=== PATIENT | male | born 1965 | race Caucasian/White ===

== ENCOUNTER 2016-09-26 11:04 | Outpatient (CLI) | payer OTHER ==
[2016-09-26 12:39] LABS: HEMOGLOBIN A1C 0.8 g/dL
== END 2016-09-26 11:05 | disposition home or self-care (01) ==
LOC: LAB.R 11:04
PROVIDERS: ATTEND Internal Medicine
DX: E11.65 Type 2 diabetes mellitus with hyperglycemia (principal); Z79.899 Other long term (current) drug therapy
CPT/HCPCS: 83036

== ENCOUNTER 2016-11-13 15:46 | Outpatient (CLI) | payer OTHER | END 2016-11-13 15:47 | disposition home or self-care (01) | LOC: LAB 15:46 | PROVIDERS: ATTEND Internal Medicine | DX: R06.00 Dyspnea, unspecified (principal) | CPT/HCPCS: 85379 ==

== ENCOUNTER 2016-11-13 16:59 | Emergency (ER) | payer OTHER ==
[2016-11-13] MEDS ORDERED: HYDROcod/ACETAM 5/325 MG TABLET PO STA (17:55)
[2016-11-13] MEDS ORDERED: HYDROcod/ACETAM 5/325 MG TABLET ONE (18:01)
[2016-11-13] MEDS ORDERED: IOPAMIDOL-300 100 ML VIAL IVP ONE (19:50)
[2016-11-13] MEDS ORDERED: ENOXAPARIN 100 MG/ML SYRINGE SUBQ STA (21:10)
[2016-11-13] MEDS ORDERED: ENOXAPARIN 100 MG/ML SYRINGE SUBQ ONE (21:16)
[2016-11-13] MEDS ORDERED: ENOXAPARIN 30 MG/0.3 ML SYRINGE SUBQ ONE (21:16)
== END 2016-11-13 21:36 | disposition home or self-care (01) ==
DX: I82.412 Acute embolism and thrombosis of left femoral vein (principal); R07.89 Other chest pain; R06.02 Shortness of breath; I10 Essential (primary) hypertension; I25.10 Atherosclerotic heart disease of native coronary artery without angina pectoris; Z95.1 Presence of aortocoronary bypass graft; I25.2 Old myocardial infarction; J45.909 Unspecified asthma, uncomplicated; E11.9 Type 2 diabetes mellitus without complications; K21.9 Gastro-esophageal reflux disease without esophagitis; M19.90 Unspecified osteoarthritis, unspecified site; M10.9 Gout, unspecified; E78.00 Pure hypercholesterolemia, unspecified; Z86.73 Personal history of transient ischemic attack (TIA), and cerebral infarction without residual deficits; Z79.82 Long term (current) use of aspirin
CPT/HCPCS: 36415; 71275; 80053; 83690; 84484; 85025; 85379; 85610; 85730; 93005; 93970; 96372; 99284; A9270; J1650; Q9967

== ENCOUNTER 2016-11-15 16:08 | Outpatient (CLI) | payer OTHER | END 2016-11-15 16:09 | disposition home or self-care (01) | LOC: LAB.R 16:08 | PROVIDERS: ATTEND Internal Medicine | DX: M18.9 Osteoarthritis of first carpometacarpal joint, unspecified (principal) | CPT/HCPCS: 85651; 86140; 86200; 86430 ==

== ENCOUNTER 2016-12-05 19:48 | Outpatient (CLI) | payer OTHER | END 2016-12-05 19:49 | disposition home or self-care (01) | LOC: DI 19:48 | PROVIDERS: ATTEND Nurse Practitioner Primary Care | DX: Z53.9 Procedure and treatment not carried out, unspecified reason (principal) ==

== ENCOUNTER 2016-12-05 20:41 | Observation (INO) | payer OTHER ==
[2016-12-05 21:12] LABS: BASOPHILS # (AUTO) 0.1 10^3/uL (0.0-0.1); BASOPHILS % (AUTO) 0.8 %; EOSINOPHILS # (AUTO) 0.1 10^3/uL (0.0-0.7); EOSINOPHILS % (AUTO) 1.6 %; HCT - HEMATOCRIT 39.3 % (42.0-52.0); HGB - HEMOGLOBIN 13.5 g/dL (14.0-18.0); LYMPHOCYTES # (AUTO) 1.5 10^3/uL (1.5-3.5); LYMPHOCYTES % (AUTO) 18.3 %; MEAN CORPUSCULAR HEMOGLOBIN 31.2 pg (27.0-31.0); MEAN CORPUSCULAR HGB CONC 34.5 g/dL (32.0-36.0); MEAN CORPUSCULAR VOLUME 90.4 fL (80.0-94.0); MEAN PLATELET VOLUME 7.6 fL (7.4-11.4); MONOCYTES # (AUTO) 0.9 10^3/uL (0.0-1.0); MONOCYTES % (AUTO) 10.4 %; NEUTROPHILS # (AUTO) 5.8 10^3/uL (1.5-6.6); NEUTROPHILS % (AUTO) 68.9 %; RED BLOOD COUNT 4.35 10^6/uL (4.70-6.10); RED CELL DISTRIBUTION WIDTH 13.2 % (12.0-15.0); UNCORRECTED WHITE BLOOD COUNT 8.4 x10^3/uL; WHITE BLOOD COUNT 8.4 x10^3/uL (4.8-10.8)
[2016-12-05 21:19] LABS: INR 1.5 (0.8-1.2)
[2016-12-05 21:26] LABS: PARTIAL THROMBOPLASTIN TIME 31.8 secs (24.9-33.3)
[2016-12-05] MEDS ORDERED: NITROGLYCERIN SL 0.4 MG TABLET SL ONE (21:26)
[2016-12-05 21:28] LABS: ALBUMIN/GLOBULIN RATIO 1.5 (1.0-2.2); BILIRUBIN,TOTAL 0.6 mg/dL (0.2-1.0); CALCIUM 9.2 mg/dL (8.5-10.3); CREATININE 1.2 mg/dL (0.6-1.2); POTASSIUM 3.6 mmol/L (3.5-5.0)
[2016-12-05] MEDS ORDERED: IOPAMIDOL-300 100 ML VIAL IVP ONE (21:52)
--- NOTE | 2016-12-05 22:11 | XRAY Preliminary Report ---
Exam: XR Chest 2 View PA/LAT IMPRESSION: 1. Previous sternotomy. Sternal wires intact. No cardiac enlargement. 2. Lingular atelectasis or scarring. No acute pulmonary process. [facility] SITE ID: [id number]
--- NOTE | 2016-12-05 22:19 | CT Preliminary Report ---
Exam: CT Chest Angio (PE) IMPRESSION: 1. Normal pulmonary CT angiogram. No pulmonary emboli. 2. Right lower lobe calcified granuloma. No acute pulmonary process. 3. Cardiac enlargement without adenopathy. Diffuse coronary artery disease. Previous sternotomy. 4. Fatty liver. No liver mass. Right-sided hydronephrosis and dilated proximal right ureter. Obstruct ing ureteral stone not excluded. Correlate clinically. Patient may benefit from CT KUB. [facility] SITE ID: [id number]
--- NOTE | 2016-12-05 22:33 | XRAY Report ---
EXAM: CHEST RADIOGRAPHY EXAM DATE: 12/05/2016 09:56 PM. CLINICAL HISTORY: Chest pain. COMPARISON: 04/09/2016. TECHNIQUE: 2 views. FINDINGS: Lungs/Pleura: No focal opacities evident. No pleural effusion. No pneumothorax. Normal volumes. Lingu lar subsegmental atelectasis and scarring. Mediastinum: Previous sternotomy. No cardiac enlargement. Other: None. IMPRESSION: 1. Previous sternotomy. Sternal wires intact. No cardiac enlargement. 2. Lingular atelectasis or scarring. No acute pulmonary process. [facility] Referring Provider Line: [phone] SITE ID: [id number]
--- NOTE | 2016-12-05 22:34 | CT Report ---
EXAM: CT ANGIOGRAM CHEST EXAM DATE: 12/05/2016 09:55 PM. CLINICAL HISTORY: Chest pain, history of DVT. COMPARISON: 04/09/2016. TECHNIQUE: Routine helical imaging was performed through the chest in the pulmonary arterial phase. I V Contrast: 100 mL of Isovue-300. Reconstructions: Coronal 3-D MIP reconstructions.Sagittal and coron al. In accordance with CT protocol optimization, one or more of the following dose reduction techniques w ere utilized for this exam: automated exposure control, adjustment of mA and/or KV based on patient s ize, or use of iterative reconstructive technique. FINDINGS: Pulmonary Arteries: Diagnostic quality: Adequate through the segmental arteries. No evidence for acute or chronic pulmona ry emboli. RV/LV is within normal limits. There is no interventricular septal bowing. There is no reflux of cont rast material in the IVC. Lungs/Pleura: No consolidation, nodules, or edema. No effusions or pneumothorax. Lingular subsegmenta l atelectasis. Additional right middle lobe atelectasis present. Calcified right lower lobe granuloma . Mediastinum: Previous sternotomy. Mild cardiac enlargement. No pericardial effusion. Extensive ramos ry artery disease is present. No bulky mediastinal or hilar adenopathy. Thoracic Aorta: Unremarkable. Upper Abdomen: Delayed enhancement of the right kidney with mild to moderate right hydronephrosis and dilated proximal right ureter. Fatty liver. No liver mass. Small incidental hiatal hernia. Other: Homogeneous enhancement of the thyroid gland. No thyroid nodule or mass. No supraclavicular or axillary lymphadenopathy identified. IMPRESSION: 1. Normal pulmonary CT angiogram. No pulmonary emboli. 2. Right lower lobe calcified granuloma. No acute pulmonary process. 3. Cardiac enlargement without adenopathy. Diffuse coronary artery disease. Previous sternotomy. 4. Fatty liver. No liver mass. Right-sided hydronephrosis and dilated proximal right ureter. Obstruct ing ureteral stone not excluded. Correlate clinically. Patient may benefit from CT KUB. [facility] Referring Provider Line: [phone] SITE ID: [id number]
--- NOTE | 2016-12-05 23:52 | Ultrasound Preliminary Report ---
Exam: US Duplex Ext Veins Bilateral IMPRESSION: No evidence for deep venous thrombosis bilaterally. Previous left common femoral vein DVT has resolved. [facility] SITE ID: [id number]
--- NOTE | 2016-12-05 23:54 | Ultrasound Report ---
EXAM: BILATERAL LOWER EXTREMITY VENOUS ULTRASOUND EXAM DATE: 12/05/2016 11:43 PM. CLINICAL HISTORY: Worsening pain and swelling. History of DVT. COMPARISON: 11/13/2016. TECHNIQUE: Real-time sonographic vascular imaging was performed by the tubular stock glass bulb machine former through the lower extremities utilizing both color-flow and Doppler spectral analysis. Multiple patient registration representative static i mages were saved for review. FINDINGS: Right: Common Femoral Vein (CFV): Normal. CFV-GSV Junction: Normal. Profunda Femoral Vein (PFV): Normal. Femoral Vein (FV) Prox: Normal. Femoral Vein (FV) Mid: Normal. Femoral Vein (FV) Dist: Limited visualization. Popliteal Vein: Normal. Posterior Tibial Veins: Not well seen. Peroneal Veins: Not well seen. Left: Common Femoral Vein (CFV): Normal. CFV-GSV Junction: Normal. Profunda Femoral Vein (PFV): Normal. Femoral Vein (FV) Prox: Normal. Femoral Vein (FV) Mid: Limited visualization. Femoral Vein (FV) Dist: Limited visualization. Popliteal Vein: Normal. Posterior Tibial Veins: Not well seen. Peroneal Veins: Not well seen. Other: Bilateral subcutaneous edema in the lower legs. IMPRESSION: No evidence for deep venous thrombosis bilaterally. Previous left common femoral vein DVT has resolved. [facility] Referring Provider Line: [phone] SITE ID: [id number]
--- NOTE | 2016-12-05 23:59 | ED Physician Documentation ---
PD HPI CHEST PAIN - Stated complaint Stated Complaint: CHEST PAIN - Chief complaint Chief Complaint: Cardiac - History obtained from History obtained from: Patient - History of Present Illness Timing - onset: How many hours ago (1) Timing - onset during: Rest Timing - details: Gradual onset, Intermittant Quality: Pressure, Sharp Location: Substernal, Left chest Worsened by: Exertion Associated symptoms: Shortness of air. No: Diaphoresis, Nausea, Vomiting, Palpitations Similar symptoms before: Work up / diagnostics, Treatment, Follow up Recently seen: Clinic - Additional information Additional information: Patient is a 51 year old male with significant cardiac history including multiple MIs and stents who is presenting to the emergency department for chest pain. Patient had been diagnosed with a dvt on his left leg, he developed right leg swelling so was sent for an ultrasound study. While waiting for the ultrasound patient developed chest pain and shortness of breath. Review of Systems Constitutional: denies: Fever, Chills Eyes: denies: Decreased vision, Photophobia Ears: denies: Ear pain Nose: denies: Congestion Throat: denies: Dental pain / toothache, Sore throat Cardiac: reports: Chest pain / pressure, Pedal edema. denies: Palpitations Respiratory: reports: Dyspnea. denies: Cough, Hemoptysis, Wheezing GI: denies: Abdominal Pain, Nausea, Vomiting : denies: Dysuria, Frequency, Hesitancy Skin: denies: Rash, Lesions Musculoskeletal: reports: Extremity swelling. denies: Neck pain, Back pain, Extremity pain Neurologic: denies: Generalized weakness, Focal weakness, Numbness PD PAST MEDICAL HISTORY - Past Medical History Past Medical History: Yes Cardiovascular: Hypertension, High cholesterol, Coronary artery disease, [place] Respiratory: Asthma Neuro: CVA, TIA Endocrine/Autoimmune: Type 2 diabetes GI: GERD : None HEENT: Chronic vision loss, Chronic hearing loss Psych: Depression Musculoskeletal: Osteoarthritis, Gout Derm: None - Past Surgical History Past Surgical History: Yes Cardiovascular: CABG, Coronary stent - Present Medications Home Medications: Ambulatory Orders Medication Instructions Recorded Confirmed Allopurinol 300 mg PO DAILY 09/28/12 12/06/16 Atorvastatin Calcium [Lipitor] 80 mg PO QPM 09/28/12 12/06/16 Carvedilol [Coreg] 18 mg PO BID 09/28/12 12/06/16 Glipizide [Glipizide Xl] 5 mg PO DAILY 09/28/12 12/06/16 Metformin HCl [Fortamet] 1,000 mg PO BID 09/28/12 12/06/16 Sertraline [Zoloft] 50 mg PO DAILY 09/28/12 12/06/16 traMADol [Ultram] 50 mg PO BID 09/28/12 12/06/16 traZODone [Desyrel] 150 mg PO HS PRN 09/28/12 12/06/16 Clopidogrel [Plavix] 75 mg PO DAILY 04/08/16 12/06/16 DULoxetine [Cymbalta] 30 mg PO DAILY 04/08/16 12/06/16 Gabapentin 400 mg PO Q6HR 04/08/16 12/06/16 Nitroglycerin [Nitrostat] 0.4 mg SL Q5MIN PRN #30 tablet 04/09/16 12/06/16 B Complex with Vitamin C 1 each PO DAILY 12/06/16 12/06/16 [B-Complex Plus Vitamin C] Hydrocodone/Acetaminophen 1 each PO DAILY 12/06/16 12/06/16 [Hydrocodon-Acetaminoph 7.5-325] Lidocaine Patch 5% [Lidoderm Patch] 1 each TOP DAILY 12/06/16 12/06/16 Multivitamin [Multiple Vitamins] 1 each PO DAILY 12/06/16 12/06/16 Rivaroxaban [Xarelto] 15 mg PO BID 12/06/16 12/06/16 diphenhydrAMINE [Benadryl] 25 mg PO Q4-6H PRN 12/06/16 12/06/16 - Allergies Allergies/Adverse Reactions: Allergies Allergy/AdvReac Type Severity Reaction Status Date / Time cephalexin monohydrate * Allergy Unknown Nausea Verified 12/05/16 20:58 [From Keflex] - Social History Does the pt smoke?: No Smoking Status: Never smoker Does the pt drink ETOH?: Yes Does the pt have substance abuse?: No - Immunizations Immunizations are current?: Yes - POLST Patient has POLST: No PD ED PE NORMAL - Vitals Vital signs reviewed: Yes - General General: Alert and oriented X 3, No acute distress - HEENT HEENT: Atraumatic, PERRL - Neck Neck: Supple, no meningeal sign - Cardiac Cardiac: RRR - Respiratory Respiratory: Clear bilaterally - Abdomen Abdomen: Soft, Non tender, Non distended - Derm Derm: Normal color, Warm and dry, No rash - Neuro Neuro: Alert and oriented X 3, stripper preliminary 2-12 intact, No motor deficit, No sensory deficit, Normal speech - Psych Psych: Normal mood, Normal affect PD ED PE EXPANDED - Cardiac Cardiac: Murmur Present - Respiratory Respiratory: No: Distress, Wheezing, Rhonchi, Rales - Extremities Extremities: Pedal edema bilateral Results - Vitals Vitals: Vital Signs - 24 hr 12/05/16 12/05/16 12/05/16 20:50 21:28 22:20 Temperature 37.1 C Heart Rate 71 70 72 Respiratory 18 16 19 Rate Blood Pressure 181/105 H 157/79 H 133/69 H O2 Saturation 99 99 99 12/05/16 12/05/16 22:48 23:37 Temperature 35.8 C L Heart Rate 71 64 Respiratory 17 12 Rate Blood Pressure 132/67 H 140/84 H O2 Saturation 99 98 Oxygen O2 Source Room air - EKG (time done) 2057 Rate: Rate (enter#) (67) Rhythm: NSR [place]: Normal Intervals: Normal ME QRS: Normal Ischemia: Normal ST segments Compare to prior EKG: Unchanged from prior EKG - Labs Labs: Laboratory Tests 12/05/16 12/05/16 12/05/16 20:55 20:55 20:55 WBC 8.4 RBC 4.35 L Hgb 13.5 L Hct 39.3 L MCV 90.4 MCH 31.2 H MCHC 34.5 RDW 13.2 Plt Count 248 MPV 7.6 Neut # 5.8 Lymph # 1.5 [place] # 0.9 Eos # 0.1 Baso # 0.1 Absolute Nucleated RBC 0.00 Nucleated RBCs 0.0 PT 17.0 H INR 1.5 H APTT 31.8 Sodium 140 Potassium 3.6 Chloride 105 Carbon Dioxide 27 Anion Gap 8.0 BUN 11 Creatinine 1.2 Estimated GFR (MDRD) 64 L Glucose 188 H Calcium 9.2 Total Bilirubin 0.6 AST 21 ALT 22 Alkaline Phosphatase 82 Troponin I B-Natriuretic Peptide Total Protein 7.0 Albumin 4.2 Globulin 2.8 Albumin/Globulin Ratio 1.5 Lipase 32 12/05/16 12/05/16 20:55 20:55 WBC RBC Hgb Hct MCV MCH MCHC RDW Plt Count MPV Neut # Lymph # [place] # Eos # Baso # Absolute Nucleated RBC Nucleated RBCs PT INR APTT Sodium Potassium Chloride Carbon Dioxide Anion Gap BUN Creatinine Estimated GFR (MDRD) Glucose Calcium Total Bilirubin AST ALT Alkaline Phosphatase Troponin I < 0.04 B-Natriuretic Peptide 117 H Total Protein Albumin Globulin Albumin/Globulin Ratio Lipase - Rads (name of study) ct pe Radiology: Final report received (no pe appreciated) duplex bilateral Radiology: Final report received (no signs of dvt) PD MEDICAL DECISION MAKING - ED course Complexity details: reviewed old records, reviewed results, re-evaluated patient , considered differential, d/w patient ED course: Patient was seen and examined at bedside. Iv access was gained and labs were drawn ekg was performed and was within normal limits. PE study wsa performed and was negative. Patient's chest pain returned and was treated with nitro which improved his pain. Patient's dvt studies were negative. Patient had an elevated HEART and MARY ANNE score. Patinet was placed in observation for further evaluation and care. Departure - Departure Disposition: ED Place in Observation Clinical Impression: Chest pain Condition: Stable Discharge Date/Time: 12/06/16 00:58
[2016-12-06] MEDS ORDERED: SODIUM CHLORIDE FLUSH 0.9% 10 ML SYRINGE IVP PRN (00:06)
[2016-12-06] MEDS ORDERED: ONDANSETRON 4 MG/2 ML VIAL IVP PRN (00:06)
[2016-12-06] MEDS ORDERED: MORPHINE 2 MG/ML SYRINGE IVP PRN (00:06)
[2016-12-06] MEDS ORDERED: HYDROcod/ACETAM 5/325 MG TABLET PO PRN (00:06)
[2016-12-06] MEDS ORDERED: ACETAMINOPHEN 325 MG TABLET PO PRN (00:06)
[2016-12-06] MEDS ORDERED: PROCHLORPERAZINE 10 MG/2 ML VIAL IVP PRN (00:06)
[2016-12-06] MEDS ORDERED: ZOLPIDEM 5 MG TABLET PO PRN (00:06)
[2016-12-06] MEDS ORDERED: NITROGLYCERIN SL 0.4 MG TABLET SL PRN (00:06)
[2016-12-06] MEDS ORDERED: NITROGLYCERIN SL 0.4 MG TABLET SL STA (00:13)
[2016-12-06] MEDS ORDERED: ENOXAPARIN 120 MG/0.8 ML SYRINGE SUBQ SCH ×2 (01:00→02:00)
[2016-12-06] MEDS ORDERED: traZODone 50 MG TABLET PO SCH (01:00)
[2016-12-06] MEDS: RIVAROXABAN 15 MG TABLET PO SCH ×2 (02:53→09:25)
[2016-12-06 03:17] LABS: BASOPHILS # (AUTO) 0.1 10^3/uL (0.0-0.1); BASOPHILS % (AUTO) 1.4 %; EOSINOPHILS # (AUTO) 0.2 10^3/uL (0.0-0.7); EOSINOPHILS % (AUTO) 2.3 %; HCT - HEMATOCRIT 38.5 % (42.0-52.0); HGB - HEMOGLOBIN 13.3 g/dL (14.0-18.0); LYMPHOCYTES # (AUTO) 1.3 10^3/uL (1.5-3.5); LYMPHOCYTES % (AUTO) 18.9 %; MEAN CORPUSCULAR HEMOGLOBIN 31.3 pg (27.0-31.0); MEAN CORPUSCULAR HGB CONC 34.5 g/dL (32.0-36.0); MEAN CORPUSCULAR VOLUME 90.6 fL (80.0-94.0); MEAN PLATELET VOLUME 7.2 fL (7.4-11.4); MONOCYTES # (AUTO) 0.7 10^3/uL (0.0-1.0); MONOCYTES % (AUTO) 9.2 %; NEUTROPHILS # (AUTO) 4.8 10^3/uL (1.5-6.6); NEUTROPHILS % (AUTO) 68.2 %; RED BLOOD COUNT 4.25 10^6/uL (4.70-6.10); RED CELL DISTRIBUTION WIDTH 13.5 % (12.0-15.0); UNCORRECTED WHITE BLOOD COUNT 7.1 x10^3/uL; WHITE BLOOD COUNT 7.1 x10^3/uL (4.8-10.8)
[2016-12-06 03:39] LABS: ALBUMIN/GLOBULIN RATIO 1.8 (1.0-2.2); BILIRUBIN,TOTAL 0.8 mg/dL (0.2-1.0); BUN - BLOOD UREA NITROGEN 12 mg/dL (6-20); CALCIUM 8.8 mg/dL (8.5-10.3); CARBON DIOXIDE - CO2 25 mmol/L (21-32); CHLORIDE 109 mmol/L (101-111); CHOL/HDL RATIO 4.7 (<5.0); CHOLESTEROL 145 mg/dL; CREATININE 0.6 mg/dL (0.6-1.2); GFR - MDRD 142 (>89); GLUCOSE 135 mg/dL (70-100); HDL CHOLESTEROL 31 mg/dL; LDL/HDL RATIO 2.9 (<3.6); POTASSIUM 3.4 mmol/L (3.5-5.0); SODIUM 141 mmol/L (135-145); TOTAL PROTEIN 6.6 g/dL (6.7-8.2); TRIGLYCERIDES 117 mg/dL; VLDL CHOLESTEROL 23 mg/dL
[2016-12-06 05:26] LABS: HEMOGLOBIN A1C 0.59 g/dL
--- NOTE | 2016-12-06 06:18 | HISTORY & PHYSICAL EXAMINATION ---
Chief Complaint - Chief Complaint Chief Complaint: Chest Pain History of Present Illness - Admitted From Admitted From:: Emergency Department - History Obtained From Records Reviewed: Yes History obtained from: Patient Exam Limitations: None - History of Present Illness HPI Comment/Other: Patient is a 51 yo male with past medical history of coronary artery disease status post 5 stents and CABG 3 years ago, hypertension, hyperlipidemia, diabetes, 4 TIAs and a cerebral vascular accident who presented to the emergency department with a chief complaint of chest pain. The patients states he has been having chest pain off and on now for the past month which has been increasing in frequency and intensity. She states that it can occur at rest or with exertion. He also states that over the last month he has also noticed increasing shortness of breath at rest and with exertion. He also states that he noticed increasing swelling in his left leg about 2 months ago but waited till just 3 weeks ago to see his PCP regarding this and was found to have a DVT for which he is being treated with xarelto. He states that despite the treatment he has noticed that the swelling has worsened and now he has begun to develop swelling in his right leg as well over the last 3 days. He saw his PCP yesterday and was scheduled for a doppler of his right lower extremity today. He states while he was in the waiting room he began having chest pain. He states that pain was a 9/10 located on the left side of the chest just under his breast. He states it was localized and non radiating. He states it was a stabbing type pain. The pain lasted for about 35-40 seconds but it has continued off and on since then. He told the manufacturing engineering technologist about the pain and was sent to the ED. The patient states he received some nitroglycerin in the ED and with that his pain immediately resolved. He admits to associated shortness of breath but no nausea or diaphoresis. He denies any palpitations or focal neurological symptoms. On presentation to the ED the patient was afebrile and hypertensive. His initial troponin and EKG were negative. He under went and CTA of his lungs which did not show any evidence of a PE. Dopplers of his lower extremities showed a resolved DVT in the left common femoral vein and no DVT in the right leg. Patient was placed in obs for serial trops, tele monitoring and echo. Review of Systems - Constitutional Constitutional: denies: Fatigue, Fever, Chills, Malaise, Weakness, Poor appetite , Diaphoresis, Weight gain, Weight loss - Eyes Eyes: denies: Pain, Irritation, Amaurosis, Blurred vision, Spots in vision, Field loss, Vision loss, Dipolpia - Ears, Nose & Throat Ears, Nose & Throat: denies: Ear pain, Hearing loss, Hearing aids, Tinnitus, Vertigo, Nasal pain, Nasal discharge, Nosebleeds, Nasal obstruction, Nasal congestion, Sore throat, Hoarseness - Cardiovascular Cariovascular: reports: Chest pain, Edema, Exertional dyspnea, Decr. exercise tolerance. denies: Palpitations, Lightheadedness, Syncope, Orthopnea - Respiratory Respiratory: reports: SOB at rest, SOB with exertion. denies: Cough, Sputum production, Wheezing, Snoring, Hemoptysis, Orthopnea, Apnea, Stridor, Pleuritic pain - Gastrointestinal Gastrointestinal: denies: Abdominal pain, Abdominal distention, Constipation, Diarrhea, Rectal bleeding, Black stools, Bloody stools, Nausea, Vomiting, Hugh blood emesis, Coffee grounds emesis - Genitourinary Genitourinary: denies: Dysuria, Frequency, Urgency, Hematuria - Musculoskeletal Musculoskeletal: denies: Muscle pain, Back pain, Muscle aches, Stiffness, Limited range of motion, Muscle weakness, Joint pain, Joint swelling - Integumentary Integumentary: denies: Rash, Lesions, Dryness - Neurological Neurological: denies: General weakness, Focal weakness, Headache, Dizziness, Numbness, Abnormal gait, Seizures, Slurred speech - Psychiatric Psychiatric: denies: Depression, Anxiety - Endocrine Endocrine: denies: Polyuria, Polydypsia, Polyphagia, Intolerance to cold, Intolerance to heat - Hematologic/Lymphatic Hematologic/Lymphatic: denies: Anemia, Bruising, Petechiae, Lymphadenopathy History - Past Medical History Cardiovascular: reports: Hypertension, High cholesterol, Coronary artery disease , [place] Respiratory: reports: Asthma Neuro: reports: CVA, TIA Endocrine/Autoimmune: reports: Type 2 diabetes GI: reports: GERD : reports: None HEENT: reports: Chronic vision loss, Chronic hearing loss Psych: reports: Depression Musculoskeletal: reports: Osteoarthritis, Gout Derm: reports: None MRSA Hx?: No - Past Surgical History General: reports: Other Cardiovascular: reports: CABG, Coronary stent - Family & Social History Family History: Father: Diabetes, Type 2, DC (Dad DC at 62, PGF DC, Paternal Uncle DC, Great PGF DC) Living arrangement: At home Living Situation: With spouse/s.o. Social History Notes: Lives in [place] with his , no kids. Originally from [place]. Works at [employer]. Dnies any drug use. Smoked 1/2 PPD from his teens till 10 years ago when he had his first DC. Drinks a 6 pack of beer in a week. - Substance History Use: Uses substance without health or social issues: NONE Abuse: Recurrent use of substance despite neg consequences: NONE Dependence: Experiences withdrawal or developed tolerances: NONE - POLST Patient has POLST: No POLST Status: Full Code Meds/Allgy - Home Medications Home Medications: Ambulatory Orders Medication Instructions Recorded Confirmed Allopurinol 300 mg PO DAILY 09/28/12 12/06/16 Atorvastatin Calcium [Lipitor] 80 mg PO QPM 09/28/12 12/06/16 Carvedilol [Coreg] 18 mg PO BID 09/28/12 12/06/16 Glipizide [Glipizide Xl] 5 mg PO DAILY 09/28/12 12/06/16 Metformin HCl [Fortamet] 1,000 mg PO BID 09/28/12 12/06/16 Sertraline [Zoloft] 50 mg PO DAILY 09/28/12 12/06/16 traMADol [Ultram] 50 mg PO BID 09/28/12 12/06/16 traZODone [Desyrel] 150 mg PO HS PRN 09/28/12 12/06/16 Clopidogrel [Plavix] 75 mg PO DAILY 04/08/16 12/06/16 DULoxetine [Cymbalta] 30 mg PO DAILY 04/08/16 12/06/16 Gabapentin 400 mg PO Q6HR 04/08/16 12/06/16 Nitroglycerin [Nitrostat] 0.4 mg SL Q5MIN PRN #30 tablet 04/09/16 12/06/16 B Complex with Vitamin C 1 each PO DAILY 12/06/16 12/06/16 [B-Complex Plus Vitamin C] Hydrocodone/Acetaminophen 1 each PO DAILY 12/06/16 12/06/16 [Hydrocodon-Acetaminoph 7.5-325] Lidocaine Patch 5% [Lidoderm Patch] 1 each TOP DAILY 12/06/16 12/06/16 Multivitamin [Multiple Vitamins] 1 each PO DAILY 12/06/16 12/06/16 Rivaroxaban [Xarelto] 15 mg PO BID 12/06/16 12/06/16 diphenhydrAMINE [Benadryl] 25 mg PO Q4-6H PRN 12/06/16 12/06/16 - Allergies Allergies/Adverse Reactions: Allergies Allergy/AdvReac Type Severity Reaction Status Date / Time cephalexin monohydrate * Allergy Unknown Nausea Verified 12/05/16 20:58 [From Keflex] Exam - Vital Signs Reviewed Vital Signs: Yes Vital Signs: Vital Signs x48h Pulse Resp BP Pulse Ox 12/06/16 00:56 63 15 138/72 H 97 12/06/16 00:09 66 17 135/77 H 99 - Physical Exam General Appearance: positive: No acute distress, Alert Eyes Bilateral: positive: Normal inspection, PERRL, EOMI, No lid inflammation, Conjunctivae nml, No scleral icterus ENT: positive: ENT inspection nml, Pharynx nml, No signs of dehydration. negative: Purulent nasal drainage, Pharyngeal erythema, Oral lesions Neck: positive: Nml inspection, Thyroid nml, No JVD, Trachea midline. negative : Thyromegaly, Lymphadenopathy (R), Lymphadenopathy (L) Respiratory: positive: Chest non-tender, No respiratory distress, Breath sounds nml. negative: Wheezes, Rales, Rhonchi Cardiovascular: positive: Regular rate & rhythm, No murmur, No gallop Peripheral Pulses: positive: 2+ Abdomen: positive: Non-tender, No organomegaly, Nml bowel sounds, No distention. negative: Guarding, Rebound, Hepatomegaly Back: positive: Nml inspection. negative: CVA tenderness (R), CVA tenderness (L ) Skin: positive: Color nml, No rash, Warm. negative: Cyanosis, Pallor Extremities: positive: Non-tender, Full ROM, Nml appearance, Pedal edema ( Bilateral L>R) Neurologic/Psychiatric: positive: Oriented x3, CN's nml (2-12), Motor nml, Sensation nml, Mood/affect nml Conclusion/Plan - Problem List (1) Chest pain Conclusion/Plan: Patient with multiple risk factor for cardiac chest pain including previous CAD , DM, HTN, strong family history and HPL Patient presented with atypical symptoms but improved with nitorglycerin Initial EKG and troponin were negative Plan: Serial trops Tele Echo Continue ASA, Plavix, Lipitor, CoReg Will need urgent stress set up as outpatient with PCP or with dairy department manager (2) DVT (deep venous thrombosis) Conclusion/Plan: Patient had left lower extremity DVT which has now resolved on repeat doppler Patient continues to have swelling of left and right LE Continue xarelto Qualifiers: DVT location: lower extremity Affected thrombotic vein of extremity: femoral Laterality: left Chronicity: acute Qualified Code(s): I82.412 - Acute embolism and thrombosis of left femoral vein (3) Diabetes Conclusion/Plan: On metformin and glipizide at home Check HbA1C Place on SS insulin and DM diet while hospitalized Monitor Blood glucose closely Qualifiers: Diabetes mellitus type: type 2 (4) Hypertension Conclusion/Plan: BP elevated on presentation but now better controlled Continue home BP meds Monitor BP Qualifiers: Hypertension type: essential hypertension Qualified Code(s): I10 - Essential (primary) hypertension (5) Hyperlipidemia Conclusion/Plan: Stable Continue lipitor Lipid profile - Lab Results Lab results reviewed: Yes Francesco Bones: 12/06/16 03:05 12/06/16 03:05 - Diagnostic Imaging Results Diagnostic Imaging Results: positive: Final report reviewed - EKG Results EKG Interpreted Independently: Yes Issues/Core Measures - Anticipated LOS Anticipated Stay Length: 2 or more midnights - DVT/VTE - Prophylaxis VTE/DVT Prophylaxis med ordered at admit?: Yes
[2016-12-06] MEDS: SODIUM CHLORIDE FLUSH 0.9% 10 ML SYRINGE IVP SCH ×2 (06:36→14:06)
[2016-12-06] MEDS: GABAPENTIN 400 MG CAPSULE PO SCH ×2 (06:46→14:06)
[2016-12-06] MEDS ORDERED: PANTOPRAZOLE 40 MG TABLET PO SCH (07:00)
[2016-12-06] MEDS ORDERED: traMADol 50 MG TABLET PO SCH (09:00)
[2016-12-06] MEDS ORDERED: DULoxetine 30 MG CAPSULE PO SCH (09:00)
[2016-12-06] MEDS ORDERED: SERTRALINE 50 MG TABLET PO SCH (09:00)
[2016-12-06] MEDS ORDERED: CLOPIDOGREL 75 MG TABLET PO SCH (09:00)
[2016-12-06] MEDS ORDERED: ALLOPURINOL 100 MG TABLET PO SCH (09:00)
[2016-12-06] MEDS ORDERED: CARVEDILOL 12.5 MG TABLET PO SCH ×2 (09:00)
[2016-12-06] MEDS ORDERED: ASPIRIN 325 MG TABLET PO SCH (09:00)
[2016-12-06] MEDS ORDERED: POLYETHYLENE GLYCOL 3350 17 GM PACKET PO SCH (09:00)
[2016-12-06] MEDS: HYDROcod/ACETAM 10 MG/325 MG TABLET PO PRN ×2 (09:24→14:09)
[2016-12-06] MEDS: INSULIN ASPART 300 UNIT/3 ML PEN SUBQ SCH ×2 (09:25→12:10)
--- NOTE | 2016-12-06 11:13 | Ultrasound Report ---
RENAL ULTRASOUND: 12/06/2016 CLINICAL INDICATION: Hydronephrosis seen on CT. TECHNIQUE: Real-time sonographic vascular imaging was performed by the occupational physician through the kidney s utilizing both color-flow and Doppler spectral analysis. Multiple new accounts representative static images wer e saved for review. FINDINGS: The right kidney measures 13.8 x 6.5 x 6.3 cm. There is moderate right hydronephrosis and hydroureter. No definite shadowing calculus or perinephric collection is seen. The left kidney measur es 14.1 x 5.9 x 5.8 cm. An 1.0 cm cyst is noted. No left hydronephrosis or hydroureter is present. Neither ureteral jet was visualized. The bladder volume was 321 mL. There is marked enlargement and h eterogeneity of the prostate, which appears to measure 22 x 19 x 15 cm. The spleen is enlarged, measu ring 18.6 cm. No free fluid is seen. IMPRESSION: 1. MODERATE RIGHT HYDRONEPHROSIS AND HYDROURETER, LIKELY RELATED TO THE ENLARGED PROSTATE. 2. MARKED PROSTATE ENLARGEMENT, MEASURING 22 CM. 3. SPLENOMEGALY. JOB #: [id number] EXT JOB #:[id number]
--- NOTE | 2016-12-06 15:07 | Discharge Plan ---
Discharge Plan Disposition: Home, Self Care Prescriptions: Carvedilol [Coreg] 25 mg PO BID #60 tablet Spironolactone 25 mg PO DAILY #30 tablet Diet: Low Sodium Activity Restrictions: No work til seen by Crdio Shower Restrictions: No Driving Restrictions: No Weight Bearing: Full Weight Additional Instructions or Follow Up instructions: No work til seen by Modern Greek Studies Professor Elevate legs when seated Note increase in Coreg dose and in new water pill Rx No Smoking: If you smoke, Please STOP! Call for help. Follow-up with: Lucius Garcia MD [Primary Care Provider] -
[2016-12-06 16:07] VITALS: BP 138/72
[2016-12-06] MEDS ORDERED: ATORVASTATIN 40 MG TABLET PO SCH (21:00)
== END 2016-12-06 15:55 | disposition home or self-care (01) ==
LOC: ED 20:41 → OBS 12-06 00:07
PROVIDERS: ADMIT Internal Medicine; ATTEND Internal Medicine
DX: R07.9 Chest pain, unspecified (principal); I25.10 Atherosclerotic heart disease of native coronary artery without angina pectoris; I10 Essential (primary) hypertension; E78.5 Hyperlipidemia, unspecified; Z95.1 Presence of aortocoronary bypass graft; Z95.5 Presence of coronary angioplasty implant and graft; E11.9 Type 2 diabetes mellitus without complications; Z86.73 Personal history of transient ischemic attack (TIA), and cerebral infarction without residual deficits; K21.9 Gastro-esophageal reflux disease without esophagitis; H54.7 Unspecified visual loss; H91.90 Unspecified hearing loss, unspecified ear; F32.9 Major depressive disorder, single episode, unspecified; M10.9 Gout, unspecified; M19.90 Unspecified osteoarthritis, unspecified site; I25.2 Old myocardial infarction; Z79.02 Long term (current) use of antithrombotics/antiplatelets; Z79.84 Long term (current) use of oral hypoglycemic drugs; Z79.899 Other long term (current) drug therapy; Z79.891 Long term (current) use of opiate analgesic; Z82.49 Family history of ischemic heart disease and other diseases of the circulatory system
CPT/HCPCS: 36415; 71020; 71275; 76775; 80053; 80061; 83036; 83690; 83880; 84484; 85025; 85610; 85730; 93005; 93306; 93970; 99234; 99284; 99285; A9270; J1650; Q9967

== ENCOUNTER 2017-01-17 09:36 | Emergency (ER) | payer OTHER ==
--- NOTE | 2017-01-17 09:55 | ED Physician Documentation ---
PD HPI DYSPNEA - Stated complaint Stated Complaint: SOA/CHEST PX - Chief complaint Chief Complaint: Resp - History obtained from History obtained from: Patient - History of Present Illness Timing - onset: Today, Last night Timing - onset during: Sleep, Rest Timing - duration: Hours (awoke with feeling of dyspnea this morning, without chest pain per se, but did have some tightness.) Timing - details: Abrupt onset, Waxing and waning Inciting event(s): Exercise (he thinks it might be from the msoke ambiently in the air, with history of some asthma, but does not usually use inhaler.). No: URI Improved by: Rest Worsened by: Exertion. No: Laying flat Associated symptoms: Wheezing, Chest pain / discomfort. No: Fever, Cough, Palpitations, Diaphoresis, Bilateral edema Similar symptoms before: Diagnosis (has had symptoms with both asthma and also has had 5 heart attacks in the past, with stents. Concerned about chest tightness.) Recently seen: Not recently seen Review of Systems Constitutional: denies: Fever, Chills Nose: denies: Rhinorrhea / runny nose, Congestion Throat: denies: Sore throat Cardiac: reports: Chest pain / pressure. denies: Palpitations, Pedal edema, Calf pain Respiratory: reports: Dyspnea, Wheezing. denies: Cough GI: denies: Abdominal Pain, Nausea, Vomiting, Diarrhea Skin: denies: Rash, Lesions Musculoskeletal: denies: Extremity swelling Neurologic: reports: Generalized weakness. denies: Focal weakness, Numbness, Altered mental status PD PAST MEDICAL HISTORY - Past Medical History Past Medical History: Yes Cardiovascular: Hypertension, High cholesterol, Coronary artery disease, [place] Respiratory: Asthma Neuro: CVA, TIA Endocrine/Autoimmune: Type 2 diabetes GI: GERD : None HEENT: Chronic vision loss, Chronic hearing loss Psych: Depression Musculoskeletal: Osteoarthritis, Gout Derm: None - Past Surgical History Past Surgical History: Yes General: Other Cardiovascular: CABG, Coronary stent - Present Medications Home Medications: Ambulatory Orders Medication Instructions Recorded Confirmed Allopurinol 300 mg PO DAILY 09/28/12 01/17/17 Atorvastatin Calcium [Lipitor] 80 mg PO QPM 09/28/12 01/17/17 Glipizide [Glipizide Xl] 5 mg PO DAILY 09/28/12 01/17/17 Metformin HCl [Fortamet] 1,000 mg PO BID 09/28/12 01/17/17 traMADol [Ultram] 50 mg PO BID 09/28/12 01/17/17 traZODone [Desyrel] 150 mg PO HS PRN 09/28/12 01/17/17 Clopidogrel [Plavix] 75 mg PO DAILY 04/08/16 01/17/17 DULoxetine [Cymbalta] 30 mg PO DAILY 04/08/16 01/17/17 Gabapentin 400 mg PO Q6HR 04/08/16 01/17/17 Nitroglycerin [Nitrostat] 0.4 mg SL Q5MIN PRN #30 tablet 04/09/16 01/17/17 B Complex with Vitamin C 1 each PO DAILY 12/06/16 01/17/17 [B-Complex Plus Vitamin C] Carvedilol [Coreg] 25 mg PO BID #60 tablet 12/06/16 01/17/17 Hydrocodone/Acetaminophen 1 each PO DAILY 12/06/16 01/17/17 [Hydrocodon-Acetaminoph 7.5-325] Lidocaine Patch 5% [Lidoderm Patch] 1 each TOP DAILY 12/06/16 01/17/17 Multivitamin [Multiple Vitamins] 1 each PO DAILY 12/06/16 01/17/17 Spironolactone 25 mg PO DAILY #30 tablet 12/06/16 01/17/17 Zolpidem [Ambien] 10 mg PO DAILY PM PRN 12/06/16 01/17/17 diphenhydrAMINE [Benadryl] 25 mg PO Q4-6H PRN 12/06/16 01/17/17 Albuterol Sulfate [Proair Hfa 2 puffs IH QID #1 hfa.aer.ad 01/17/17 Inhaler] Rivaroxaban [Xarelto] 20 mg PO DAILY 01/17/17 01/17/17 - Allergies Allergies/Adverse Reactions: Allergies Allergy/AdvReac Type Severity Reaction Status Date / Time cephalexin monohydrate * Allergy Unknown Nausea Verified 12/05/16 20:58 [From Keflex] - Social History Does the pt smoke?: No Smoking Status: Never smoker Does the pt drink ETOH?: Yes Does the pt have substance abuse?: No - Family History Family history: reports: Non contributory - Immunizations Immunizations are current?: Yes - POLST Patient has POLST: No POLST Status: Full Code PD ED PE NORMAL - Vitals Vital signs reviewed: Yes - General General: Alert and oriented X 3, No acute distress, Well developed/nourished - HEENT HEENT: Pharynx benign - Neck Neck: Supple, no meningeal sign, No adenopathy - Cardiac Cardiac: RRR, No murmur - Respiratory Respiratory: No: Clear bilaterally (some tightness with breathing, but no overt wheezing. ) - Abdomen Abdomen: Soft, Non tender - Back Back: No CVA TTP - Derm Derm: Normal color, Warm and dry, No rash - Extremities Extremities: No deformity, No tenderness to palpate, Normal ROM s pain, No calf tenderness / cord, Other (mild 1+ edema in ankles and lower legs; not tender. ) - Neuro Neuro: Alert and oriented X 3, No motor deficit, Normal speech Results - Vitals Vitals: Oxygen O2 Source Room air - EKG (time done) 09:51 Rate: Rate (enter#) (67) Rhythm: NSR [place]: Normal Intervals: Normal [place] QRS: Normal Ischemia: Normal ST segments. No: ST elevation c/w ischemia, ST depression - Labs Labs: Laboratory Tests 01/17/17 01/17/17 01/17/17 09:50 09:50 09:50 WBC 9.9 RBC 4.82 Hgb 14.8 Hct 42.9 MCV 89.0 MCH 30.6 MCHC 34.4 RDW 13.7 Plt Count 217 MPV 8.2 Neut # 8.3 H Lymph # 1.0 L [place] # 0.5 Eos # 0.1 Baso # 0.0 Absolute Nucleated RBC 0.00 Nucleated RBCs 0.0 Sodium 139 Potassium 3.8 Chloride 105 Carbon Dioxide 22 Anion Gap 12.0 BUN 12 Creatinine 0.8 Estimated GFR (MDRD) 102 Glucose 172 H Calcium 9.5 Magnesium 1.8 Total Bilirubin 0.5 AST 30 ALT 33 Alkaline Phosphatase 90 Troponin I < 0.04 B-Natriuretic Peptide Total Protein 7.4 Albumin 4.6 Globulin 2.8 Albumin/Globulin Ratio 1.6 Lipase 35 01/17/17 09:50 WBC RBC Hgb Hct MCV MCH MCHC RDW Plt Count MPV Neut # Lymph # [place] # Eos # Baso # Absolute Nucleated RBC Nucleated RBCs Sodium Potassium Chloride Carbon Dioxide Anion Gap BUN Creatinine Estimated GFR (MDRD) Glucose Calcium Magnesium Total Bilirubin AST ALT Alkaline Phosphatase Troponin I B-Natriuretic Peptide 16 Total Protein Albumin Globulin Albumin/Globulin Ratio Lipase PD MEDICAL DECISION MAKING - ED course Complexity details: reviewed results (no signs of cardiac cause.), re-evaluated patient (he feels better with neb treatment. ), considered differential, d/w patient Departure - Departure Disposition: Home, Self Care Clinical Impression: Dyspnea Qualifiers: Dyspnea type: shortness of breath Qualified Code(s): R06.02 - Shortness of breath Condition: Stable Record reviewed to determine appropriate education?: Yes Instructions: ED Dyspnea Shortness of Breath Follow-Up: Lucius Garcia MD [Primary Care Provider] - Prescriptions: Albuterol Sulfate [Proair Hfa Inhaler] 2 puffs IH QID #1 hfa.aer.ad Comments: Continue usual medications. Use albuterol inhaler 2 puffs 4 times a day with spacer for the next 7-8 days. Recheck if not improved over the next several days or if other symptoms develop. At this point no signs of congestive failure , heart attack or heart cause of the trouble breathing. Discharge Date/Time: 01/17/17 12:10
[2017-01-17] MEDS ORDERED: ALBUTEROL NEB 2.5 MG/3 ML INH STA (10:07)
[2017-01-17] MEDS ORDERED: NITROGLYCERIN SL 0.4 MG TABLET SL STA (10:08)
[2017-01-17 10:19] LABS: BASOPHILS % (AUTO) 0.3 %; EOSINOPHILS # (AUTO) 0.1 10^3/uL (0.0-0.7); EOSINOPHILS % (AUTO) 0.9 %; HCT - HEMATOCRIT 42.9 % (42.0-52.0); HGB - HEMOGLOBIN 14.8 g/dL (14.0-18.0); MEAN CORPUSCULAR HEMOGLOBIN 30.6 pg (27.0-31.0); MEAN CORPUSCULAR HGB CONC 34.4 g/dL (32.0-36.0); MEAN PLATELET VOLUME 8.2 fL (7.4-11.4); MONOCYTES # (AUTO) 0.5 10^3/uL (0.0-1.0); MONOCYTES % (AUTO) 4.7 %; NEUTROPHILS # (AUTO) 8.3 10^3/uL (1.5-6.6); NEUTROPHILS % (AUTO) 84.1 %; RED BLOOD COUNT 4.82 10^6/uL (4.70-6.10); RED CELL DISTRIBUTION WIDTH 13.7 % (12.0-15.0); UNCORRECTED WHITE BLOOD COUNT 9.9 x10^3/uL; WHITE BLOOD COUNT 9.9 x10^3/uL (4.8-10.8)
[2017-01-17] MEDS ORDERED: ALBUTEROL NEB 2.5 MG/3 ML INH ONE (10:23)
[2017-01-17 10:28] LABS: ALBUMIN/GLOBULIN RATIO 1.6 (1.0-2.2); BILIRUBIN,TOTAL 0.5 mg/dL (0.2-1.0); CALCIUM 9.5 mg/dL (8.5-10.3); CREATININE 0.8 mg/dL (0.6-1.2); MAGNESIUM 1.8 mg/dL (1.7-2.8); POTASSIUM 3.8 mmol/L (3.5-5.0); TOTAL PROTEIN 7.4 g/dL (6.7-8.2)
--- NOTE | 2017-01-17 10:59 | XRAY Report ---
EXAM: CHEST RADIOGRAPHY EXAM DATE: 01/17/2017 10:19 AM. CLINICAL HISTORY: Dyspnea this morning. COMPARISON: Chest x-ray 12/05/2016. TECHNIQUE: 2 views. FINDINGS: Lungs/Pleura: No focal opacities evident. No pleural effusion. No pneumothorax. Mildly diminished rosi g volumes compatible with poor inspiration. Mediastinum: Prior CABG. Other: Prior sternotomy. IMPRESSION: No consolidation evident. ROBE Referring Provider Line: [phone] SITE ID: [id number]
[2017-01-17] MEDS ORDERED: ONDANSETRON ODT 4 MG TABLET TL STA (11:37)
[2017-01-17] MEDS ORDERED: ONDANSETRON ODT 4 MG TABLET ONE (11:51)
[2017-01-17 11:53] VITALS: BP 140/83
== END 2017-01-17 12:10 | disposition home or self-care (01) ==
LOC: ED 09:36
DX: R06.02 Shortness of breath (principal); R07.9 Chest pain, unspecified; I10 Essential (primary) hypertension; I25.10 Atherosclerotic heart disease of native coronary artery without angina pectoris; Z95.1 Presence of aortocoronary bypass graft; Z79.01 Long term (current) use of anticoagulants; E78.00 Pure hypercholesterolemia, unspecified; I25.2 Old myocardial infarction; J45.909 Unspecified asthma, uncomplicated; E11.9 Type 2 diabetes mellitus without complications; Z79.84 Long term (current) use of oral hypoglycemic drugs; Z86.73 Personal history of transient ischemic attack (TIA), and cerebral infarction without residual deficits; M10.9 Gout, unspecified; K21.9 Gastro-esophageal reflux disease without esophagitis
CPT/HCPCS: 36415; 71020; 80053; 83690; 83735; 83880; 84484; 85025; 93005; 94664; 99283; J7613; Q0162

== ENCOUNTER 2017-04-11 13:03 | Outpatient (CLI) | payer OTHER ==
[2017-04-11 15:00] LABS: ALBUMIN/GLOBULIN RATIO 1.6 (1.0-2.2); BUN - BLOOD UREA NITROGEN 14 mg/dL (6-20); CALCIUM 9.4 mg/dL (8.5-10.3); CARBON DIOXIDE - CO2 25 mmol/L (21-32); CHLORIDE 101 mmol/L (101-111); CHOL/HDL RATIO 4.8 (<5.0); CHOLESTEROL 135 mg/dL; CREATININE 0.9 mg/dL (0.6-1.2); GFR - MDRD 89 (>89); GLUCOSE 150 mg/dL (70-100); HDL CHOLESTEROL 28 mg/dL; LDL/HDL RATIO 2.5 (<3.6); SODIUM 135 mmol/L (135-145); TOTAL PROTEIN 7.4 g/dL (6.7-8.2); TRIGLYCERIDES 185 mg/dL; VLDL CHOLESTEROL 37 mg/dL
[2017-04-11 15:30] LABS: HEMOGLOBIN A1C 0.69 g/dL
== END 2017-04-11 13:04 ==
LOC: LAB.R 13:03
PROVIDERS: ATTEND Internal Medicine
DX: E11.9 Type 2 diabetes mellitus without complications (principal); Z79.899 Other long term (current) drug therapy; E78.5 Hyperlipidemia, unspecified
CPT/HCPCS: 80053; 80061; 83036

== ENCOUNTER 2017-08-15 12:36 | Emergency (ER) | payer OTHER ==
--- NOTE | 2017-08-15 13:11 | ED Physician Documentation ---
PD HPI CHEST PAIN - Stated complaint Stated Complaint: CHEST PAIN/SOA - Chief complaint Chief Complaint: Cardiac - History obtained from History obtained from: Patient - History of Present Illness Timing - onset: How many weeks ago (few) Timing - duration: Days (more frequent lately), Weeks Timing - details: Intermittant Quality: Other (palpitations with feeling of pop or surge in chest briefly and intermittent. No chest pain, lightheaded, dyspnea. Mainly feels uncomfortable when happends often.) Location: Substernal Improved by: No: Rest Associated symptoms: Palpitations. No: Shortness of air, Diaphoresis, Nausea, Feeling faint / dizzy, General Weakness Similar symptoms before: No diagnosis (has been to PMD with Holter but did not capture any of the feeling duriing that duration.) Recently seen: Not recently seen Review of Systems Constitutional: denies: Fever, Chills Nose: denies: Rhinorrhea / runny nose, Congestion Throat: denies: Sore throat Cardiac: reports: Palpitations. denies: Chest pain / pressure, Pedal edema, Calf pain Respiratory: denies: Dyspnea, Cough, Wheezing GI: denies: Nausea, Vomiting, Diarrhea Skin: denies: Lesions Neurologic: denies: Generalized weakness, Focal weakness, Numbness, Near syncope PD PAST MEDICAL HISTORY - Past Medical History Past Medical History: Yes Cardiovascular: Hypertension, High cholesterol, Coronary artery disease, [place] Respiratory: Asthma Neuro: CVA, TIA Endocrine/Autoimmune: Type 2 diabetes GI: GERD : None HEENT: Chronic vision loss, Chronic hearing loss Psych: Depression Musculoskeletal: Osteoarthritis, Gout Derm: None - Past Surgical History Past Surgical History: Yes General: Other Cardiovascular: CABG, Coronary stent - Present Medications Home Medications: Ambulatory Orders Medication Instructions Recorded Confirmed Allopurinol 300 mg PO DAILY 09/28/12 01/17/17 Atorvastatin Calcium [Lipitor] 80 mg PO QPM 09/28/12 01/17/17 Glipizide [Glipizide Xl] 5 mg PO DAILY 09/28/12 01/17/17 Metformin HCl [Fortamet] 1,000 mg PO BID 09/28/12 01/17/17 traMADol [Ultram] 50 mg PO BID 09/28/12 01/17/17 traZODone [Desyrel] 150 mg PO HS PRN 09/28/12 01/17/17 Clopidogrel [Plavix] 75 mg PO DAILY 04/08/16 01/17/17 DULoxetine [Cymbalta] 30 mg PO DAILY 04/08/16 01/17/17 Gabapentin 400 mg PO Q6HR 04/08/16 01/17/17 Nitroglycerin [Nitrostat] 0.4 mg SL Q5MIN PRN #30 tablet 04/09/16 01/17/17 B Complex with Vitamin C 1 each PO DAILY 12/06/16 01/17/17 [B-Complex Plus Vitamin C] Carvedilol [Coreg] 25 mg PO BID #60 tablet 12/06/16 01/17/17 Hydrocodone/Acetaminophen 1 each PO DAILY 12/06/16 01/17/17 [Hydrocodone-Acetamin 7.5-325] Lidocaine Patch 5% [Lidoderm Patch] 1 each TOP DAILY 12/06/16 01/17/17 Multivitamin [Multiple Vitamins] 1 each PO DAILY 12/06/16 01/17/17 Spironolactone 25 mg PO DAILY #30 tablet 12/06/16 01/17/17 Zolpidem [Ambien] 10 mg PO DAILY PM PRN 12/06/16 01/17/17 diphenhydrAMINE [Benadryl] 25 mg PO Q4-6H PRN 12/06/16 01/17/17 Albuterol Sulfate [Proair Hfa 2 puffs IH QID #1 hfa.aer.ad 01/17/17 Inhaler] Rivaroxaban [Xarelto] 20 mg PO DAILY 01/17/17 01/17/17 Magnesium Oxide [Mag Ox] 400 mg PO DAILY #15 tablet 08/15/17 Potassium Chloride 10 meq PO DAILY #14 tablet.er 08/15/17 - Allergies Allergies/Adverse Reactions: Allergies Allergy/AdvReac Type Severity Reaction Status Date / Time cephalexin monohydrate * Allergy Unknown Nausea Verified 12/05/16 20:58 [From Keflex] - Social History Does the pt smoke?: No Smoking Status: Never smoker Does the pt drink ETOH?: Yes Does the pt have substance abuse?: No - Immunizations Immunizations are current?: Yes - POLST Patient has POLST: No POLST Status: Full Code PD ED PE NORMAL - Vitals Vital signs reviewed: Yes - General General: Alert and oriented X 3, No acute distress, Well developed/nourished - HEENT HEENT: PERRL, Pharynx benign - Neck Neck: Supple, no meningeal sign, No adenopathy, Thyroid normal - Cardiac Cardiac: RRR, No murmur - Respiratory Respiratory: Clear bilaterally - Back Back: No CVA TTP - Derm Derm: Normal color, Warm and dry - Extremities Extremities: No tenderness to palpate, Normal ROM s pain, No edema, No calf tenderness / cord - Neuro Neuro: Alert and oriented X 3, No motor deficit, Normal speech Results - Vitals Vitals: Oxygen O2 Source Room air - EKG (time done) 12:42 Rate: Rate (enter#) (63) Rhythm: NSR [place]: Normal Intervals: Normal [place] QRS: Normal Ischemia: Normal ST segments. No: ST elevation c/w ischemia, ST depression - Labs Labs: Laboratory Tests 08/15/17 08/15/17 08/15/17 13:00 13:00 13:00 WBC 9.4 RBC 4.61 L Hgb 13.8 L Hct 40.6 L MCV 88.1 MCH 30.0 MCHC 34.0 RDW 13.9 Plt Count 233 MPV 7.1 L Neut # 7.9 H Lymph # 0.9 L [place] # 0.5 Eos # 0.1 Baso # 0.1 Absolute Nucleated RBC 0.00 Nucleated RBC % 0.0 Sodium 138 Potassium 3.7 Chloride 104 Carbon Dioxide 25 Anion Gap 9.0 BUN 11 Creatinine 0.8 Estimated GFR (MDRD) 102 Glucose 159 H Calcium 8.9 Magnesium Total Bilirubin 0.9 AST 21 ALT 20 Alkaline Phosphatase 79 Troponin I < 0.04 B-Natriuretic Peptide Total Protein 6.8 Albumin 4.2 Globulin 2.6 Albumin/Globulin Ratio 1.6 Lipase 24 08/15/17 08/15/17 13:00 13:00 WBC RBC Hgb Hct MCV MCH MCHC RDW Plt Count MPV Neut # Lymph # [place] # Eos # Baso # Absolute Nucleated RBC Nucleated RBC % Sodium Potassium Chloride Carbon Dioxide Anion Gap BUN Creatinine Estimated GFR (MDRD) Glucose Calcium Magnesium 1.6 L Total Bilirubin AST ALT Alkaline Phosphatase Troponin I B-Natriuretic Peptide 171 H Total Protein Albumin Globulin Albumin/Globulin Ratio Lipase - Rads (name of study) chest xray Radiology: Prelim report reviewed (normal) PD MEDICAL DECISION MAKING - ED course Complexity details: considered differential (he is describing palpitations though could be short spurts afib or such. K and Mag are somwhat low, will suplement them. Monitor here without any ectopy and he has not felt any while here. ), d/w patient Departure - Departure Disposition: 01 Home, Self Care Clinical Impression: Heart palpitations, Hypomagnesemia, Hypokalemia Condition: Stable Record reviewed to determine appropriate education?: Yes Instructions: ED Palpitations Follow-Up: Lucius Garcia MD [Primary Care Provider] - Prescriptions: Magnesium Oxide [Mag Ox] 400 mg PO DAILY #15 tablet Potassium Chloride 10 meq PO DAILY #14 tablet.er Comments: Continue current medications. Most commonly the palpitations that you describe are benign but annoying. He can follow-up with your primary care regarding another possible cardiac/vascular sonographer over a few days to see if they can capture some of the episodes to verify. Your magnesium level is slightly low and your potassium level is on the low end of normal. Supplementing both of these to mid normal range can often help with the palpitations. I wrote for supplements for both of these for 2 weeks. Discharge Date/Time: 08/15/17 14:35
[2017-08-15 13:12] LABS: BASOPHILS # (AUTO) 0.1 10^3/uL (0.0-0.1); BASOPHILS % (AUTO) 0.6 %; EOSINOPHILS # (AUTO) 0.1 10^3/uL (0.0-0.7); EOSINOPHILS % (AUTO) 0.9 %; HGB - HEMOGLOBIN 13.8 g/dL (14.0-18.0); LYMPHOCYTES # (AUTO) 0.9 10^3/uL (1.5-3.5); LYMPHOCYTES % (AUTO) 9.5 %; MEAN CORPUSCULAR VOLUME 88.1 fL (80.0-94.0); MEAN PLATELET VOLUME 7.1 fL (7.4-11.4); MONOCYTES # (AUTO) 0.5 10^3/uL (0.0-1.0); MONOCYTES % (AUTO) 5.3 %; NEUTROPHILS # (AUTO) 7.9 10^3/uL (1.5-6.6); NEUTROPHILS % (AUTO) 83.7 %; PLT - PLATELET COUNT 233 10^3/uL (130-450); RED BLOOD COUNT 4.61 10^6/uL (4.70-6.10); RED CELL DISTRIBUTION WIDTH 13.9 % (12.0-15.0); WHITE BLOOD COUNT 9.4 x10^3/uL (4.8-10.8)
[2017-08-15 13:27] LABS: ALBUMIN 4.2 g/dL (3.2-5.5); ALBUMIN/GLOBULIN RATIO 1.6 (1.0-2.2); BILIRUBIN,TOTAL 0.9 mg/dL (0.2-1.0); CALCIUM 8.9 mg/dL (8.5-10.3); CREATININE 0.8 mg/dL (0.6-1.2); TOTAL PROTEIN 6.8 g/dL (6.7-8.2)
[2017-08-15] MEDS ORDERED: HYDROcod/ACETAM 7.5 MG/325 MG TABLET PO STA (13:28)
[2017-08-15] MEDS ORDERED: GABAPENTIN 100 MG CAPSULE PO STA (13:28)
[2017-08-15] MEDS ORDERED: GABAPENTIN 400 MG CAPSULE PO STA (13:41)
--- NOTE | 2017-08-15 13:42 | XRAY Preliminary Report ---
Exam: XR CHEST 2 VIEW X-RAY IMPRESSION: Postsurgical. No acute disease. [facility] SITE ID: [id number]
--- NOTE | 2017-08-15 13:42 | XRAY Report ---
EXAM: CHEST RADIOGRAPHY EXAM DATE: 08/15/2017 01:22 PM. CLINICAL HISTORY: Palpitations, dyspnea, fatigue COMPARISON: 01/17/2017. TECHNIQUE: 2 views. FINDINGS: Lungs/Pleura: Minimal postsurgical scarring on the left. No focal consolidation to suggest pneumonia. No edema or p leural effusion. Mediastinum: Postsurgical. Normal heart size accounting for technique. Other: None. IMPRESSION: Postsurgical. No acute disease. [facility] Referring Provider Line: [phone] SITE ID: [id number]
[2017-08-15] MEDS ORDERED: POTASSIUM BICARB 25 MEQ TABLET PO STA (14:08)
[2017-08-15] MEDS ORDERED: MAGNESIUM OXIDE 400 MG TABLET PO STA (14:08)
[2017-08-15 14:57] VITALS: BP 136/85
== END 2017-08-15 14:35 | disposition home or self-care (01) ==
LOC: ED 12:36
DX: R00.2 Palpitations (principal); E83.42 Hypomagnesemia; E87.6 Hypokalemia; I25.10 Atherosclerotic heart disease of native coronary artery without angina pectoris; I25.2 Old myocardial infarction; I10 Essential (primary) hypertension; E11.9 Type 2 diabetes mellitus without complications; Z79.84 Long term (current) use of oral hypoglycemic drugs; Z95.1 Presence of aortocoronary bypass graft; Z95.5 Presence of coronary angioplasty implant and graft
CPT/HCPCS: 36415; 71046; 80053; 83690; 83735; 83880; 84484; 85025; 93005; 99283; 99284; A9270

== ENCOUNTER 2018-01-05 10:37 | Outpatient (CLI) | payer MEDICAID | END 2018-01-05 10:38 | disposition critical access hospital (66) | LOC: EMS 10:37 | PROVIDERS: ATTEND Surgery | DX: R06.02 Shortness of breath (principal); R68.83 Chills (without fever); R11.2 Nausea with vomiting, unspecified | CPT/HCPCS: A0425; A0427; A0999 ==

== ENCOUNTER 2018-01-05 10:48 | Emergency (ER) | payer MEDICAID, OTHER ==
[2018-01-05] MEDS ORDERED: IOPAMIDOL-300 100 ML VIAL IVP ONE ×2 (10:49→12:11)
--- NOTE | 2018-01-05 11:07 | ED Physician Documentation ---
PD HPI DYSPNEA - Stated complaint Stated Complaint: SOA - Chief complaint Chief Complaint: Resp - History obtained from History obtained from: Patient, EMS - History of Present Illness Timing - onset: How many hours ago (4), Today Timing - onset during: Rest Timing - duration: Hours (4) Timing - details: Gradual onset, Still present Inciting event(s): URI, Exposure (ie smoke) Improved by: Inhaler/neb, Rest Worsened by: Exertion, Coughing Associated symptoms: Cough, Unilateral edema, Other (chills) Similar symptoms before: Diagnosis (RAD URI) Recently seen: Not recently seen - Additional information Additional information: 52-year-old male with a history of hypertension coronary disease asthma CVA TIA diabetes and a prior DVT has developed increasing difficulty breathing and this morning he felt that he was forgetting to breathe. He became concerned. He has been having sweats the past several days and he has had a bit more swelling in his left ankle than usual and a bit of redness associated with this. Review of Systems Constitutional: reports: Chills, Fatigue, Sweats. denies: Fever Eyes: denies: Decreased vision Ears: denies: Ear pain Nose: reports: Congestion. denies: Rhinorrhea / runny nose Throat: denies: Sore throat Cardiac: reports: Pedal edema, Calf pain. denies: Chest pain / pressure, Palpitations Respiratory: reports: Dyspnea, Cough GI: denies: Nausea, Vomiting : denies: Dysuria Skin: denies: Rash Musculoskeletal: reports: Extremity pain. denies: Neck pain, Back pain Neurologic: denies: Generalized weakness, Focal weakness, Numbness PD PAST MEDICAL HISTORY - Past Medical History Cardiovascular: Hypertension, High cholesterol, Coronary artery disease, [place] Respiratory: Asthma Endocrine/Autoimmune: Type 2 diabetes GI: GERD : None HEENT: Chronic vision loss, Chronic hearing loss Psych: Depression Musculoskeletal: Osteoarthritis, Gout Derm: None - Past Surgical History Past Surgical History: Yes General: Other Cardiovascular: CABG, Coronary stent - Present Medications Home Medications: Ambulatory Orders Medication Instructions Recorded Confirmed Allopurinol 300 mg PO DAILY 09/28/12 01/17/17 Atorvastatin Calcium [Lipitor] 80 mg PO QPM 09/28/12 01/17/17 Glipizide [Glipizide Xl] 5 mg PO DAILY 09/28/12 01/17/17 Metformin HCl [Fortamet] 1,000 mg PO BID 09/28/12 01/17/17 traZODone [Desyrel] 150 mg PO HS PRN 09/28/12 01/17/17 Clopidogrel [Plavix] 75 mg PO DAILY 04/08/16 01/17/17 DULoxetine [Cymbalta] 30 mg PO DAILY 04/08/16 01/17/17 Gabapentin 400 mg PO Q6HR 04/08/16 01/17/17 Nitroglycerin [Nitrostat] 0.4 mg SL Q5MIN PRN #30 tablet 04/09/16 01/17/17 B Complex with Vitamin C 1 each PO DAILY 12/06/16 01/17/17 [B-Complex Plus Vitamin C] Carvedilol [Coreg] 25 mg PO BID #60 tablet 12/06/16 01/17/17 Hydrocodone/Acetaminophen 1 each PO DAILY 12/06/16 01/17/17 [Hydrocodone-Acetamin 7.5-325] Lidocaine Patch 5% [Lidoderm Patch] 1 each TOP DAILY 12/06/16 01/17/17 Multivitamin [Multiple Vitamins] 1 each PO DAILY 12/06/16 01/17/17 Spironolactone 25 mg PO DAILY #30 tablet 12/06/16 01/17/17 Zolpidem [Ambien] 10 mg PO DAILY PM PRN 12/06/16 01/17/17 diphenhydrAMINE [Benadryl] 25 mg PO Q4-6H PRN 12/06/16 01/17/17 Albuterol Sulfate [Proair Hfa 2 puffs IH QID #1 hfa.aer.ad 01/17/17 Inhaler] Magnesium Oxide [Mag Ox] 400 mg PO DAILY #15 tablet 08/15/17 Amox/Clav 875/125 [Augmentin] 1 each PO Q12H #14 tablet 01/05/18 Finasteride 5 mg PO DAILY 01/05/18 01/05/18 Tamsulosin HCl [Flomax] 1 cap PO DAILY 01/05/18 01/05/18 - Allergies Allergies/Adverse Reactions: Allergies Allergy/AdvReac Type Severity Reaction Status Date / Time cephalexin monohydrate * Allergy Unknown Nausea Verified 01/05/18 11:01 [From [employer]] - Social History Does the pt smoke?: No Smoking Status: Never smoker Does the pt drink ETOH?: Yes Does the pt have substance abuse?: No - Immunizations Immunizations are current?: Yes - POLST Patient has POLST: No POLST Status: Full Code PD ED PE NORMAL - Vitals Vital signs reviewed: Yes (hypertensive and tachypneic) - General General: Alert and oriented X 3, Well developed/nourished, Other (appears diaphoretic and mildly tachypneic at rest) - HEENT HEENT: Atraumatic, PERRL, EOMI - Neck Neck: Supple, no meningeal sign, No bony TTP - Cardiac Cardiac: RRR, No murmur - Respiratory Respiratory: Other (tachypneic at rest ) - Abdomen Abdomen: Soft, Non tender - Back Back: No CVA TTP, No spinal TTP - Derm Derm: Normal color, Warm and dry, No rash - Extremities Extremities: Other (There is deformity and swelling to the left calf, previously existing, secondary to fracture 4 years ago. There is mild overyling erythema to the anterior portion. There is a superficial ulcer to the plantar surface of the left foot laterally and this is not draining. ) - Neuro Neuro: Alert and oriented X 3, wood club neck whipper 2-12 intact, No motor deficit, No sensory deficit, Normal speech Eye Opening: Spontaneous Motor: Obeys Commands Verbal: Oriented GCS Score: 15 - Psych Psych: Normal mood, Normal affect Results - Vitals Vitals: Vital Signs - 24 hr 01/05/18 01/05/18 10:51 13:37 Temperature 35 C L 36.7 C Heart Rate 60 69 Respiratory 22 20 Rate Blood Pressure 149/103 H 136/80 H O2 Saturation 100 100 Oxygen O2 Source Room air - Labs Labs: Laboratory Tests 01/05/18 01/05/18 01/05/18 11:15 11:15 11:15 WBC 6.2 RBC 4.46 L Hgb 13.3 L Hct 38.9 L MCV 87.2 MCH 29.9 MCHC 34.3 RDW 14.7 Plt Count 225 MPV 7.4 Neut # (Auto) 4.6 Lymph # (Auto) 0.8 L [place] # (Auto) 0.7 Eos # (Auto) 0.1 Baso # (Auto) 0.0 Absolute Nucleated RBC 0.00 Nucleated RBC % 0.0 Sodium 136 Potassium 4.1 Chloride 100 L Carbon Dioxide 27 Anion Gap 9.0 BUN 16 Creatinine 0.8 Estimated GFR (MDRD) 102 Glucose 172 H Calcium 10.0 Total Bilirubin 0.7 AST 18 ALT 15 Alkaline Phosphatase 120 Troponin I < 0.04 Total Protein 7.5 Albumin 4.4 Globulin 3.1 Albumin/Globulin Ratio 1.4 Lipase 28 PD MEDICAL DECISION MAKING - ED course Complexity details: reviewed old records, reviewed results, re-evaluated patient , considered differential, d/w patient ED course: for 52-year-old male who came to the emergency department because of some shortness of breath today and a sensation that he was not remembering to breathe. When he combined this with the fact that he was feeling chills he became concerned and called the ambulance. He arrives to the emergency department without respiratory distress and on examination he has clear lungs. He has swelling to the left lower extremity and there is some extra redness to that area that is not normally there. Because of his prior DVT CT angios of the chest was done and this is without evidence of pathology in the lungs with the exception of pre-existing masses. I suspect his chills are a result of cellulitis that has developed on the left lower extremity and he also has a diabetic ulcer which is superficial on the sole of the foot on the left side and this does not appear acutely infected. Will place him on some antibiotic for cellulits. - Sepsis Event Vital Signs: Vital Signs - 24 hr 01/05/18 01/05/18 10:51 13:37 Temperature 35 C L 36.7 C Heart Rate 60 69 Respiratory 22 20 Rate Blood Pressure 149/103 H 136/80 H O2 Saturation 100 100 Oxygen O2 Source Room air Departure - Departure Disposition: 01 Home, Self Care Clinical Impression: Cellulitis Qualifiers: Site of cellulitis: extremity Site of cellulitis of extremity: lower extremity Laterality: left Qualified Code(s): L03.116 - Cellulitis of left lower limb Condition: Stable Instructions: ED Infec Skin Cellulitis Follow-Up: Lucius Garcia MD [Primary Care Provider] - Prescriptions: Amox/Clav 875/125 [Augmentin] 1 each PO Q12H #14 tablet Discharge Date/Time: 01/05/18 13:38
[2018-01-05] MEDS ORDERED: IOPAMIDOL-300 100 ML VIAL ONE (11:15)
[2018-01-05 11:23] LABS: BASOPHILS % (AUTO) 0.6 %; EOSINOPHILS # (AUTO) 0.1 10^3/uL (0.0-0.7); HGB - HEMOGLOBIN 13.3 g/dL (14.0-18.0); LYMPHOCYTES # (AUTO) 0.8 10^3/uL (1.5-3.5); LYMPHOCYTES % (AUTO) 12.6 %; MEAN CORPUSCULAR HEMOGLOBIN 29.9 pg (27.0-31.0); MEAN CORPUSCULAR HGB CONC 34.3 g/dL (32.0-36.0); MEAN CORPUSCULAR VOLUME 87.2 fL (80.0-94.0); MEAN PLATELET VOLUME 7.4 fL (7.4-11.4); MONOCYTES # (AUTO) 0.7 10^3/uL (0.0-1.0); MONOCYTES % (AUTO) 10.7 %; NEUTROPHILS # (AUTO) 4.6 10^3/uL (1.5-6.6); NEUTROPHILS % (AUTO) 74.1 %; PLT - PLATELET COUNT 225 10^3/uL (130-450); RED BLOOD COUNT 4.46 10^6/uL (4.70-6.10); RED CELL DISTRIBUTION WIDTH 14.7 % (12.0-15.0); WHITE BLOOD COUNT 6.2 x10^3/uL (4.8-10.8)
[2018-01-05 11:34] LABS: ALBUMIN 4.4 g/dL (3.2-5.5); ALBUMIN/GLOBULIN RATIO 1.4 (1.0-2.2); BILIRUBIN,TOTAL 0.7 mg/dL (0.2-1.0); CREATININE 0.8 mg/dL (0.6-1.2); TOTAL PROTEIN 7.5 g/dL (6.7-8.2)
--- NOTE | 2018-01-05 12:53 | CT Report ---
Reason: soa, leg swelling prior DVT Procedure Date: 01/05/2018 Accession Number: [id number] / [id number] Procedure: CT - Chest Angio (PE) CPT Code: FULL RESULT: EXAM: CT ANGIOGRAM CHEST EXAM DATE: 01/05/2018 12:09 PM. CLINICAL HISTORY: Chest pain, shortness of breath, history of DVT. COMPARISON: 12/05/2016. TECHNIQUE: Routine helical imaging was performed through the chest in the pulmonary arterial phase. IV Contrast: 80 cc Isovue-300. Reconstructions: Coronal 3-D MIP reconstructions.Sagittal and coronal. In accordance with CT protocol optimization, one or more of the following dose reduction techniques were utilized for this exam: automated exposure control, adjustment of mA and/or KV based on patient size, or use of iterative reconstructive technique. FINDINGS: Pulmonary Arteries: Diagnostic quality: Motion artifact in the lower lung field, greatest in the region of the lingular segment left upper lobe, decreases sensitivity for detecting small and peripheral emboli in the region. Otherwise, adequate through the segmental arteries. No evidence for acute or chronic pulmonary emboli. RV/LV is within normal limits. There is no interventricular septal bowing. There is no reflux of contrast material in the IVC. Lungs/Pleura: Right lower lobe calcified nodule/granuloma is again demonstrated. Lingular segment atelectasis or scarring is redemonstrated. Decreased right middle lobe atelectasis. New area mild right lower lobe atelectasis. No definite acute infiltrate. No pleural effusion. No pneumothorax. 3 x 5 mm noncalcified left lower lobe peripheral pulmonary nodule (5/88) and 2 smaller peripheral left lower lobe nodules (5/99, 100) are without significant change. Mediastinum: Borderline correct enlargement. No pericardial effusion. Substantial coronary artery calcifications redemonstrated. Status post median sternotomy. Through adjacent soft tissue nodule/masses are demonstrated within the superior mediastinum centered to left midline, anterior to the arch vessels and below the left thyroid. The largest measures 2.1 x 2.8 cm and contains an internal calcification. This is without change from 12/05/2016, favoring a benign etiology. However, it has increased compared with 04/23/2007 when the dominant nodule measured 1.4 x 1.6 cm. Thoracic Aorta: Unremarkable. Upper Abdomen: Unremarkable. Other: None. IMPRESSION: 1. Normal pulmonary CT angiogram. No pulmonary emboli. 2. No definite acute abnormality or other substantial change. 11/15/2016. 3. Soft tissue nodule/masses within the superior mediastinum below the left thyroid lobe are without change compared to 12/05/2016, but progressed compared with 04/23/2007. RADIA
[2018-01-05 13:37] VITALS: BP 136/80
== END 2018-01-05 13:38 | disposition home or self-care (01) ==
LOC: EDUNIT# → ED 10:48
DX: L03.116 Cellulitis of left lower limb (principal); E11.621 Type 2 diabetes mellitus with foot ulcer; L97.529 Non-pressure chronic ulcer of other part of left foot with unspecified severity; Z79.84 Long term (current) use of oral hypoglycemic drugs; J45.909 Unspecified asthma, uncomplicated; R91.8 Other nonspecific abnormal finding of lung field; Z86.718 Personal history of other venous thrombosis and embolism; I10 Essential (primary) hypertension; I25.10 Atherosclerotic heart disease of native coronary artery without angina pectoris; Z95.1 Presence of aortocoronary bypass graft; Z95.5 Presence of coronary angioplasty implant and graft; I25.2 Old myocardial infarction; Z86.73 Personal history of transient ischemic attack (TIA), and cerebral infarction without residual deficits; Z79.02 Long term (current) use of antithrombotics/antiplatelets
CPT/HCPCS: 36415; 71275; 80053; 83690; 84484; 85025; 99283; Q9967

== ENCOUNTER 2018-02-13 15:14 | Emergency (ER) | payer MEDICAID ==
[2018-02-13] MEDS ORDERED: ASPIRIN CHEW 81 MG TABLET PO STA (15:22)
--- NOTE | 2018-02-13 15:31 | ED Physician Documentation ---
PD HPI CHEST PAIN - Stated complaint Stated Complaint: CP - Chief complaint Chief Complaint: Cardiac - History obtained from History obtained from: Patient - History of Present Illness Timing - onset: Last night Timing - duration: Seconds Timing - details: Abrupt onset, Intermittant Quality: Sharp. No: Like prior ACS Location: Left chest Radiation: Neck, Back Improved by: No: Rest Worsened by: No: Exertion, Inspiration, Movement, Palpation Associated symptoms: No: Shortness of air, Nausea, Feeling faint / dizzy, Palpitations, Cough Similar symptoms before: Has not had sx before (he says it does not feel like his VT pain he has had in the past.) Review of Systems Constitutional: denies: Fever, Chills, Myalgias Nose: denies: Rhinorrhea / runny nose, Congestion Throat: denies: Sore throat Cardiac: reports: Chest pain / pressure. denies: Palpitations, Pedal edema, Calf pain Respiratory: denies: Dyspnea, Cough GI: denies: Abdominal Pain (but does have feeling of increased gassiness the past week.), Nausea, Vomiting, Diarrhea Skin: denies: Rash, Lesions Neurologic: denies: Generalized weakness, Focal weakness, Numbness, Near syncope PD PAST MEDICAL HISTORY - Past Medical History Cardiovascular: Hypertension, High cholesterol, Coronary artery disease, [place] Respiratory: Asthma Endocrine/Autoimmune: Type 2 diabetes GI: GERD : None HEENT: Chronic vision loss, Chronic hearing loss Psych: Depression Musculoskeletal: Osteoarthritis, Gout Derm: None - Past Surgical History Past Surgical History: Yes General: Other Cardiovascular: CABG, Coronary stent - Present Medications Home Medications: Ambulatory Orders Medication Instructions Recorded Confirmed Allopurinol 300 mg PO DAILY 09/28/12 01/17/17 Atorvastatin Calcium [Lipitor] 80 mg PO QPM 09/28/12 01/17/17 Glipizide [Glipizide Xl] 5 mg PO DAILY 09/28/12 01/17/17 Metformin HCl [Fortamet] 1,000 mg PO BID 09/28/12 01/17/17 traZODone [Desyrel] 150 mg PO HS PRN 09/28/12 01/17/17 Clopidogrel [Plavix] 75 mg PO DAILY 04/08/16 01/17/17 DULoxetine [Cymbalta] 30 mg PO DAILY 04/08/16 01/17/17 Gabapentin 400 mg PO Q6HR 04/08/16 01/17/17 Nitroglycerin [Nitrostat] 0.4 mg SL Q5MIN PRN #30 tablet 04/09/16 01/17/17 B Complex with Vitamin C 1 each PO DAILY 12/06/16 01/17/17 [B-Complex Plus Vitamin C] Carvedilol [Coreg] 25 mg PO BID #60 tablet 12/06/16 01/17/17 Hydrocodone/Acetaminophen 1 each PO DAILY 12/06/16 01/17/17 [Hydrocodone-Acetamin 7.5-325] Lidocaine Patch 5% [Lidoderm Patch] 1 each TOP DAILY 12/06/16 01/17/17 Multivitamin [Multiple Vitamins] 1 each PO DAILY 12/06/16 01/17/17 Spironolactone 25 mg PO DAILY #30 tablet 12/06/16 01/17/17 Zolpidem [Ambien] 10 mg PO DAILY PM PRN 12/06/16 01/17/17 diphenhydrAMINE [Benadryl] 25 mg PO Q4-6H PRN 12/06/16 01/17/17 Albuterol Sulfate [Proair Hfa 2 puffs IH QID #1 hfa.aer.ad 01/17/17 Inhaler] Magnesium Oxide [Mag Ox] 400 mg PO DAILY #15 tablet 08/15/17 Amox/Clav 875/125 [Augmentin] 1 each PO Q12H #14 tablet 01/05/18 Finasteride 5 mg PO DAILY 01/05/18 01/05/18 Tamsulosin HCl [Flomax] 1 cap PO DAILY 01/05/18 01/05/18 Dexamethasone [Decadron] 4 mg PO DAILY #5 tablet 02/13/18 Famotidine [Pepcid] 20 mg PO ONCE #30 tablet 02/13/18 - Allergies Allergies/Adverse Reactions: Allergies Allergy/AdvReac Type Severity Reaction Status Date / Time cephalexin monohydrate * Allergy Unknown Nausea Verified 02/13/18 15:20 [From Keflex] - Social History Does the pt smoke?: No Smoking Status: Never smoker Does the pt drink ETOH?: Yes Does the pt have substance abuse?: No - Immunizations Immunizations are current?: Yes - POLST Patient has POLST: No POLST Status: Full Code PD ED PE NORMAL - Vitals Vital signs reviewed: Yes - General General: Alert and oriented X 3, No acute distress, Well developed/nourished - HEENT HEENT: Pharynx benign - Neck Neck: Supple, no meningeal sign, No adenopathy - Cardiac Cardiac: RRR, No murmur - Respiratory Respiratory: Clear bilaterally, Other (no chestwall tenderness nor rash. ) - Abdomen Abdomen: Soft, Non tender - Back Back: No CVA TTP - Derm Derm: Normal color, Warm and dry, No rash - Extremities Extremities: No deformity, No tenderness to palpate, Normal ROM s pain, No edema, No calf tenderness / cord - Neuro Neuro: Alert and oriented X 3, No motor deficit, Normal speech Results - Vitals Vitals: Vital Signs - 24 hr 02/13/18 15:14 Temperature 36.5 C Heart Rate 70 Respiratory 14 Rate Blood Pressure 160/104 H O2 Saturation 97 Oxygen O2 Source Room air - EKG (time done) 15:24 Rate: Rate (enter#) (63) Rhythm: NSR [place]: Normal Intervals: Normal [place] QRS: Normal Ischemia: Normal ST segments. No: ST elevation c/w ischemia, ST depression Compare to prior EKG: Unchanged from prior EKG - Rads (name of study) chest xray Radiology: Prelim report reviewed, EMP read contemporaneously (no acute process) PD MEDICAL DECISION MAKING - ED course Complexity details: reviewed results, considered differential (his brief sharp pains intermittently left chest is atypical of ACS. Other labs are okay. CXR is good. ), d/w patient - Sepsis Event Vital Signs: Vital Signs - 24 hr 02/13/18 15:14 Temperature 36.5 C Heart Rate 70 Respiratory 14 Rate Blood Pressure 160/104 H O2 Saturation 97 Oxygen O2 Source Room air Departure - Departure Disposition: 01 Home, Self Care Clinical Impression: Atypical chest pain Condition: Stable Record reviewed to determine appropriate education?: Yes Instructions: ED Chest Pain Atypical Unkn Cause Follow-Up: Lucius Garcia MD [Primary Care Provider] - Prescriptions: Dexamethasone [Decadron] 4 mg PO DAILY #5 tablet Famotidine [Pepcid] 20 mg PO ONCE #30 tablet Comments: It is unclear the cause of your sharp quick chest pains. There is no signs of serious causes such as heart attack, blood clots, collapsed lung, congestive failure. I would suggest some anti-inflammatory daily for the next several days. You can also use some famotidine daily for the gassiness you have been having in the stomach. I think that is unrelated to the current symptoms. Follow-up with your primary care in the next few days. Forms: Activity restrictions Discharge Date/Time: 02/13/18 18:40
[2018-02-13 15:32] LABS: BASOPHILS % (AUTO) 0.4 %; EOSINOPHILS # (AUTO) 0.2 10^3/uL (0.0-0.7); HGB - HEMOGLOBIN 13.3 g/dL (14.0-18.0); LYMPHOCYTES # (AUTO) 1.1 10^3/uL (1.5-3.5); LYMPHOCYTES % (AUTO) 13.2 %; MEAN CORPUSCULAR HEMOGLOBIN 29.6 pg (27.0-31.0); MEAN PLATELET VOLUME 7.1 fL (7.4-11.4); MONOCYTES # (AUTO) 0.8 10^3/uL (0.0-1.0); MONOCYTES % (AUTO) 9.2 %; NEUTROPHILS # (AUTO) 6.2 10^3/uL (1.5-6.6); NEUTROPHILS % (AUTO) 75.2 %; PLT - PLATELET COUNT 259 10^3/uL (130-450); RED CELL DISTRIBUTION WIDTH 14.9 % (12.0-15.0); WHITE BLOOD COUNT 8.3 x10^3/uL (4.8-10.8)
[2018-02-13 15:50] LABS: ALBUMIN 4.3 g/dL (3.2-5.5); ALBUMIN/GLOBULIN RATIO 1.5 (1.0-2.2); BILIRUBIN,TOTAL 0.7 mg/dL (0.2-1.0); CALCIUM 9.4 mg/dL (8.5-10.3); CREATININE 0.8 mg/dL (0.6-1.2); TOTAL PROTEIN 7.1 g/dL (6.7-8.2)
--- NOTE | 2018-02-13 15:54 | XRAY Report ---
Reason: chest pain Procedure Date: 02/13/2018 Accession Number: [id number] / [id number] Procedure: XR - Chest 1 View X-Ray CPT Code: 02700 FULL RESULT: EXAM: CHEST RADIOGRAPHY EXAM DATE: 02/13/2018 03:29 PM. CLINICAL HISTORY: Chest pain. COMPARISON: 08/15/2017. TECHNIQUE: 1 view. FINDINGS: Lungs/Pleura: Mild diffuse hazy prominence of lung markings. No consolidation, effusion, or pneumothorax. Mediastinum: Borderline cardiomegaly, probably unchanged. Mild diffuse vascular fullness. Other: Status post median sternotomy. IMPRESSION: Cardiovascular fullness with prominent lung markings, suspicious for congestive failure. RADIA
[2018-02-13] MEDS ORDERED: MORPHINE 10 MG/ML VIAL IVP STA ×2 (16:12→17:23)
[2018-02-13] MEDS ORDERED: ONDANSETRON 4 MG/2 ML VIAL IVP STA (16:12)
[2018-02-13] MEDS ORDERED: KETOROLAC 15 MG/ML VIAL IVP STA (16:12)
[2018-02-13] MEDS ORDERED: IOPAMIDOL-300 100 ML VIAL ONE (16:17)
--- NOTE | 2018-02-13 17:13 | CT Report ---
Reason: sharp chest pain Procedure Date: 02/13/2018 Accession Number: [id number] / [id number] Procedure: CT - Chest Angio (PE) CPT Code: FULL RESULT: EXAM: CT ANGIOGRAM CHEST EXAM DATE: 02/13/2018 04:42 PM. CLINICAL HISTORY: Sharp chest pain. COMPARISON: 01/05/2018. TECHNIQUE: Routine helical imaging was performed through the chest in the pulmonary arterial phase. IV Contrast: 80 cc Isovue-300. Reconstructions: Sagittal, coronal, and 3D MIP. In accordance with CT protocol optimization, one or more of the following dose reduction techniques were utilized for this exam: automated exposure control, adjustment of mA and/or KV based on patient size, or use of iterative reconstructive technique. FINDINGS: Pulmonary Arteries: Diagnostic quality: Adequate through the segmental arteries. No evidence for acute or chronic pulmonary emboli. RV/LV is less than 1. There is no interventricular septal bowing. There is no reflux of contrast material in the IVC. Lungs/Pleura: Scarring in right middle lobe and lingula. Calcified granuloma in right lower lobe. Pleural-based right lower lobe nodular density with associated groundglass measuring as much as 18 mm on series 5 image 65. Otherwise clear. No effusion or pneumothorax. Mediastinum: Normal heart size. No pericardial effusion. At least 3 vessel coronary artery calcification. No lymphadenopathy. Thoracic Aorta: Unremarkable. Upper Abdomen: Possible right hydronephrosis, incompletely seen. Other: Mild gynecomastia. IMPRESSION: 1. Negative for pulmonary embolism at this time. Unremarkable aorta. 2. Small pleural-based nodular density on the right, probably rounded atelectasis, not present previously, versus inflammatory disease. 3. Possible right hydronephrosis, incompletely seen. RADIA
[2018-02-13] MEDS ORDERED: IOPAMIDOL-300 100 ML VIAL IVP ONE (17:14)
[2018-02-13 18:41] VITALS: BP 164/97
== END 2018-02-13 18:40 | disposition home or self-care (01) ==
LOC: ED 15:14
DX: R07.89 Other chest pain (principal); I10 Essential (primary) hypertension; E78.00 Pure hypercholesterolemia, unspecified; I25.10 Atherosclerotic heart disease of native coronary artery without angina pectoris; I25.2 Old myocardial infarction; E11.9 Type 2 diabetes mellitus without complications; Z95.1 Presence of aortocoronary bypass graft; Z95.5 Presence of coronary angioplasty implant and graft
CPT/HCPCS: 36415; 71045; 71275; 80053; 83690; 84484; 85025; 93005; 96374; 96376; 99283; 99284; A9270; Q9967

== ENCOUNTER 2018-08-12 16:25 | Outpatient (CLI) | payer MEDICAID | END 2018-08-12 16:26 | disposition critical access hospital (66) | LOC: EMS 16:25 | PROVIDERS: ATTEND Surgery | DX: R53.83 Other fatigue (principal); R53.81 Other malaise; R61 Generalized hyperhidrosis | CPT/HCPCS: A0425; A0427; A0999 ==

== ENCOUNTER 2018-08-12 16:36 | Emergency (ER) | payer MEDICAID ==
--- NOTE | 2018-08-12 17:12 | ED Physician Documentation ---
History of Present Illness - Stated complaint Stated Complaint: FATIGUED - Chief complaint Chief Complaint: General - History obtained from History obtained from: Patient - Additonal information Additional information: Patient is a 53-year-old male with history of [place], bypass and coronary stents, DM, HTN, HLD, asthma, anxiety presenting with sensation of impending doom and anxiety, particularly that he does not want to fall asleep as he is afraid he will stop breathing. Patient denies history of sleep apnea or use of CPAP or oxygen at home. Patient reports a similar episode of this kind of anxiety before without known cause. Patient saw his primary care physician last week with a relatively unremarkable workup except for discussion of his known bladder enlargement and prostate issues, which primary care physician is addressing.Patient states that he has been taking all medications compliantly, although he did not take his medications earlier today. Patient denies headache, chest pain, abdominal pain, but admits to nausea without vomiting. Patient reports no new urine changes or stool changes. Patient also denies fever or productive cough. Patient denies any particular improving or worsening factors to his symptoms. Patient specifically states "am I going to be okay doc ?". Review of Systems Constitutional: denies: Fever Respiratory: reports: Dyspnea GI: denies: Abdominal Pain PD PAST MEDICAL HISTORY - Past Medical History Cardiovascular: Hypertension, High cholesterol, Coronary artery disease, [place] Respiratory: Asthma Endocrine/Autoimmune: Type 2 diabetes GI: GERD : None HEENT: Chronic vision loss, Chronic hearing loss Psych: Depression Musculoskeletal: Osteoarthritis, Gout Derm: None - Past Surgical History Past Surgical History: Yes General: Other Cardiovascular: CABG, Coronary stent - Present Medications Home Medications: Ambulatory Orders Medication Instructions Recorded Confirmed Allopurinol 300 mg PO DAILY 09/28/12 01/17/17 Atorvastatin Calcium [Lipitor] 80 mg PO QPM 09/28/12 01/17/17 Glipizide [Glipizide Xl] 5 mg PO DAILY 09/28/12 01/17/17 Metformin HCl [Fortamet] 1,000 mg PO BID 09/28/12 01/17/17 traZODone [Desyrel] 150 mg PO HS PRN 09/28/12 01/17/17 Clopidogrel [Plavix] 75 mg PO DAILY 04/08/16 01/17/17 DULoxetine [Cymbalta] 30 mg PO DAILY 04/08/16 01/17/17 Gabapentin 400 mg PO Q6HR 04/08/16 01/17/17 Nitroglycerin [Nitrostat] 0.4 mg SL Q5MIN PRN #30 tablet 04/09/16 01/17/17 B Complex with Vitamin C 1 each PO DAILY 12/06/16 01/17/17 [B-Complex Plus Vitamin C] Carvedilol [Coreg] 25 mg PO BID #60 tablet 12/06/16 01/17/17 Hydrocodone/Acetaminophen 1 each PO DAILY 12/06/16 01/17/17 [Hydrocodone-Acetamin 7.5-325] Lidocaine Patch 5% [Lidoderm Patch] 1 each TOP DAILY 12/06/16 01/17/17 Multivitamin [Multiple Vitamins] 1 each PO DAILY 12/06/16 01/17/17 Spironolactone 25 mg PO DAILY #30 tablet 12/06/16 01/17/17 Zolpidem [Ambien] 10 mg PO DAILY PM PRN 12/06/16 01/17/17 diphenhydrAMINE [Benadryl] 25 mg PO Q4-6H PRN 12/06/16 01/17/17 Albuterol Sulfate [Proair Hfa 2 puffs IH QID #1 hfa.aer.ad 01/17/17 Inhaler] Magnesium Oxide [Mag Ox] 400 mg PO DAILY #15 tablet 08/15/17 Amox/Clav 875/125 [Augmentin] 1 each PO Q12H #14 tablet 01/05/18 Finasteride 5 mg PO DAILY 01/05/18 01/05/18 Tamsulosin HCl [Flomax] 1 cap PO DAILY 01/05/18 01/05/18 Dexamethasone [Decadron] 4 mg PO DAILY #5 tablet 02/13/18 Famotidine [Pepcid] 20 mg PO ONCE #30 tablet 02/13/18 - Allergies Allergies/Adverse Reactions: Allergies Allergy/AdvReac Type Severity Reaction Status Date / Time cephalexin monohydrate * Allergy Unknown Nausea Verified 08/12/18 16:46 [From Keflex] codeine Allergy Unknown Verified 08/12/18 16:46 - Social History Does the pt smoke?: No Smoking Status: Never smoker Does the pt drink ETOH?: Yes Does the pt have substance abuse?: No - Immunizations Immunizations are current?: Yes - POLST Patient has POLST: No POLST Status: Full Code PD ED PE NORMAL - General General: Alert and oriented X 3, No acute distress, Well developed/nourished, Other (Anxious, sitting comfortably in bed otherwise. Speaking in full sentences.) - HEENT HEENT: Atraumatic, Moist mucous membranes, Pharynx benign - Cardiac Cardiac: RRR, No murmur - Respiratory Respiratory: No respiratory distress, Clear bilaterally - Abdomen Abdomen: Normal bowel sounds, Soft, Non tender. No: Non distended (Slightly distended, patient reports as baseline given his bladder issues.) - Derm Derm: Normal color, Warm and dry, No rash - Extremities Extremities: No deformity, No tenderness to palpate - Neuro Neuro: Alert and oriented X 3, No motor deficit, No sensory deficit (No gross motor or sensory deficits noted.) - Psych Psych: Other (Anxious) Results - Vitals Vitals: Vital Signs - 24 hr 08/12/18 08/12/18 16:48 19:50 Temperature 37.0 C 36.9 C Heart Rate 72 77 Respiratory 20 16 Rate Blood Pressure 170/102 H 158/86 H O2 Saturation 97 99 Oxygen O2 Source Room air - EKG (time done) 1650 Rate: Rate (enter#) (67) Intervals: RBBB - Labs Labs: Laboratory Tests 08/12/18 08/12/18 08/12/18 17:35 17:35 17:35 WBC 8.1 RBC 4.88 Hgb 14.9 Hct 43.2 MCV 88.6 MCH 30.5 MCHC 34.5 RDW 13.7 Plt Count 226 MPV 7.2 L Neut # (Auto) 6.7 H Lymph # (Auto) 0.8 L [place] # (Auto) 0.5 Eos # (Auto) 0.1 Baso # (Auto) 0.1 Absolute Nucleated RBC 0.00 Nucleated RBC % 0.0 Sodium 139 Potassium 3.6 Chloride 104 Carbon Dioxide 22 Anion Gap 13.0 BUN 13 Creatinine 0.8 Estimated GFR (MDRD) 101 Glucose 134 H Calcium 9.5 Total Bilirubin 1.3 H AST 25 ALT 22 Alkaline Phosphatase 100 Troponin I < 0.04 Total Protein 7.6 Albumin 4.9 Globulin 2.7 Albumin/Globulin Ratio 1.8 Lipase 34 Urine Color Urine Clarity Urine pH Ur Specific [place] Urine Protein Urine Glucose (UA) Urine Ketones Urine Occult Blood Urine Nitrite Urine Bilirubin Urine Urobilinogen Ur Leukocyte Esterase Ur Microscopic Review Urine Culture Comments 08/12/18 17:59 WBC RBC Hgb Hct MCV MCH MCHC RDW Plt Count MPV Neut # (Auto) Lymph # (Auto) [place] # (Auto) Eos # (Auto) Baso # (Auto) Absolute Nucleated RBC Nucleated RBC % Sodium Potassium Chloride Carbon Dioxide Anion Gap BUN Creatinine Estimated GFR (MDRD) Glucose Calcium Total Bilirubin AST ALT Alkaline Phosphatase Troponin I Total Protein Albumin Globulin Albumin/Globulin Ratio Lipase Urine Color YELLOW Urine Clarity CLEAR Urine pH 6.0 Ur Specific [place] 1.020 Urine Protein NEGATIVE Urine Glucose (UA) NEGATIVE Urine Ketones 40 H Urine Occult Blood NEGATIVE Urine Nitrite NEGATIVE Urine Bilirubin NEGATIVE Urine Urobilinogen 0.2 (NORMAL) Ur Leukocyte Esterase NEGATIVE Ur Microscopic Review NOT INDICATED Urine Culture Comments NOT INDICATED PD MEDICAL DECISION MAKING - ED course Complexity details: reviewed old records, reviewed results, re-evaluated patient, considered differential, d/w patient, d/w family ED course: Patient is experiencing anxiety more than anything, particularly given his description of an impending sense of doom and asking if he is going to be okay. Patient has been recently evaluated by his primary care physician and his chronic comorbidities are being followed appropriately. Not find evidence of new trauma, new neurological deficit, or systemic illness on exam. Did feel that patient was appropriate to receive an anxiolytic and following this medication, patient was much more comfortable and drastically less anxious. Workup returned relatively unremarkable. Chest x-ray did not evidence of acute pneumonia or other pathology. EKG and troponin also unremarkable and again have low suspicion for cardiac disease such as ACS, myocardial infarction, unstable angina as the cause of today's symptoms. Screening lab work and urinalysis also did not find evidence of infection or other pathology. Patient requesting discharge and feel that this is appropriate. Discussed return precautions, follow-up, and other supportive cares. Patient voiced understanding and is comfortable with discharge plan.Of note, on multiple re-evaluations, patient resting and sleeping comfortably without issue. Departure - Departure Disposition: 01 Home, Self Care Clinical Impression: Anxiety Condition: Good Instructions: ED Panic Attack Follow-Up: Samuel Bryant MD [Primary Care Provider] - Within 3 Days Comments: Please continue home medications as previously instructed. Recommend follow-up with your primary care physician next 2-3 days and to consider possible sleep study if you experience snoring or difficulty breathing at night. Return to ED sooner if expands worsening symptoms or other concerns.
[2018-08-12] MEDS ORDERED: SODIUM CHLORIDE 0.9% 1,000 ML IV ONE (17:21)
[2018-08-12] MEDS ORDERED: ONDANSETRON 4 MG/2 ML VIAL IVP STA (17:21)
[2018-08-12] MEDS ORDERED: LORazepam 2 MG/ML VIAL IVP STA (17:22)
[2018-08-12 17:52] LABS: BASOPHILS # (AUTO) 0.1 10^3/uL (0.0-0.1); BASOPHILS % (AUTO) 1.5 %; EOSINOPHILS # (AUTO) 0.1 10^3/uL (0.0-0.7); EOSINOPHILS % (AUTO) 1.1 %; HGB - HEMOGLOBIN 14.9 g/dL (14.0-18.0); LYMPHOCYTES # (AUTO) 0.8 10^3/uL (1.5-3.5); LYMPHOCYTES % (AUTO) 9.4 %; MEAN CORPUSCULAR HEMOGLOBIN 30.5 pg (27.0-31.0); MEAN CORPUSCULAR HGB CONC 34.5 g/dL (32.0-36.0); MEAN CORPUSCULAR VOLUME 88.6 fL (80.0-94.0); MEAN PLATELET VOLUME 7.2 fL (7.4-11.4); MONOCYTES # (AUTO) 0.5 10^3/uL (0.0-1.0); MONOCYTES % (AUTO) 5.9 %; NEUTROPHILS # (AUTO) 6.7 10^3/uL (1.5-6.6); NEUTROPHILS % (AUTO) 82.1 %; PLT - PLATELET COUNT 226 10^3/uL (130-450); RED BLOOD COUNT 4.88 10^6/uL (4.70-6.10); RED CELL DISTRIBUTION WIDTH 13.7 % (12.0-15.0); WHITE BLOOD COUNT 8.1 x10^3/uL (4.8-10.8)
[2018-08-12 18:07] LABS: ALBUMIN 4.9 g/dL (3.2-5.5); ALBUMIN/GLOBULIN RATIO 1.8 (1.0-2.2); BILIRUBIN,TOTAL 1.3 mg/dL (0.2-1.0); CALCIUM 9.5 mg/dL (8.5-10.3); CREATININE 0.8 mg/dL (0.6-1.2); TOTAL PROTEIN 7.6 g/dL (6.7-8.2)
--- NOTE | 2018-08-12 18:49 | XRAY Report ---
Reason: shortness of breath, no cough Procedure Date: 08/12/2018 Accession Number: [id number] / [id number] Procedure: XR - Chest 2 View X-Ray CPT Code: 41281 FULL RESULT: EXAM: CHEST RADIOGRAPHY EXAM DATE: 08/12/2018 06:03 PM. CLINICAL HISTORY: Shortness of breath COMPARISON: 02/13/2018 radiograph, CT 02/13/2018. TECHNIQUE: 2 views. FINDINGS: Lungs/Pleura: A pulmonary nodule in the right lower lung measuring 1 cm is shown to be a granuloma on the prior CT. No pneumothorax or pleural effusions. Mediastinum: Heart and mediastinal contours are unremarkable. Other: The patient has had a sternotomy. IMPRESSION: No acute findings. RADIA
[2018-08-12 19:09] LABS: BILIRUBIN,URINE NEGATIVE (NEGATIVE); GLUCOSE, URINE (UA) NEGATIVE (NEGATIVE); KETONES,URINE (UA) 40 mg/dL (NEGATIVE); LEUKOCYTE ESTERASE, URINE NEGATIVE (NEGATIVE); NITRITE,URINE NEGATIVE (NEGATIVE); OCCULT BLOOD,URINE NEGATIVE (NEGATIVE); PROTEIN,URINE NEGATIVE (NEGATIVE); UROBILINOGEN,URINE 0.2 (NORMAL) E.U./dL (NORMAL)
[2018-08-12 19:12] LABS: CLARITY,URINE CLEAR (CLEAR)
[2018-08-12 20:20] VITALS: BP 154/96
== END 2018-08-12 20:25 | disposition home or self-care (01) ==
LOC: EDUNIT# → ED 16:36
DX: F41.9 Anxiety disorder, unspecified (principal); I45.10 Unspecified right bundle-branch block; I25.10 Atherosclerotic heart disease of native coronary artery without angina pectoris; I10 Essential (primary) hypertension; E11.9 Type 2 diabetes mellitus without complications; E78.5 Hyperlipidemia, unspecified; I25.2 Old myocardial infarction; Z95.1 Presence of aortocoronary bypass graft; Z95.5 Presence of coronary angioplasty implant and graft
CPT/HCPCS: 36415; 71046; 80053; 81003; 83690; 84484; 85025; 93005; 96361; 96374; 99283; J2060; 81001; 87086

== ENCOUNTER 2018-09-05 08:18 | Outpatient (CLI) | payer MEDICAID ==
--- NOTE | 2018-09-05 12:10 | Ultrasound Report ---
Reason: NEUROGENIC BLADDER Procedure Date: 09/05/2018 Accession Number: [id number] / [id number] Procedure: US - Retroperitoneal CPT Code: FULL RESULT: EXAM: RENAL ULTRASOUND EXAM DATE: 09/05/2018 08:47 AM. CLINICAL HISTORY: Neurogenic bladder. COMPARISON: RETROPERITONEAL LIMITED 12/06/2016 9:40 AM. TECHNIQUE: Real-time scanning was performed with static images obtained. FINDINGS: Right Kidney: 12.2 cm. Severe hydroureteronephrosis. Cortical parenchyma appears predominantly preserved. Left Kidney: 12.6 cm. Mild hydronephrosis. Bladder: No ureteral jets are identified. The prevoid bladder volume was 65 cc. The postvoid bladder volume was 49 cc. Other: There is a pelvic mass which measures 23.6 x 16.3 x 23.5 cm which appears heterogeneous, contains blood flow and is possibly in contiguity with the prostate. IMPRESSION: Large pelvic mass and severe right hydronephrosis. Recommendation: Imaging appearance is most suggestive of bladder outlet obstruction rather than neurogenic etiology given small volume of the bladder and large adjacent mass. Additionally, unless a definite benign etiology has been established, the mass is suspicious for malignancy. Given the reasonable amount of remaining right renal cortical parenchyma, treatment for urinary obstruction should also be considered. [facility]
== END 2018-09-05 08:19 | disposition home or self-care (01) ==
LOC: DI 08:18
PROVIDERS: ATTEND Internal Medicine
DX: N31.9 Neuromuscular dysfunction of bladder, unspecified (principal); N13.30 Unspecified hydronephrosis; R19.09 Other intra-abdominal and pelvic swelling, mass and lump
CPT/HCPCS: 76770

== ENCOUNTER 2018-09-18 12:28 | Outpatient (CLI) | payer MEDICAID ==
[2018-09-18 13:03] LABS: BASOPHILS % (AUTO) 0.5 %; EOSINOPHILS # (AUTO) 0.2 10^3/uL (0.0-0.7); EOSINOPHILS % (AUTO) 2.5 %; HGB - HEMOGLOBIN 14.6 g/dL (14.0-18.0); LYMPHOCYTES # (AUTO) 0.9 10^3/uL (1.5-3.5); LYMPHOCYTES % (AUTO) 12.9 %; MEAN CORPUSCULAR HGB CONC 33.6 g/dL (32.0-36.0); MEAN CORPUSCULAR VOLUME 89.1 fL (80.0-94.0); MEAN PLATELET VOLUME 7.3 fL (7.4-11.4); MONOCYTES # (AUTO) 0.6 10^3/uL (0.0-1.0); MONOCYTES % (AUTO) 8.8 %; NEUTROPHILS # (AUTO) 5.4 10^3/uL (1.5-6.6); NEUTROPHILS % (AUTO) 75.3 %; PLT - PLATELET COUNT 213 10^3/uL (130-450); RED BLOOD COUNT 4.88 10^6/uL (4.70-6.10); RED CELL DISTRIBUTION WIDTH 14.3 % (12.0-15.0); WHITE BLOOD COUNT 7.2 x10^3/uL (4.8-10.8)
[2018-09-18 13:26] LABS: THYROID STIMULATING HORMONE 0.78 uIU/mL (0.34-5.60)
[2018-09-18 13:27] LABS: CALCIUM 9.4 mg/dL (8.5-10.3); FREE T4 (FREE THYROXINE) 0.79 ng/dL (0.58-1.64)
[2018-09-18 13:58] LABS: HB2 TOTAL 16.6 g/dL; HEMOGLOBIN A1C 0.65 g/dL; HEMOGLOBIN A1C % 5.7 % (4.6-6.2)
== END 2018-09-18 12:29 | disposition home or self-care (01) ==
LOC: LAB 12:28
PROVIDERS: ATTEND Family Medicine
DX: N13.9 Obstructive and reflux uropathy, unspecified (principal); G60.9 Hereditary and idiopathic neuropathy, unspecified; E11.9 Type 2 diabetes mellitus without complications; E78.5 Hyperlipidemia, unspecified
CPT/HCPCS: 36415; 80048; 83036; 84439; 84443; 84481; 85025

== ENCOUNTER 2018-09-26 11:27 | Emergency (ER) | payer MEDICAID ==
[2018-09-26 12:08] LABS: BASOPHILS % (AUTO) 0.4 %; EOSINOPHILS # (AUTO) 0.2 10^3/uL (0.0-0.7); EOSINOPHILS % (AUTO) 3.3 %; LYMPHOCYTES % (AUTO) 15.4 %; MEAN CORPUSCULAR HEMOGLOBIN 30.2 pg (27.0-31.0); MEAN CORPUSCULAR HGB CONC 33.8 g/dL (32.0-36.0); MEAN CORPUSCULAR VOLUME 89.3 fL (80.0-94.0); MEAN PLATELET VOLUME 7.5 fL (7.4-11.4); MONOCYTES # (AUTO) 0.8 10^3/uL (0.0-1.0); MONOCYTES % (AUTO) 11.5 %; NEUTROPHILS # (AUTO) 4.7 10^3/uL (1.5-6.6); NEUTROPHILS % (AUTO) 69.4 %; PLT - PLATELET COUNT 200 10^3/uL (130-450); RED BLOOD COUNT 4.32 10^6/uL (4.70-6.10); RED CELL DISTRIBUTION WIDTH 14.3 % (12.0-15.0); WHITE BLOOD COUNT 6.8 x10^3/uL (4.8-10.8)
[2018-09-26 12:17] LABS: ALBUMIN 4.1 g/dL (3.2-5.5); ALBUMIN/GLOBULIN RATIO 1.6 (1.0-2.2); BILIRUBIN,TOTAL 0.5 mg/dL (0.2-1.0); CALCIUM 9.3 mg/dL (8.5-10.3); CREATININE 1.3 mg/dL (0.6-1.2); TOTAL PROTEIN 6.7 g/dL (6.7-8.2)
[2018-09-26] MEDS ORDERED: ONDANSETRON 4 MG/2 ML VIAL IVP STA (12:30)
[2018-09-26 13:49] VITALS: BP 144/83
--- NOTE | 2018-09-26 13:55 | ED Physician Documentation ---
History of Present Illness - Stated complaint Stated Complaint: DIZZY/WEAK - Chief complaint Chief Complaint: Neuro - History obtained from History obtained from: Patient - History of Present Illness Timing: How many minutes ago (about 45.) - Additonal information Additional information: The patient is a 53-year-old male with a history of chronic pain due to pe ripheral neuropathy, who presents with extreme fatigue that started less than one hour prior to arrival. He was in the radiology waiting room awaiting outpatient CT scan when he felt overwhelmingly sleepy. He also reports dry mouth and slight nausea. The CT scan was ordered for workup of an abdominal mass. He has a history of chronic pain syndrome for which he was started on methadone one week ago. He also reports that this morning he took 2 tramadol at 4 AM and 2 more at 8 AM. He then drove himself to the hospital on his motorcycle to undergo the CT scan. Review of Systems Constitutional: reports: Fatigue. denies: Fever Eyes: denies: Decreased vision Ears: denies: Tinnitus/ringing Nose: denies: Congestion Throat: denies: Sore throat Cardiac: denies: Chest pain / pressure Respiratory: denies: Dyspnea, Cough GI: reports: Nausea. denies: Abdominal Pain, Vomiting : denies: Dysuria Skin: denies: Rash Musculoskeletal: reports: Back pain (chronically). denies: Extremity swelling Neurologic: reports: Generalized weakness. denies: Focal weakness, Headache PD PAST MEDICAL HISTORY - Past Medical History Past Medical History: Yes Cardiovascular: Hypertension, High cholesterol, Coronary artery disease, [place] Respiratory: Asthma Endocrine/Autoimmune: Type 2 diabetes GI: GERD : None HEENT: Chronic vision loss, Chronic hearing loss Psych: Depression Musculoskeletal: Osteoarthritis, Gout Derm: None - Past Surgical History Past Surgical History: Yes General: Other Cardiovascular: CABG, Coronary stent - Present Medications Home Medications: Ambulatory Orders Medication Instructions Recorded Confirmed Allopurinol 300 mg PO DAILY 09/28/12 01/17/17 Atorvastatin Calcium [Lipitor] 80 mg PO QPM 09/28/12 01/17/17 Glipizide [Glipizide Xl] 5 mg PO DAILY 09/28/12 01/17/17 Metformin HCl [Fortamet] 1,000 mg PO BID 09/28/12 01/17/17 traZODone [Desyrel] 150 mg PO HS PRN 09/28/12 01/17/17 Clopidogrel [Plavix] 75 mg PO DAILY 04/08/16 01/17/17 DULoxetine [Cymbalta] 30 mg PO DAILY 04/08/16 01/17/17 Gabapentin 400 mg PO Q6HR 04/08/16 01/17/17 Nitroglycerin [Nitrostat] 0.4 mg SL Q5MIN PRN #30 tablet 04/09/16 01/17/17 B Complex with Vitamin C 1 each PO DAILY 12/06/16 01/17/17 [B-Complex Plus Vitamin C] Carvedilol [Coreg] 25 mg PO BID #60 tablet 12/06/16 01/17/17 Hydrocodone/Acetaminophen 1 each PO DAILY 12/06/16 01/17/17 [Hydrocodone-Acetamin 7.5-325] Lidocaine Patch 5% [Lidoderm Patch] 1 each TOP DAILY 12/06/16 01/17/17 Multivitamin [Multiple Vitamins] 1 each PO DAILY 12/06/16 01/17/17 Spironolactone 25 mg PO DAILY #30 tablet 12/06/16 01/17/17 Zolpidem [Ambien] 10 mg PO DAILY PM PRN 12/06/16 01/17/17 diphenhydrAMINE [Benadryl] 25 mg PO Q4-6H PRN 12/06/16 01/17/17 Albuterol Sulfate [Proair Hfa 2 puffs IH QID #1 hfa.aer.ad 01/17/17 Inhaler] Magnesium Oxide [Mag Ox] 400 mg PO DAILY #15 tablet 08/15/17 Amox/Clav 875/125 [Augmentin] 1 each PO Q12H #14 tablet 01/05/18 Finasteride 5 mg PO DAILY 01/05/18 01/05/18 Tamsulosin HCl [Flomax] 1 cap PO DAILY 01/05/18 01/05/18 Dexamethasone [Decadron] 4 mg PO DAILY #5 tablet 02/13/18 Famotidine [Pepcid] 20 mg PO ONCE #30 tablet 02/13/18 - Allergies Allergies/Adverse Reactions: Allergies Allergy/AdvReac Type Severity Reaction Status Date / Time cephalexin monohydrate * Allergy Unknown Nausea Verified 09/26/18 11:39 [From Keflex] codeine Allergy Unknown Verified 09/26/18 11:39 - Social History Does the pt smoke?: No Smoking Status: Never smoker Does the pt drink ETOH?: Yes Does the pt have substance abuse?: No - Immunizations Immunizations are current?: Yes - POLST Patient has POLST: No POLST Status: Full Code PD ED PE NORMAL - Vitals Vital signs reviewed: Yes (Borderline hypertension.) - General General: Alert and oriented X 3, No acute distress, Well developed/nourished - HEENT HEENT: Atraumatic, PERRL, EOMI, Moist mucous membranes, Pharynx benign - Neck Neck: Supple, no meningeal sign, No adenopathy, No JVD - Cardiac Cardiac: RRR - Respiratory Respiratory: No respiratory distress, Clear bilaterally - Abdomen Abdomen: Soft, Non tender - Back Back: No CVA TTP - Derm Derm: No rash - Extremities Extremities: No edema, No calf tenderness / cord - Neuro Neuro: Alert and oriented X 3, patent searcher 2-12 intact, No motor deficit, No sensory deficit, Normal speech Eye Opening: Spontaneous Motor: Obeys Commands Verbal: Oriented GCS Score: 15 Results - Vitals Vitals: Oxygen O2 Source Room air - Labs Labs: Laboratory Tests 09/26/18 09/26/18 09/26/18 11:34 11:39 11:39 WBC 6.8 RBC 4.32 L Hgb 13.0 L Hct 38.6 L MCV 89.3 MCH 30.2 MCHC 33.8 RDW 14.3 Plt Count 200 MPV 7.5 Neut # (Auto) 4.7 Lymph # (Auto) 1.0 L [place] # (Auto) 0.8 Eos # (Auto) 0.2 Baso # (Auto) 0.0 Absolute Nucleated RBC 0.00 Nucleated RBC % 0.0 Sodium 139 Potassium 4.0 Chloride 104 Carbon Dioxide 25 Anion Gap 10.0 BUN 12 Creatinine 1.3 H Estimated GFR (MDRD) 58 L Glucose 119 H POC Whole Bld Glucose 114 H Calcium 9.3 Total Bilirubin 0.5 AST 28 ALT 24 Alkaline Phosphatase 106 Total Protein 6.7 Albumin 4.1 Globulin 2.6 Albumin/Globulin Ratio 1.6 Lipase 30 Urine Color Urine Clarity Urine pH Ur Specific [place] Urine Protein Urine Glucose (UA) Urine Ketones Urine Occult Blood Urine Nitrite Urine Bilirubin Urine Urobilinogen Ur Leukocyte Esterase Ur Microscopic Review Urine Culture Comments 09/26/18 13:55 WBC RBC Hgb Hct MCV MCH MCHC RDW Plt Count MPV Neut # (Auto) Lymph # (Auto) [place] # (Auto) Eos # (Auto) Baso # (Auto) Absolute Nucleated RBC Nucleated RBC % Sodium Potassium Chloride Carbon Dioxide Anion Gap BUN Creatinine Estimated GFR (MDRD) Glucose POC Whole Bld Glucose Calcium Total Bilirubin AST ALT Alkaline Phosphatase Total Protein Albumin Globulin Albumin/Globulin Ratio Lipase Urine Color YELLOW Urine Clarity CLEAR Urine pH 6.0 Ur Specific [place] 1.015 Urine Protein NEGATIVE Urine Glucose (UA) NEGATIVE Urine Ketones NEGATIVE Urine Occult Blood NEGATIVE Urine Nitrite NEGATIVE Urine Bilirubin NEGATIVE Urine Urobilinogen 0.2 (NORMAL) Ur Leukocyte Esterase NEGATIVE Ur Microscopic Review NOT INDICATED Urine Culture Comments NOT INDICATED PD MEDICAL DECISION MAKING - ED course Complexity details: reviewed results, re-evaluated patient, considered differential, d/w patient ED course: The patient's presentation is most consistent with drowsiness due to narcotic pain medication. There is no clinical evidence to suggest an acute neurologic event, cardiac event, or infectious etiology. He does not have hypoglycemia, with a fingerstick blood sugar of 116. CBC, chemistry panel, and urinalysis are unremarkable. Treatment in the emergency department included administration of Zofran 4 mg IV. His nausea resolved. He was observed in the emergency department for several hours, and underwent his previously scheduled outpatient CT scan. This was not done as an emergent study, so I do not have the radiologist's reading. By the time of discharge the patient was back to his baseline level of alertness, with complete resolution of his symptoms. I discussed with him the underlying cause for his fatigue, advised him to avoid operating machinery in the future after taking narcotic medication, as well as discussed potentially worrisome signs or symptoms that should prompt reevaluation in the emergency department. Departure - Departure Disposition: 01 Home, Self Care Clinical Impression: Drowsiness, Narcotic drug use Condition: Stable Instructions: Tramadol tablets Follow-Up: Samuel Bryant MD [Primary Care Provider] - Comments: Avoid driving after taking narcotic medication. Follow-up with your primary physician within 1 to 2 weeks for results of the CT scan. Return to the emergency department if you develop progressively worsening symptoms. Discharge Date/Time: 09/26/18 14:06
[2018-09-26 14:17] LABS: BILIRUBIN,URINE NEGATIVE (NEGATIVE); GLUCOSE, URINE (UA) NEGATIVE (NEGATIVE); KETONES,URINE (UA) NEGATIVE (NEGATIVE); LEUKOCYTE ESTERASE, URINE NEGATIVE (NEGATIVE); NITRITE,URINE NEGATIVE (NEGATIVE); OCCULT BLOOD,URINE NEGATIVE (NEGATIVE); PROTEIN,URINE NEGATIVE (NEGATIVE); UROBILINOGEN,URINE 0.2 (NORMAL) E.U./dL (NORMAL)
[2018-09-26 14:19] LABS: CLARITY,URINE CLEAR (CLEAR)
== END 2018-09-26 14:06 | disposition home or self-care (01) ==
LOC: ED 11:27
DX: T40.4X1A Poisoning by other synthetic narcotics, accidental (unintentional), initial encounter (principal); R40.0 Somnolence; R11.0 Nausea; G89.4 Chronic pain syndrome; R19.09 Other intra-abdominal and pelvic swelling, mass and lump; E11.42 Type 2 diabetes mellitus with diabetic polyneuropathy; Z79.84 Long term (current) use of oral hypoglycemic drugs; I10 Essential (primary) hypertension; I25.10 Atherosclerotic heart disease of native coronary artery without angina pectoris; Z95.5 Presence of coronary angioplasty implant and graft; Z95.1 Presence of aortocoronary bypass graft; Z79.02 Long term (current) use of antithrombotics/antiplatelets; N13.30 Unspecified hydronephrosis; R91.8 Other nonspecific abnormal finding of lung field
CPT/HCPCS: 36415; 71260; 74177; 80053; 81003; 83690; 85025; 93005; 96374; 99283; 99284; Q9967; 81001; 87086

== ENCOUNTER 2018-09-26 12:15 | Outpatient (CLI) | payer MEDICAID ==
[~2018-09-26 12:15] MED LIST: IOVERSOL 320 100 ML VIAL IVP ONE; IOVERSOL 320 50 ML VIAL ONE
[2018-09-26] MEDS ORDERED: IOVERSOL 320 50 ML VIAL PO ONE (18:05)
[2018-09-26] MEDS ORDERED: IOVERSOL 320 100 ML VIAL IVP ONE (18:05)
--- NOTE | 2018-09-27 09:17 | CT Report ---
Reason: NEOPLASM OF UNSPECIFIED BEHAVIOR OF OTHER SPECIFIE Procedure Date: 09/26/2018 Accession Number: [id number] / [id number] Procedure: CT - Abdomen/Pelvis W CPT Code: FULL RESULT: EXAM: CT ABDOMEN AND PELVIS WITH IV CONTRAST EXAM DATE: 09/26/2018 01:14 PM. CLINICAL HISTORY: Neoplasm of unspecified behavior of other specified. COMPARISONS: RETROPERITONEAL 09/05/2018 8:47 AM CHEST W/ 09/26/2018 1:14 PM CHEST ANGIO 02/13/2018 4:34 PM CHEST ANGIO 01/05/2018 12:02 PM CHEST 04/23/2007 8:35 PM TECHNIQUE: Routine helical CT imaging was performed through the abdomen and pelvis. IV contrast: 100 cc Optiray 320 contrast. Enteric contrast: None. Reconstructions: Coronal and sagittal. In accordance with CT protocol optimization, one or more of the following dose reduction techniques were utilized for this exam: automated exposure control, adjustment of mA and/or KV based on patient size, or use of iterative reconstructive technique. FINDINGS: Lung Bases: Please see separate dictation. Stable calcific density nodule right lung base. Long-term stable sub-5 mm pulmonary nodules in the left lower lung, 3 in number. Liver: Normal. No masses. Gallbladder/Bile Ducts: Unremarkable. Spleen: Upper normal in size. Pancreas: Normal. Adrenal Glands: Normal. Kidneys: Severe right-sided hydronephrosis with an element of cortical thinning/volume loss suggesting a long-standing finding. Left kidney within normal limits. Peritoneal Cavity/Bowel: There is a 23 x 24 x 18 mm heterogeneous density mass of the pelvis and low anterior abdomen, possibly in contiguity with, or arising from, the prostate gland. The urinary bladder is compressed along the anterior-inferior aspect of the mass, and relationship of the mass with the superior urinary bladder wall is difficult to assess. Mass is heterogeneous with central low density and peripheral soft tissue density and faint enhancement. Mildly prominent draining veins are evident adjacent to the mass. No appreciable adenopathy. No free air or free fluid. Visualized bowel is within expected limits. The appendix is well visualized and normal. Pelvic Organs: As above. Vasculature: No aneurysms or other significant abnormality. Bones: No significant abnormality. Other: None. IMPRESSION: 1. 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 Appropriate action is recommended. 2. Severe right-sided hydronephrosis, possibly long-standing as a consequence of this mass. 3. Long-term stable sub-5 mm pulmonary nodules left lung base likely incidental. RADIA
--- NOTE | 2018-09-27 10:08 | CT Report ---
Reason: NEOPLASM OF UNSPECIFIED BEHAVIOR OF OTHER SPECIFIE Procedure Date: 09/26/2018 Accession Number: [id number] / [id number] Procedure: CT - CHEST W CPT Code: FULL RESULT: EXAM: CT CHEST EXAM DATE: 09/26/2018 01:14 PM. CLINICAL HISTORY: Unspecified neoplasm/mass of the pelvis with right-sided hydronephrosis. Evaluate for metastatic disease. COMPARISONS: CHEST ANGIO 02/13/2018 4:34 PM, CHEST 04/23/2007 8:35 PM, CHEST ANGIO 01/05/2018 12:02 PM. TECHNIQUE: Routine helical CT imaging was performed through the chest. IV contrast: 100 cc of Optiray 320 contrast. Reconstructions: Coronal and sagittal. In accordance with CT protocol optimization, one or more of the following dose reduction techniques were utilized for this exam: automated exposure control, adjustment of mA and/or KV based on patient size, or use of iterative reconstructive technique. FINDINGS: Lungs/Pleura: There is a stable 9 mm calcific density nodule in the right lower lobe consistent with granuloma. There are 3 long-term stable sub-5 mm pulmonary nodules in the left lung base, evidenced as far back as 2006, consistent with nonaggressive entities. No additional pulmonary masses or nodules. Small amounts of linear banding scar and/or atelectasis are noted. No bronchial thickening, consolidation, or edema. Pulmonary vasculature is normal. No pericardial or pleural effusion. No pneumothorax. Mediastinum: Compared to 01/05/2018, there are 3 stable oval masses of the left anterior superior mediastinum most likely lymph nodes ranging in size from 1.5 to 3 cm in size. Largest contains a central circumscribed calcification; given stability and central calcification this may represent sequela of a prior granulomatous infection. The remaining mediastinum is free of adenopathy and/or masses. There is calcification of the [place] coronary arteries and sequela of prior median sternotomy for CABG. The heart and great vessels are normal. Bones: Unremarkable. Visualized Abdomen: Dictated separately. Please see abdominal pelvic CT dictation. Other: None. IMPRESSION: 1. Unchanged appearance of 3 enlarged left anterior superior mediastinal lymph nodes as described, with largest containing a central circumscribed calcification. Stable long-term calcified right lower pulmonary nodule. Constellation of these findings suggests sequela of prior granulomatous infection. 2. Stable sub-5 mm pulmonary nodules left lower lobe consistent with a nonaggressive process. 3. No evidence of metastatic disease within the chest. RADIA
== END 2018-09-26 12:16 ==
LOC: DI 12:15
PROVIDERS: ATTEND Urology
DX: R91.8 Other nonspecific abnormal finding of lung field (principal); R19.09 Other intra-abdominal and pelvic swelling, mass and lump; N13.30 Unspecified hydronephrosis
CPT/HCPCS: 71260; 74177; Q9967

== ENCOUNTER 2018-12-21 10:28 | Outpatient (CLI) | payer MEDICAID | END 2018-12-21 10:29 | disposition EMS.NT | LOC: EMS 10:28 | PROVIDERS: ATTEND Surgery | DX: Z03.89 Encounter for observation for other suspected diseases and conditions ruled out (principal) ==

== ENCOUNTER 2018-12-29 20:20 | Emergency (ER) | payer MEDICAID ==
[2018-12-29 20:31] VITALS: BP 148/77
--- NOTE | 2018-12-29 20:56 | ED Physician Documentation ---
PD HPI ABD PAIN - Stated complaint Stated Complaint: WOUND CARE/ABD PX - Chief complaint Chief Complaint: Wound - History obtained from History obtained from: Patient - History of Present Illness Timing - onset: Today Timing - duration: Hours (He has had prior abdominal surgery and his wound has been healing well. He had noticed a little bit of faint clear discharge from the lower aspect of it yesterday and today part of it dehisced open. No purulence per se.) Timing - details: Abrupt onset Quality: No: Cramping, Aching Location: Suprapubic (lower surgical wound on abd.) Radiation: No: Chest, Lower back Associated symptoms: No: Fever, Nausea, Vomiting Review of Systems Constitutional: denies: Fever, Chills, Myalgias GI: denies: Nausea, Vomiting Musculoskeletal: denies: Back pain PD PAST MEDICAL HISTORY - Past Medical History Past Medical History: No Cardiovascular: Hypertension, High cholesterol, Coronary artery disease, [place] Respiratory: Asthma Neuro: None Endocrine/Autoimmune: Type 2 diabetes GI: GERD : None HEENT: Chronic vision loss, Chronic hearing loss Psych: Depression Musculoskeletal: Osteoarthritis, Gout Derm: None - Past Surgical History Past Surgical History: Yes General: Other Cardiovascular: CABG, Coronary stent - Present Medications Home Medications: Ambulatory Orders Medication Instructions Recorded Confirmed RX: Allopurinol 300 mg PO DAILY 09/28/12 01/17/17 RX: Atorvastatin Calcium [Lipitor] 80 mg PO QPM 09/28/12 01/17/17 RX: Glipizide [Glipizide Xl] 5 mg PO DAILY 09/28/12 01/17/17 RX: Metformin HCl [Fortamet] 1,000 mg PO BID 09/28/12 01/17/17 RX: traZODone [Desyrel] 150 mg PO HS PRN 09/28/12 01/17/17 RX: Clopidogrel [Plavix] 75 mg PO DAILY 04/08/16 01/17/17 RX: DULoxetine [Cymbalta] 30 mg PO DAILY 04/08/16 01/17/17 RX: Gabapentin 400 mg PO Q6HR 04/08/16 01/17/17 RX: Nitroglycerin [Nitrostat] 0.4 mg SL Q5MIN PRN #30 tablet 04/09/16 01/17/17 RX: B Complex with Vitamin C 1 each PO DAILY 12/06/16 01/17/17 [B-Complex Plus Vitamin C] RX: Carvedilol [Coreg] 25 mg PO BID #60 tablet 12/06/16 01/17/17 RX: Hydrocodone/Acetaminophen 1 each PO DAILY 12/06/16 01/17/17 [Hydrocodone-Acetamin 7.5-325] RX: Lidocaine Patch 5% [Lidoderm 1 each TOP DAILY 12/06/16 01/17/17 Patch] RX: Multivitamin [Multiple 1 each PO DAILY 12/06/16 01/17/17 Vitamins] RX: Spironolactone 25 mg PO DAILY #30 tablet 12/06/16 01/17/17 RX: Zolpidem [Ambien] 10 mg PO DAILY PM PRN 12/06/16 01/17/17 RX: diphenhydrAMINE [Benadryl] 25 mg PO Q4-6H PRN 12/06/16 01/17/17 RX: Albuterol Sulfate [Proair Hfa 2 puffs IH QID #1 hfa.aer.ad 01/17/17 Inhaler] Magnesium Oxide [Mag Ox] 400 mg PO DAILY #15 tablet 08/15/17 Amox/Clav 875/125 [Augmentin] 1 each PO Q12H #14 tablet 01/05/18 RX: Finasteride 5 mg PO DAILY 01/05/18 01/05/18 RX: Tamsulosin HCl [Flomax] 1 cap PO DAILY 01/05/18 01/05/18 RX: Famotidine [Pepcid] 20 mg PO ONCE #30 tablet 02/13/18 dexAMETHasone [Decadron] 4 mg PO DAILY #5 tablet 02/13/18 RX: Doxycycline Hyclate 100 mg PO BID #20 capsule 12/29/18 RX: Mupirocin 1 applic TP TID #15 g 12/29/18 - Allergies Allergies/Adverse Reactions: Allergies Allergy/AdvReac Type Severity Reaction Status Date / Time cephalexin monohydrate * Allergy Unknown Nausea Verified 12/29/18 20:31 [From Keflex] codeine Allergy Unknown Verified 12/29/18 20:31 - Social History Does the pt smoke?: No Smoking Status: Never smoker Does the pt drink ETOH?: Yes Does the pt have substance abuse?: No - Immunizations Immunizations are current?: Yes - POLST Patient has POLST: No POLST Status: Full Code PD ED PE NORMAL - Vitals Vital signs reviewed: Yes - General General: Alert and oriented X 3, No acute distress, Well developed/nourished - Cardiac Cardiac: RRR, No murmur - Respiratory Respiratory: Clear bilaterally - Abdomen Abdomen: Normal bowel sounds, Soft, Non distended, No organomegaly, Other (The abdomen has a midline scar from upper abdomen to suprapubic area. Most of it is closed and well-healing. The lowest aspect has a 2 cm area of skin dehiscence but does not go deeper than that. There is slight serous fluid in the area but no purulence per se. I do not see any fistulous tracts. There is no skin redness. Culture obtained.) Results - Vitals Vitals: Oxygen O2 Source Room air - Labs Labs: Microbiology 12/29/18 21:17 Wound Culture - Preliminary Abdomen Staphylococcus Aureus PD MEDICAL DECISION MAKING - ED course Complexity details: considered differential (Concern for early or mild wound infection given the dehiscence. We will can treat with topical and oral antibiotics in case. Culture obtained and pending.), d/w patient Departure - Departure Disposition: 01 Home, Self Care Clinical Impression: Abdominal wound dehiscence Qualifiers: Encounter type: initial encounter Qualified Code(s): T81.30XA - Disruption of wound, unspecified, initial encounter Condition: Stable Record reviewed to determine appropriate education?: Yes Instructions: ED Wound Infec After Surgery Follow-Up: Samuel Bryant MD [Primary Care Provider] - Padmini Meek MD [Physician No Access] - Prescriptions: RX: Doxycycline Hyclate 100 mg PO BID #20 capsule RX: Mupirocin 1 applic TP TID #15 g Comments: Cleanse the open part of the wound to 3 times daily with soap and water or dilute peroxide and water. Apply mupirocin and topical antibiotic to the area lightly. Cover it with a gauze. Take doxycycline oral antibiotic as well for concern for wound infection. The culture result will be available in a couple of days. Follow-up with your primary care and call your surgeon over the next few days for reevaluation and to follow-up on the culture results. Discharge Date/Time: 12/29/18 21:55
[2018-12-29] MEDS ORDERED: DOXYCYCLINE 100 MG TABLET PO STA (21:28)
[2018-12-29] MEDS ORDERED: MUPIROCIN 2% OINT 1 GM TOP STA (21:28)
== END 2018-12-29 21:55 | disposition home or self-care (01) ==
LOC: ED 20:20
DX: T81.31XA Disruption of external operation (surgical) wound, not elsewhere classified, initial encounter (principal); I10 Essential (primary) hypertension; E11.9 Type 2 diabetes mellitus without complications; Z79.84 Long term (current) use of oral hypoglycemic drugs
CPT/HCPCS: 87070; 87181; 87205; 99283; A9270

== ENCOUNTER 2019-01-09 12:43 | Outpatient (CLI) | payer MEDICAID ==
[2019-01-09] MEDS ORDERED: IOTHALAMATE MEGLUMINE 250 ML VIAL UR ONE (14:57)
--- NOTE | 2019-01-10 16:35 | XRAY Report ---
Reason: ABDOMINAL MASS, UNSPECIFIED ABDOMINAL LOCATION Procedure Date: 01/09/2019 Accession Number: [id number] / [id number] Procedure: FL - Cystography CPT Code: FULL RESULT: COMPARISON: EXAM: Cystography DATE: 01/09/2019 1:35 AM CLINICAL HISTORY: ABDOMINAL MASS, UNSPECIFIED ABDOMINAL LOCATION COMPARISON: None. TECHNIQUE: Routine cystogram technique with catheter instillation of 500 mL of Conray contrast into the bladder using gravity pressure under fluoroscopic observation. Multiple fluoroscopic spot films obtained in different projections. Fluoroscopic Exposure Time: 170 seconds. Number of Fluoroscopic Images: 24. FINDINGS: Bladder: The bladder normally fills with contrast to an appropriate volume. Mildly distorted morphology consistent with surgical history. Following the maximal distention contrast extravasation is seen, small quantity anterior left, likely within space of Retzius. Post-drainage imaging demonstrates persistence of the extravasated contrast confirming the finding. Other: None. IMPRESSION: Small amount of contrast extravasation along the anterior inferior portion. RADIA
== END 2019-01-09 12:44 | disposition home or self-care (01) ==
LOC: DI 12:43
PROVIDERS: ATTEND Physician Assistant
DX: R19.00 Intra-abdominal and pelvic swelling, mass and lump, unspecified site (principal); R31.0 Gross hematuria
CPT/HCPCS: 36415; 74430; 82565

== ENCOUNTER 2019-01-14 12:38 | Outpatient (CLI) | payer MEDICAID ==
[2019-01-14 12:54] LABS: BASOPHILS % (AUTO) 0.2 %; EOSINOPHILS # (AUTO) 0.3 10^3/uL (0.0-0.7); EOSINOPHILS % (AUTO) 3.1 %; HGB - HEMOGLOBIN 9.7 g/dL (14.0-18.0); LYMPHOCYTES # (AUTO) 1.2 10^3/uL (1.5-3.5); LYMPHOCYTES % (AUTO) 14.3 %; MEAN CORPUSCULAR HEMOGLOBIN 25.9 pg (27.0-31.0); MEAN CORPUSCULAR VOLUME 83.7 fL (80.0-94.0); MEAN PLATELET VOLUME 8.7 fL (7.4-11.4); MONOCYTES # (AUTO) 0.6 10^3/uL (0.0-1.0); MONOCYTES % (AUTO) 7.6 %; NEUTROPHILS # (AUTO) 6.2 10^3/uL (1.5-6.6); NEUTROPHILS % (AUTO) 74.4 %; PLT - PLATELET COUNT 289 10^3/uL (130-450); RED BLOOD COUNT 3.74 10^6/uL (4.70-6.10); RED CELL DISTRIBUTION WIDTH 13.9 % (12.0-15.0); WHITE BLOOD COUNT 8.4 x10^3/uL (4.8-10.8)
[2019-01-14 13:09] LABS: CALCIUM 9.2 mg/dL (8.5-10.3); CREATININE 1.2 mg/dL (0.6-1.2)
[2019-01-14 14:50] LABS: HB2 TOTAL 9.5 g/dL; HEMOGLOBIN A1C 0.4 g/dL
== END 2019-01-14 12:39 | disposition home or self-care (01) ==
LOC: LAB 12:38
PROVIDERS: ATTEND Family Medicine
DX: E11.9 Type 2 diabetes mellitus without complications (principal); R25.1 Tremor, unspecified
CPT/HCPCS: 36415; 80048; 83036; 85025

== ENCOUNTER 2019-01-26 13:39 | Outpatient (CLI) | payer MEDICAID ==
[2019-01-26] MEDS ORDERED: IOVERSOL 320 100 ML VIAL IVP ONE (14:24)
--- NOTE | 2019-01-27 05:30 | CT Report ---
Reason: ABDOMINAL MASS, UNSPECIFIED ABDOMINAL LOCATION Procedure Date: 01/26/2019 Accession Number: [id number] / [id number] Procedure: CT - IVP CPT Code: FULL RESULT: EXAM: CT ABDOMEN AND PELVIS WITHOUT AND WITH CONTRAST (CT IVP) EXAM DATE: 01/26/2019 02:41 PM. CLINICAL HISTORY: ABDOMINAL MASS, UNSPECIFIED ABDOMINAL LOCATION. COMPARISONS: ABDOMEN/PELVIS W/ 09/26/2018 1:14 PM. TECHNIQUE: Routine helical imaging was performed through the kidneys, ureters and bladder in the precontrast, postcontrast and delayed phase. IV Contrast: OPTI 320 100ML. Reconstructions: Coronal and sagittal. In accordance with CT protocol optimization, one or more of the following dose reduction techniques were utilized for this exam: automated exposure control, adjustment of mA and/or KV based on patient size, or use of iterative reconstructive technique. FINDINGS: Lung Bases: Unremarkable. Liver: Normal. No masses. Gallbladder/Bile Ducts: Unremarkable. Spleen: Normal. Pancreas: Normal. Adrenal Glands: Normal. Kidneys/Bladder: Right Kidney/Ureter: Craig to the prior study the right kidney is atrophic. There is still function of the right kidney with a nephrogram in early pyelogram. Left Kidney/Ureter: There are some hypertrophic changes of the left kidney. A left ureter stent has been placed. The left nephrogram is normal, however, there is now a mass within the parenchyma on the lateral aspect of the left kidney. This is a diameter measuring 26 mm and a moderate rim of enhancement. No masses. Bladder: The urinary bladder is decompressed with an indwelling Lama catheter. Patient is status post resection of the large prostate mass. Surgical clips are seen against the pelvic sidewalls. Peritoneal Cavity/Bowel: Normal. No free fluid, free air or adenopathy. No masses or acute inflammatory process. Vasculature: Atherosclerotic vascular changes. Bones: No significant abnormality. Other: None. IMPRESSION: 1. Status post resection of the large prostate mass. No pelvic nor abdominal lymphadenopathy. 2. Left ureter stent in place. 3. New "mass" in the left kidney with circumferential enhancement the findings are compatible with a developing left renal abscess. Metastasis is not excluded yet much less likely. RADIA
== END 2019-01-26 13:40 | disposition home or self-care (01) ==
LOC: DI 13:39
PROVIDERS: ATTEND Physician Assistant
DX: N28.89 Other specified disorders of kidney and ureter (principal)
CPT/HCPCS: 74178; Q9967

== ENCOUNTER 2019-01-28 09:00 | Outpatient (CLI) | payer MEDICAID | END 2019-01-28 23:59 | disposition home or self-care (01) | LOC: LAB.R 09:00 | PROVIDERS: ATTEND Family Medicine | DX: N15.1 Renal and perinephric abscess (principal) | CPT/HCPCS: 87086 ==

== ENCOUNTER 2019-01-28 11:35 | Outpatient (CLI) | payer MEDICAID ==
[2019-01-28 12:15] LABS: BASOPHILS % (AUTO) 0.2 %; CALCIUM 9.4 mg/dL (8.5-10.3); EOSINOPHILS # (AUTO) 0.5 10^3/uL (0.0-0.7); EOSINOPHILS % (AUTO) 4.5 %; HGB - HEMOGLOBIN 10.1 g/dL (14.0-18.0); LYMPHOCYTES # (AUTO) 1.7 10^3/uL (1.5-3.5); LYMPHOCYTES % (AUTO) 16.4 %; MEAN CORPUSCULAR HEMOGLOBIN 23.8 pg (27.0-31.0); MEAN CORPUSCULAR HGB CONC 29.5 g/dL (32.0-36.0); MEAN CORPUSCULAR VOLUME 80.5 fL (80.0-94.0); MEAN PLATELET VOLUME 9.2 fL (7.4-11.4); MONOCYTES # (AUTO) 0.9 10^3/uL (0.0-1.0); MONOCYTES % (AUTO) 8.3 %; NEUTROPHILS # (AUTO) 7.1 10^3/uL (1.5-6.6); NEUTROPHILS % (AUTO) 69.8 %; PLT - PLATELET COUNT 389 10^3/uL (130-450); RED BLOOD COUNT 4.25 10^6/uL (4.70-6.10); RED CELL DISTRIBUTION WIDTH 14.7 % (12.0-15.0); WHITE BLOOD COUNT 10.2 x10^3/uL (4.8-10.8)
== END 2019-01-28 11:36 | disposition home or self-care (01) ==
LOC: LAB 11:35
PROVIDERS: ATTEND Family Medicine
DX: N15.1 Renal and perinephric abscess (principal)
CPT/HCPCS: 36415; 80048; 85025; 87086

== ENCOUNTER 2019-02-16 14:21 | Outpatient (CLI) | payer MEDICAID ==
--- NOTE | 2019-02-17 09:05 | Ultrasound Report ---
Reason: RENAL ABSCESS Procedure Date: 02/16/2019 Accession Number: [id number] / [id number] Procedure: US - Retroperitoneal CPT Code: FULL RESULT: EXAM: RENAL ULTRASOUND EXAM DATE: 02/16/2019 03:36 PM. CLINICAL HISTORY: Renal abscess. COMPARISON: IVP 01/26/2019 2:16 PM. ABDOMEN/PELVIS W/ 09/26/2018 1:14 PM. RETROPERITONEAL 09/05/2018 8:47 AM. TECHNIQUE: Real-time scanning was performed with static images obtained. FINDINGS: Right Kidney: 10.7 x 3.8 x 4.4. cm. Mild increase in cortical echotexture. Lobulated contour with areas of cortical thinning suggesting areas of atrophy and/or scar. Mild pelvic caliectasis at 1.1 cm. Left Kidney: 14.7 x 6.9 x 6.8. cm. Mild hydronephrosis. Portions of what appear to be internal ureteral stent noted in the renal pelvis. No focal cortical findings to indicate renal abscess noted on CT of 01/26/2019. Bladder: Not visualized. The urinary bladder is decompressed with a Lama catheter. Other: None. IMPRESSION: 1. Mild right renal atrophy and/or scarring. Mild right-sided pelvic caliectasis. 2. Mild left-sided hydronephrosis. No cortical findings by sonography to indicate persistent renal abscess suspected on prior CT. RADIA
== END 2019-02-16 14:22 | disposition home or self-care (01) ==
LOC: DI 14:21
PROVIDERS: ATTEND Urology
DX: N15.1 Renal and perinephric abscess (principal); N28.89 Other specified disorders of kidney and ureter; N13.30 Unspecified hydronephrosis
CPT/HCPCS: 76770

== ENCOUNTER 2019-02-22 15:44 | Outpatient (CLI) | payer MEDICAID | END 2019-02-22 15:45 | disposition critical access hospital (66) | LOC: EMS 15:44 | PROVIDERS: ATTEND Surgery | DX: R10.32 Left lower quadrant pain (principal); R11.2 Nausea with vomiting, unspecified; K94.03 Colostomy malfunction; T83.021A Displacement of indwelling urethral catheter, initial encounter | CPT/HCPCS: A0425; A0429; A0999 ==

== ENCOUNTER 2019-02-22 15:55 | Emergency (ER) | payer MEDICAID ==
[2019-02-22 16:06] VITALS: BP 112/94
[2019-02-22] MEDS ORDERED: SODIUM CHLORIDE 0.9% 1,000 ML IV ONE ×2 (16:10)
[2019-02-22] MEDS ORDERED: HYDROmorphone 1 MG/ML CARPUJECT IVP STA (16:10)
[2019-02-22] MEDS ORDERED: ONDANSETRON 4 MG/2 ML VIAL IVP STA (16:10)
--- NOTE | 2019-02-22 16:13 | ED Physician Documentation ---
PD HPI ABD PAIN - Stated complaint Stated Complaint: LLQ ABD PAIN - Chief complaint Chief Complaint: UTI - History obtained from History obtained from: Patient, Family, EMS - History of Present Illness Associated symptoms: Nausea, Vomiting, Diarrhea. No: Fever, Melena, Hematochezia, Dysuria, Near syncope / syncope Recently seen: Not recently seen - Additional information Additional information: 53-year-old male with a history of colon cancer and colostomy. States that he had a colostomy placed in November or December of this last year. He is unclear which one. He states that he has been having increased output from the colostomy. States increasing abdominal pain and vomiting over the past 3 days. Unable to keep his pain medication down. He states he had a Lama catheter in place as well but that it became dislodged. EMS states that it was broken in 3 pieces on the floor of his home. He denies any fevers. No headaches. Worse with palpation and movement. Nothing makes it better. is sick with similar symptoms of nausea, vomiting and diarrhea Review of Systems Ten Systems: 10 systems reviewed and negative Constitutional: denies: Fever, Chills Respiratory: denies: Cough GI: reports: Nausea, Vomiting, Diarrhea Skin: denies: Rash Musculoskeletal: denies: Neck pain, Back pain PD PAST MEDICAL HISTORY - Past Medical History Cardiovascular: Hypertension, High cholesterol, Coronary artery disease, [place] Respiratory: Asthma Neuro: None Endocrine/Autoimmune: Type 2 diabetes GI: GERD : None HEENT: Chronic vision loss, Chronic hearing loss Psych: Depression Musculoskeletal: Osteoarthritis, Gout Derm: None - Past Surgical History Past Surgical History: Yes General: Other Cardiovascular: CABG, Coronary stent - Present Medications Home Medications: Ambulatory Orders Medication Instructions Recorded Confirmed Atorvastatin Calcium [Lipitor] 80 mg PO QPM 09/28/12 02/22/19 Glipizide [Glipizide Xl] 5 mg PO DAILY 09/28/12 02/22/19 Metformin HCl [Fortamet] 1,000 mg PO BID 09/28/12 02/22/19 traZODone [Desyrel] 150 mg PO HS PRN 09/28/12 02/22/19 Clopidogrel [Plavix] 75 mg PO DAILY 04/08/16 02/22/19 DULoxetine [Cymbalta] 30 mg PO DAILY 04/08/16 02/22/19 Gabapentin 400 mg PO Q6HR 04/08/16 02/22/19 Nitroglycerin [Nitrostat] 0.4 mg SL Q5MIN PRN #30 tablet 04/09/16 02/22/19 B Complex with Vitamin C 1 each PO DAILY 12/06/16 02/22/19 [B-Complex Plus Vitamin C] Carvedilol [Coreg] 25 mg PO BID #60 tablet 12/06/16 02/22/19 Hydrocodone/Acetaminophen 1 each PO DAILY 12/06/16 02/22/19 [Hydrocodone-Acetamin 7.5-325] Lidocaine Patch 5% [Lidoderm Patch] 1 each TOP DAILY 12/06/16 02/22/19 Multivitamin [Multiple Vitamins] 1 each PO DAILY 12/06/16 02/22/19 Spironolactone 25 mg PO DAILY #30 tablet 12/06/16 02/22/19 Zolpidem [Ambien] 10 mg PO DAILY PM PRN 12/06/16 02/22/19 diphenhydrAMINE [Benadryl] 25 mg PO Q4-6H PRN 12/06/16 02/22/19 Albuterol Sulfate [Proair Hfa 2 puffs IH QID #1 hfa.aer.ad 01/17/17 02/22/19 Inhaler] Magnesium Oxide [Mag Ox] 400 mg PO DAILY #15 tablet 08/15/17 02/22/19 Finasteride 5 mg PO DAILY 01/05/18 02/22/19 Tamsulosin HCl [Flomax] 1 cap PO DAILY 01/05/18 02/22/19 Famotidine [Pepcid] 20 mg PO ONCE #30 tablet 02/13/18 02/22/19 Mupirocin 1 applic TP TID #15 g 12/29/18 02/22/19 Nitrofurantoin Monohyd/M-Cryst 100 mg PO BID #10 capsule 02/22/19 [Macrobid 100 mg Capsule] - Allergies Allergies/Adverse Reactions: Allergies Allergy/AdvReac Type Severity Reaction Status Date / Time cephalexin monohydrate * Allergy Unknown Nausea Verified 02/22/19 16:04 [From Keflex] codeine Allergy Unknown Verified 02/22/19 16:04 - Social History Does the pt smoke?: No Smoking Status: Never smoker Does the pt drink ETOH?: Yes Does the pt have substance abuse?: No - Immunizations Immunizations are current?: Yes - POLST Patient has POLST: No POLST Status: Full Code PD ED PE NORMAL - Vitals Vital signs reviewed: Yes - General General: Alert and oriented X 3, No acute distress, Well developed/nourished - HEENT HEENT: PERRL, Moist mucous membranes - Neck Neck: Supple, no meningeal sign - Cardiac Cardiac: RRR, Strong equal pulses - Respiratory Respiratory: No respiratory distress, Clear bilaterally - Abdomen Abdomen: Normal bowel sounds, Soft, Non distended, Other (Mild diffuse tenderness to palpation. No peritoneal signs.) - Derm Derm: Warm and dry - Extremities Extremities: No edema - Neuro Neuro: Alert and oriented X 3 - Psych Psych: Normal mood, Normal affect Results - Vitals Vitals: Oxygen O2 Source Room air - Labs Labs: Microbiology 02/22/19 18:07 Urine Culture - Preliminary Urine,Catheterized Pseudomonas Aeruginosa Laboratory Tests 02/22/19 02/22/19 02/22/19 16:26 16:26 18:07 WBC 8.5 RBC 4.24 L Hgb 9.9 L Hct 33.3 L MCV 78.5 L MCH 23.3 L MCHC 29.7 L RDW 16.6 H Plt Count 326 MPV 9.2 Neut # (Auto) 6.8 H Lymph # (Auto) 0.7 L [place] # (Auto) 0.9 Eos # (Auto) 0.1 Baso # (Auto) 0.0 Absolute Nucleated RBC 0.00 Nucleated RBC % 0.0 Sodium 136 Potassium 3.8 Chloride 99 L Carbon Dioxide 20 L Anion Gap 17.0 H BUN 27 H Creatinine 1.5 H Estimated GFR (MDRD) 49 L Glucose 194 H Calcium 9.1 Total Bilirubin 1.0 AST 129 H ALT 128 H Alkaline Phosphatase 258 H Total Protein 8.0 Albumin 3.7 Globulin 4.3 H Albumin/Globulin Ratio 0.9 L Lipase 39 Urine Color YELLOW Urine Clarity HAZY Urine pH 6.0 Ur Specific [place] 1.015 Urine Protein 100 H Urine Glucose (UA) NEGATIVE Urine Ketones NEGATIVE Urine Occult Blood MODERATE H Urine Nitrite NEGATIVE Urine Bilirubin NEGATIVE Urine Urobilinogen 0.2 (NORMAL) Ur Leukocyte Esterase LARGE H Urine RBC TNTC H Urine WBC 11-25 H Ur Squamous Epith Cells FEW Squamous Urine Bacteria Many H Ur Microscopic Review INDICATED Urine Culture Comments INDICATED - Rads (name of study) CT abdomen and pelvis Radiology: Prelim report reviewed, EMP read contemporaneously, See rad report (Since dislodgment of Lama catheter, new mild left hydronephrosis and increased perivesical stranding. Findings suggestive of obstruction which may be superimposed by infection.) PD MEDICAL DECISION MAKING - ED course Complexity details: reviewed results, re-evaluated patient, considered differential, d/w patient ED course: 53-year-old male presents to the emergency department with abdominal pain, likely narcotic withdrawal component as he has not taken narcotics for 3 days, and a dislodgment of his Lama catheter. Any Lama catheter was placed. We will place him on antibiotics. We will have him follow-up with his doctor for further care. No fevers. No leukocytosis. No evidence of sepsis. No CVA tenderness to suggest pyelonephritis clinically. Patient counseled regarding signs and symptoms for which I believe and urgent re-evaluation would be necessary. Patient with good understanding of and agreement to plan and is comfortable going home at this time This document was made in part using voice recognition software. While efforts are made to proofread this document, sound alike and grammatical errors may occur. Departure - Departure Disposition: 01 Home, Self Care Clinical Impression: Dehydration Dislodged Lama catheter Qualifiers: Encounter type: initial encounter Qualified Code(s): T83.021A - Displacement of indwelling urethral catheter, initial encounter Condition: Good Instructions: ED Dehydration, ED UTI Cystitis Male Follow-Up: Samuel Bryant MD [Primary Care Provider] - Padmini Meek MD [Physician No Access] - Within 3 Days Prescriptions: Nitrofurantoin Monohyd/M-Cryst [Macrobid 100 mg Capsule] 100 mg PO BID #10 capsule Comments: Return if you worsen, especially for fevers or vomiting. Contact Dr. Meek on Sunday for further care. Discharge Date/Time: 02/22/19 20:00
[2019-02-22] MEDS ORDERED: IOVERSOL 320 100 ML VIAL IVP ONE ×2 (16:28→17:43)
[2019-02-22 16:31] LABS: BASOPHILS % (AUTO) 0.1 %; EOSINOPHILS # (AUTO) 0.1 10^3/uL (0.0-0.7); EOSINOPHILS % (AUTO) 0.9 %; HGB - HEMOGLOBIN 9.9 g/dL (14.0-18.0); LYMPHOCYTES # (AUTO) 0.7 10^3/uL (1.5-3.5); LYMPHOCYTES % (AUTO) 7.6 %; MEAN CORPUSCULAR HEMOGLOBIN 23.3 pg (27.0-31.0); MEAN CORPUSCULAR HGB CONC 29.7 g/dL (32.0-36.0); MEAN CORPUSCULAR VOLUME 78.5 fL (80.0-94.0); MEAN PLATELET VOLUME 9.2 fL (7.4-11.4); MONOCYTES # (AUTO) 0.9 10^3/uL (0.0-1.0); MONOCYTES % (AUTO) 10.5 %; NEUTROPHILS # (AUTO) 6.8 10^3/uL (1.5-6.6); NEUTROPHILS % (AUTO) 80.4 %; PLT - PLATELET COUNT 326 10^3/uL (130-450); RED BLOOD COUNT 4.24 10^6/uL (4.70-6.10); RED CELL DISTRIBUTION WIDTH 16.6 % (12.0-15.0); WHITE BLOOD COUNT 8.5 x10^3/uL (4.8-10.8)
[2019-02-22 16:51] LABS: ALBUMIN 3.7 g/dL (3.2-5.5); ALBUMIN/GLOBULIN RATIO 0.9 (1.0-2.2); CALCIUM 9.1 mg/dL (8.5-10.3); CREATININE 1.5 mg/dL (0.6-1.2)
[2019-02-22 18:15] LABS: BILIRUBIN,URINE NEGATIVE (NEGATIVE); GLUCOSE, URINE (UA) NEGATIVE (NEGATIVE); KETONES,URINE (UA) NEGATIVE (NEGATIVE); LEUKOCYTE ESTERASE, URINE LARGE (NEGATIVE); NITRITE,URINE NEGATIVE (NEGATIVE); OCCULT BLOOD,URINE MODERATE (NEGATIVE); PROTEIN,URINE 100 mg/dL (NEGATIVE); UROBILINOGEN,URINE 0.2 (NORMAL) E.U./dL (NORMAL)
[2019-02-22 18:17] LABS: CLARITY,URINE HAZY (CLEAR)
--- NOTE | 2019-02-22 18:18 | CT Report ---
Reason: diffuse abd pain, vomiting, broken madrid Procedure Date: 02/22/2019 Accession Number: [id number] / [id number] Procedure: CT - Abdomen/Pelvis W CPT Code: FULL RESULT: EXAM: CT ABDOMEN AND PELVIS EXAM DATE: 02/22/2019 05:31 PM. CLINICAL HISTORY: Diffuse abd pain, vomiting, broken madrid. COMPARISONS: IVP 01/26/2019 2:16 PM CHEST W/ 09/26/2018 1:14 PM. TECHNIQUE: Routine helical CT imaging was performed through the abdomen and pelvis. IV contrast: Optiray 320, 90 mL. Enteric contrast: No. Reconstructions: Coronal and sagittal. In accordance with CT protocol optimization, one or more of the following dose reduction techniques were utilized for this exam: automated exposure control, adjustment of mA and/or KV based on patient size, or use of iterative reconstructive technique. FINDINGS: Lung Bases: Stable calcified granuloma right lower lobe and sub-5 mm pulmonary nodules left lung base. Liver: No masses. Gallbladder/Bile Ducts: Unremarkable. Spleen: Normal. Pancreas: Normal. Adrenal Glands: Normal. Kidneys: Atrophic right kidney, which still demonstrates a nephrogram. New mild left hydronephrosis when compared to 01/26/19 CT. Interval resolution of left renal hypodense lesion, suggestive of resolved abscess. Left ureteral stent in stable position. Peritoneal Cavity/Bowel: No bowel obstruction. The appendix is well visualized and normal.Left lower quadrant colostomy. Pelvic Organs: Bladder demonstrates circumferential wall thickening and increased perivesical stranding. Air within the bladder lumen. No residual Madrid catheter fragments within the bladder. Vasculature: No aneurysms or other significant abnormality. Bones: No suspicious osseous lesions. Other: None. IMPRESSION: Since dislodgement of Madrid catheter, new mild left hydronephrosis and increased perivesical stranding. Findings suggestive of obstruction which may be superimposed by infection. ROBE The call report notification system was initiated by Dr. Opal Kan at 06:09 PM on 02/22/2019. The above call report findings were discussed with Mario Romano by Dr. Opal Kan at 06:17 PM on 02/22/2019.
[2019-02-22 18:38] LABS: BACTERIA,URINE Many /HPF (None Seen); RBC,URINE TNTC /HPF (0-5); SQUAMOUS EPITHELIAL CELL,UR FEW Squamous (<= Few)
[2019-02-22] MEDS ORDERED: NITROFURANTOIN MACRO 100 MG CAPSULE PO STA ×2 (19:52→19:53)
== END 2019-02-22 20:00 | disposition home or self-care (01) ==
LOC: EDUNIT# → ED 15:55
DX: E86.0 Dehydration (principal); T83.021A Displacement of indwelling urethral catheter, initial encounter; Y84.6 Urinary catheterization as the cause of abnormal reaction of the patient, or of later complication, without mention of misadventure at the time of the procedure; R10.32 Left lower quadrant pain; R11.0 Nausea; R19.7 Diarrhea, unspecified; N13.30 Unspecified hydronephrosis; Z93.3 Colostomy status; Z85.038 Personal history of other malignant neoplasm of large intestine; I10 Essential (primary) hypertension; E11.9 Type 2 diabetes mellitus without complications; Z79.84 Long term (current) use of oral hypoglycemic drugs; Z79.02 Long term (current) use of antithrombotics/antiplatelets
CPT/HCPCS: 36415; 51702; 74177; 80053; 81001; 83690; 85025; 87086; 87181; 96361; 96374; 99284; A9270; J1170; Q9967; 81003

== ENCOUNTER 2019-02-28 13:16 | Outpatient (CLI) | payer MEDICAID ==
[2019-02-28] MEDS ORDERED: IOTHALAMATE MEGLUMINE 250 ML VIAL UR ONE (14:48)
--- NOTE | 2019-02-28 15:00 | XRAY Report ---
Reason: INJURY OF URETHRA Procedure Date: 02/28/2019 Accession Number: [id number] / [id number] Procedure: FL - Cystography CPT Code: FULL RESULT: EXAM: CYSTOGRAM EXAM DATE: 02/28/2019 02:39 PM CLINICAL HISTORY: INJURY OF URETHRA. COMPARISON: HYSTEROSALPINGOGRAM 01/09/2019 1:26 PM. TECHNIQUE: Routine cystogram technique with catheter instillation of approximately 500 mL of Cysto-Conray contrast into the bladder using gravity pressure under fluoroscopic observation. Multiple fluoroscopic spot films obtained in different projections. Fluoroscopic exposure time: 39 seconds. Number of fluoroscopic images: 13. FINDINGS: Bladder: At the beginning of the examination hyperdense material is seen in the distal bowel. Postsurgical changes are seen as well as a left ureteral stent. The bladder normally fills with contrast to an appropriate volume. Apparent contrast extravasation at the base of the bladder is noted followed by further contrast opacification of the distal rectosigmoid colon. Postdrainage imaging is remarkable for retained contrast in large bowel. Other: None. IMPRESSION: Colovesical fistula. RADIA
== END 2019-02-28 13:17 | disposition home or self-care (01) ==
LOC: DI 13:16
PROVIDERS: ATTEND Urology
DX: N32.1 Vesicointestinal fistula (principal)
CPT/HCPCS: 74430

== ENCOUNTER 2019-05-21 15:40 | Outpatient (CLI) | payer MEDICAID ==
[2019-05-21 16:47] LABS: BILIRUBIN,URINE NEGATIVE (NEGATIVE); GLUCOSE, URINE (UA) NEGATIVE (NEGATIVE); KETONES,URINE (UA) TRACE mg/dL (NEGATIVE); LEUKOCYTE ESTERASE, URINE LARGE (NEGATIVE); NITRITE,URINE POSITIVE (NEGATIVE); OCCULT BLOOD,URINE LARGE (NEGATIVE); PROTEIN,URINE 100 mg/dL (NEGATIVE); UROBILINOGEN,URINE 0.2 (NORMAL) E.U./dL (NORMAL)
[2019-05-21 16:49] LABS: CLARITY,URINE CLOUDY (CLEAR)
[2019-05-21 17:02] LABS: AMORPHOUS SEDIMENT,UR Few /LPF; BACTERIA,URINE Many /HPF (None Seen); RBC,URINE TNTC /HPF (0-5); SQUAMOUS EPITHELIAL CELL,UR NONE SEEN (<= Few); WBC CLUMPS,URINE PRESENT
== END 2019-05-21 15:41 | disposition home or self-care (01) ==
LOC: LAB 15:40
PROVIDERS: ATTEND Urology
DX: Z96.0 Presence of urogenital implants (principal)
CPT/HCPCS: 81001; 81003; 87077; 87086; 87181

== ENCOUNTER 2019-07-30 16:33 | Outpatient (CLI) | payer MEDICAID | END 2019-07-30 23:59 | disposition home or self-care (01) | LOC: LAB.R 16:33 | PROVIDERS: ATTEND Family Medicine | DX: N39.0 Urinary tract infection, site not specified (principal) | CPT/HCPCS: 87077; 87086; 87181 ==

== ENCOUNTER 2019-10-22 12:54 | Outpatient (CLI) | payer MEDICAID | END 2019-10-22 12:55 | disposition critical access hospital (66) | LOC: EMS 12:54 | PROVIDERS: ATTEND Surgery | DX: R50.9 Fever, unspecified (principal); R51 Headache; R10.2 Pelvic and perineal pain | CPT/HCPCS: A0425; A0429; A0999 ==

== ENCOUNTER 2019-10-22 13:05 | Emergency (ER) | payer MEDICAID ==
[2019-10-22 13:54] LABS: BASOPHILS % (AUTO) 0.2 %; EOSINOPHILS # (AUTO) 0.1 10^3/uL (0.0-0.7); EOSINOPHILS % (AUTO) 1.9 %; HGB - HEMOGLOBIN 12.6 g/dL (14.0-18.0); LYMPHOCYTES # (AUTO) 0.7 10^3/uL (1.5-3.5); LYMPHOCYTES % (AUTO) 11.6 %; MEAN CORPUSCULAR HEMOGLOBIN 26.4 pg (27.0-31.0); MEAN CORPUSCULAR HGB CONC 32.2 g/dL (32.0-36.0); MEAN PLATELET VOLUME 10.1 fL (7.4-11.4); MONOCYTES # (AUTO) 0.8 10^3/uL (0.0-1.0); MONOCYTES % (AUTO) 13.3 %; NEUTROPHILS # (AUTO) 4.3 10^3/uL (1.5-6.6); NEUTROPHILS % (AUTO) 72.5 %; PLT - PLATELET COUNT 235 10^3/uL (130-450); RED BLOOD COUNT 4.77 10^6/uL (4.70-6.10); RED CELL DISTRIBUTION WIDTH 15.8 % (12.0-15.0); WHITE BLOOD COUNT 5.9 x10^3/uL (4.8-10.8)
--- NOTE | 2019-10-22 13:57 | ED Physician Documentation ---
History of Present Illness - Stated complaint Stated Complaint: FEVER/CHILLS - Chief complaint Chief Complaint: General - History obtained from History obtained from: Patient - History of Present Illness Timing: Prior to arrival, How many days ago (7) - Additonal information Additional information: 54-year-old gentleman who has a surgically complex abdomen presents to the emergency department with chief complaint of fevers and chills. 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 Over the course of time he has sustained a left-sided colostomy as well as a right-sided suprapubic catheter and a Madrid catheter. Patient states that he has 2 sources of urinary drainage as his bladder has continued to "leak" Patient reports that about 7 days ago he began having a sensation that he may have a urinary tract infection. He drank a lot of cranberry juice. He is unsure if the symptoms got better but over the course of the week he developed low-grade fevers T-max of 100.4.Patient reports that 4 days ago he noted that the Madrid catheter exiting from his penis stopped with any urinary output. However his suprapubic catheter has continued to provide adequate urinary output though he does report that for about a day there was a significant amount of hematuria which cleared on its own. OVer the course of the last week he has not sough medical care and he has not been started on any antibiotics. Patient also reports that he was constipated from his colostomy for about 3 to 4 days but over the course of the last 24 hours his colostomy has begun putting out formed brown stool.His urologist and surgeon is Dr. Meek and through [facility] and his primary care physician is Dr. Bryant. Review of Systems Constitutional: reports: Fever, Fatigue, Sweats Eyes: reports: Reviewed and negative Nose: reports: Reviewed and negative Cardiac: denies: Chest pain / pressure, Palpitations, Pedal edema Respiratory: denies: Dyspnea, Cough GI: reports: Abdominal Pain, Constipation. denies: Nausea, Vomiting : reports: Unable to Void, Hematuria Skin: denies: Rash, Lesions Musculoskeletal: reports: Back pain. 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; madrid catheter) Cardiovascular: CABG, Coronary stent - Present Medications Home Medications: Ambulatory Orders Medication Instructions Recorded Confirmed Atorvastatin Calcium [Lipitor] 80 mg PO QPM 09/28/12 02/22/19 Glipizide [Glipizide Xl] 5 mg PO DAILY 09/28/12 02/22/19 Metformin HCl [Fortamet] 1,000 mg PO BID 09/28/12 02/22/19 traZODone [Desyrel] 150 mg PO HS PRN 09/28/12 02/22/19 Clopidogrel [Plavix] 75 mg PO DAILY 04/08/16 02/22/19 DULoxetine [Cymbalta] 30 mg PO DAILY 04/08/16 02/22/19 Gabapentin 400 mg PO Q6HR 04/08/16 02/22/19 Nitroglycerin [Nitrostat] 0.4 mg SL Q5MIN PRN #30 tablet 04/09/16 02/22/19 B-Complex with Vitamin C 1 each PO DAILY 12/06/16 02/22/19 [B-Complex Plus Vitamin C] Hydrocodone/Acetaminophen 1 each PO DAILY 12/06/16 02/22/19 [Hydrocodone-Acetamin 7.5-325] Lidocaine Patch 5% [Lidoderm Patch] 1 each TOP DAILY 12/06/16 02/22/19 Multivitamin [Multiple Vitamins] 1 each PO DAILY 12/06/16 02/22/19 Spironolactone 25 mg PO DAILY #30 tablet 12/06/16 02/22/19 Zolpidem [Ambien] 10 mg PO DAILY PM PRN 12/06/16 02/22/19 carvediloL [Coreg] 25 mg PO BID #60 tablet 12/06/16 02/22/19 diphenhydrAMINE [Benadryl] 25 mg PO Q4-6H PRN 12/06/16 02/22/19 Albuterol Sulfate [Proair Hfa 2 puffs IH QID #1 hfa.aer.ad 01/17/17 02/22/19 Inhaler] Magnesium Oxide [Mag Ox] 400 mg PO DAILY #15 tablet 08/15/17 02/22/19 Finasteride 5 mg PO DAILY 01/05/18 02/22/19 Tamsulosin HCl [Flomax] 1 cap PO DAILY 01/05/18 02/22/19 Famotidine [Pepcid] 20 mg PO ONCE #30 tablet 02/13/18 02/22/19 Mupirocin 1 applic TP TID #15 g 12/29/18 02/22/19 Nitrofurantoin Monohyd/M-Cryst 100 mg PO BID #10 capsule 02/22/19 [Macrobid 100 mg Capsule] Levofloxacin [Levaquin] 750 mg PO QDBREAKFAST 7 Days #7 10/22/19 tablet - Allergies Allergies/Adverse Reactions: Allergies Allergy/AdvReac Type Severity Reaction Status Date / Time cephalexin monohydrate * Allergy Unknown Nausea Verified 10/22/19 13:15 [From Keflex] codeine Allergy Unknown Verified 10/22/19 13:15 methadone Allergy Unknown Verified 10/22/19 13:16 - Social History Does the pt smoke?: No Smoking Status: Never smoker Does the pt drink ETOH?: Yes Does the pt have substance abuse?: No - Immunizations Immunizations are current?: Yes - POLST Patient has POLST: No POLST Status: Full Code PD ED PE NORMAL - General General: Alert and oriented X 3, No acute distress, Well developed/nourished - HEENT HEENT: PERRL - Neck Neck: No adenopathy - Cardiac Cardiac: RRR, No murmur - Respiratory Respiratory: No respiratory distress, Clear bilaterally - Male Male : Other (right sided suprapubic catheter exiting form lower abdomen; clear yellow urine draining; madrid catheter exiting the penis withotu urinary output) - Rectal Rectal: Other (left sided colostomy with brown formed stool) - Derm Derm: Normal color, Warm and dry, No rash - Extremities Extremities: No tenderness to palpate - Neuro Neuro: Alert and oriented X 3, 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, No motor deficit, No sensory deficit Eye Opening: Spontaneous Motor: Obeys Commands Verbal: Oriented GCS Score: 15 Results - Vitals Vitals: Vital Signs - 24 hr 0610/22/19 10/22/19 13:18 14:05 14:49 Temperature 37.0 C 37.1 C Heart Rate 68 71 70 Respiratory 16 14 15 Rate Blood Pressure 142/96 H 125/96 H 116/80 O2 Saturation 100 98 99 Oxygen O2 Source Room air - Labs Labs: Laboratory Tests 10/22/19 10/22/19 10/22/19 13:35 13:35 13:35 WBC 5.9 RBC 4.77 Hgb 12.6 L Hct 39.1 L MCV 82.0 MCH 26.4 L MCHC 32.2 RDW 15.8 H Plt Count 235 MPV 10.1 Neut # (Auto) 4.3 Lymph # (Auto) 0.7 L [place] # (Auto) 0.8 Eos # (Auto) 0.1 Baso # (Auto) 0.0 Absolute Nucleated RBC 0.00 Nucleated RBC % 0.0 Sodium 136 Potassium 3.9 Chloride 99 L Carbon Dioxide 25 Anion Gap 12.0 BUN 24 H Creatinine 1.1 Estimated GFR (MDRD) 70 L Glucose 185 H Lactic Acid 0.9 Calcium 9.6 Total Bilirubin 0.5 AST 48 H ALT 52 Alkaline Phosphatase 106 Total Protein 7.8 Albumin 4.1 Globulin 3.7 Albumin/Globulin Ratio 1.1 Lipase 34 Urine Color Urine Clarity Urine pH Ur Specific [place] Urine Protein Urine Glucose (UA) Urine Ketones Urine Occult Blood Urine Nitrite Urine Bilirubin Urine Urobilinogen Ur Leukocyte Esterase Urine RBC Urine WBC Ur Squamous Epith Cells Urine Crystals Urine Bacteria Ur Microscopic Review Urine Culture Comments 10/22/19 14:24 WBC RBC Hgb Hct MCV MCH MCHC RDW Plt Count MPV Neut # (Auto) Lymph # (Auto) [place] # (Auto) Eos # (Auto) Baso # (Auto) Absolute Nucleated RBC Nucleated RBC % Sodium Potassium Chloride Carbon Dioxide Anion Gap BUN Creatinine Estimated GFR (MDRD) Glucose Lactic Acid Calcium Total Bilirubin AST ALT Alkaline Phosphatase Total Protein Albumin Globulin Albumin/Globulin Ratio Lipase Urine Color YELLOW Urine Clarity CLOUDY Urine pH 8.5 H Ur Specific [place] 1.015 Urine Protein 30 H Urine Glucose (UA) NEGATIVE Urine Ketones NEGATIVE Urine Occult Blood TRACE-INTA Urine Nitrite POSITIVE H Urine Bilirubin NEGATIVE Urine Urobilinogen 0.2 (NORMAL) Ur Leukocyte Esterase LARGE H Urine RBC 0-5 Urine WBC 11-25 H Ur Squamous Epith Cells NONE SEEN Urine Crystals 11-25 Triple Phos Urine Bacteria Few Ur Microscopic Review INDICATED Urine Culture Comments INDICATED PD MEDICAL DECISION MAKING - ED course Complexity details: reviewed results, re-evaluated patient, considered differential, d/w patient ED course: 54-year-old gentleman presented to the emergency department with chief complaint of fever for the last 4 days as well as concerns of urinary tract infection. Reports that the [place] catheter exiting from his penis has had no output in the last 4 days but his suprapubic catheter at one point had hematuria. He has a very surgically complex abdomen with a history of spindle cell carcinoma status post resection in November 2018. - Patient's labs were reviewed. He has no leukocytosis and a normal lactic acid he has no tachycardia or hypotension. His urine is very suggestive of infection though given the presence of an indwelling [place] catheter it likely always looks infected. - I discussed this case with patient's surgeon Dr. Marie at [facility] we discussed his labs and the urinalysis recommendation is for treatment of a suspected urinary tract infection. Patient has very close follow-up scheduled with his surgeon on Sunday of next week. We will start Levaquin in the meantime culture is pending. - Dr. Marie was very clear that we were not to try and exchange the Madrid catheter in order to see if it would drain. This will be addressed at the follow-up appointment on Sunday.However if his suprapubic catheter should stop producing urine then patient is to return immediately to the emergency department. - Consults Consults: Discussed case with (Dr. Marie. Surgeon/urology [facility]) Departure - Departure Disposition: 01 Home, Self Care Clinical Impression: Urinary tract infection associated with catheterization of urinary tract Qualifiers: Indwelling urinary catheter type: indwelling urethral catheter Encounter type: initial encounter Qualified Code(s): T83.511A - Infection and inflammatory reaction due to indwelling urethral catheter, initial encounter; N39.0 - Urinary tract infection, site not specified Condition: Stable Record reviewed to determine appropriate education?: Yes Instructions: ED Bladder Infec Cystitis Vs Pyelo Ch, ED Infec Bladder Cystitis Male Ch Prescriptions: Levofloxacin [Levaquin] 750 mg PO QDBREAKFAST 7 Days #7 tablet Comments: Jose De Jesus it looks like you have an infection in the urine. Please fill the prescription for the Levaquin and begin taking this evening. I have written you for a 7-day course of antibiotic. I have discussed your case with Dr. Marie the surgeon at [facility]. He does not want the Madrid catheter exchanged at this time. You have follow-up with him on Sunday. Please do not miss that follow- up if you begin to have worsening fevers chills myalgias or feel that the symptoms are not getting better despite the antibiotics please return immediately to the emergency department.
[2019-10-22 14:07] LABS: ALBUMIN 4.1 g/dL (3.2-5.5); ALBUMIN/GLOBULIN RATIO 1.1 (1.0-2.2); BILIRUBIN,TOTAL 0.5 mg/dL (0.2-1.0); CALCIUM 9.6 mg/dL (8.5-10.3); CREATININE 1.1 mg/dL (0.6-1.2); TOTAL PROTEIN 7.8 g/dL (6.7-8.2)
[2019-10-22 14:30] LABS: BILIRUBIN,URINE NEGATIVE (NEGATIVE); CLARITY,URINE CLOUDY (CLEAR); GLUCOSE, URINE (UA) NEGATIVE (NEGATIVE); KETONES,URINE (UA) NEGATIVE (NEGATIVE); LEUKOCYTE ESTERASE, URINE LARGE (NEGATIVE); NITRITE,URINE POSITIVE (NEGATIVE); OCCULT BLOOD,URINE TRACE-INTA (NEGATIVE); PH,URINE 8.5 PH (5.0-7.5); PROTEIN,URINE 30 mg/dL (NEGATIVE); UROBILINOGEN,URINE 0.2 (NORMAL) E.U./dL (NORMAL)
[2019-10-22 14:47] LABS: RBC,URINE 0-5 /HPF (0-5); SQUAMOUS EPITHELIAL CELL,UR NONE SEEN (<= Few)
[2019-10-22 14:48] LABS: BACTERIA,URINE Few /HPF (None Seen); CRYSTALS,URINE 11-25 Triple Phos /LPF
[2019-10-22 15:43] VITALS: BP 122/79
== END 2019-10-22 15:43 | disposition home or self-care (01) ==
LOC: EDUNIT# → ED 13:05
DX: T83.511A Infection and inflammatory reaction due to indwelling urethral catheter, initial encounter (principal); N39.0 Urinary tract infection, site not specified; Y84.6 Urinary catheterization as the cause of abnormal reaction of the patient, or of later complication, without mention of misadventure at the time of the procedure; I10 Essential (primary) hypertension; E11.9 Type 2 diabetes mellitus without complications; Z79.84 Long term (current) use of oral hypoglycemic drugs; Z85.89 Personal history of malignant neoplasm of other organs and systems; Z93.3 Colostomy status; Z93.50 Unspecified cystostomy status
CPT/HCPCS: 36415; 80053; 81001; 81003; 81599; 83605; 83690; 85025; 87040; 87077; 87086; 87181; 87186; 99283; 99284

== ENCOUNTER 2019-11-20 01:21 | Outpatient (CLI) | payer MEDICAID | END 2019-11-20 01:22 | disposition EMS.NT | LOC: EMS 01:21 | PROVIDERS: ATTEND Surgery | DX: S01.112A Laceration without foreign body of left eyelid and periocular area, initial encounter (principal); V49.9XXA Car occupant (driver) (passenger) injured in unspecified traffic accident, initial encounter ==

== ENCOUNTER 2019-12-05 16:56 | Outpatient (CLI) | payer MEDICAID | END 2019-12-05 16:57 | disposition critical access hospital (66) | LOC: EMS 16:56 | PROVIDERS: ATTEND Surgery | DX: T83.021A Displacement of indwelling urethral catheter, initial encounter (principal) | CPT/HCPCS: A0425; A0429; A0999 ==

== ENCOUNTER 2019-12-05 17:07 | Emergency (ER) | payer MEDICAID ==
[2019-12-05 17:24] VITALS: BP 153/75
--- NOTE | 2019-12-05 17:32 | ED Physician Documentation ---
History of Present Illness - Stated complaint Stated Complaint: CATHETER DISLODGED - Chief complaint Chief Complaint: General - History obtained from History obtained from: Patient - Additonal information Additional information: 54-year-old gentleman with chronic indwelling Madrid. Previously had a suprapubic catheter as well but his urologist recently discontinued that. His Madrid came out this afternoon and he is here requesting a replacement. No fevers or atypical back pain. Review of Systems Constitutional: reports: Reviewed and negative Cardiac: reports: Reviewed and negative Respiratory: reports: Reviewed and negative PD PAST MEDICAL HISTORY - Past Medical History Cardiovascular: Hypertension, High cholesterol, Coronary artery disease, [place] Respiratory: Asthma Neuro: None Endocrine/Autoimmune: Type 2 diabetes GI: GERD : None, Indwelling catheter HEENT: Chronic vision loss, Chronic hearing loss Psych: Depression Musculoskeletal: Osteoarthritis, Gout Derm: None - Past Surgical History Past Surgical History: Yes General: Other (Spincel cell cancer abdomen) /RHIT: Other (suprapubic catheter; [place]rid catheter) Cardiovascular: CABG, Coronary stent - Present Medications Home Medications: Ambulatory Orders Medication Instructions Recorded Confirmed Atorvastatin Calcium [Lipitor] 80 mg PO QPM 09/28/12 02/22/19 Glipizide [Glipizide Xl] 5 mg PO DAILY 09/28/12 02/22/19 Metformin HCl [Fortamet] 1,000 mg PO BID 09/28/12 02/22/19 traZODone [Desyrel] 150 mg PO HS PRN 09/28/12 02/22/19 Clopidogrel [Plavix] 75 mg PO DAILY 04/08/16 02/22/19 DULoxetine [Cymbalta] 30 mg PO DAILY 04/08/16 02/22/19 Gabapentin 400 mg PO Q6HR 04/08/16 02/22/19 Nitroglycerin [Nitrostat] 0.4 mg SL Q5MIN PRN #30 tablet 04/09/16 02/22/19 B-Complex with Vitamin C 1 each PO DAILY 12/06/16 02/22/19 [B-Complex Plus Vitamin C] Hydrocodone/Acetaminophen 1 each PO DAILY 12/06/16 02/22/19 [Hydrocodone-Acetamin 7.5-325] Lidocaine Patch 5% [Lidoderm Patch] 1 each TOP DAILY 12/06/16 02/22/19 Multivitamin [Multiple Vitamins] 1 each PO DAILY 12/06/16 02/22/19 Spironolactone 25 mg PO DAILY #30 tablet 12/06/16 02/22/19 Zolpidem [Ambien] 10 mg PO DAILY PM PRN 12/06/16 02/22/19 carvediloL [Coreg] 25 mg PO BID #60 tablet 12/06/16 02/22/19 diphenhydrAMINE [Benadryl] 25 mg PO Q4-6H PRN 12/06/16 02/22/19 Albuterol Sulfate [Proair Hfa 2 puffs IH QID #1 hfa.aer.ad 01/17/17 02/22/19 Inhaler] Magnesium Oxide [Mag Ox] 400 mg PO DAILY #15 tablet 08/15/17 02/22/19 Finasteride 5 mg PO DAILY 01/05/18 02/22/19 Tamsulosin HCl [Flomax] 1 cap PO DAILY 01/05/18 02/22/19 Famotidine [Pepcid] 20 mg PO ONCE #30 tablet 02/13/18 02/22/19 Mupirocin 1 applic TP TID #15 g 12/29/18 02/22/19 Nitrofurantoin Monohyd/M-Cryst 100 mg PO BID #10 capsule 02/22/19 [Macrobid 100 mg Capsule] Levofloxacin [Levaquin] 750 mg PO QDBREAKFAST 7 Days #7 10/22/19 tablet - Allergies Allergies/Adverse Reactions: Allergies Allergy/AdvReac Type Severity Reaction Status Date / Time cephalexin monohydrate * Allergy Unknown Nausea Verified 12/05/19 17:21 [From Keflex] codeine Allergy Unknown Verified 12/05/19 17:21 methadone Allergy Unknown Verified 12/05/19 17:21 - Social History Does the pt smoke?: No Smoking Status: Never smoker Does the pt drink ETOH?: Yes Does the pt have substance abuse?: No - Immunizations Immunizations are current?: Yes - POLST Patient has POLST: No POLST Status: Full Code PD ED PE NORMAL - Vitals Vital signs reviewed: Yes - General General: Alert and oriented X 3, No acute distress - Abdomen Abdomen: Other (Multiple surgical scars, and ostomy on the left, nontender) - Neuro Neuro: Alert and oriented X 3, Normal speech Results - Vitals Vitals: Vital Signs - 24 hr 12/05/19 17:15 Temperature 37.1 C Heart Rate 73 Respiratory 20 Rate Blood Pressure 153/75 H O2 Saturation 95 Oxygen O2 Source Room air PD MEDICAL DECISION MAKING - ED course ED course: Madrid was replaced by the RN. No symptoms to suggest UTI, as such no lab testing was done. Departure - Departure Disposition: 01 Home, Self Care Clinical Impression: Dislodged Madrid catheter Qualifiers: Encounter type: initial encounter Qualified Code(s): T83.021A - Displacement of indwelling urethral catheter, initial encounter Condition: Good Record reviewed to determine appropriate education?: Yes Instructions: ED Catheter Care [place] Comments: Follow-up with your urologist as scheduled, return for new or worsening symptoms. Discharge Date/Time: 12/05/19 18:00
== END 2019-12-05 18:00 | disposition home or self-care (01) ==
LOC: EDUNIT# → ED 17:07
DX: T83.021A Displacement of indwelling urethral catheter, initial encounter (principal); E11.9 Type 2 diabetes mellitus without complications; Z79.84 Long term (current) use of oral hypoglycemic drugs
CPT/HCPCS: 51702; 99281; 99283

== ENCOUNTER 2020-05-05 12:00 | Outpatient (CLI) | payer MEDICAID ==
[2020-05-05 17:58] LABS: BILIRUBIN,URINE NEGATIVE (NEGATIVE); GLUCOSE, URINE (UA) >=1000 mg/dL (NEGATIVE); KETONES,URINE (UA) NEGATIVE (NEGATIVE); LEUKOCYTE ESTERASE, URINE NEGATIVE (NEGATIVE); NITRITE,URINE NEGATIVE (NEGATIVE); OCCULT BLOOD,URINE NEGATIVE (NEGATIVE); PH,URINE 6.5 PH (5.0-7.5); PROTEIN,URINE NEGATIVE (NEGATIVE); UROBILINOGEN,URINE 0.2 (NORMAL) E.U./dL (NORMAL)
[2020-05-05 18:02] LABS: CLARITY,URINE CLEAR (CLEAR)
== END 2020-05-05 23:59 | disposition home or self-care (01) ==
LOC: LAB.R 12:00
PROVIDERS: ATTEND Family Medicine
DX: R30.0 Dysuria (principal)
CPT/HCPCS: 81001; 81003; 87086

== ENCOUNTER 2020-06-30 07:00 | Outpatient (CLI) | payer MEDICAID ==
[2020-06-30 13:21] LABS: BASOPHILS # (AUTO) 0.1 10^3/uL (0.0-0.1); BASOPHILS % (AUTO) 0.5 %; EOSINOPHILS # (AUTO) 0.3 10^3/uL (0.0-0.7); EOSINOPHILS % (AUTO) 2.4 %; HGB - HEMOGLOBIN 13.3 g/dL (14.0-18.0); LYMPHOCYTES % (AUTO) 9.1 %; MEAN CORPUSCULAR HEMOGLOBIN 29.6 pg (27.0-31.0); MEAN CORPUSCULAR HGB CONC 33.2 g/dL (32.0-36.0); MEAN CORPUSCULAR VOLUME 89.1 fL (80.0-94.0); MEAN PLATELET VOLUME 9.3 fL (7.4-11.4); MONOCYTES # (AUTO) 0.8 10^3/uL (0.0-1.0); MONOCYTES % (AUTO) 7.6 %; NEUTROPHILS # (AUTO) 8.5 10^3/uL (1.5-6.6); NEUTROPHILS % (AUTO) 78.5 %; PLT - PLATELET COUNT 433 10^3/uL (130-450); RED CELL DISTRIBUTION WIDTH 14.2 % (12.0-15.0); WHITE BLOOD COUNT 10.8 x10^3/uL (4.8-10.8)
[2020-06-30 13:30] LABS: ALBUMIN 3.9 g/dL (3.2-5.5); BILIRUBIN,TOTAL 0.6 mg/dL (0.2-1.0); CALCIUM 9.7 mg/dL (8.5-10.3); CREATININE 0.9 mg/dL (0.6-1.2); TOTAL PROTEIN 7.9 g/dL (6.7-8.2)
== END 2020-06-30 23:59 | disposition home or self-care (01) ==
LOC: LAB.R 07:00
PROVIDERS: ATTEND Family Medicine
DX: E11.9 Type 2 diabetes mellitus without complications (principal); Z48.815 Encounter for surgical aftercare following surgery on the digestive system; N39.0 Urinary tract infection, site not specified
CPT/HCPCS: 80053; 85025

== ENCOUNTER 2021-02-07 07:00 | Outpatient (CLI) | payer MEDICAID ==
[2021-02-07 13:12] LABS: BASOPHILS % (AUTO) 0.4 %; EOSINOPHILS # (AUTO) 0.2 10^3/uL (0.0-0.7); EOSINOPHILS % (AUTO) 1.9 %; HCT - HEMATOCRIT 45.3 % (42.0-52.0); HGB - HEMOGLOBIN 15.4 g/dL (14.0-18.0); LYMPHOCYTES # (AUTO) 1.5 10^3/uL (1.5-3.5); LYMPHOCYTES % (AUTO) 14.4 %; MEAN CORPUSCULAR HEMOGLOBIN 31.4 pg (27.0-31.0); MEAN CORPUSCULAR VOLUME 92.4 fL (80.0-94.0); MEAN PLATELET VOLUME 9.7 fL (7.4-11.4); MONOCYTES # (AUTO) 0.7 10^3/uL (0.0-1.0); MONOCYTES % (AUTO) 6.5 %; NEUTROPHILS # (AUTO) 7.8 10^3/uL (1.5-6.6); NEUTROPHILS % (AUTO) 76.1 %; PLT - PLATELET COUNT 187 10^3/uL (130-450); WHITE BLOOD COUNT 10.3 x10^3/uL (4.8-10.8)
[2021-02-07 13:29] LABS: CREATINE KINASE MB 1.2 ng/mL (0.6-6.3)
[2021-02-07 13:32] LABS: TROPONIN I HIGH SENSITIVITY 6.2 ng/L (2.3-19.7)
[2021-02-07 13:38] LABS: ALBUMIN 4.2 g/dL (3.2-5.5); ALBUMIN/GLOBULIN RATIO 1.4 (1.0-2.2); ALKALINE PHOSPHATASE 89 IU/L (42-121); ALT ALANINE AMINOTRANSFERASE 20 IU/L (10-60); AST ASPARTATE AMINOTRANSFERASE 16 IU/L (10-42); BILIRUBIN,TOTAL 0.7 mg/dL (0.2-1.0); BUN - BLOOD UREA NITROGEN 21 mg/dL (6-20); CALCIUM 9.5 mg/dL (8.5-10.3); CARBON DIOXIDE - CO2 23 mmol/L (21-32); CHLORIDE 103 mmol/L (101-111); CHOL/HDL RATIO 5.6 (<5.0); CHOLESTEROL 234 mg/dL; CREATININE 1.1 mg/dL (0.6-1.2); GFR - MDRD 69 (>89); GLUCOSE 181 mg/dL (70-100); HDL CHOLESTEROL 42 mg/dL; SODIUM 139 mmol/L (135-145); TOTAL PROTEIN 7.1 g/dL (6.7-8.2); TRIGLYCERIDES 408 mg/dL
[2021-02-07 13:44] LABS: THYROID STIMULATING HORMONE 0.76 uIU/mL (0.34-5.60)
[2021-02-07 14:00] LABS: LDL CHOLESTEROL,DIRECT 126 mg/dL
== END 2021-02-07 23:59 | disposition home or self-care (01) ==
LOC: LAB 07:00
PROVIDERS: ATTEND Family Medicine
DX: I10 Essential (primary) hypertension (principal); I25.10 Atherosclerotic heart disease of native coronary artery without angina pectoris
CPT/HCPCS: 36415; 80053; 80061; 82040; 82247; 82374; 82553; 82947; 83721; 84075; 84132; 84155; 84295; 84443; 84450; 84460; 84484; 85025

== ENCOUNTER 2021-02-07 12:22 | Outpatient (CLI) | payer MEDICAID ==
[2021-02-07] MEDS ORDERED: IOVERSOL 320 100 ML VIAL IVP ONE ×2 (12:53→15:11)
[2021-02-07] MEDS ORDERED: IOVERSOL 320 50 ML VIAL ONE (12:53)
[2021-02-07] MEDS ORDERED: IOVERSOL 320 50 ML VIAL PO ONE (15:11)
--- NOTE | 2021-02-07 15:33 | CT Report ---
PROCEDURE: Abdomen/Pelvis W INDICATIONS: TUMOR OF PELVIS CONTRAST: IV CONTRAST: Optiray 320 ml: 100 PO CONTRAST: Optiray 320 ml50 TECHNIQUE: After the administration of contrast, 5 mm thick sections acquired from the diaphragms to the symphy sis. 5 mm thick coronal and sagittal reformats were acquired. For radiation dose reduction, the fol lowing was used: automated exposure control, adjustment of mA and/or kV according to patient size. COMPARISON: None. FINDINGS: Image quality: Excellent. ABDOMEN: Lung bases: Lung bases are clear. Heart size is normal. Solid organs: Liver and spleen are normal in size and enhancement. Gallbladder unremarkable. Bilia ry system is non dilated. Pancreas enhances normally. No adrenal nodules. Kidneys demonstrate norm al size and enhancement, without hydronephrosis. Peritoneum and bowel: Bowel loops demonstrate normal wall thickness and caliber. No free fluid or a ir. Nodes and vessels: Node threshold and lower retroperitoneal, intra-abdominal, pelvic, or inguinal lym ph nodes. Aorta and inferior vena cava are normal in size. Genitourinary: Bladder wall thickness is normal. Bones: No suspicious bony lesions. No vertebral body compression fractures. Miscellaneous: Multiple surgical clips in the abdomen and pelvis again noted. IMPRESSION: No evidence of disease recurrence in the abdomen or pelvis. Reviewed by: Germán Yeboah MD on 02/07/2021 3:32 PM PDT Approved by: Germán Yeboah MD on 02/07/2021 3:32 PM PDT Station ID: [id number]
== END 2021-02-07 12:23 | disposition home or self-care (01) ==
LOC: DI 12:22
PROVIDERS: ATTEND Urology
DX: N28.9 Disorder of kidney and ureter, unspecified (principal); C80.1 Malignant (primary) neoplasm, unspecified
CPT/HCPCS: 36415; 74177; Q9967; 82565; 84520

== ENCOUNTER 2021-04-19 08:00 | Outpatient (CLI) | payer MEDICAID ==
[2021-04-19 21:31] LABS: BASOPHILS % (AUTO) 0.5 %; EOSINOPHILS # (AUTO) 0.2 10^3/uL (0.0-0.7); HCT - HEMATOCRIT 43.3 % (42.0-52.0); HGB - HEMOGLOBIN 14.6 g/dL (14.0-18.0); LYMPHOCYTES # (AUTO) 1.3 10^3/uL (1.5-3.5); LYMPHOCYTES % (AUTO) 17.4 %; MEAN CORPUSCULAR HEMOGLOBIN 30.9 pg (27.0-31.0); MEAN CORPUSCULAR HGB CONC 33.7 g/dL (32.0-36.0); MEAN CORPUSCULAR VOLUME 91.7 fL (80.0-94.0); MEAN PLATELET VOLUME 9.9 fL (7.4-11.4); MONOCYTES # (AUTO) 0.6 10^3/uL (0.0-1.0); MONOCYTES % (AUTO) 8.2 %; NEUTROPHILS # (AUTO) 5.2 10^3/uL (1.5-6.6); PLT - PLATELET COUNT 237 10^3/uL (130-450); RED BLOOD COUNT 4.72 10^6/uL (4.70-6.10); WHITE BLOOD COUNT 7.4 x10^3/uL (4.8-10.8)
[2021-04-19 22:22] LABS: ALBUMIN 4.2 g/dL (3.2-5.5); ALBUMIN/GLOBULIN RATIO 1.4 (1.0-2.2); BILIRUBIN,TOTAL 0.4 mg/dL (0.2-1.0); CALCIUM 9.9 mg/dL (8.5-10.3); CREATININE 1.2 mg/dL (0.6-1.2); POTASSIUM 4.3 mmol/L (3.5-5.0); TOTAL PROTEIN 7.1 g/dL (6.7-8.2)
[2021-04-19 22:25] LABS: ESTIMATED AVERAGE GLUCOSE 183 mg/dL (70-100)
== END 2021-04-19 23:59 | disposition home or self-care (01) ==
LOC: LAB.WCP 08:00
PROVIDERS: ATTEND Family Medicine
DX: F90.0 Attention-deficit hyperactivity disorder, predominantly inattentive type (principal); E11.9 Type 2 diabetes mellitus without complications; I10 Essential (primary) hypertension; I25.10 Atherosclerotic heart disease of native coronary artery without angina pectoris
CPT/HCPCS: 36415; 80053; 83036; 85025

== ENCOUNTER 2021-08-22 20:29 | Outpatient (CLI) | payer MEDICAID | END 2021-08-22 23:59 | disposition critical access hospital (66) | LOC: EMS 20:29 | DX: L98.9 Disorder of the skin and subcutaneous tissue, unspecified (principal); R51.9 Headache, unspecified; R50.9 Fever, unspecified; M79.605 Pain in left leg | CPT/HCPCS: A0425; A0429; A0999 ==

== ENCOUNTER 2021-08-22 20:41 | Inpatient (IN) | payer MEDICAID ==
[2021-08-22 22:46] LABS: BASOPHILS % (AUTO) 0.2 %; EOSINOPHILS # (AUTO) 0.1 10^3/uL (0.0-0.7); EOSINOPHILS % (AUTO) 1.4 %; HCT - HEMATOCRIT 37.9 % (42.0-52.0); HGB - HEMOGLOBIN 12.6 g/dL (14.0-18.0); LYMPHOCYTES % (AUTO) 10.1 %; MEAN CORPUSCULAR HEMOGLOBIN 28.5 pg (27.0-31.0); MEAN CORPUSCULAR HGB CONC 33.2 g/dL (32.0-36.0); MEAN CORPUSCULAR VOLUME 85.7 fL (80.0-94.0); MEAN PLATELET VOLUME 9.5 fL (7.4-11.4); MONOCYTES # (AUTO) 0.7 10^3/uL (0.0-1.0); MONOCYTES % (AUTO) 7.3 %; NEUTROPHILS # (AUTO) 8.2 10^3/uL (1.5-6.6); NEUTROPHILS % (AUTO) 80.6 %; PLT - PLATELET COUNT 245 10^3/uL (130-450); RED BLOOD COUNT 4.42 10^6/uL (4.70-6.10); RED CELL DISTRIBUTION WIDTH 13.9 % (12.0-15.0); WHITE BLOOD COUNT 10.2 x10^3/uL (4.8-10.8)
[2021-08-22 23:07] LABS: ALBUMIN 3.1 g/dL (3.2-5.5); ALBUMIN/GLOBULIN RATIO 0.9 (1.0-2.2); BILIRUBIN,TOTAL 0.4 mg/dL (0.2-1.0); CALCIUM 8.7 mg/dL (8.5-10.3); CREATININE 0.9 mg/dL (0.6-1.2); CRP - C-REACTIVE PROTEIN 14.7 mg/dL (0-1.0); POTASSIUM 3.7 mmol/L (3.5-5.0); TOTAL PROTEIN 6.5 g/dL (6.7-8.2)
[2021-08-22 23:11] LABS: BILIRUBIN,URINE NEGATIVE (NEGATIVE); CLARITY,URINE CLEAR (CLEAR); GLUCOSE, URINE (UA) 500 mg/dL (NEGATIVE); KETONES,URINE (UA) NEGATIVE (NEGATIVE); LEUKOCYTE ESTERASE, URINE NEGATIVE (NEGATIVE); NITRITE,URINE NEGATIVE (NEGATIVE); OCCULT BLOOD,URINE NEGATIVE (NEGATIVE); PH,URINE 5.5 PH (5.0-7.5); PROTEIN,URINE TRACE mg/dL (NEGATIVE); UROBILINOGEN,URINE 0.2 (NORMAL) E.U./dL (NORMAL)
[2021-08-22] MEDS ORDERED: SODIUM CHLORIDE 0.9% 1,000 ML IV STA (23:25)
--- NOTE | 2021-08-22 23:26 | ED Physician Documentation ---
History of Present Illness - Stated complaint Stated Complaint: FOOT INFECTION - Chief complaint Chief Complaint: Wound - History obtained from History obtained from: Patient - History of Present Illness Timing: How many days ago (6) - Additonal information Additional information: 56-year-old male with type 2 diabetes who has had Charcot Perla foot has peripheral neuropathy and he had his right foot operated on in March and has been using his left foot for ambulation. He has developed an ulceration to the lateral aspect of the foot about 5 or 6 days ago and now he has redness that extends all over the top of the foot and the the anterior portion of the calf with a pain to the medial aspect of the left thigh as well. He has had fever the last 2 days. He has had nausea and vomiting. He has not had this happen to him previously. Review of Systems Constitutional: reports: Fever, Chills, Myalgias Eyes: denies: Decreased vision Ears: denies: Ear pain Nose: denies: Congestion Throat: denies: Sore throat Cardiac: denies: Chest pain / pressure, Palpitations Respiratory: reports: Cough (similar to always). denies: Dyspnea GI: reports: Nausea, Vomiting. denies: Abdominal Pain, Constipation, Diarrhea : denies: Dysuria, Frequency Skin: reports: Bite / sting (to lateral aspect of foot). denies: Rash Musculoskeletal: reports: Extremity pain, Extremity swelling. denies: Neck pain, Back pain Neurologic: reports: Numbness. denies: Generalized weakness, Focal weakness, Difficulty speaking PD PAST MEDICAL HISTORY - Past Medical History Past Medical History: Yes Cardiovascular: Hypertension, High cholesterol, Coronary artery disease, Deep vein thrombosis, [place] Respiratory: Asthma Neuro: CVA, TIA Endocrine/Autoimmune: Type 2 diabetes GI: GERD : None, Indwelling catheter HEENT: Chronic vision loss, Chronic hearing loss Psych: Depression Musculoskeletal: Osteoarthritis, Gout Derm: None - Past Surgical History Past Surgical History: Yes General: Other /PATIENT CARE REPRESENTATIVE: Other (suprapubic catheter; [place] catheter) Cardiovascular: CABG, Coronary stent - Present Medications Home Medications: Ambulatory Orders Medication Instructions Recorded Confirmed Atorvastatin Calcium [Lipitor] 80 mg PO QPM 09/28/12 12/14/19 Glipizide [Glipizide Xl] 5 mg PO DAILY 09/28/12 12/14/19 traZODone [Desyrel] 150 mg PO HS PRN 09/28/12 12/14/19 Clopidogrel [Plavix] 75 mg PO DAILY 04/08/16 12/14/19 DULoxetine [Cymbalta] 30 mg PO DAILY 04/08/16 12/14/19 Gabapentin 400 mg PO Q6HR 04/08/16 12/14/19 Nitroglycerin [Nitrostat] 0.4 mg SL Q5MIN PRN #30 tablet 04/09/16 12/14/19 Folic Acid/Vit B Complex and C 1 each PO DAILY 12/06/16 12/14/19 [B-Complex Plus Vitamin C Cplt] Hydrocodone/Acetaminophen 1 each PO DAILY 12/06/16 12/14/19 [Hydrocodone-Acetamin 7.5-325] Lidocaine Patch 5% [Lidoderm Patch] 1 each TOP DAILY 12/06/16 12/14/19 Multivitamin [Multiple Vitamins] 1 each PO DAILY 12/06/16 12/14/19 Spironolactone 25 mg PO DAILY #30 tablet 12/06/16 12/14/19 Zolpidem [Ambien] 10 mg PO DAILY PM PRN 12/06/16 12/14/19 carvediloL [Coreg] 25 mg PO BID #60 tablet 12/06/16 12/14/19 diphenhydrAMINE [Benadryl] 25 mg PO Q4-6H PRN 12/06/16 12/14/19 Albuterol Sulfate [Proair Hfa 2 puffs IH QID #1 hfa.aer.ad 01/17/17 12/14/19 Inhaler] Magnesium Oxide [Mag Ox] 400 mg PO DAILY #15 tablet 08/15/17 12/14/19 Finasteride 5 mg PO DAILY 01/05/18 12/14/19 Tamsulosin HCl [Flomax] 1 cap PO DAILY 01/05/18 12/14/19 Famotidine [Pepcid] 20 mg PO ONCE #30 tablet 02/13/18 12/14/19 Mupirocin 1 applic TP TID #15 g 12/29/18 12/14/19 Nitrofurantoin Monohyd/M-Cryst 100 mg PO BID #10 capsule 02/22/19 12/14/19 [Macrobid 100 mg Capsule] levoFLOXacin [Levaquin] 750 mg PO QDBREAKFAST 7 Days #7 10/22/19 12/14/19 tablet Metformin HCl [Glucophage] 800 mg PO BID 12/14/19 12/14/19 - Allergies Allergies/Adverse Reactions: Allergies Allergy/AdvReac Type Severity Reaction Status Date / Time cephalexin monohydrate * Allergy Unknown Nausea Verified 08/22/21 20:54 [From Keflex] codeine Allergy Unknown Verified 08/22/21 20:54 methadone Allergy Unknown Verified 08/22/21 20:54 - Social History Does the pt smoke?: No Smoking Status: Never smoker Does the pt drink ETOH?: Yes Does the pt have substance abuse?: No - Immunizations Immunizations are current?: Yes - POLST Patient has POLST: No POLST Status: Full Code PD ED PE NORMAL - Vitals Vital signs reviewed: Yes (hypertensive ) - General General: Alert and oriented X 3, No acute distress, Well developed/nourished - HEENT HEENT: Atraumatic, PERRL, EOMI - Neck Neck: Supple, no meningeal sign, No bony TTP - Cardiac Cardiac: RRR, No murmur - Respiratory Respiratory: No respiratory distress, Clear bilaterally - Abdomen Abdomen: Normal bowel sounds, Soft, Non tender, Non distended, No organomegaly - Back Back: No CVA TTP, No spinal TTP - Derm Derm: Warm and dry, Other (redness to the foot, calf and medial thigh) - Extremities Extremities: Other (There is Charcot Perla deformity bilaterally both feet of been operated on previously. The left foot is swollen, erythematous. 5 cm ulceration over the proximal fifth on the left foot. The surface of this is eschared. There is erythema to the foot, calf and medial thigh. ) - Neuro Neuro: Alert and oriented X 3, edm operator 2-12 intact, No motor deficit, Normal speech Eye Opening: Spontaneous Motor: Obeys Commands Verbal: Oriented GCS Score: 15 - Psych Psych: Normal mood, Normal affect Results - Vitals Vitals: Vital Signs - 24 hr 08/22/21 08/22/21 08/22/21 20:48 20:54 23:06 Temperature 37 C Heart Rate 72 73 84 Respiratory 16 16 18 Rate Blood Pressure 137/88 H 137/88 H 119/78 O2 Saturation 97 98 99 08/23/21 00:33 Temperature Heart Rate Respiratory 16 Rate Blood Pressure O2 Saturation Oxygen O2 Source Room air - Labs Labs: Laboratory Tests 08/22/21 08/22/21 08/22/21 22:39 22:39 22:39 WBC 10.2 RBC 4.42 L Hgb 12.6 L Hct 37.9 L MCV 85.7 MCH 28.5 MCHC 33.2 RDW 13.9 Plt Count 245 MPV 9.5 Neut # (Auto) 8.2 H Lymph # (Auto) 1.0 L [place] # (Auto) 0.7 Eos # (Auto) 0.1 Baso # (Auto) 0.0 Absolute Nucleated RBC 0.00 Nucleated RBC % 0.0 ESR 25 H Sodium 133 L Potassium 3.7 Chloride 97 L Carbon Dioxide 23 Anion Gap 13.0 BUN 8 Creatinine 0.9 Estimated GFR (MDRD) 87 L Glucose 276 H Lactic Acid Calcium 8.7 Total Bilirubin 0.4 AST 21 ALT 22 Alkaline Phosphatase 116 C-Reactive Protein 14.7 H Total Protein 6.5 L Albumin 3.1 L Globulin 3.4 Albumin/Globulin Ratio 0.9 L Lipase 26 Urine Color Urine Clarity Urine pH Ur Specific [place] Urine Protein Urine Glucose (UA) Urine Ketones Urine Occult Blood Urine Nitrite Urine Bilirubin Urine Urobilinogen Ur Leukocyte Esterase Ur Microscopic Review Urine Culture Comments 08/22/21 08/22/21 22:39 22:59 WBC RBC Hgb Hct MCV MCH MCHC RDW Plt Count MPV Neut # (Auto) Lymph # (Auto) [place] # (Auto) Eos # (Auto) Baso # (Auto) Absolute Nucleated RBC Nucleated RBC % ESR Sodium Potassium Chloride Carbon Dioxide Anion Gap BUN Creatinine Estimated GFR (MDRD) Glucose Lactic Acid 2.4 H Calcium Total Bilirubin AST ALT Alkaline Phosphatase C-Reactive Protein Total Protein Albumin Globulin Albumin/Globulin Ratio Lipase Urine Color YELLOW Urine Clarity CLEAR Urine pH 5.5 Ur Specific [place] 1.025 Urine Protein TRACE Urine Glucose (UA) 500 H Urine Ketones NEGATIVE Urine Occult Blood NEGATIVE Urine Nitrite NEGATIVE Urine Bilirubin NEGATIVE Urine Urobilinogen 0.2 (NORMAL) Ur Leukocyte Esterase NEGATIVE Ur Microscopic Review NOT INDICATED Urine Culture Comments NOT INDICATED - Rads (name of study) foot Radiology: Prelim report reviewed (Impression: There is soft tissue defect/ulcer at the lateral aspect of the left foot at the level of fifth metatarsal base. No underlying osseous abnormalities. No osseous erosions or periosteal reaction.), EMP read indepedently, See rad report Procedures - IVC sono (time) 2220 Bedside IVC sono: IVC measures (cm) (0.9), Dehydration (est 1-2 liter deficit) PD MEDICAL DECISION MAKING - ED course ED course: 56-year-old male with Charcot Perla foot and type 2 diabetes has a new diabetic foot ulcer and cellulitis. He has elevated inflammatory markers, he has had fever and vomiting. His wounds look like they have not been attended to. He has dog hair embedded in the side. Despite a normal WBC and no fever here he reports fever and vomiting, has elevated lactate and does not appear to be able to care for his wounds appropriately. He forgot to take his medications today. Hospitalization is indicated. S/p arthrodesis of the calcaneus and cuboid. No evidence of hardware complication. S/p arthrodesis of the first metatarsal, medial cuneiform, and talus with lucency surrounding the proximal margin of the surgical hardware. Findings may represent hardware loosening within the talus. Recommend clinical correlation. Further evaluation and nuclear medicine bone scan can be considered. If there is persistent clinical concern for osteomyelitis, further evaluation with MRI or nuclear medicine bone scan can be considered. Departure - Departure Disposition: [facility] DC/Xfer Clinical Impression: Diabetic foot ulcer Qualifiers: Diabetic foot ulcer location: midfoot Diabetes mellitus type: type 2 Laterality: left Non-pressure ulcer stage: with fat layer exposed Qualified Code(s): E11.621 - Type 2 diabetes mellitus with foot ulcer Cellulitis Qualifiers: Site of cellulitis: extremity Site of cellulitis of extremity: lower extremity Laterality: left Qualified Code(s): L03.116 - Cellulitis of left lower limb
--- NOTE | 2021-08-22 23:36 | XRAY Report ---
PROCEDURE: Foot 3 View LT INDICATIONS: lateral deep ulceration/diabetic TECHNIQUE: 3 views of the foot were acquired. COMPARISON: MRI of the ankle dated 01/19/2014 FINDINGS: Bones: Postsurgical changes of arthrodesis across the left first metatarsal, medial cuneiform and the talus. There is also arthrodesis across the calcaneus and cuboid. No hardware fracture. There is roberta ency surrounding the proximal margins of the arthrodesis screw transfixing the first metatarsal and t alus. No acute fractures seen. No osseous erosions identified in the region of skin defect at the lat eral aspect of the left foot near the base of the fifth metatarsal. No suspicious soft tissue gas. No suspicious bony lesions. Soft tissues: No tibiotalar joint effusion. Achilles tendon appears normal. Soft tissue defect/ulc er at the lateral aspect of the left foot near the base of the fifth metatarsal. IMPRESSION: There is soft tissue defect/ulcer at the lateral aspect of the left foot at the level of the fifth me tatarsal base. No underlying osseous abnormalities. No osseous erosions or periosteal reaction. Status post arthrodesis of the calcaneus and cuboid. No evidence for hardware complication. Status post arthrodesis of the first metatarsal, medial cuneiform, and talus with lucency surrounding the proximal margin of surgical hardware. Findings may represent hardware loosening within the talus . Recommend clinical correlation. Further evaluation with nuclear medicine bone scan can be considere d. If there is persistent clinical concern for osteomyelitis, further evaluation with MRI or nuclear med icine bone scan can be considered. Reviewed by: Walker Chamberlain MD on 08/22/2021 11:34 PM PDT Approved by: Walker Chamberlain MD on 08/22/2021 11:34 PM PDT Station ID: [id number]
[2021-08-23] MEDS ORDERED: PIPERACILLIN/TAZOBACTAM 3.375 GM in SODIUM CHLORIDE 0.9% MINIBAG 100 ML IV STA (00:47)
[2021-08-23] MEDS ORDERED: ACETAMINOPHEN 325 MG TABLET PO PRN (01:15)
[2021-08-23] MEDS ORDERED: ONDANSETRON 4 MG/2 ML VIAL IVP PRN (01:15)
[2021-08-23] MEDS ORDERED: SODIUM CHLORIDE FLUSH 0.9% 10 ML SYRINGE IVP PRN (01:15)
[2021-08-23] MEDS ORDERED: NITROGLYCERIN SL 0.4 MG TABLET SL PRN (01:28)
[2021-08-23 01:32] LABS: B. PARAPERTUSSIS- RESP PCR PAN NOT DETECTED; B. PERTUSSIS- RESP PCR PANEL NOT DETECTED; C. PNEUMONIAE- RESP PCR PANEL NOT DETECTED; CORONAVIRUS 229E-RESP PCR NOT DETECTED; CORONAVIRUS HKU1-RESP PCR NOT DETECTED; CORONAVIRUS NL63-RESP PCR NOT DETECTED; CORONAVIRUS OC43-RESP PCR NOT DETECTED; HUMAN METAPNEUMOVIRUS NOT DETECTED; INFLUENZA A- RESP PCR PANEL NOT DETECTED; INFLUENZA B - RESP PCR PANEL NOT DETECTED; M. PNEUMONIAE- RESP PCR PANEL NOT DETECTED; PARAINFLUENZA VIRUS 1 NOT DETECTED; PARAINFLUENZA VIRUS 2 NOT DETECTED; PARAINFLUENZA VIRUS 3 NOT DETECTED; PARAINFLUENZA VIRUS 4 NOT DETECTED; RHINOVIRUS/ENTEROVIRUS NOT DETECTED; RSV- RESP PCR PANEL NOT DETECTED; SARS-CoV-2 -RESP PCR PANEL NOT DETECTED
--- NOTE | 2021-08-23 01:33 | HISTORY & PHYSICAL EXAMINATION ---
Chief Complaint - Chief Complaint Chief Complaint: Foot pain, Foot infection spreading, N/V History of Present Illness - Admitted From Admitted From:: ED - History Obtained From History obtained from: ED provider and the patient - History of Present Illness HPI Comment/Other: This is a 56-year-old male with a history of MO in 2013, Hx of 5 stents placed and had CABG, history of diabetes mellitus not on Insulin, peripheral neuropathy, TIAs and a CVA on Plavix. 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 Also has Hx of DVT, HTN and Ltiymkr-Fxszz-Cqank disease. He has had bilateral foot surgeries, most recent was Right foot surgery in Mar 2021 and he has been relying more on his Left foot. He developed an open wound of the lateral Left foot and reports fever for the past 5 days, and 5 days of N/V. Besides vomiting, today he also forgot to take all his meds. He has sought no medical attention for the wound. He presented to the ER today because redness was spreading up his leg. Work-up showed a WBC of 10.1, but elevated Lactic Acid of 2.4, CRP of 14.7 and ESR of 25. He had no fever ion the ED. The exam was remarkable for a large, dry wound of the lateral Left foot, redness and swelling of the dorsum of left foot with redness spreading up to the left medial calf and medial thigh. The wound has an black, dry eschar and there is dried debris, like dog hair, associated with the wound. Imaging showed that he has hardware in the left foot. There is lucency surrounding the proximal margins of the arthrodesis screw transfixing the first metatarsal and the talus. There are no fractures, erosions or periosteal reaction. There is a skin defect/soft tissue ulceration seen at the lateral aspect of the left foot near the base of the fifth metatarsal. There is no gas or bony lesions. These findings suggested possible hardware loosening within the talus and further imaging was advised by Radiology, with either nuclear medicine bone scan or an MRI. Patient had blood cultures drawn and then received iv Pip- Tazo in the ED. The ED provider reached out to the Hospitalist team for admission for treating his cellulitis, possible loose foot hardware, and a diabetic foot ulcer, and there is a concern for sepsis. The patient's CODE STATUS is Full Code. History - Past Medical History Cardiovascular: reports: Hypertension, High cholesterol, Coronary artery dise ase, Deep vein thrombosis, MO Respiratory: reports: Asthma Neuro: reports: CVA, TIA Endocrine/Autoimmune: reports: Type 2 diabetes GI: reports: GERD : reports: None, Indwelling catheter (reversed and removed) HEENT: reports: Chronic vision loss, Chronic hearing loss Psych: reports: Depression Musculoskeletal: reports: Osteoarthritis, Gout Derm: reports: None MRSA Hx?: No - Past Surgical History Ortho: reports: Other (Bilateral foot surgeries) /[employer]: reports: Other (suprapubic catheter; now reversed and removed) Cardiovascular: reports: CABG, Coronary stent - Family & Social History Living arrangement: At home Social History Notes: Lives in [place] with his , no kids. Originally from [place]. Worked at [employer]. Denies any drug use. Smoked 1/2 PPD from his teens until he had his first MO, now restarted 1 month ago. Drinks a 6 pack of beer per week. - Substance History Use: Uses substance without health or social issues: Tobacco, Alcohol - POLST Patient has POLST: No POLST Status: Full Code Meds/Allgy - Home Medications Home Medications: Ambulatory Orders Medication Instructions Recorded Confirmed Atorvastatin Calcium [Lipitor] 80 mg PO QPM 09/28/12 12/14/19 Glipizide [Glipizide Xl] 5 mg PO DAILY 09/28/12 12/14/19 traZODone [Desyrel] 150 mg PO HS PRN 09/28/12 12/14/19 Clopidogrel [Plavix] 75 mg PO DAILY 04/08/16 12/14/19 DULoxetine [Cymbalta] 30 mg PO DAILY 04/08/16 12/14/19 Gabapentin 400 mg PO Q6HR 04/08/16 12/14/19 Nitroglycerin [Nitrostat] 0.4 mg SL Q5MIN PRN #30 tablet 04/09/16 12/14/19 Folic Acid/Vit B Complex and C 1 each PO DAILY 12/06/16 12/14/19 [B-Complex Plus Vitamin C Cplt] Hydrocodone/Acetaminophen 1 each PO DAILY 12/06/16 12/14/19 [Hydrocodone-Acetamin 7.5-325] Lidocaine Patch 5% [Lidoderm Patch] 1 each TOP DAILY 12/06/16 12/14/19 Multivitamin [Multiple Vitamins] 1 each PO DAILY 12/06/16 12/14/19 Spironolactone 25 mg PO DAILY #30 tablet 12/06/16 12/14/19 Zolpidem [Ambien] 10 mg PO DAILY PM PRN 12/06/16 12/14/19 carvediloL [Coreg] 25 mg PO BID #60 tablet 12/06/16 12/14/19 diphenhydrAMINE [Benadryl] 25 mg PO Q4-6H PRN 12/06/16 12/14/19 Albuterol Sulfate [Proair Hfa 2 puffs IH QID #1 hfa.aer.ad 01/17/17 12/14/19 Inhaler] Magnesium Oxide [Mag Ox] 400 mg PO DAILY #15 tablet 08/15/17 12/14/19 Finasteride 5 mg PO DAILY 01/05/18 12/14/19 Tamsulosin HCl [Flomax] 1 cap PO DAILY 01/05/18 12/14/19 Famotidine [Pepcid] 20 mg PO ONCE #30 tablet 02/13/18 12/14/19 Mupirocin 1 applic TP TID #15 g 12/29/18 12/14/19 Nitrofurantoin Monohyd/M-Cryst 100 mg PO BID #10 capsule 02/22/19 12/14/19 [Macrobid 100 mg Capsule] levoFLOXacin [Levaquin] 750 mg PO QDBREAKFAST 7 Days #7 10/22/19 12/14/19 tablet Metformin HCl [Glucophage] 800 mg PO BID 12/14/19 12/14/19 - Allergies Allergies/Adverse Reactions: Allergies Allergy/AdvReac Type Severity Reaction Status Date / Time cephalexin monohydrate * Allergy Unknown Nausea Verified 08/22/21 20:54 [From Keflex] codeine Allergy Unknown Verified 08/22/21 20:54 methadone Allergy Unknown Verified 08/22/21 20:54 Review of Systems - Constitutional Constitutional: reports: Fever - Gastrointestinal Gastrointestinal: reports: Nausea, Vomiting - Genitourinary Genitourinary: reports: Incontinence (He refuses iv fluids at night, due to incontinence and neuropathy) - Musculoskeletal Musculoskeletal: reports: Other (painful peripheral neuropathy of the lower legs and feet) - Neurological Neurological: reports: Other (restless legs) - Psychiatric Psychiatric: reports: Depression - Endocrine Endocrine: reports: Other (He refuses to get Insulin fo his DM while hospitalized, wants his Metformin. Fingerstick checks run 103-130, he states.) - All Other Systems All Other Systems: reports: Reviewed and negative Exam - Vital Signs Reviewed Vital Signs: Yes Vital Signs: Vital Signs x48h Temp Pulse Resp BP Pulse Ox 08/23/21 01:23 36.1 C L 08/23/21 00:33 16 08/22/21 23:06 84 18 119/78 99 08/22/21 20:54 73 16 137/88 H 98 08/22/21 20:48 37 C 72 16 137/88 H 97 - Physical Exam General Appearance: positive: No acute distress, Alert Eyes Bilateral: positive: Normal inspection, EOMI ENT: positive: ENT inspection nml, No signs of dehydration Neck: positive: Nml inspection, Thyroid nml, No JVD Respiratory: positive: No respiratory distress, Breath sounds nml Cardiovascular: positive: Regular rate & rhythm, No murmur Abdomen: positive: Non-tender, Nml bowel sounds, No distention, Other (Obese) Skin: positive: Warm, Dry Extremities: positive: Other (Slnroip-Ivpza-Ixyzb deformities of both forfeet. Black eschar lateral L foot. Redness and swelling dorsum L foot. Redness of L calf and lower medial thigh.) Neurologic/Psychiatric: positive: Oriented x3, Motor nml, Sensory loss Sepsis Event Note (H) - Evaluation Current Stage of Sepsis: Sepsis Possible source of Sepsis: positive: Skin/soft tissue, Wound - Sepsis Criteria Sepsis Criteria: Metabolic: lactate > 2 mmol/L Conclusion/Plan - Problem List (1) Cellulitis Conclusion/Plan: Will await blood culture results, that were taken in the ED, to tailor antibiotics. Begin empiric IV antibiotics using iv Pip-Tazo and will also order iv Vanco, in case he has MRSA. Follow WBC daily and CRP or ESR daily. Qualifiers: Site of cellulitis: extremity Site of cellulitis of extremity: lower extremity Laterality: left Qualified Code(s): L03.116 - Cellulitis of left lower limb (2) Diabetic foot ulcer Conclusion/Plan: There is concern that he is unable to care for this wound himself, being partially blind, given that dog hair was found in the wound's dried eschar and that he sought no medical attention with such a large wound. Give iv antibx as described above. Will also plan further imaging, as was advised by Radiology. Will order general surgery consult for possible debridement and for a tissue sample for culture Order pain meds as needed Qualifiers: Diabetic foot ulcer location: midfoot Diabetes mellitus type: type 2 Laterality: left Non-pressure ulcer stage: with fat layer exposed Qualified Code(s): E11.621 - Type 2 diabetes mellitus with foot ulcer; L97.422 - Non- pressure chronic ulcer of left heel and midfoot with fat layer exposed (3) N&V (nausea and vomiting) Conclusion/Plan: Likely related to his fever and spreading infection. Will order IV antiemetics prn and per his request, will start IV fluids in daytime, per huis request, not through the night. Will begin the patient on a clear liquid diet then advance as tolerated. (4) Tzgzgwy-Wawqn-Fbifl disease Conclusion/Plan: There is concern that hardware in the left foot has dislodged or loosened. We will plan imaging as recommended by Radiology. We will continue with pain meds as needed. (5) Type 2 diabetes mellitus Conclusion/Plan: We will start a diabetic diet, hypoglycemia protocol, obtain fingerstick checks and order sliding scale insulin coverage, which he states his will refuse (Insulin injections). Since he has a normal creatinine and no imaging with contrast dye is forseen, as per his request, we will start his Metformin 1000 mg bid, with tomorrow's dinner, since he will get only clear liquids for the next upcoming breakfast meal. Checkck A1c with morning labs. (6) Hyponatremia Conclusion/Plan: This could be hypovolemic hyponatremia given his dehydration from vomiting or could be pseudohyponatremia from an elevated glucose. We will place the patient on IV saline. Follow BMP daily (7) Hx of coronary artery disease Conclusion/Plan: We will continue the patient on his beta-corina, prn sublingual nitro, statin and Plavix. - Lab Results Fish Bones: 08/22/21 22:39 08/22/21 22:39 - Diagnostic Imaging Results Diagnostic Imaging Results: positive: Final report reviewed - Other Other Results/Comments: Attestation: The patient is expected to be discharged or transferred to another facility within 96 hours: Yes.
[2021-08-23] MEDS ORDERED: VANCOMYCIN INJ 1.5 GM in SODIUM CHLORIDE 0.9% 500 ML IV SCH (02:00)
[2021-08-23] MEDS ORDERED: SODIUM CHLORIDE 0.9% 1,000 ML IV SCH (02:00)
[2021-08-23 02:03] LABS: INR 1.3 (0.8-1.2)
[2021-08-23] MEDS: ZOLPIDEM 5 MG TABLET PO PRN ×2 (02:53→21:43)
[2021-08-23] MEDS ORDERED: PIPERACILLIN/TAZOBACTAM 3.375 GM in SODIUM CHLORIDE 0.9% MINIBAG 100 ML IV SCH ×2 (04:00→13:00)
[2021-08-23 05:17] LABS: BASOPHILS % (AUTO) 0.2 %; EOSINOPHILS # (AUTO) 0.2 10^3/uL (0.0-0.7); EOSINOPHILS % (AUTO) 2.5 %; HCT - HEMATOCRIT 38.1 % (42.0-52.0); HGB - HEMOGLOBIN 12.6 g/dL (14.0-18.0); LYMPHOCYTES % (AUTO) 14.7 %; MEAN CORPUSCULAR HEMOGLOBIN 28.6 pg (27.0-31.0); MEAN CORPUSCULAR HGB CONC 33.1 g/dL (32.0-36.0); MEAN CORPUSCULAR VOLUME 86.4 fL (80.0-94.0); MEAN PLATELET VOLUME 9.4 fL (7.4-11.4); MONOCYTES # (AUTO) 0.4 10^3/uL (0.0-1.0); MONOCYTES % (AUTO) 6.7 %; NEUTROPHILS # (AUTO) 4.9 10^3/uL (1.5-6.6); NEUTROPHILS % (AUTO) 75.3 %; PLT - PLATELET COUNT 230 10^3/uL (130-450); RED BLOOD COUNT 4.41 10^6/uL (4.70-6.10); WHITE BLOOD COUNT 6.5 x10^3/uL (4.8-10.8)
[2021-08-23 05:35] LABS: CALCIUM 8.4 mg/dL (8.5-10.3); CREATININE 0.8 mg/dL (0.6-1.2); MAGNESIUM 1.8 mg/dL (1.7-2.8); PHOSPHORUS 2.6 mg/dL (2.5-4.6); POTASSIUM 3.4 mmol/L (3.5-5.0)
[2021-08-23] MEDS: INSULIN ASPART 300 UNIT/3 ML PEN SUBQ SCH ×4 (07:34→21:30)
[2021-08-23] MEDS ORDERED: POTASSIUM CHLORIDE 20 MEQ/15 ML UDC PO ONE (08:00)
[2021-08-23] MEDS ORDERED: ALBUTEROL NEB 2.5 MG/3 ML INH PRN (08:46)
[2021-08-23] MEDS ORDERED: LIDOCAINE PATCH 5% TOP SCH (09:00)
[2021-08-23] MEDS ORDERED: DULoxetine 30 MG CAPSULE PO SCH (09:00)
[2021-08-23] MEDS ORDERED: MULTIVITAMIN PO SCH (09:00)
[2021-08-23] MEDS: HYDROcod/ACETAM 10 MG/325 MG TABLET PO PRN ×2 (09:07→16:01)
[2021-08-23] MEDS: carvediloL 12.5 MG TABLET PO SCH ×2 (09:09→21:42)
[2021-08-23] MEDS: CLOPIDOGREL 75 MG TABLET PO SCH (09:09)
[2021-08-23] MEDS: MULTIVITAMIN W/MINERALS TABLET PO SCH (09:10)
[2021-08-23] MEDS: SODIUM CHLORIDE 0.9% 1,000 ML IV SCH ×2 (09:11→18:13)
[2021-08-23] MEDS: ENOXAPARIN 40 MG/0.4 ML SYRINGE SUBQ SCH (09:12)
[2021-08-23] MEDS: SODIUM CHLORIDE FLUSH 0.9% 10 ML SYRINGE IVP SCH ×2 (09:20→18:12)
[2021-08-23] MEDS: TAMSULOSIN 0.4 MG CAPSULE PO SCH (09:23)
[2021-08-23] MEDS: FINASTERIDE 5 MG TABLET PO SCH (09:23)
--- NOTE | 2021-08-23 11:13 | PHARMACY PROGRESS NOTE ---
- Best Possible Medication History Admit Date and Time: 08/23/21 0115 Processed by: Pharmacy Medication History completed: Yes Patient Interview: Completed Secondary Source(s): Pharmacy records, Insurance records As the person ultimately responsible for medication therapy, providers are able to order a medication from an existing home medication list in [facility] via the "Reconcile Routine" prior to Confirmation of that medication by technical sales support specialist. Such practice is discouraged except when the physician, in their clinical judgment, deems that a medical need exists for a medication without regard to previous use.
[2021-08-23 13:05] LABS: ESTIMATED AVERAGE GLUCOSE 180 mg/dL (70-100); HEMOGLOBIN A1c% 7.9 % (4.27-6.07)
[2021-08-23] MEDS: ALBUTEROL NEB 2.5 MG/3 ML INH SCH ×2 (13:19→13:20)
[2021-08-23] MEDS: GABAPENTIN 400 MG CAPSULE PO SCH ×2 (13:26→21:40)
[2021-08-23] MEDS: oxyCODONE 5 MG TABLET PO PRN ×2 (13:27→18:16)
[2021-08-23] MEDS: VANCOMYCIN INJ 2 GM in SODIUM CHLORIDE 0.9% 500 ML IV SCH (14:42)
[2021-08-23] MEDS ORDERED: LIDOCAINE PATCH 5% TOP PRN (17:11)
[2021-08-23] MEDS: metFORMIN 500 MG TABLET PO SCH (17:16)
[2021-08-23] MEDS: FORMOTEROL FUMARATE NEB 20 MCG/2 ML INH SCH (19:16)
[2021-08-23] MEDS: BUDESONIDE 0.5 MG/2 ML NEB INH SCH (19:16)
[2021-08-23] MEDS: PIPERACILLIN/TAZOBACTAM 3.375 GM in SODIUM CHLORIDE 0.9% MINIBAG 100 ML IV SCH (20:15)
[2021-08-23] MEDS ORDERED: NON FORMULARY MED (Atorvastatin Calcium [Lipitor] 80 MG Tablet) PO SCH (21:00)
[2021-08-23] MEDS ORDERED: FLUTICASONE INH SCH (21:00)
[2021-08-23] MEDS ORDERED: [UNRECOGNIZED DRUG - OTHER] INH SCH (21:00)
[2021-08-23] MEDS ORDERED: SALMETEROL INH SCH (21:00)
[2021-08-23] MEDS: allopurinoL 100 MG TABLET PO SCH (21:41)
[2021-08-23] MEDS: ATORVASTATIN 40 MG TABLET PO SCH (21:41)
[2021-08-23] MEDS: traZODone 50 MG TABLET PO PRN (21:43)
[2021-08-23] MEDS: traMADol 50 MG TABLET PO PRN (21:44)
[2021-08-23] MEDS ORDERED: ZOLPIDEM 5 MG TABLET PO ONE (22:42)
[2021-08-23] MEDS ORDERED: SIMETHICONE CHEW 80 MG TABLET PO PRN (22:43)
[2021-08-24] MEDS: PIPERACILLIN/TAZOBACTAM 3.375 GM in SODIUM CHLORIDE 0.9% MINIBAG 100 ML IV SCH (01:55)
[2021-08-24] MEDS: SODIUM CHLORIDE FLUSH 0.9% 10 ML SYRINGE IVP SCH ×3 (02:24→16:48)
[2021-08-24] MEDS: VANCOMYCIN INJ 2 GM in SODIUM CHLORIDE 0.9% 500 ML IV SCH ×2 (02:26→14:57)
[2021-08-24 05:26] LABS: BASOPHILS % (AUTO) 0.3 %; EOSINOPHILS # (AUTO) 0.2 10^3/uL (0.0-0.7); EOSINOPHILS % (AUTO) 2.2 %; HCT - HEMATOCRIT 34.1 % (42.0-52.0); HGB - HEMOGLOBIN 11.3 g/dL (14.0-18.0); LYMPHOCYTES # (AUTO) 1.1 10^3/uL (1.5-3.5); LYMPHOCYTES % (AUTO) 16.3 %; MEAN CORPUSCULAR HEMOGLOBIN 28.3 pg (27.0-31.0); MEAN CORPUSCULAR HGB CONC 33.1 g/dL (32.0-36.0); MEAN CORPUSCULAR VOLUME 85.3 fL (80.0-94.0); MEAN PLATELET VOLUME 9.4 fL (7.4-11.4); MONOCYTES # (AUTO) 0.5 10^3/uL (0.0-1.0); MONOCYTES % (AUTO) 7.4 %; NEUTROPHILS % (AUTO) 73.1 %; PLT - PLATELET COUNT 285 10^3/uL (130-450); WHITE BLOOD COUNT 6.9 x10^3/uL (4.8-10.8)
[2021-08-24 05:42] LABS: CALCIUM 8.2 mg/dL (8.5-10.3); CREATININE 0.9 mg/dL (0.6-1.2); CRP - C-REACTIVE PROTEIN 6.9 mg/dL (0-1.0); POTASSIUM 3.6 mmol/L (3.5-5.0)
[2021-08-24] MEDS: GABAPENTIN 400 MG CAPSULE PO SCH ×3 (06:16→22:35)
--- NOTE | 2021-08-24 07:30 | PROVIDER PROGRESS NOTE ---
Subjective - Prog Note Date Prog Note Date: 08/24/21 - Subjective Subjective: He feels better overall. No more nausea or vomiting his appetite is improved. Still has some left foot pain but this is improved. Current Medications - Current Medications Current Medications: Active Medications Acetaminophen (Acetaminophen 325 Mg Tablet) 650 mg PO Q4HR PRN PRN Reason: Pain 1 to 4, or Fever Hydrocodone Bitart/Acetaminophen (Hydrocod/Acetam 10 Mg/325 Mg Tablet) 1 tab PO Q6HR PRN PRN Reason: PAIN Last Admin: 08/23/21 16:01 Dose: 1 tab Albuterol (Albuterol Neb 2.5 Mg/3 Ml) 2.5 mg INH RTQ4H PRN PRN Reason: Wheezing Allopurinol (Allopurinol 100 Mg Tablet) 300 mg PO QPM [facility] Last Admin: 08/23/21 21:41 Dose: 300 mg Atorvastatin Calcium (Atorvastatin 40 Mg Tablet) 80 mg PO QPM [facility] Last Admin: 08/23/21 21:41 Dose: 80 mg Budesonide (Budesonide 0.5 Mg/2 Ml Neb) 0.5 mg INH RTBID [facility] Last Admin: 08/23/21 19:16 Dose: 0.5 mg Carvedilol (Carvedilol 12.5 Mg Tablet) 25 mg PO BID [facility] Last Admin: 08/23/21 21:42 Dose: 25 mg Clopidogrel Bisulfate (Clopidogrel 75 Mg Tablet) 75 mg PO DAILY [facility] Last Admin: 08/23/21 09:09 Dose: 75 mg Duloxetine HCl (Duloxetine 30 Mg Capsule) 60 mg PO DAILY [facility] Enoxaparin Sodium (Enoxaparin 40 Mg/0.4 Ml Syringe) 40 mg SUBQ DAILY [facility] Last Admin: 08/23/21 09:12 Dose: 40 mg Finasteride (Finasteride 5 Mg Tablet) 5 mg PO DAILY [facility] Last Admin: 08/23/21 09:23 Dose: Not Given Formoterol Fumarate (Formoterol Fumarate Neb 20 Mcg/2 Ml) 20 mcg INH RTBID [facility] Last Admin: 08/23/21 19:16 Dose: 20 mcg Gabapentin (Gabapentin 400 Mg Capsule) 800 mg PO TID [facility] Last Admin: 08/24/21 06:16 Dose: 800 mg Sodium Chloride (Normal Saline 0.9%) 1,000 mls @ 100 mls/hr IV .Q10H [facility] Last Infusion: 08/23/21 21:38 Dose: 0 mls/hr Vancomycin HCl 2 gm/ Sodium (Chloride) 500 mls @ 250 mls/hr IV Q12H [facility] Last Infusion: 08/24/21 04:50 Dose: Infused Insulin Aspart (Insulin Aspart 300 Unit/3 Ml Pen) 1 - 5 unit SUBQ 0800,1200,17 00,2100 [facility]; Protocol Last Admin: 08/23/21 21:30 Dose: Not Given Lidocaine (Lidocaine Patch 5%) 1 patch TOP HS PRN PRN Reason: PAIN Metformin HCl (Metformin 500 Mg Tablet) 1,000 mg PO BIDWM [facility] Last Admin: 08/23/21 17:16 Dose: 1,000 mg Multivitamins/Minerals (Multivitamin W/Minerals Tablet) 1 tab PO DAILYWM [facility] Last Admin: 08/23/21 09:10 Dose: 1 tab Nitroglycerin (Nitroglycerin Sl 0.4 Mg Tablet) 0.4 mg SL Q5MIN PRN PRN Reason: Chest Pain Ondansetron HCl (Ondansetron 4 Mg/2 Ml Vial) 4 mg IVP Q6HR PRN PRN Reason: Nausea / Vomiting Last Admin: 08/23/21 12:16 Dose: 4 mg Oxycodone HCl (Oxycodone 5 Mg Tablet) 5 mg PO BID PRN PRN Reason: PAIN Last Admin: 08/23/21 18:16 Dose: 5 mg Simethicone (Simethicone Chew 80 Mg Tablet) 80 mg PO 0900,1300,1800,2100 PRN PRN Reason: Gas Last Admin: 08/23/21 22:59 Dose: 80 mg Sodium Chloride (Sodium Chloride Flush 0.9% 10 Ml Syringe) 10 ml IVP PRN PRN PRN Reason: NEEDED PER PROVIDER ORDERS Last Admin: 08/23/21 12:16 Dose: 10 ml Sodium Chloride (Sodium Chloride Flush 0.9% 10 Ml Syringe) 10 ml IVP 0100,0900,1700 [facility] Last Admin: 08/24/21 02:24 Dose: 10 ml Tamsulosin HCl (Tamsulosin 0.4 Mg Capsule) 0.4 mg PO DAILY [facility] Last Admin: 08/23/21 09:23 Dose: Not Given Tramadol HCl (Tramadol 50 Mg Tablet) 50 mg PO QPM PRN PRN Reason: PAIN Last Admin: 08/23/21 21:44 Dose: 50 mg Trazodone HCl (Trazodone 50 Mg Tablet) 150 mg PO HS PRN PRN Reason: Insomnia Last Admin: 08/23/21 21:43 Dose: 150 mg Zolpidem Tartrate (Zolpidem 5 Mg Tablet) 10 mg PO QPM PRN PRN Reason: Insomnia Atorvastatin Calcium [Lipitor] 80 mg PO QPM 09/28/12 Clopidogrel [Plavix] 75 mg PO DAILY 04/08/16 Gabapentin 800 mg PO TID 04/08/16 Lidocaine Patch 5% [Lidoderm Patch] 1 each TOP DAILY PRN 12/06/16 Multivitamin [Multiple Vitamins] 1 tab PO DAILY 12/06/16 Zolpidem [Ambien] 10 mg PO QPM PRN 12/06/16 diphenhydrAMINE [Benadryl] 25 mg PO DAILY PRN 12/06/16 Albuterol Sulfate [Proair Hfa Inhaler] 1 - 2 puffs INH Q6H PRN 08/23/21 Duloxetine HCl [Cymbalta] 60 mg PO DAILY 08/23/21 Fluticasone Propion/Salmeterol [Fluticasone-Salmeterol 100-50] 1 puffs INH BID 08/23/21 Hydrocodone/Acetaminophen [Hydrocodone-Acetamin 10-325 mg] 1 tab PO QID PRN 08/23/21 Trazodone HCl 150 mg PO QPM 08/23/21 allopurinoL [Allopurinol] 300 mg PO QPM 08/23/21 metFORMIN [Glucophage] 1,000 mg PO BID 08/23/21 ondansetron HCL [Ondansetron HCl] 8 mg PO Q8H PRN 08/23/21 oxyCODONE [Roxicodone] 5 mg PO BID PRN 08/23/21 traMADol [Ultram] 50 mg PO QPM PRN 08/23/21 Objective - Vital Signs/Intake & Output Reviewed Vital Signs: Yes Vital Signs: Vital Signs x48h Temp Pulse Resp BP Pulse Ox 08/24/21 00:00 36.9 C 67 18 128/74 96 Intake & Output: Intake & Output 08/21/21 08/22/21 08/23/21 08/24/21 23:59 23:59 23:59 23:59 Intake Total 0293.907 600 Balance 5087.666 600 - Objective General Appearance: positive: No acute distress, Alert Eyes Bilateral: positive: Normal inspection, Conjunctivae nml ENT: positive: ENT inspection nml Respiratory: positive: No respiratory distress. negative: Wheezes, Rales Cardiovascular: positive: Regular rate & rhythm, No murmur. negative: Tachycardia Skin: positive: Warm, Dry, Other (The erythema over the anterior aspect of the left lower extremity inferior to knee is significantly improved. Still mildly warm to touch but nontender.) Extremities: positive: Pedal edema (+1 edema in the left lower extremity), Other (There is a 4 x 3 cm ulceration over the lateral aspect of the left foot at the base of the fifth metatarsal. There is an eschar with dog for embedded. No purulent drainage or fluctuance. There is surrounding erythema over the dorsum of the foot.) Neurologic/Psychiatric: negative: Disoriented to person, Disoriented to place - Lab Results Fish Bones: 08/24/21 04:26 08/24/21 04:26 Other Labs: Lab Results x24hrs 08/24/21 08/24/21 08/24/21 Range/Units 04:26 04:26 04:26 WBC 6.9 (4.8-10.8) x10^3/uL RBC 4.00 L (4.70-6.10) 10^6/uL Hgb 11.3 L (14.0-18.0) g/dL Hct 34.1 L (42.0-52.0) % MCV 85.3 (80.0-94.0) fL MCH 28.3 (27.0-31.0) pg MCHC 33.1 (32.0-36.0) g/dL RDW 14.0 (12.0-15.0) % Plt Count 285 (130-450) 10^3/uL MPV 9.4 (7.4-11.4) fL Neut # (Auto) 5.0 (1.5-6.6) 10^3/uL Lymph # (Auto) 1.1 L (1.5-3.5) 10^3/uL [place] # (Auto) 0.5 (0.0-1.0) 10^3/uL Eos # (Auto) 0.2 (0.0-0.7) 10^3/uL Baso # (Auto) 0.0 (0.0-0.1) 10^3/uL Absolute Nucleated RBC 0.00 x10^3/uL Nucleated RBC % 0.0 /100WBC ESR 65 H (0-20) mm/Hr Sodium 136 (135-145) mmol/L Potassium 3.6 (3.5-5.0) mmol/L Chloride 103 (101-111) mmol/L Carbon Dioxide 23 (21-32) mmol/L Anion Gap 10.0 (6-13) BUN 9 (6-20) mg/dL Creatinine 0.9 (0.6-1.2) mg/dL Estimated GFR (MDRD) 87 L (>89) Glucose 129 H (70-100) mg/dL Estimat Average Glucose (70-100) mg/dL Hemoglobin A1c % (4.27-6.07) % Calcium 8.2 L (8.5-10.3) mg/dL C-Reactive Protein 6.9 H (0-1.0) mg/dL 08/23/21 Range/Units 04:33 WBC (4.8-10.8) x10^3/uL RBC (4.70-6.10) 10^6/uL Hgb (14.0-18.0) g/dL Hct (42.0-52.0) % MCV (80.0-94.0) fL MCH (27.0-31.0) pg MCHC (32.0-36.0) g/dL RDW (12.0-15.0) % Plt Count (130-450) 10^3/uL MPV (7.4-11.4) fL Neut # (Auto) (1.5-6.6) 10^3/uL Lymph # (Auto) (1.5-3.5) 10^3/uL [place] # (Auto) (0.0-1.0) 10^3/uL Eos # (Auto) (0.0-0.7) 10^3/uL Baso # (Auto) (0.0-0.1) 10^3/uL Absolute Nucleated RBC x10^3/uL Nucleated RBC % /100WBC ESR (0-20) mm/Hr Sodium (135-145) mmol/L Potassium (3.5-5.0) mmol/L Chloride (101-111) mmol/L Carbon Dioxide (21-32) mmol/L Anion Gap (6-13) BUN (6-20) mg/dL Creatinine (0.6-1.2) mg/dL Estimated GFR (MDRD) (>89) Glucose (70-100) mg/dL Estimat Average Glucose 180 H (70-100) mg/dL Hemoglobin A1c % 7.9 H (4.27-6.07) % Calcium (8.5-10.3) mg/dL C-Reactive Protein (0-1.0) mg/dL ABX Reporting Has patient been on IV antibiotics over the past 48 hours?: Yes Sepsis Event Note (H) - Evaluation Current Stage of Sepsis: Sepsis Possible source of Sepsis: positive: Skin/soft tissue, Wound - Sepsis Criteria Sepsis Criteria: Metabolic: lactate > 2 mmol/L Assessment/Plan - Problem List (1) Cellulitis Impression: The cellulitis over the anterior aspect of the lower extremity inferior to knee significantly improved although it is still quite prominent over the dorsum of the left foot. His CRP is trending down and his white blood cell count remains normal. He is also afebrile with negative blood cultures. We will continue him on just vancomycin alone. The plan will be to continue IV antibiotics for 1 more day and if he continues to show improvement we will transition to oral antibiotics and plan for discharge tomorrow with follow-up with his manager event the following day. Qualifiers: Site of cellulitis: extremity Site of cellulitis of extremity: lower extremity Laterality: left Qualified Code(s): L03.116 - Cellulitis of left lower limb (2) Foot ulcer, left Impression: This is still present with the surrounding cellulitis. I spoke with his manager event yesterday and sent him a picture of the wound. Reviewed the patient's clinical presentation and the x-ray findings. It was felt that the patient can be treated for early cellulitis and discharged to have immediate follow-up with his manager event. Our plan will be to continue vancomycin IV for the time being and look transition to oral antibiotics tomorrow given his improvement over the past 24 hours. If he can be discharged tomorrow he will see his manager event the following day for debridement of the ulceration. (3) Hcglmfa-Cgglr-Adyxy disease Impression: This is chronic and stable. X-ray was concerning for loose hardware but this did not appear infected and was not close to the area of the ulceration. He will follow-up on outpatient basis with his manager event. (4) Hx of coronary artery disease Impression: Stable. Continue Plavix, atorvastatin, carvedilol. (5) Type 2 diabetes mellitus Impression: He has declined the use of insulin or blood glucose checks. We have resumed his home Metformin. His A1c is 7.9%.
[2021-08-24] MEDS: HYDROcod/ACETAM 10 MG/325 MG TABLET PO PRN ×3 (08:58→20:43)
[2021-08-24] MEDS: MULTIVITAMIN W/MINERALS TABLET PO SCH (08:59)
[2021-08-24] MEDS: TAMSULOSIN 0.4 MG CAPSULE PO SCH (08:59)
[2021-08-24] MEDS: metFORMIN 500 MG TABLET PO SCH ×2 (08:59→16:48)
[2021-08-24] MEDS: carvediloL 12.5 MG TABLET PO SCH ×2 (08:59→20:43)
[2021-08-24] MEDS: DULoxetine 30 MG CAPSULE PO SCH (08:59)
[2021-08-24] MEDS: INSULIN ASPART 300 UNIT/3 ML PEN SUBQ SCH ×4 (09:00→20:44)
[2021-08-24] MEDS: FINASTERIDE 5 MG TABLET PO SCH (09:00)
[2021-08-24] MEDS: ENOXAPARIN 40 MG/0.4 ML SYRINGE SUBQ SCH (09:00)
[2021-08-24] MEDS: CLOPIDOGREL 75 MG TABLET PO SCH (09:00)
[2021-08-24] MEDS: FORMOTEROL FUMARATE NEB 20 MCG/2 ML INH SCH ×2 (09:15→19:16)
[2021-08-24] MEDS: BUDESONIDE 0.5 MG/2 ML NEB INH SCH ×2 (09:15→19:16)
--- NOTE | 2021-08-24 10:10 | PHARMACY PROGRESS NOTE ---
- Therapy Status Vancomycin regimen day #: 2 Therapy status: Awaiting steady state Basis for treatment: Empirical Treatment indication: Cellulitis Trough goal: 15-20 Concurrent antibiotics: None - SARWAT Risk Risk level for Acute Kidney Injury: Moderate Acute Kidney Injury risk factors: Wt >100kg or BMI >40, Goal trough >15, Diabetes - Monitoring and Recommendation Clinical response to treatment: I&O Previous 24 hours 08/22/21 08/23/21 08/24/21 23:59 23:59 23:59 Intake Total 4006.667 1200 Balance 4006.667 1200 Lab Results 08/24/21 08/24/21 08/23/21 04:26 04:26 04:33 ESR 65 H BUN 9 8 Creatinine 0.9 0.8 Estimated GFR (MDRD) 87 L 100 08/23/21 08/22/21 08/22/21 04:33 22:39 22:39 ESR 69 H 25 H BUN 8 Creatinine 0.9 Estimated GFR (MDRD) 87 L Cultures 08/22/21 22:39 Blood Blood Culture - Preliminary NO GROWTH AFTER 1 DAY 08/22/21 22:39 Blood Blood Culture - Preliminary NO GROWTH AFTER 1 DAY Monitoring plan: Daily serum creatinine, Suggest ongoing fluid replacement Next trough due (date/time): No trough; switching to orals on 08/25 Areas for additional monitoring: IV to PO when appropriate, Therapy de- escalation based on culture results Pharmacy recommendation: Continue current regime
[2021-08-24] MEDS: oxyCODONE 5 MG TABLET PO PRN ×2 (12:39→18:56)
[2021-08-24] MEDS: DOXYCYCLINE 100 MG TABLET PO SCH (20:43)
[2021-08-24] MEDS: allopurinoL 100 MG TABLET PO SCH (20:43)
[2021-08-24] MEDS: traMADol 50 MG TABLET PO PRN (20:43)
[2021-08-24] MEDS: ATORVASTATIN 40 MG TABLET PO SCH (20:43)
[2021-08-24] MEDS ORDERED: ZOLPIDEM 5 MG TABLET PO PRN (21:15)
[2021-08-24] MEDS: traZODone 50 MG TABLET PO PRN (22:35)
[2021-08-25] MEDS: SODIUM CHLORIDE FLUSH 0.9% 10 ML SYRINGE IVP SCH ×2 (00:52→08:05)
[2021-08-25 05:26] LABS: BASOPHILS % (AUTO) 0.3 %; EOSINOPHILS # (AUTO) 0.2 10^3/uL (0.0-0.7); EOSINOPHILS % (AUTO) 2.7 %; HCT - HEMATOCRIT 34.6 % (42.0-52.0); HGB - HEMOGLOBIN 11.3 g/dL (14.0-18.0); LYMPHOCYTES # (AUTO) 1.1 10^3/uL (1.5-3.5); MEAN CORPUSCULAR HEMOGLOBIN 27.9 pg (27.0-31.0); MEAN CORPUSCULAR HGB CONC 32.7 g/dL (32.0-36.0); MEAN CORPUSCULAR VOLUME 85.4 fL (80.0-94.0); MEAN PLATELET VOLUME 8.9 fL (7.4-11.4); MONOCYTES # (AUTO) 0.6 10^3/uL (0.0-1.0); MONOCYTES % (AUTO) 8.8 %; NEUTROPHILS # (AUTO) 4.4 10^3/uL (1.5-6.6); NEUTROPHILS % (AUTO) 70.1 %; PLT - PLATELET COUNT 319 10^3/uL (130-450); RED BLOOD COUNT 4.05 10^6/uL (4.70-6.10); RED CELL DISTRIBUTION WIDTH 13.9 % (12.0-15.0); WHITE BLOOD COUNT 6.3 x10^3/uL (4.8-10.8)
[2021-08-25 05:49] LABS: CALCIUM 8.4 mg/dL (8.5-10.3); CREATININE 0.8 mg/dL (0.6-1.2); CRP - C-REACTIVE PROTEIN 3.6 mg/dL (0-1.0); POTASSIUM 3.6 mmol/L (3.5-5.0)
[2021-08-25] MEDS: GABAPENTIN 400 MG CAPSULE PO SCH (06:02)
--- NOTE | 2021-08-25 07:29 | DISCHARGE SUMMARY ---
Discharge Summary Admit Date: 08/23/21 Discharge Date: 08/25/21 Discharging Provider: Kingsley Paulino Primary Care Provider: Samuel Bryant Code Status: Attempt Resuscitation Condition at Discharge: Stable Discharge Disposition: 01 Home, Self Care - DIAGNOSES Admission Diagnoses: Cellulitis of left lower extremity Diabetic foot ulcer Nausea and vomiting Kchwizp-Qkzwk-Ywljo disease Type 2 diabetes mellitus Hyponatremia History of coronary artery disease Discharge Diagnoses with Status of Each Condition: Cellulitis of left lower extremity - improved. Foot ulcer, left - stable. Pgovebb-Knilx-Nuzuy disease - stable. History of coronary artery disease - stable. Type 2 diabetes mellitus - stable. - HPI History of Present Illness: H&P per Dr. De León: This is a 56-year-old male with a history of [place] in 2013, Hx of 5 stents placed and had CABG, history of diabetes mellitus not on Insulin, peripheral neuropathy, TIAs and a CVA on Plavix. 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 Also has Hx of DVT, HTN and Xdadviu-Pwmqw-Keywh disease. He has had bilateral foot surgeries, most recent was Right foot surgery in Mar 2021 and he has been relying more on his Left foot. He developed an open wound of the lateral Left foot and reports fever for the past 5 days, and 5 days of N/V. Besides vomiting, today he also forgot to take all his meds. He has sought no medical attention for the wound. He presented to the ER today because redness was spreading up his leg. Work-up showed a WBC of 10.1, but elevated Lactic Acid of 2.4, CRP of 14.7 and ESR of 25. He had no fever ion the ED. The exam was remarkable for a large, dry wound of the lateral Left foot, redness and swelling of the dorsum of left foot with redness spreading up to the left medial calf and medial thigh. The wound has an black, dry eschar and there is dried debris, like dog hair, associated with the wound. Imaging showed that he has hardware in the left foot. There is lucency surround ing the proximal margins of the arthrodesis screw transfixing the first metatarsal and the talus. There are no fractures, erosions or periosteal reaction. There is a skin defect/soft tissue ulceration seen at the lateral aspect of the left foot near the base of the fifth metatarsal. There is no gas or bony lesions. These findings suggested possible hardware loosening within the talus and further imaging was advised by Radiology, with either nuclear medicine bone scan or an MRI. Patient had blood cultures drawn and then received iv Pip- Tazo in the ED. The ED provider reached out to the Hospitalist team for admission for treating his cellulitis, possible loose foot hardware, and a diabetic foot ulcer, and there is a concern for sepsis. The patient's CODE STATUS is Full Code. - HOSPITAL COURSE Hospital Course: He was admitted to the floor for left lower extremity cellulitis and a left foot ulcer. Imaging confirmed the ulceration with there is no evidence of gas or osseous involvement. He was started on vancomycin and Zosyn IV initially and la ter the Zosyn was discontinued. He remained afebrile with a normal white blood cell count. His CRP trended down on a daily basis and he had significant improvement in the erythema after just 1 day of IV antibiotics. He was transitioned to oral doxycycline on the evening of the . He continues to do well with oral antibiotics and the erythema is predominantly surrounding the ulceration the lateral aspect of the dorsum of the left foot. I did initially speak with orthopedic surgery to see if they be willing to evaluate the ulceration but they recommended contacting the patient's gill tender. I spoke with his gill tender on August 23 and it was felt that we should treat his cellulitis and once the patient is improved from that perspective, he can be discharged and followed up the following day for evaluation of the ulceration. We did schedule an appointment for tomorrow with a colleague of the patient's gill tender at 2 PM at [facility] podiatry. The patient was prescribed doxyc ycline for 5 more days to complete 7 days of therapy for the cellulitis. We also discussed that his A1c was a little elevated at 7.9%. He admitted to drinking increased amount of soda and he has not been very adherent to a diabetic diet. He does not want to change his medications at this time and will focus on his diet. He will continue to follow-up with his primary care physician for management of his diabetes. - ALLERGIES Allergies/Adverse Reactions: Allergies Allergy/AdvReac Type Severity Reaction Status Date / Time cephalexin monohydrate * Allergy Unknown Nausea Verified 08/22/21 20:54 [From Keflex] codeine Allergy Unknown Verified 08/22/21 20:54 methadone Allergy Unknown Verified 08/22/21 20:54 - MEDICATIONS Home Medications: Ambulatory Orders Medication Instructions Recorded Confirmed Atorvastatin Calcium [Lipitor] 80 mg PO QPM 09/28/12 08/23/21 Clopidogrel [Plavix] 75 mg PO DAILY 04/08/16 08/23/21 Gabapentin 800 mg PO TID 04/08/16 08/23/21 Nitroglycerin [Nitrostat] 0.4 mg SL Q5MIN PRN #30 tablet 04/09/16 08/23/21 Lidocaine Patch 5% [Lidoderm Patch] 1 each TOP DAILY PRN 12/06/16 08/23/21 Multivitamin [Multiple Vitamins] 1 tab PO DAILY 12/06/16 08/23/21 Zolpidem [Ambien] 10 mg PO QPM PRN 12/06/16 08/23/21 carvediloL [Coreg] 25 mg PO BID #60 tablet 12/06/16 08/23/21 diphenhydrAMINE [Benadryl] 25 mg PO DAILY PRN 12/06/16 08/23/21 Albuterol Sulfate [Proair Hfa 1 - 2 puffs INH Q6H PRN 08/23/21 08/23/21 Inhaler] Duloxetine HCl [Cymbalta] 60 mg PO DAILY 08/23/21 08/23/21 Fluticasone Propion/Salmeterol 1 puffs INH BID 08/23/21 08/23/21 [Fluticasone-Salmeterol 100-50] Hydrocodone/Acetaminophen 1 tab PO QID PRN 08/23/21 08/23/21 [Hydrocodone-Acetamin 10-325 mg] Trazodone HCl 150 mg PO QPM 08/23/21 08/23/21 allopurinoL [Allopurinol] 300 mg PO QPM 08/23/21 08/23/21 metFORMIN [Glucophage] 1,000 mg PO BID 08/23/21 08/23/21 ondansetron HCL [Ondansetron HCl] 8 mg PO Q8H PRN 08/23/21 08/23/21 oxyCODONE [Roxicodone] 5 mg PO BID PRN 08/23/21 08/23/21 traMADol [Ultram] 50 mg PO QPM PRN 08/23/21 08/23/21 Doxycycline [Vibramycin] 100 mg PO BID 5 Days #10 tablet 08/25/21 - PHYSICAL EXAM AT DISCHARGE General Appearance: positive: No acute distress, Alert Eyes Bilateral: positive: Normal inspection, Conjunctivae nml ENT: positive: ENT inspection nml Neck: positive: Nml inspection Respiratory: positive: No respiratory distress. negative: Wheezes, Rales Cardiovascular: positive: Regular rate & rhythm. negative: Tachycardia Abdomen: positive: Non-tender, No distention. negative: Tenderness Skin: positive: Other (The erythema over the anterior aspect of the left lower extremity. 10 he is now nearly resolved. There is still mild erythema over the lateral aspect of the dorsum of the foot predominately surrounding the ulceration. No purulent drainage or fluctuance noted. Eschar noted.) Extremities: positive: Pedal edema (There is still trace edema left lower e xtremity but this is significantly improved compared to the +1 to +2 edema on admission) Physical Exam Other/Comments: Vital Signs - 24 hr 08/24/21 08/24/21 08/24/21 15:45 19:16 23:35 Temperature 37.4 C 37.2 C Heart Rate 68 Heart Rate [ 62 67 Brachial] Respiratory 18 18 20 Rate Blood Pressure 127/63 [Left Brachial artery] Blood Pressure 135/83 H [Right Brachial artery] O2 Saturation 98 96 08/25/21 08/25/21 07:30 08:41 Temperature 37.1 C Heart Rate 64 Heart Rate [ 69 Brachial] Respiratory 18 14 Rate Blood Pressure [Left Brachial artery] Blood Pressure 135/88 H [Right Brachial artery] O2 Saturation 96 Oxygen O2 Source Room air - LABS Result Diagrams: 08/25/21 04:14 08/25/21 04:14 - DIAGNOSTIC IMAGING Diagnostic Imaging Results: Final report reviewed - FOLLOW UP Follow Up: He was encouraged to follow-up with his primary care physician within 1 to 2 weeks and he will be seeing podiatry tomorrow at [facility] pod[facility] at 2 PM. - TIME SPENT Time Spent in Discharge (Minutes): 34
--- NOTE | 2021-08-25 07:29 | Discharge Plan ---
Discharge Plan Problem Reviewed?: Yes Disposition: Home, Self Care Condition: Stable Prescriptions: Doxycycline [Vibramycin] 100 mg PO BID 5 Days #10 tablet Diet: Diabetic Activity Restrictions: Activity as Tolerated Weight Bearing: Nonweight bearing on left Instruction Topics: Doxycycline tablets or capsules, Cellulitis Dc Health Concerns: You were admitted to the hospital because of cellulitis which is a soft tissue infection of your left lower extremity. You were also found to have an ulceration over the left side of your left foot. You has had significant improvement with antibiotics. You will need to continue the oral antibiotics on discharge. He will need to see your hanger off tomorrow to evaluate the ulceration and for consideration of debridement. Plan of Treatment: Please take doxycycline 100 mg twice a day for 5 more days to complete 7 days of therapy. Please follow-up with your hanger off tomorrow as they want to see you in clinic to better evaluate the ulcer of your foot. There were no other changes made to medications. Your A1c was 7.9% which is slightly above the goal. Please limit the amount of sugary intake from soda and simple carbohydrates from foods such as pasta, rice. Please follow-up with your primary care physician and continue to monitor your blood glucose as you may need another agent to help control your blood glucose. Assessment: The patient expressed understanding of the treatment plan. Additional Instructions or Follow Up instructions: Follow-up with your primary care physician within 1 week. Please follow-up with the hanger off, Dr. Shaka Augustin, tomorrow at 2 PM at [facility] podiatry. Please return to the emergency department if you develop worsening redness, fever, chills, pain of the left lower extremity No Smoking: If you smoke, Please STOP! Call for help. Follow-up with: Samuel Bryant MD [Primary Care Provider] -
[2021-08-25 07:34] VITALS: BP 135/88
[2021-08-25] MEDS: INSULIN ASPART 300 UNIT/3 ML PEN SUBQ SCH (07:57)
[2021-08-25] MEDS: carvediloL 12.5 MG TABLET PO SCH (08:04)
[2021-08-25] MEDS: TAMSULOSIN 0.4 MG CAPSULE PO SCH (08:04)
[2021-08-25] MEDS: CLOPIDOGREL 75 MG TABLET PO SCH (08:04)
[2021-08-25] MEDS: FINASTERIDE 5 MG TABLET PO SCH (08:04)
[2021-08-25] MEDS: metFORMIN 500 MG TABLET PO SCH (08:05)
[2021-08-25] MEDS: DOXYCYCLINE 100 MG TABLET PO SCH (08:05)
[2021-08-25] MEDS: DULoxetine 30 MG CAPSULE PO SCH (08:05)
[2021-08-25] MEDS: HYDROcod/ACETAM 10 MG/325 MG TABLET PO PRN (08:05)
[2021-08-25] MEDS: ENOXAPARIN 40 MG/0.4 ML SYRINGE SUBQ SCH (08:05)
[2021-08-25] MEDS: FORMOTEROL FUMARATE NEB 20 MCG/2 ML INH SCH (08:39)
[2021-08-25] MEDS: BUDESONIDE 0.5 MG/2 ML NEB INH SCH (08:39)
[2021-08-25] MEDS: oxyCODONE 5 MG TABLET PO PRN (10:43)
[2021-08-25] MEDS ORDERED: MULTIVITAMIN W/MINERALS TABLET PO SCH (12:00)
== END 2021-08-25 11:20 | disposition home or self-care (01) | DRG 872 ==
LOC: EDUNIT# → EDBD → ED 20:41 → MS2 08-23 01:15
PROVIDERS: ADMIT Internal Medicine; ATTEND Internal Medicine
DX: A41.9 Sepsis, unspecified organism (principal); L97.422 Non-pressure chronic ulcer of left heel and midfoot with fat layer exposed; L03.116 Cellulitis of left lower limb; E87.1 Hypo-osmolality and hyponatremia; E11.42 Type 2 diabetes mellitus with diabetic polyneuropathy; E11.621 Type 2 diabetes mellitus with foot ulcer; Z79.84 Long term (current) use of oral hypoglycemic drugs; R11.2 Nausea with vomiting, unspecified; G60.0 Hereditary motor and sensory neuropathy; I25.10 Atherosclerotic heart disease of native coronary artery without angina pectoris; Z86.73 Personal history of transient ischemic attack (TIA), and cerebral infarction without residual deficits; Z95.1 Presence of aortocoronary bypass graft; Z95.5 Presence of coronary angioplasty implant and graft; I25.2 Old myocardial infarction; F17.210 Nicotine dependence, cigarettes, uncomplicated; E78.00 Pure hypercholesterolemia, unspecified; Z86.718 Personal history of other venous thrombosis and embolism; Z79.01 Long term (current) use of anticoagulants; Z98.1 Arthrodesis status; T50.916A Underdosing of multiple unspecified drugs, medicaments and biological substances, initial encounter; Z91.128 Patient's intentional underdosing of medication regimen for other reason; S91.302A Unspecified open wound, left foot, initial encounter; X58.XXXA Exposure to other specified factors, initial encounter; I10 Essential (primary) hypertension; R32 Unspecified urinary incontinence; Z20.822 Contact with and (suspected) exposure to COVID-19
CPT/HCPCS: 36415; 73630; 80048; 80053; 81003; 83036; 83605; 83690; 83735; 84100; 85025; 85610; 85651; 86140; 87040; 87633; 94640; 96361; 96365; 96366; 96367; 96372; 96374; 96375; 99284; 99285; A9270; G0378; J1650; J3370; J7626; 80202; 81001; 87086

== ENCOUNTER 2022-05-06 12:53 | Outpatient (CLI) | payer MEDICAID ==
--- NOTE | 2022-05-09 09:24 | MRI Report ---
PROCEDURE: ANKLE WO - LT INDICATIONS: CHRONIC ULCER OF LEFT HEEL AND MID FOOT TECHNIQUE: Noncontrast coronal and sagittal T1 spin echo and STIR; axial T1 spin echo and T2 fast spin echo with fat saturation through the left ankle and hindfoot. COMPARISON: None. FINDINGS: Image quality: Diagnostic. Susceptibility artifacts from surgical hardware are seen. Bones: Susceptibility artifacts are noted in midfoot and hindfoot from prior surgery along medial asp ect of midfoot and hindfoot and internal fixation of calcaneus. No acute fracture or dislocation. No gross bony union is noted at medial midfoot and hindfoot fusion sites. There is suggestion of marrow edema involving anterior inferior aspect of calcaneus is seen with subt le cortical thinning subtle erosion. No other area of marrow edema is noted. There is no significant joint effusion. No gross osteochondral injuries of the talar dome. Osteoarthritic changes are noted i n midfoot and hindfoot. Soft tissues: Full-thickness ulceration involving plantar and lateral aspect of mid foot at the level of anterior calcaneus/calcaneocuboid joint with significant surrounding edema. No discrete drainable fluid collection is noted. There is suggestion of disruption of plantar fascia at this level. Extens or, flexor, and peroneal tendons are intact. Achilles tendon is intact. IMPRESSION: 1. Slightly degraded study due to susceptibility artifact from surgical hardware. Prior internal fixa tion of calcaneus and medial aspect of midfoot and hindfoot fusion. No acute fracture or dislocation. 2. Full-thickness ulceration involving plantar and lateral aspect of mid foot at the level of calcane ocuboid joint with extensive surrounding soft tissue cellulitis. No discrete drainable abscess collec tion. 3. Suggestion of osteomyelitis involving adjacent plantar and lateral aspect of distal calcaneus dane cent to calcaneocuboid joint. Reviewed by: Amos Sheehan MD on 05/09/2022 9:23 AM PST Approved by: Amos Sheehan MD on 05/09/2022 9:23 AM PST Station ID: [id number]
--- NOTE | 2022-05-09 15:59 | MRI Report ---
PROCEDURE: FOOT WO - LT INDICATIONS: CHRONIC ULCER OF LEFT HEEL AND MID FOOT TECHNIQUE: Noncontrast sagittal T1 spin echo and T2 fast spin echo with fat saturation, long-axis T1 spin echo a nd T2 fast spin echo with fat saturation, short-axis proton density fast spin echo and T2 fast spin e cho with fat saturation through the forefoot. COMPARISON: None. FINDINGS: Image quality: Excellent. Bones and joints: Susceptibility artifacts are noted in medial and lateral aspect of mid foot from p rior surgery. There is suggestion of marrow edema involving plantar aspect of cuboid without definite bony erosive changes. No definite edema is seen in the fifth metatarsal base. No acute fracture or d islocation. No other area of abnormal marrow signal. Soft tissues: There is suggestion of ulceration involving plantar lateral aspect of mid foot near fif th metatarsal base and calcaneocuboid joint. Extensive surrounding subcutaneous soft tissue edema is seen. No discrete drainable abscess collection. Forefoot tendons and ligaments are grossly intact. IMPRESSION: 1. Ulceration involving plantar and lateral aspect of mid foot with adjacent cellulitis. No discrete drainable abscess collection. 2. Suggestion of osteomyelitis involving plantar aspect of cuboid. No definite bony erosive changes. Postsurgical changes are noted in medial and lateral aspect of mid foot. No acute fracture or disloca tion. Reviewed by: Amos Sheehan MD on 05/09/2022 3:58 PM PST Approved by: Amos Sheehan MD on 05/09/2022 3:58 PM PST Station ID: [id number]
== END 2022-05-06 12:54 | disposition home or self-care (01) ==
LOC: DI 12:53
PROVIDERS: ATTEND Podiatrist Foot & Ankle Surgery
DX: L97.422 Non-pressure chronic ulcer of left heel and midfoot with fat layer exposed (principal); G60.0 Hereditary motor and sensory neuropathy; E11.42 Type 2 diabetes mellitus with diabetic polyneuropathy; L97.424 Non-pressure chronic ulcer of left heel and midfoot with necrosis of bone; L03.116 Cellulitis of left lower limb

== ENCOUNTER 2022-05-16 04:50 | Outpatient (CLI) | payer MEDICAID | END 2022-05-16 04:51 | disposition other institution (70) | LOC: EMS 04:50 | DX: K59.00 Constipation, unspecified (principal) | CPT/HCPCS: A0425; A0429; A0999 ==

== ENCOUNTER 2022-05-16 05:07 | Inpatient (IN) | payer MEDICAID ==
[2022-05-16] MEDS ORDERED: SODIUM CHLORIDE 0.9% 1,000 ML IV STA (05:20)
[2022-05-16] MEDS ORDERED: ONDANSETRON 4 MG/2 ML VIAL IVP STA ×2 (05:20→08:11)
[2022-05-16 05:27] LABS: LYMPHOCYTES % (AUTO) 2.3 %
[2022-05-16 05:29] LABS: BASOPHILS % (AUTO) 0.4 %; EOSINOPHILS % (AUTO) 1.3 %; HCT - HEMATOCRIT 37.9 % (42.0-52.0); MEAN CORPUSCULAR HEMOGLOBIN 24.9 pg (27.0-31.0); MEAN CORPUSCULAR HGB CONC 31.7 g/dL (32.0-36.0); MEAN CORPUSCULAR VOLUME 78.6 fL (80.0-94.0); MEAN PLATELET VOLUME 9.8 fL (7.4-11.4); MONOCYTES % (AUTO) 2.7 %; NEUTROPHILS % (AUTO) 92.9 %; PLT - PLATELET COUNT 281 10^3/uL (130-450); RED BLOOD COUNT 4.82 10^6/uL (4.70-6.10); RED CELL DISTRIBUTION WIDTH 16.4 % (12.0-15.0); WHITE BLOOD COUNT 10.6 x10^3/uL (4.8-10.8)
[2022-05-16 05:30] LABS: ABNORMAL LYMPHS % (MANUAL) 0 %
[2022-05-16 05:39] LABS: ALBUMIN 3.1 g/dL (3.2-5.5); ALBUMIN/GLOBULIN RATIO 0.7 (1.0-2.2); BILIRUBIN,TOTAL 1.1 mg/dL (0.2-1.0); CALCIUM 9.3 mg/dL (8.5-10.3); CREATININE 3.3 mg/dL (0.6-1.2); POTASSIUM 4.1 mmol/L (3.5-5.0); TOTAL PROTEIN 7.8 g/dL (6.7-8.2)
[2022-05-16 05:47] LABS: BAND NEUTROPHILS % (MANUAL) 9 %; DIFFERENTIAL COMMENT MANUAL DIFFERENTIAL; LYMPHOCYTES # (MANUAL) 0.4 10^3/uL (1.5-3.5); LYMPHOCYTES % (MANUAL) 4 %; METAMYELOCYTES % (MANUAL) 2 %; MONOCYTES # (MANUAL) 0.2 10^3/uL (0.0-1.0); NEUTROPHILS # (MANUAL) 9.8 10^3/uL (1.5-6.6); PLATELET ESTIMATE, MANUAL NORMAL (130-450,000) (NORMAL); PLATELET MORPHOLOGY NORMAL APPEARANCE (NORMAL); RBC MORPHOLOGY (MULTIPLE) NORMAL APPEARANCE (NORMAL); WBC MORPHOLOGY (MULTIPLE) NORMAL APPEARANCE (NORMAL)
[2022-05-16] MEDS ORDERED: KETOROLAC 15 MG/ML VIAL IVP STA (06:18)
--- NOTE | 2022-05-16 06:22 | ED Physician Documentation ---
History of Present Illness - Stated complaint Stated Complaint: ABD PAIN X 5 DAYS, N/V - Chief complaint Chief Complaint: Abd Pain - History obtained from History obtained from: Patient - Additonal information Additional information: 56-year-old man with past medical history of bladder/prostate [place], [place], TIA, stroke, presents with abdominal pain for the past 6 days with associated constipation and decreased p.o. intake. Patient has had nonbloody nonbilious nausea and vomiting intermittently over the past 4 days as well. States the pain is gradual onset, constant, located in the rib cage radiating down to the pelvis, sharp, 8/10 at present, a/w nausea. denies fever, cp. Review of Systems GI: reports: Abdominal Pain, Nausea, Vomiting, Constipation PD PAST MEDICAL HISTORY - Past Medical History Past Medical History: Yes Cardiovascular: Hypertension, High cholesterol, Coronary artery disease, Deep vein thrombosis, [place] Respiratory: Asthma Neuro: CVA, TIA Endocrine/Autoimmune: Type 2 diabetes GI: GERD : None, Indwelling catheter HEENT: Chronic vision loss, Chronic hearing loss Psych: Depression Musculoskeletal: Osteoarthritis, Gout Derm: None - Past Surgical History Past Surgical History: Yes General: Other Ortho: Other /[employer]: Other (suprapubic catheter; now reversed and removed) Cardiovascular: CABG, Coronary stent - Present Medications Home Medications: Ambulatory Orders Medication Instructions Recorded Confirmed Atorvastatin Calcium [Lipitor] 80 mg PO QPM 09/28/12 05/16/22 Clopidogrel [Plavix] 75 mg PO DAILY 04/08/16 05/16/22 Gabapentin 800 mg PO TID 04/08/16 05/16/22 Nitroglycerin [Nitrostat] 0.4 mg SL Q5MIN PRN #30 tablet 04/09/16 05/16/22 Lidocaine Patch 5% [Lidoderm Patch] 1 each TOP DAILY PRN 12/06/16 05/16/22 Multivitamin [Multiple Vitamins] 1 tab PO DAILY 12/06/16 05/16/22 Zolpidem [Ambien] 10 mg PO QPM PRN 12/06/16 05/16/22 carvediloL [Coreg] 25 mg PO BID #60 tablet 12/06/16 05/16/22 diphenhydrAMINE [Benadryl] 25 mg PO DAILY PRN 12/06/16 05/16/22 Albuterol Sulfate [Proair Hfa 1 - 2 puffs INH Q6H PRN 08/23/21 05/16/22 Inhaler] Duloxetine HCl [Cymbalta] 60 mg PO DAILY 08/23/21 05/16/22 Fluticasone Propion/Salmeterol 1 puffs INH BID 08/23/21 05/16/22 [Fluticasone-Salmeterol 100-50] Hydrocodone/Acetaminophen 1 tab PO QID PRN 08/23/21 05/16/22 [Hydrocodone-Acetamin 10-325 mg] Trazodone HCl 150 mg PO QPM 08/23/21 05/16/22 allopurinoL [Allopurinol] 300 mg PO QPM 08/23/21 05/16/22 metFORMIN [Glucophage] 1,000 mg PO BID 08/23/21 05/16/22 ondansetron HCL [Ondansetron HCl] 8 mg PO Q8H PRN 08/23/21 05/16/22 oxyCODONE [Roxicodone] 5 mg PO BID PRN 08/23/21 05/16/22 traMADol [Ultram] 50 mg PO QPM PRN 08/23/21 05/16/22 Doxycycline [Vibramycin] 100 mg PO BID 5 Days #10 tablet 08/25/21 05/16/22 - Allergies Allergies/Adverse Reactions: Allergies Allergy/AdvReac Type Severity Reaction Status Date / Time cephalexin monohydrate * Allergy Unknown Nausea Verified 05/16/22 05:19 [From Keflex] codeine Allergy Unknown Verified 05/16/22 05:19 methadone Allergy Unknown Verified 05/16/22 05:19 - Social History Does the pt smoke?: Yes Smoking Status: Current every day smoker Does the pt drink ETOH?: Yes Does the pt have substance abuse?: No - Immunizations Immunizations are current?: Yes - POLST Patient has POLST: No POLST Status: Full Code PD ED PE NORMAL - Vitals Vital signs reviewed: Yes - General General: Alert and oriented X 3, Other (mild to moderate distress) - HEENT HEENT: Atraumatic, PERRL, EOMI, Moist mucous membranes, Pharynx benign - Neck Neck: Supple, no meningeal sign - Cardiac Cardiac: RRR - Respiratory Respiratory: No respiratory distress, Clear bilaterally - Abdomen Abdomen: Other (diffuse ttp) - Rectal Rectal: Other (BONNIE vogel. brown soft stool in rectal vault) - Back Back: No CVA TTP - Derm Derm: Normal color, Warm and dry - Neuro Neuro: Alert and oriented X 3 Results - Vitals Vitals: Vital Signs - 24 hr 05/16/22 05/16/22 05/16/22 05:14 05:19 06:08 Temperature 37.2 C Heart Rate 104 H 90 Respiratory 18 18 17 Rate Blood Pressure 115/70 O2 Saturation 98 95 05/16/22 06:26 Temperature Heart Rate Respiratory 17 Rate Blood Pressure O2 Saturation Oxygen O2 Source Room air - Labs Labs: Laboratory Tests 05/16/22 05/16/22 05/16/22 05:17 05:17 06:24 WBC 10.6 RBC 4.82 Hgb 12.0 L Hct 37.9 L MCV 78.6 L MCH 24.9 L MCHC 31.7 L RDW 16.4 H Plt Count 281 MPV 9.8 Neut # (Auto) Not Reportable Lymph # (Auto) Not Reportable Calhoun # (Auto) Not Reportable Eos # (Auto) Not Reportable Baso # (Auto) Not Reportable Absolute Nucleated RBC Not Reportable Total Counted 100 Band Neuts % (Manual) 9 Abnorm Lymph % (Manual) 0 Metamyelocytes % 2 H Nucleated RBC % Not Reportable Neutrophils # (Manual) 9.8 H Lymphocytes # (Manual) 0.4 L Monocytes # (Manual) 0.2 Eosinophils # (Manual) 0.0 Basophils # (Manual) 0.0 Differential Comment MANUAL DIFFERENTIAL WBC Morphology NORMAL APPEARANCE Platelet Estimate NORMAL (130-450,000) Platelet Morphology NORMAL APPEARANCE RBC Morph Micro Appear NORMAL APPEARANCE Sodium 138 Potassium 4.1 Chloride 98 L Carbon Dioxide 21 Anion Gap 19.0 H BUN 37 H Creatinine 3.3 H Estimated GFR (MDRD) 19 L Glucose 199 H Calcium 9.3 Total Bilirubin 1.1 H AST 50 H ALT 51 Alkaline Phosphatase 142 H Total Protein 7.8 Albumin 3.1 L Globulin 4.7 H Albumin/Globulin Ratio 0.7 L Lipase 24 Urine Color BROWN Urine Clarity CLOUDY Urine pH 8.5 H Ur Specific Jupiter 1.010 Urine Protein 100 H Urine Glucose (UA) NEGATIVE Urine Ketones NEGATIVE Urine Occult Blood LARGE H Urine Nitrite NEGATIVE Urine Bilirubin NEGATIVE Urine Urobilinogen 0.2 (NORMAL) Ur Leukocyte Esterase LARGE H Urine RBC TNTC H Urine WBC >25 H Ur Squamous Epith Cells NONE SEEN Urine Bacteria Moderate H Ur Microscopic Review INDICATED Urine Culture Comments INDICATED PD Medical Decision Making - ED course ED course: 56yM presents with severe diffuse abdominal pain X 6 days a/w nausea and vomiting. vitals benign but patient is tender on abdominal exam. Labwork shows don and CT wet read is concerning for UTI. plan to admit for DON, uti. d/w dayti me hospitalist for admission Departure - Departure Disposition: 66 [facility] DC/Xfer Clinical Impression: DON (acute kidney injury), Vomiting, Abdominal pain, UTI (urinary tract infection) Condition: Stable Instructions: ED UTI Cystitis Male
[2022-05-16 06:55] LABS: GLUCOSE, URINE (UA) NEGATIVE (NEGATIVE); KETONES,URINE (UA) NEGATIVE (NEGATIVE); LEUKOCYTE ESTERASE, URINE LARGE (NEGATIVE); NITRITE,URINE NEGATIVE (NEGATIVE); OCCULT BLOOD,URINE LARGE (NEGATIVE); PH,URINE 8.5 PH (5.0-7.5); PROTEIN,URINE 100 mg/dL (NEGATIVE); UROBILINOGEN,URINE 0.2 (NORMAL) E.U./dL (NORMAL)
[2022-05-16 06:58] LABS: CLARITY,URINE CLOUDY (CLEAR)
[2022-05-16 07:01] LABS: BILIRUBIN,URINE NEGATIVE (NEGATIVE); ICTOTEST,URINE NEGATIVE
[2022-05-16 07:12] LABS: BACTERIA,URINE Moderate /HPF (None Seen); RBC,URINE TNTC /HPF (0-5); SQUAMOUS EPITHELIAL CELL,UR NONE SEEN (<= Few); WBC,URINE >25 /HPF (0-3)
[2022-05-16] MEDS ORDERED: cefTRIAXone 1 GM in SODIUM CHLORIDE 0.9% MINIBAG 100 ML IV STA (07:27)
[2022-05-16] MEDS ORDERED: SODIUM CHLORIDE 0.9% 1,000 ML IV SCH (08:00)
--- NOTE | 2022-05-16 09:30 | CT Report ---
PROCEDURE: ABDOMEN/PELVIS WO INDICATIONS: abd pain TECHNIQUE: Noncontrast 5 mm thick sections acquired from the diaphragms to the symphysis. 5 mm coronal and sagi ttal reformats were then performed. For radiation dose reduction, the following was used: automated exposure control, adjustment of mA and/or kV according to patient size. COMPARISON: CT abdomen and pelvis with, 02/07/2021 and 02/22/2019. FINDINGS: Image quality: Excellent. ABDOMEN: Lung bases: Lung bases are clear. Heart size is normal. There are calcified calculus in left lower lobe and right hilum. Bibasilar dependent atelectasis. Subpleural scars and atelectasis in right mid dle lobe and lingula, as well as the left lower lobe. Small hiatal hernia. Solid organs: Liver is normal in size. Gallbladder is unremarkable. Spleen is enlarged. Pancreas is normal in contours. Bilateral adrenal thickening. Right kidney is severely atrophic. Left kidney is normal in size. Trace left renal pelviectasis. No r enal stones or ureteral stones. Peritoneum and bowel: Unenhanced bowel loops demonstrate normal caliber. There is a large amount of stool in colon. No free air. A moderate amount of free fluid is present in the pelvis. There are several hyperdense nodules in pel vis, which could represent a recurrent masses or hematomas. Nodes and vessels: There is mesenteric stranding or edema. No retroperitoneal or mesenteric adenopat hy by size criteria. Aorta and inferior vena cava are normal in caliber. Miscellaneous: No ventral hernias. PELVIS: Genitourinary: Bladder wall is thickened. Prostate is surgically absent. Miscellaneous: There is a 1.1 x 1.8 cm right external iliac lymph node. A 1 cm left external iliac l ymph node is noted. Borderline sized inguinal lymph nodes are seen bilaterally measuring up to 1.4 cm in short axis. No inguinal hernias or adenopathy. Bones: No suspicious bony lesions. No vertebral body compression fractures. IMPRESSION: 1. There is a moderate amount of free fluid in pelvis. Cannot rule out recurrent mass or hematomas. 2. Mild mesenteric stranding or edema. 3. Bladder is thickened suggesting cystitis. 4. Trace left renal pelviectasis. 5. Severe right renal atrophy. 6. Mildly enlarged pelvic and inguinal lymph nodes, nonspecific. If there is clinical suspicion for a scites, further evaluation with PET CT would be helpful. 7. Prostatectomy. 8. Large amount stool in colon. No significant discrepancy with the predominant interpretation. Reviewed by: Flori Atkins MD on 05/16/2022 9:29 AM PST Approved by: Flori Atkins MD on 05/16/2022 9:29 AM PST Station ID: [id number]
[2022-05-16] MEDS ORDERED: SODIUM CHLORIDE FLUSH 0.9% 10 ML SYRINGE IVP PRN (11:16)
[2022-05-16] MEDS ORDERED: traMADol 50 MG TABLET PO PRN (11:22)
[2022-05-16] MEDS ORDERED: HYDROcod/ACETAM 10 MG/325 MG TABLET PO PRN (11:22)
[2022-05-16] MEDS ORDERED: LIDOCAINE PATCH 5% TOP PRN (11:22)
[2022-05-16] MEDS ORDERED: NITROGLYCERIN SL 0.4 MG TABLET SL PRN (11:22)
[2022-05-16] MEDS ORDERED: ZOLPIDEM 5 MG TABLET PO PRN (11:22)
[2022-05-16] MEDS ORDERED: oxyCODONE 5 MG TABLET PO PRN (11:22)
[2022-05-16 11:48] LABS: CALCIUM 8.2 mg/dL (8.5-10.3); CREATININE 3.2 mg/dL (0.6-1.2); POTASSIUM 3.7 mmol/L (3.5-5.0)
[2022-05-16] MEDS ORDERED: ALBUTEROL 6.7 GM INHALER INH PRN (12:08)
[2022-05-16] MEDS ORDERED: SODIUM CHLORIDE 0.9% 1,000 ML IV ONE (12:57)
[2022-05-16] MEDS ORDERED: PIPERACILLIN/TAZOBACTAM 2.25 GM in SODIUM CHLORIDE 0.9% MINIBAG 100 ML IV SCH (13:00)
[2022-05-16] MEDS: DULoxetine 30 MG CAPSULE PO SCH (13:26)
[2022-05-16] MEDS: CLOPIDOGREL 75 MG TABLET PO SCH (13:27)
[2022-05-16] MEDS: SENNA 8.6 MG TABLET PO SCH ×2 (13:30→21:16)
[2022-05-16] MEDS: polyethylene glycoL 3350 17 GM PACKET PO SCH (13:31)
[2022-05-16] MEDS: INSULIN LISPRO 300 UNIT/3 ML PEN SUBQ SCH ×3 (13:40→21:15)
[2022-05-16] MEDS ORDERED: VANCOMYCIN INJ 2 GM, VANCOMYCIN INJ 500 MG in SODIUM CHLORIDE 0.9% 500 ML IV SCH (14:00)
[2022-05-16] MEDS: SODIUM CHLORIDE 0.9% 1,000 ML IV SCH (14:14)
[2022-05-16] MEDS ORDERED: VANCOMYCIN INJ 2 GM, VANCOMYCIN INJ 500 MG in SODIUM CHLORIDE 0.9% 500 ML IV ONE (14:15)
[2022-05-16] MEDS: GABAPENTIN 400 MG CAPSULE PO SCH ×2 (14:48→23:21)
[2022-05-16] MEDS: ACETAMINOPHEN 325 MG TABLET PO PRN (16:32)
[2022-05-16 17:36] LABS: B. PARAPERTUSSIS- RESP PCR PAN NOT DETECTED; B. PERTUSSIS- RESP PCR PANEL NOT DETECTED; C. PNEUMONIAE- RESP PCR PANEL NOT DETECTED; CORONAVIRUS 229E-RESP PCR NOT DETECTED; CORONAVIRUS HKU1-RESP PCR NOT DETECTED; CORONAVIRUS NL63-RESP PCR NOT DETECTED; CORONAVIRUS OC43-RESP PCR NOT DETECTED; HUMAN METAPNEUMOVIRUS NOT DETECTED; INFLUENZA A- RESP PCR PANEL NOT DETECTED; INFLUENZA B - RESP PCR PANEL NOT DETECTED; M. PNEUMONIAE- RESP PCR PANEL NOT DETECTED; PARAINFLUENZA VIRUS 1 NOT DETECTED; PARAINFLUENZA VIRUS 2 NOT DETECTED; PARAINFLUENZA VIRUS 3 NOT DETECTED; PARAINFLUENZA VIRUS 4 NOT DETECTED; RHINOVIRUS/ENTEROVIRUS NOT DETECTED; RSV- RESP PCR PANEL NOT DETECTED; SARS-CoV-2 -RESP PCR PANEL NOT DETECTED
[2022-05-16] MEDS: CEFEPIME 2 GM in SODIUM CHLORIDE 0.9% MINIBAG 100 ML IV SCH (17:50)
[2022-05-16] MEDS: SODIUM CHLORIDE FLUSH 0.9% 10 ML SYRINGE IVP SCH (17:52)
[2022-05-16] MEDS: oxyCODONE 5 MG TABLET PO PRN (18:19)
--- NOTE | 2022-05-16 18:29 | HISTORY & PHYSICAL EXAMINATION ---
Chief Complaint - Chief Complaint Chief Complaint: Nausea/vomiting/abdominal pain/constipation History of Present Illness - Admitted From Admitted From:: ED from home - History of Present Illness HPI Comment/Other: 56 yo male w/non-insulin dependent DM2, HTN, hyperlipidemia, CAD s/p CABG, CVA, OA, Gout, GERD, Asthma, prior DVT, and bladder/prostate cancer s/p extensive pelvic resection (and colectomy requiring temporary colostomy) presented to the ED w/6 days of constipation, N/V/abdominal pain. He notes that he is on chronic opiates and usually is able to counteract the constipation related to opiates. He notes he became constipated about 6 days ago. 3-4 days ago, he developed abdominal pain and began having nausea/vomiting. No SOB. No CP. HE notes he was feeling lightheaded/dizzy when getting up. He notes he stopped urinating about 2 days ago. He typically has difficulty voiding and has to push hard to empty his bladder. Since his abdominal pain began, he couldn't bear down to empty his bladder. He notes today he was dizzy and had difficulty standing so came to the ED. He notes he is holding down liquids, but not solids. He denies fever/chills. NO chest pain. He has had a chronic left foot wound that is followed by [facility] wound care. He sees them weekly. He had surgery about 3 mos ago and had partial amputation, including the forefoot. He does not know the full details but it sounds as though he had osteomyelitis. He reports he had an MRI done 1 week ago. He states he has not taken his dressing off but thinks it may be a bit too tight. RN removed it upon admission and found an area that appeared to be necrotic. He notes that the last time he saw his foot (a couple of weeks ago) it was not like that. 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 Originally from [place]. Worked at [employer]. Denies any drug use. Smoked 1/2 PPD from his teens until he had his first AK, now restarted 1 month ago. Drinks a 6 pack of beer per week. - Substance History Use: Uses substance without health or social issues: Tobacco, Alcohol - POLST Patient has POLST: No POLST Status: Full Code Meds/Allgy - Home Medications Home Medications: Ambulatory Orders Medication Instructions Recorded Confirmed Atorvastatin Calcium [Lipitor] 80 mg PO QPM 09/28/12 05/16/22 Clopidogrel [Plavix] 75 mg PO DAILY 04/08/16 05/16/22 Gabapentin 800 mg PO TID 04/08/16 05/16/22 Nitroglycerin [Nitrostat] 0.4 mg SL Q5MIN PRN #30 tablet 04/09/16 05/16/22 Lidocaine Patch 5% [Lidoderm Patch] 1 each TOP DAILY PRN 12/06/16 05/16/22 Multivitamin [Multiple Vitamins] 1 tab PO DAILY 12/06/16 05/16/22 Zolpidem [Ambien] 10 mg PO QPM PRN 12/06/16 05/16/22 carvediloL [Coreg] 25 mg PO BID #60 tablet 12/06/16 05/16/22 diphenhydrAMINE [Benadryl] 25 mg PO DAILY PRN 12/06/16 05/16/22 Albuterol Sulfate [Proair Hfa 1 - 2 puffs INH Q6H PRN 08/23/21 05/16/22 Inhaler] Duloxetine HCl [Cymbalta] 60 mg PO DAILY 08/23/21 05/16/22 Fluticasone Propion/Salmeterol 1 puffs INH BID 08/23/21 05/16/22 [Fluticasone-Salmeterol 100-50] Hydrocodone/Acetaminophen 1 tab PO QID PRN 08/23/21 05/16/22 [Hydrocodone-Acetamin 10-325 mg] Trazodone HCl 150 mg PO QPM 08/23/21 05/16/22 allopurinoL [Allopurinol] 300 mg PO QPM 08/23/21 05/16/22 metFORMIN [Glucophage] 1,000 mg PO BID 08/23/21 05/16/22 ondansetron HCL [Ondansetron HCl] 8 mg PO Q8H PRN 08/23/21 05/16/22 oxyCODONE [Roxicodone] 5 mg PO BID PRN 08/23/21 05/16/22 traMADol [Ultram] 50 mg PO QPM PRN 08/23/21 05/16/22 Doxycycline [Vibramycin] 100 mg PO BID 5 Days #10 tablet 08/25/21 05/16/22 - Allergies Allergies/Adverse Reactions: Allergies Allergy/AdvReac Type Severity Reaction Status Date / Time cephalexin monohydrate * Allergy Unknown Nausea Verified 05/16/22 05:19 [From Keflex] codeine Allergy Unknown Verified 05/16/22 05:19 methadone Allergy Unknown Verified 05/16/22 05:19 Review of Systems - Constitutional Constitutional: reports: Poor appetite. denies: Fever, Chills, Malaise - Gastrointestinal Gastrointestinal: reports: Abdominal pain, Constipation, Change in bowel habits, Nausea, Vomiting. denies: Rectal bleeding, Hugh blood emesis Exam - Vital Signs Reviewed Vital Signs: Yes Vital Signs: Vital Signs x48h Temp Pulse Resp BP BP Pulse Ox 05/16/22 17:32 38.1 C H 05/16/22 16:22 37.9 C 103 H 20 123/67 94 05/16/22 12:00 36.6 C 87 18 105/60 96 - Physical Exam General Appearance: positive: No acute distress, Alert Eyes Bilateral: positive: Normal inspection, PERRL, EOMI, No lid inflammation, Conjunctivae nml ENT: positive: ENT inspection nml, Pharynx nml, Dry mucous membranes Neck: positive: Nml inspection, Thyroid nml, No JVD, Trachea midline Respiratory: positive: No respiratory distress, Breath sounds nml Cardiovascular: positive: Regular rate & rhythm, No murmur, No gallop Peripheral Pulses: positive: 1+ Abdomen: positive: No organomegaly, Nml bowel sounds, No distention, Tenderness (diffuse) Skin: positive: Color nml, No rash, Warm, Dry Extremities: positive: Other (LLE-at site of prior amputation, there is an open wound w/serous drainage, surrounding tissue is dark, unroofed blister noted to the left great toe) Conclusion/Plan - Lab Results Lab results reviewed: Yes Fish Bones: 05/16/22 05:17 05/16/22 11:35 - Other Other Results/Comments: 1. SARWAT Pt presented w/Creatinine of 3.3 w/usual baseline of 0.8. Likely etiology is dehydration related to N/V/constipation. Will hydrate and monitor. Suspect it will correct with hydration. Also appears to have a UTI, which will be treated w/Rocephin. Cultures pending. 2. Constipation CT done which showed a large amount of stool in the colon. Senna, miralax and dulcolax ordered. 3. Left foot chronic wound w/necrosis . Prior MRI done last week showed possible osteomyelitis. Unclear regarding the acuity of the wound necrosis. Will obtain a CRP/Sed rate. Pt doesn't feel he can handle a ride to [place] d/t his generalized ill sxs today. Will need f/u pending labs to determine an appropriate course. He undoubtedly needs surgical debridiement. Will place on Cefepime/vanc w/pharmacy to dose. MRI w/o contrast will be ordered. 4. DM2 w/neuropathy Will place on controlled carb diet, FSBG/SSI. 5. CAD s/p CABG Presently asymptomatic. Continue coreg, atorvastatin, plavix, NTG PRN. 6. Hx prostate/bladder cancer s/p resection Followed by Dr. Mcdaniels at . CT showed moderate free fluid in pelvis. Recurrent mass/hematoma could not be ruled out. Contrast study would be helpful when SARWAT resolves. 7. HTN Continue usual outpatient meds. He is normotensive here. 8. GERD Continue PPI 9. Prior DVT No acute sxs. 10. Tobacco dependence Nicotine patch PRN. Pt began smoking only 6 months ago per his report. 11. Asthma Continue usual home meds 11. CODE Full 12. Prophy Heparin 13. Dispo Admit to acute care, inpatient status. Pt likely will need transfer to [facility] for ongoing surgical wound care pending above.
[2022-05-16] MEDS: carvediloL 12.5 MG TABLET PO SCH (21:13)
[2022-05-16] MEDS: ATORVASTATIN 40 MG TABLET PO SCH (21:13)
[2022-05-16] MEDS: allopurinoL 100 MG TABLET PO SCH (21:13)
[2022-05-16] MEDS: HEPARIN 5,000 UNIT/ML VIAL SUBQ SCH (21:15)
[2022-05-16] MEDS: traZODone 50 MG TABLET PO SCH (23:21)
[2022-05-17] MEDS: SODIUM CHLORIDE FLUSH 0.9% 10 ML SYRINGE IVP SCH ×3 (00:07→16:53)
[2022-05-17] MEDS ORDERED: CALCIUM CARBONATE CHEW 500 MG TABLET PO PRN (00:11)
[2022-05-17] MEDS: oxyCODONE 5 MG TABLET PO PRN ×2 (00:20→05:25)
[2022-05-17] MEDS: ACETAMINOPHEN 325 MG TABLET PO PRN (00:20)
[2022-05-17] MEDS: ONDANSETRON 4 MG/2 ML VIAL IVP PRN ×4 (00:21→22:00)
[2022-05-17] MEDS: SODIUM CHLORIDE 0.9% 1,000 ML IV SCH ×2 (00:23→10:34)
[2022-05-17] MEDS: ALBUTEROL NEB 2.5 MG/3 ML INH SCH ×4 (00:41→13:24)
[2022-05-17] MEDS: FORMOTEROL FUMARATE NEB 20 MCG/2 ML INH SCH ×2 (00:44→13:23)
[2022-05-17] MEDS: BUDESONIDE 0.5 MG/2 ML NEB INH SCH ×2 (00:44→13:23)
[2022-05-17] MEDS: GABAPENTIN 400 MG CAPSULE PO SCH ×3 (05:25→21:43)
[2022-05-17 05:40] LABS: BASOPHILS % (AUTO) 0.4 %; EOSINOPHILS % (AUTO) 0.2 %; HCT - HEMATOCRIT 28.9 % (42.0-52.0); HGB - HEMOGLOBIN 9.4 g/dL (14.0-18.0); LYMPHOCYTES % (AUTO) 3.1 %; MEAN CORPUSCULAR HGB CONC 32.5 g/dL (32.0-36.0); MEAN CORPUSCULAR VOLUME 80.1 fL (80.0-94.0); MEAN PLATELET VOLUME 10.8 fL (7.4-11.4); MONOCYTES % (AUTO) 4.1 %; NEUTROPHILS % (AUTO) 81.5 %; PLT - PLATELET COUNT 232 10^3/uL (130-450); RED BLOOD COUNT 3.61 10^6/uL (4.70-6.10); WHITE BLOOD COUNT 5.2 x10^3/uL (4.8-10.8)
[2022-05-17 05:51] LABS: ABNORMAL LYMPHS % (MANUAL) 0 %
[2022-05-17 05:53] LABS: CALCIUM 8.2 mg/dL (8.5-10.3); CREATININE 3.3 mg/dL (0.6-1.2); POTASSIUM 3.7 mmol/L (3.5-5.0)
[2022-05-17 06:04] LABS: BAND NEUTROPHILS % (MANUAL) 4 %; EOSINOPHILS # (MANUAL) 0.1 10^3/uL (0-0.7); LYMPHOCYTES # (MANUAL) 0.2 10^3/uL (1.5-3.5); LYMPHOCYTES % (MANUAL) 3 %; METAMYELOCYTES % (MANUAL) 1 %; MONOCYTES # (MANUAL) 0.1 10^3/uL (0.0-1.0); NEUTROPHILS # (MANUAL) 4.8 10^3/uL (1.5-6.6)
[2022-05-17 06:05] LABS: DIFFERENTIAL COMMENT MANUAL DIFFERENTIAL; PLATELET ESTIMATE, MANUAL NORMAL (130-450,000) (NORMAL); PLATELET MORPHOLOGY NORMAL APPEARANCE (NORMAL); RBC MORPHOLOGY (MULTIPLE) 2+ OVALOCYTES (NORMAL); WBC MORPHOLOGY (MULTIPLE) NORMAL APPEARANCE (NORMAL)
[2022-05-17] MEDS: INSULIN LISPRO 300 UNIT/3 ML PEN SUBQ SCH ×4 (08:41→21:47)
[2022-05-17] MEDS ORDERED: cefTRIAXone 1 GM in SODIUM CHLORIDE 0.9% MINIBAG 100 ML IV SCH (09:00)
[2022-05-17] MEDS: bisacodyL 5 MG TABLET PO SCH (09:01)
[2022-05-17] MEDS: MULTIVITAMIN W/MINERALS TABLET PO SCH (09:01)
[2022-05-17] MEDS: SENNA 8.6 MG TABLET PO SCH ×2 (09:01→21:43)
[2022-05-17] MEDS: DULoxetine 30 MG CAPSULE PO SCH (09:02)
[2022-05-17] MEDS: polyethylene glycoL 3350 17 GM PACKET PO SCH (09:02)
[2022-05-17] MEDS: carvediloL 12.5 MG TABLET PO SCH ×2 (09:02→21:43)
[2022-05-17] MEDS: CLOPIDOGREL 75 MG TABLET PO SCH (09:02)
[2022-05-17] MEDS: NICOTINE 7 MG PATCH TOP SCH (09:02)
[2022-05-17] MEDS: HEPARIN 5,000 UNIT/ML VIAL SUBQ SCH ×2 (09:03→21:48)
[2022-05-17] MEDS: HYDROcod/ACETAM 10 MG/325 MG TABLET PO PRN ×2 (09:23→20:29)
[2022-05-17] MEDS: LINEZOLID 600 MG/300 ML 600 MG/300 ML BAG IV SCH ×2 (10:34→21:45)
[2022-05-17] MEDS ORDERED: VANCOMYCIN INJ 2 GM in SODIUM CHLORIDE 0.9% 500 ML IV SCH (14:00)
[2022-05-17 14:30] LABS: BILIRUBIN,URINE SMALL (NEGATIVE); GLUCOSE, URINE (UA) NEGATIVE (NEGATIVE); KETONES,URINE (UA) NEGATIVE (NEGATIVE); LEUKOCYTE ESTERASE, URINE MODERATE (NEGATIVE); NITRITE,URINE NEGATIVE (NEGATIVE); OCCULT BLOOD,URINE LARGE (NEGATIVE); PROTEIN,URINE 100 mg/dL (NEGATIVE); UROBILINOGEN,URINE 0.2 (NORMAL) E.U./dL (NORMAL)
[2022-05-17 14:32] LABS: CLARITY,URINE CLOUDY (CLEAR)
[2022-05-17 14:41] LABS: BACTERIA,URINE Few /HPF (None Seen); RBC,URINE TNTC /HPF (0-5); SQUAMOUS EPITHELIAL CELL,UR RARE Squamous (<= Few); WBC,URINE >25 /HPF (0-3)
--- NOTE | 2022-05-17 14:53 | PHARMACY PROGRESS NOTE ---
- Best Possible Medication History Admit Date and Time: 05/16/22 1113 Processed by: Pharmacy Medication History completed: Yes Patient Interview: Completed Secondary Source(s): Pharmacy records (pt goes to [facility] in [place]) As the person ultimately responsible for medication therapy, providers are able to order a medication from an existing home medication list in [facility] via the "Reconcile Routine" prior to Confirmation of that medication by office support associate. Such practice is discouraged except when the physician, in their clinical judgment, deems that a medical need exists for a medication without regard to previous use.
--- NOTE | 2022-05-17 16:46 | MRI Report ---
PROCEDURE: FOOT WO - LT INDICATIONS: Necrotic wound L foot, DM, elevated ESR TECHNIQUE: Noncontrast sagittal T1 spin echo and T2 fast spin echo with fat saturation, long-axis T1 spin echo a nd T2 fast spin echo with fat saturation, short-axis proton density fast spin echo and T2 fast spin e cho with fat saturation through the forefoot. COMPARISON: 05/06/2022. FINDINGS: Image quality: Excellent. Bones and joints: Again noted is prior surgery involving medial and lateral aspect of the midfoot and forefoot with surgical resection of fifth toe at the level of fifth TMT joint. Susceptibility artifa ct from surgical hardware is seen partially limits evaluation. Significant edema is again noted invol ving cuboid with suggestion of subtle erosive changes involving plantar aspect of distal cuboid. No o ther area of abnormal marrow signal. No acute fracture or dislocation. No gross metatarsal stress fra cture. Soft tissues: Large full-thickness ulceration involving plantar and lateral aspect of the midfoot at the level of fourth TMT joint is seen with tiny pockets of subcutaneous emphysema as well as extensiv e adjacent soft tissue edema and swelling. No discrete drainable fluid collection is identified. Significant edema involving visualized plantar foot muscles is also seen suggestive of myositis. No d iscrete drainable intramuscular fluid collection is seen. IMPRESSION: 1. Large full-thickness ulceration/open wound involving lateral and plantar aspect of the midfoot at the level of fourth TMT joint with subcutaneous emphysema and extensive cellulitis. No discrete drain able abscess collection is seen. 2. Prior resection of fifth toe and fusion along the medial and lateral aspect of the midfoot with po stsurgical changes and susceptibility artifacts. Suggestion of osteomyelitis involving cuboid with ma rrow edema and subtle bony erosive changes. No other area of abnormal marrow signal is seen to sugges t additional area of osteomyelitis. No acute fracture or dislocation. 3. Myositis involving plantar foot muscles without discrete intramuscular fluid collection. Reviewed by: Amos Sheehan MD on 05/17/2022 4:45 PM PST Approved by: Amos Sheehan MD on 05/17/2022 4:45 PM PST Station ID: [id number]
[2022-05-17] MEDS: CEFEPIME 2 GM in SODIUM CHLORIDE 0.9% MINIBAG 100 ML IV SCH (16:52)
[2022-05-17] MEDS ORDERED: ALBUTEROL NEB 2.5 MG/3 ML INH PRN (17:50)
--- NOTE | 2022-05-17 19:42 | PROVIDER PROGRESS NOTE ---
Progress Note May 17, 2022 7:39 PM Chart reviewed. Main problem seems to be nausea vomiting and abdominal pain due to obstipation from opioid use. It is usually managed well in the outpatient setting but with this episode he could not. In addition to the nausea vomiting and unable to poop, he stopped urinating before admission. A third problem is that of chronic left wound infection that is followed by scheduled wound care. He is followed by a surgeon at [facility]. We were able to get him to have a bowel movement today. It was quite large. He is able to get out of bed to use the bedside commode. Continues to have cramping in spite of the good bowel movement. Describing hematuria. Active Medications Acetaminophen (Acetaminophen 325 Mg Tablet) 650 mg PO Q4HR PRN PRN Reason: Pain 1 to 4, or Fever Last Admin: 05/17/22 00:20 Dose: 650 mg Hydrocodone Bitart/Acetaminophen (Hydrocod/Acetam 10 Mg/325 Mg Tablet) 1 tab PO QID PRN PRN Reason: PAIN Hydrocodone Bitart/Acetaminophen (Hydrocod/Acetam 10 Mg/325 Mg Tablet) 2 tab PO QID PRN PRN Reason: Pain Last Admin: 05/17/22 09:23 Dose: 2 tab Albuterol (Albuterol Neb 2.5 Mg/3 Ml) 2.5 mg INH RTQ4H PRN PRN Reason: Wheezing Allopurinol (Allopurinol 100 Mg Tablet) 100 mg PO QPM [facility] Last Admin: 05/16/22 21:13 Dose: 100 mg Atorvastatin Calcium (Atorvastatin 40 Mg Tablet) 80 mg PO QPM [facility] Last Admin: 05/16/22 21:13 Dose: 80 mg Bisacodyl (Bisacodyl 5 Mg Tablet) 10 mg PO DAILY [facility] Last Admin: 05/17/22 09:01 Dose: 10 mg Calcium Carbonate/Glycine (Calcium Carbonate Chew 500 Mg Tablet) 500 mg PO TID PRN PRN Reason: INDIGESTION Last Admin: 05/17/22 00:21 Dose: 500 mg Carvedilol (Carvedilol 12.5 Mg Tablet) 25 mg PO BID [facility] Last Admin: 05/17/22 09:02 Dose: 25 mg Clopidogrel Bisulfate (Clopidogrel 75 Mg Tablet) 75 mg PO DAILY [facility] Last Admin: 05/17/22 09:02 Dose: 75 mg Duloxetine HCl (Duloxetine 30 Mg Capsule) 60 mg PO DAILY [facility] Last Admin: 05/17/22 09:02 Dose: 60 mg Gabapentin (Gabapentin 400 Mg Capsule) 800 mg PO TID [facility] Last Admin: 05/17/22 13:36 Dose: 800 mg Heparin Sodium (Porcine) (Heparin 5,000 Unit/Ml Vial) 5,000 unit SUBQ BID [facility] Last Admin: 05/17/22 09:03 Dose: 5,000 unit Sodium Chloride (Normal Saline 0.9%) 1,000 mls @ 100 mls/hr IV .Q10H [facility] Last Infusion: 05/17/22 17:00 Dose: 100 mls/hr Cefepime HCl 2 gm/ Sodium (Chloride) 100 mls @ 200 mls/hr IV Q24H [facility] Last Infusion: 05/17/22 17:30 Dose: Infused Linezolid (Zyvox 600 Mg/300 Ml) 600 mg in 300 mls @ 300 mls/hr IV Q12H [facility] Last Infusion: 05/17/22 11:35 Dose: Infused Insulin Human Lispro (Insulin Lispro 300 Unit/3 Ml Pen) 0 unit SUBQ 0800,1200,1600,2100 [facility]; Protocol Last Admin: 05/17/22 17:00 Dose: 2 unit Lidocaine (Lidocaine Patch 5%) 1 patch TOP DAILY PRN PRN Reason: PAIN Multivitamins/Minerals (Multivitamin W/Minerals Tablet) 1 tab PO DAILYWM [facility] Last Admin: 05/17/22 09:01 Dose: 1 tab Nicotine (Nicotine 7 Mg Patch) 1 patch TOP DAILY [facility] Last Admin: 05/17/22 09:02 Dose: 1 patch Nitroglycerin (Nitroglycerin Sl 0.4 Mg Tablet) 0.4 mg SL Q5MIN PRN PRN Reason: Chest Pain Ondansetron HCl (Ondansetron 4 Mg/2 Ml Vial) 4 mg IVP Q6HR PRN PRN Reason: Nausea / Vomiting Last Admin: 05/17/22 16:52 Dose: 4 mg Oxycodone HCl (Oxycodone 5 Mg Tablet) 5 mg PO BID PRN PRN Reason: PAIN Last Admin: 05/16/22 13:27 Dose: 5 mg Oxycodone HCl (Oxycodone 5 Mg Tablet) 5 mg PO Q4HR PRN PRN Reason: PAIN Last Admin: 05/17/22 05:25 Dose: 5 mg Polyethylene Glycol (Polyethylene Glycol 3350 17 Gm Packet) 17 gm PO DAILY [facility] Last Admin: 05/17/22 09:02 Dose: 17 gm Senna (Senna 8.6 Mg Tablet) 17.2 mg PO BID [facility] Last Admin: 05/17/22 09:01 Dose: 17.2 mg Sodium Chloride (Sodium Chloride Flush 0.9% 10 Ml Syringe) 10 ml IVP PRN PRN PRN Reason: NEEDED PER PROVIDER ORDERS Sodium Chloride (Sodium Chloride Flush 0.9% 10 Ml Syringe) 10 ml IVP 0100,0900,1700 [facility] Last Admin: 05/17/22 16:53 Dose: 10 ml Tramadol HCl (Tramadol 50 Mg Tablet) 50 mg PO QPM PRN PRN Reason: PAIN Last Admin: 05/17/22 13:36 Dose: 50 mg Trazodone HCl (Trazodone 50 Mg Tablet) 150 mg PO QPM [facility] Last Admin: 05/16/22 23:21 Dose: 150 mg Zolpidem Tartrate (Zolpidem 5 Mg Tablet) 10 mg PO QPM PRN PRN Reason: Insomnia Atorvastatin Calcium [Lipitor] 80 mg PO QPM 09/28/12 Clopidogrel [Plavix] 75 mg PO DAILY 04/08/16 Gabapentin 800 mg PO TID 04/08/16 Lidocaine Patch 5% [Lidoderm Patch] 1 each TOP DAILY PRN 12/06/16 Multivitamin [Multiple Vitamins] 1 tab PO DAILY 12/06/16 Zolpidem [Ambien] 10 mg PO QPM PRN 12/06/16 diphenhydrAMINE [Benadryl] 25 mg PO DAILY PRN 12/06/16 Albuterol Sulfate [Proair Hfa Inhaler] 1 - 2 puffs INH Q6H PRN 08/23/21 Duloxetine HCl [Cymbalta] 60 mg PO DAILY 08/23/21 Hydrocodone/Acetaminophen [Hydrocodone-Acetamin 10-325 mg] 1 tab PO QID PRN 08/23/21 Trazodone HCl 150 mg PO QPM 08/23/21 allopurinoL [Allopurinol] 300 mg PO QPM 08/23/21 metFORMIN [Glucophage] 1,000 mg PO BID 08/23/21 ondansetron HCL [Ondansetron HCl] 8 mg PO Q8H PRN 08/23/21 oxyCODONE [Roxicodone] 5 mg PO BID PRN 08/23/21 traMADol [Ultram] 50 mg PO QPM PRN 08/23/21 Cyclobenzaprine [Flexeril] 1 tab PO DAILY PRN 05/17/22 Temperature is 36.3. Heart rate 84. Blood pressure 97/51. Respirations 24. He is 92% saturated on 2 L. Sometimes he is able to come off oxygen and be 93 to 94% on room air. Intake shows him to have had 5 L fluid yesterday. Today he has had 2826. Today's urine output is only been 900 cc so far. He is on a carb controlled diet but is not eating very much Tall, sallow skin, fatigued appearing but alert, oriented, following commands Neck is supple Regular rate and rhythm Abdomen soft, moderately tender diffusely. But no rebound or guarding. He says that even though he has had a couple of bowel movements it still feels full and tender. Hypoactive bowel sounds. Extremities without edema 1. SARWAT Pt presented w/Creatinine of 3.3 w/usual baseline of 0.8. Likely etiology is dehydration related to N/V/constipation as well as UTI. His creatinine is still high at 3.3 today. This is worrisome in the face of adequate hydration. He has been on vancomycin as well as Zosyn. Then he was switched to cefepime and vancomycin. With this in mind I have asked pharmacy to stop the vancomycin and switch him over to linezolid. 2. UTI. As already stated antibiotics switched. Preliminary urine culture shows Proteus. Sensitivities pending. 2. Constipation CT done which showed a large amount of stool in the colon. Senna, miralax and dulcolax ordered. Good results today. We will continue to monitor and treat as necessary 3. Left foot chronic wound w/necrosis Prior MRI done last week showed possible osteomyelitis. Unclear regarding the acuity of the wound necrosis. C-reactive protein is 26. This is the highest he is ever been. In August 2021 he was 3.6. And in May 2016 he was less than 1. Pt doesn't feel he can handle a ride to [place] d/t his generalized ill sxs today. As already stated, he is on cefepime and vancomycin but I have switched to cefepime and linezolid because of his creatinine.Foot MRI was done today and shows large full-thickness ulceration open wound involving the lateral and plantar aspect of the midfoot at the level of the fourth TMT joint with subcutaneous emphysema and extensive cellulitis. No discrete drainable abscess collection seen. He has a prior resection of the fifth toe and fusion along the medial and lateral aspect of the midfoot with postsurgical changes and zion ceptibility artifacts. Suggestion of osteomyelitis involving the cuboid with marrow edema and subtle bony erosive changes. Myositis involving the plantar foot muscles without discrete intramuscular fluid collection. I did call [facility], this is where he has his surgeon. I spoke to the transfer center and they state they are 16 borders in the emergency room and they have no beds for him. I may have to call other facilities to get this operated on. We do not have orthopedic coverage at this time 4. DM2 w/neuropathy On controlled carb diet, FSBG/SSI. Glucose yesterday was 150, 127. Glucose as of dictation of this note is 178, 253, 188. Currently on sliding scale insulin. His home medication is only metformin. Add 5 units of Lantus to tonight's coverage 5. CAD s/p CABG Presently asymptomatic. Continue coreg, atorvastatin, plavix, NTG PRN. 6. Hx prostate/bladder cancer s/p resection Followed by Dr. Mcdaniels at . CT showed moderate free fluid in pelvis. Several hypodense nodules in the pelvis that could represent recurrent masses or hematomas. Right kidney is severely atrophic. Left kidney normal size. No renal stones or ureteral stones. Contrast study would be helpful when SARWAT resolves. He had some urinary retention this morning. When given a choice between a straight cath or a Lama catheter he stated that he really hates Lama catheters and would rather just have a straight cath every shift. So that is being done if bladder scan shows urinary retention. 7. HTN Continue usual outpatient meds. He is normotensive here. 8. GERD Continue PPI 9. Prior DVT No acute sxs. 10. Tobacco dependence Nicotine patch PRN. Pt began smoking only 6 months ago per his report. 11. Asthma Continue usual home meds
[2022-05-17] MEDS: ATORVASTATIN 40 MG TABLET PO SCH (21:38)
[2022-05-17] MEDS: traZODone 50 MG TABLET PO SCH (21:42)
[2022-05-17] MEDS: allopurinoL 100 MG TABLET PO SCH (21:42)
[2022-05-17] MEDS: INSULIN GLARGINE-YFGN 300 UNIT/3 ML PEN SUBQ SCH (21:46)
[2022-05-18] MEDS: SODIUM CHLORIDE FLUSH 0.9% 10 ML SYRINGE IVP SCH ×3 (00:39→17:13)
[2022-05-18] MEDS ORDERED: PROCHLORPERAZINE 10 MG/2 ML VIAL IVP PRN (00:59)
[2022-05-18] MEDS: SODIUM CHLORIDE 0.9% 1,000 ML IV SCH ×3 (01:20→13:00)
[2022-05-18] MEDS: GABAPENTIN 400 MG CAPSULE PO SCH ×3 (05:55→21:24)
[2022-05-18] MEDS: HYDROcod/ACETAM 10 MG/325 MG TABLET PO PRN ×3 (06:08→16:26)
[2022-05-18] MEDS: ONDANSETRON 4 MG/2 ML VIAL IVP PRN (06:08)
[2022-05-18] MEDS: INSULIN LISPRO 300 UNIT/3 ML PEN SUBQ SCH ×4 (08:14→21:25)
[2022-05-18] MEDS: carvediloL 12.5 MG TABLET PO SCH ×2 (08:20→21:24)
[2022-05-18] MEDS: bisacodyL 5 MG TABLET PO SCH (08:20)
[2022-05-18] MEDS: CLOPIDOGREL 75 MG TABLET PO SCH (08:20)
[2022-05-18] MEDS: DULoxetine 30 MG CAPSULE PO SCH (08:20)
[2022-05-18] MEDS: MULTIVITAMIN W/MINERALS TABLET PO SCH (08:20)
[2022-05-18] MEDS: polyethylene glycoL 3350 17 GM PACKET PO SCH (08:21)
[2022-05-18] MEDS: SENNA 8.6 MG TABLET PO SCH ×2 (08:21→21:24)
[2022-05-18] MEDS: NICOTINE 7 MG PATCH TOP SCH (08:24)
[2022-05-18] MEDS: HEPARIN 5,000 UNIT/ML VIAL SUBQ SCH ×2 (08:44→21:29)
[2022-05-18 09:22] LABS: BASOPHILS % (AUTO) 0.3 %; EOSINOPHILS # (AUTO) 0.1 10^3/uL (0.0-0.7); EOSINOPHILS % (AUTO) 1.5 %; HCT - HEMATOCRIT 29.5 % (42.0-52.0); HGB - HEMOGLOBIN 9.3 g/dL (14.0-18.0); LYMPHOCYTES # (AUTO) 0.2 10^3/uL (1.5-3.5); LYMPHOCYTES % (AUTO) 3.8 %; MEAN CORPUSCULAR HGB CONC 31.5 g/dL (32.0-36.0); MEAN CORPUSCULAR VOLUME 79.3 fL (80.0-94.0); MEAN PLATELET VOLUME 10.4 fL (7.4-11.4); MONOCYTES # (AUTO) 0.3 10^3/uL (0.0-1.0); MONOCYTES % (AUTO) 4.4 %; NEUTROPHILS # (AUTO) 5.2 10^3/uL (1.5-6.6); NEUTROPHILS % (AUTO) 88.8 %; PLT - PLATELET COUNT 221 10^3/uL (130-450); RED BLOOD COUNT 3.72 10^6/uL (4.70-6.10); RED CELL DISTRIBUTION WIDTH 17.5 % (12.0-15.0); WHITE BLOOD COUNT 5.9 x10^3/uL (4.8-10.8)
[2022-05-18 09:29] LABS: SLIDE REVIEW? Indicated
[2022-05-18 09:31] LABS: CALCIUM 8.1 mg/dL (8.5-10.3); CREATININE 3.8 mg/dL (0.6-1.2); POTASSIUM 3.9 mmol/L (3.5-5.0)
[2022-05-18 09:49] LABS: RBC MORPHOLOGY (MULTIPLE) 3+ ANISOCYTOSIS (NORMAL)
[2022-05-18] MEDS: LINEZOLID 600 MG/300 ML 600 MG/300 ML BAG IV SCH ×2 (10:52→21:51)
--- NOTE | 2022-05-18 12:19 | PROVIDER PROGRESS NOTE ---
<Swati Parson - Last Filed: 05/18/22 13:27> Subjective - Prog Note Date Prog Note Date: 05/18/22 Prog Note Time: 12:11 - Subjective Pt reports feeling: Improved (abdominal pain has improved since last bowel movement this morning) Subjective: Chart reviewed. 56 year old man with non-insulin dependent DM2, HTN, hyperlipidemia, CAD s/p CABG, CVA, OA, Gout, GERD, Asthma, prior DVT, and bladder/prostate cancer s/p extensive pelvic resection to ED with 6 days of constipation, N/V, and abdominal pain. Main problem is abdominal pain due to obstipation for 6 days due to chronic opiates that patient is usually able to counteract at home. Prior to admission, patient has nausea and vomiting, and was unable to stool or urinate. Patient was able to stool last night and this morning. He is able to get out of bed to use the bedside commode. He continues to have some cramping, but does indicate his discomfort is lessened since his bowel movements. He has not eaten in 4 days. He is requesting mashed potatoes and gravy this morning. He has a chronic left foot wound most likely due to osteomyelitis. His foot is covered by a dressing that has not been removed for a week. His foot appears necrotic. Discussed need for foot amputation with the patient, in which he is agreeable. He would like like to see a surgeon at medicine since he reports a positive experience with other physicians. Objective - Vital Signs/Intake & Output Vital Signs: Vital Signs x48h Temp Pulse Resp BP Pulse Ox O2 Flow Rate 05/18/22 11:42 88/46 L 05/18/22 09:00 36.5 C 95 18 100/64 05/18/22 08:30 93 3 05/18/22 05:00 36.4 C L 77 20 98/54 L 92 6 Intake & Output: Intake & Output 05/15/22 05/16/22 05/17/22 05/18/22 23:59 23:59 23:59 23:59 Intake Total 5156.667 4129.333 2040.333 Output Total 900 1050 Balance 5156.667 3229.333 990.333 - Objective General Appearance: positive: No acute distress Eyes Bilateral: positive: Normal inspection ENT: positive: ENT inspection nml Neck: positive: Nml inspection Respiratory: positive: Chest non-tender, No respiratory distress, Breath sounds nml Cardiovascular: positive: Regular rate & rhythm, No murmur, No gallop Abdomen: positive: Tenderness (Improved since yesterday), Guarding (Mild; improved since yesterday) Skin: positive: Color nml, Other (left foot wound) Extremities: positive: Non-tender Neurologic/Psychiatric: positive: Oriented x3, Mood/affect nml - Lab Results Fish Bones: 05/18/22 09:17 05/18/22 09:17 Other Labs: Lab Results x24hrs 05/18/22 05/18/22 05/17/22 Range/Units 09:17 09:17 14:15 WBC 5.9 (4.8-10.8) x10^3/uL RBC 3.72 L (4.70-6.10) 10^6/uL Hgb 9.3 L (14.0-18.0) g/dL Hct 29.5 L (42.0-52.0) % MCV 79.3 L (80.0-94.0) fL MCH 25.0 L (27.0-31.0) pg MCHC 31.5 L (32.0-36.0) g/dL RDW 17.5 H (12.0-15.0) % Plt Count 221 (130-450) 10^3/uL MPV 10.4 (7.4-11.4) fL Neut # (Auto) 5.2 (1.5-6.6) 10^3/uL Lymph # (Auto) 0.2 L (1.5-3.5) 10^3/uL [place] # (Auto) 0.3 (0.0-1.0) 10^3/uL Eos # (Auto) 0.1 (0.0-0.7) 10^3/uL Baso # (Auto) 0.0 (0.0-0.1) 10^3/uL Absolute Nucleated RBC 0.00 x10^3/uL Nucleated RBC % 0.0 /100WBC Manual Slide Review Indicated RBC Morph Micro Appear 3+ ANISOCYTOSIS (NORMAL) Sodium 133 L (135-145) mmol/L Potassium 3.9 (3.5-5.0) mmol/L Chloride 102 (101-111) mmol/L Carbon Dioxide 18 L (21-32) mmol/L Anion Gap 13.0 (6-13) BUN 71 H (6-20) mg/dL Creatinine 3.8 H (0.6-1.2) mg/dL Estimated GFR (MDRD) 17 L (>89) Glucose 199 H (70-100) mg/dL Calcium 8.1 L (8.5-10.3) mg/dL Urine Color BROWN Urine Clarity CLOUDY (CLEAR) Urine pH 7.0 (5.0-7.5) PH Ur Specific [place] 1.015 (1.002-1.030) Urine Protein 100 H (NEGATIVE) mg/dL Urine Glucose (UA) NEGATIVE (NEGATIVE) mg/dL Urine Ketones NEGATIVE (NEGATIVE) mg/dL Urine Occult Blood LARGE H (NEGATIVE) Urine Nitrite NEGATIVE (NEGATIVE) Urine Bilirubin SMALL H (NEGATIVE) Urine Urobilinogen 0.2 (NORMAL) (NORMAL) E.U./dL Ur Leukocyte Esterase MODERATE H (NEGATIVE) Urine RBC TNTC H (0-5) /HPF Urine WBC >25 H (0-3) /HPF Ur Squamous Epith Cells RARE Squamous (<= Few) Urine Bacteria Few (None Seen) /HPF Ur Microscopic Review INDICATED Urine Culture Comments INDICATED Assessment/Plan - Problem List (1) SARWAT (acute kidney injury) Impression: Patient presented with creatinine 3.3 with usual baseline of 0.8. Likely etiology is dehydration due to vomiting and UTI. His creatinine was 3.3 yesterday and 3.8 today. His BUN is 71 today. This is worrisome for inadequate hydration. He was switched from vancomycin to linezolid yesterday. (2) Abdominal pain Impression: Improved following bowel movement yesterday and today. CT showed a large amount of stool in the colon. He is taking Senna, Miralax, and Dulcolax. Will continue meds. Will monitor and treat as necessary. (3) UTI (urinary tract infection) Impression: Urine culture on 05/16/22 showed Proteus. No growth yesterday on urine culture. Sensitivities pending. (4) Foot ulcer, left Impression: Prior MRI last week showed possible osteomyelitis. Foot MRI yesterday showed large full-thickness ulceration open wound involving the lateral and plantar aspect of the midfoot at the level of the fourth TMT joint with extensive cellulitis. No discrete drainable abscess seen. He has a prior resection of the fifth toe and fusion along the medial and lateral aspect of the midfoot. This facility does not have orthopedic coverage at this time. [facility] transfer [place] was called yesterday. They have no beds available. Will call other facilities, including medicine. (5) Hypertension Impression: Continue usual outpatient medications. He is mildly hypotensive. Will continue to monitor and treat as necessary. Qualifiers: Hypertension type: essential hypertension (6) Type 2 diabetes mellitus Impression: On controlled carb diet. Previous glucose readings 150, 127. Glucose today is 199. Currently on sliding scale insulin. His home medication is metformin. Continue Lantus 5 units since glucose is increased. Will monitor and treat as necessary. 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 use Diabetes mellitus complication detail: with unspecified neuropathy <Hodan Blanton - Last Filed: 05/18/22 19:15> Objective - Vital Signs/Intake & Output Vital Signs: Vital Signs x48h Temp Pulse Resp BP BP Pulse Ox O2 Flow Rate 05/18/22 16:00 36.7 C 68 24 86/40 L 93 3 05/18/22 13:00 36.5 C 88 18 127/90 H 96 2 05/18/22 11:42 88/46 L Intake & Output: Intake & Output 05/15/22 05/16/22 05/17/22 05/18/22 23:59 23:59 23:59 23:59 Intake Total 5156.667 4129.333 3257.000 Output Total 900 1300 Balance 5156.667 3229.333 1957.000 - Lab Results Fish Bones: 05/18/22 09:17 05/18/22 09:17 Other Labs: Lab Results x24hrs 05/18/22 05/18/22 Range/Units 09:17 09:17 WBC 5.9 (4.8-10.8) x10^3/uL RBC 3.72 L (4.70-6.10) 10^6/uL Hgb 9.3 L (14.0-18.0) g/dL Hct 29.5 L (42.0-52.0) % MCV 79.3 L (80.0-94.0) fL MCH 25.0 L (27.0-31.0) pg MCHC 31.5 L (32.0-36.0) g/dL RDW 17.5 H (12.0-15.0) % Plt Count 221 (130-450) 10^3/uL MPV 10.4 (7.4-11.4) fL Neut # (Auto) 5.2 (1.5-6.6) 10^3/uL Lymph # (Auto) 0.2 L (1.5-3.5) 10^3/uL [place] # (Auto) 0.3 (0.0-1.0) 10^3/uL Eos # (Auto) 0.1 (0.0-0.7) 10^3/uL Baso # (Auto) 0.0 (0.0-0.1) 10^3/uL Absolute Nucleated RBC 0.00 x10^3/uL Nucleated RBC % 0.0 /100WBC Manual Slide Review Indicated RBC Morph Micro Appear 3+ ANISOCYTOSIS (NORMAL) Sodium 133 L (135-145) mmol/L Potassium 3.9 (3.5-5.0) mmol/L Chloride 102 (101-111) mmol/L Carbon Dioxide 18 L (21-32) mmol/L Anion Gap 13.0 (6-13) BUN 71 H (6-20) mg/dL Creatinine 3.8 H (0.6-1.2) mg/dL Estimated GFR (MDRD) 17 L (>89) Glucose 199 H (70-100) mg/dL Calcium 8.1 L (8.5-10.3) mg/dL
[2022-05-18] MEDS: CEFEPIME 2 GM in SODIUM CHLORIDE 0.9% MINIBAG 100 ML IV SCH (16:19)
[2022-05-18] MEDS: allopurinoL 100 MG TABLET PO SCH (21:24)
[2022-05-18] MEDS: traZODone 50 MG TABLET PO SCH (21:24)
[2022-05-18] MEDS: ATORVASTATIN 40 MG TABLET PO SCH (21:24)
[2022-05-18] MEDS: INSULIN GLARGINE-YFGN 300 UNIT/3 ML PEN SUBQ SCH (21:25)
[2022-05-19] MEDS: SODIUM CHLORIDE 0.9% 1,000 ML IV SCH ×2 (01:16→14:12)
[2022-05-19] MEDS: SODIUM CHLORIDE FLUSH 0.9% 10 ML SYRINGE IVP SCH ×3 (01:17→17:40)
[2022-05-19 05:25] LABS: BASOPHILS % (AUTO) 0.2 %; EOSINOPHILS % (AUTO) 2.5 %; HCT - HEMATOCRIT 27.6 % (42.0-52.0); HGB - HEMOGLOBIN 8.7 g/dL (14.0-18.0); LYMPHOCYTES % (AUTO) 4.9 %; MEAN CORPUSCULAR HEMOGLOBIN 25.4 pg (27.0-31.0); MEAN CORPUSCULAR HGB CONC 31.5 g/dL (32.0-36.0); MEAN CORPUSCULAR VOLUME 80.7 fL (80.0-94.0); MEAN PLATELET VOLUME 10.4 fL (7.4-11.4); MONOCYTES % (AUTO) 7.2 %; NEUTROPHILS % (AUTO) 82.5 %; PLT - PLATELET COUNT 220 10^3/uL (130-450); RED BLOOD COUNT 3.42 10^6/uL (4.70-6.10); RED CELL DISTRIBUTION WIDTH 18.4 % (12.0-15.0); WHITE BLOOD COUNT 5.1 x10^3/uL (4.8-10.8)
[2022-05-19 05:42] LABS: CREATININE 4.4 mg/dL (0.6-1.2); CRP - C-REACTIVE PROTEIN 15.7 mg/dL (0-1.0); POTASSIUM 4.2 mmol/L (3.5-5.0)
[2022-05-19] MEDS: GABAPENTIN 400 MG CAPSULE PO SCH (05:49)
[2022-05-19 05:50] LABS: ABNORMAL LYMPHS % (MANUAL) 0 %
[2022-05-19 06:12] LABS: BAND NEUTROPHILS % (MANUAL) 1 %; DIFFERENTIAL COMMENT MANUAL DIFFERENTIAL; PLATELET ESTIMATE, MANUAL NORMAL (130-450,000) (NORMAL); RBC MORPHOLOGY (MULTIPLE) NORMAL APPEARANCE (NORMAL)
[2022-05-19 06:16] LABS: LYMPHOCYTES # (MANUAL) 0.4 10^3/uL (1.5-3.5); LYMPHOCYTES % (MANUAL) 8 %; NEUTROPHILS # (MANUAL) 4.5 10^3/uL (1.5-6.6)
[2022-05-19 06:17] LABS: MONOCYTES # (MANUAL) 0.2 10^3/uL (0.0-1.0)
[2022-05-19] MEDS: INSULIN LISPRO 300 UNIT/3 ML PEN SUBQ SCH ×3 (08:56→17:53)
[2022-05-19] MEDS: SENNA 8.6 MG TABLET PO SCH (08:57)
[2022-05-19] MEDS: DULoxetine 30 MG CAPSULE PO SCH (08:57)
[2022-05-19] MEDS: bisacodyL 5 MG TABLET PO SCH (09:03)
[2022-05-19] MEDS: polyethylene glycoL 3350 17 GM PACKET PO SCH (09:03)
[2022-05-19] MEDS: NICOTINE 7 MG PATCH TOP SCH ×2 (09:10→09:14)
[2022-05-19] MEDS: HYDROcod/ACETAM 10 MG/325 MG TABLET PO PRN ×2 (09:11→17:42)
[2022-05-19] MEDS: carvediloL 12.5 MG TABLET PO SCH (09:12)
[2022-05-19] MEDS: CLOPIDOGREL 75 MG TABLET PO SCH (09:12)
[2022-05-19] MEDS: HEPARIN 5,000 UNIT/ML VIAL SUBQ SCH (09:18)
[2022-05-19] MEDS: MULTIVITAMIN W/MINERALS TABLET PO SCH (09:21)
[2022-05-19] MEDS: LINEZOLID 600 MG/300 ML 600 MG/300 ML BAG IV SCH (09:39)
--- NOTE | 2022-05-19 12:18 | CT Report ---
PROCEDURE: CHEST WO INDICATIONS: hypotension, sepsis, source? TECHNIQUE: Noncontrast 1mm axial images were acquired from the pulmonary apices to the posterior costophrenic an gles. Axial 5 mm soft tissue kernel reconstructions were performed as well as 8 mm axial MIP and cor onal and sagittal 5 mm reformations. For radiation dose reduction, the following was used: automate d exposure control, adjustment of mA and/or kV according to patient size. COMPARISON: CT abdomen pelvis same day, CT chest 09/26/2018 FINDINGS: Image quality: Suboptimal due to motion artifact. Lymph nodes: Evaluation for mediastinal and hilar adenopathy is limited in the absence of intravenous contrast. Redemonstrated exophytic thyroid nodule or ectopic thyroid tissue or enlarged lymph node a t the anterior mediastinum inferior to the left brachiocephalic vein. Otherwise, no definite/obvious mediastinal adenopathy identified. Vasculature: The main pulmonary artery is enlarged measuring 3.8 cm. Heart: No pericardial effusion. Multivessel coronary artery calcifications and/or stents. Lung parenchyma and pleura: Evaluation of the lungs is compromised due to motion artifact. Consolidat tiburcio opacities are present dependently in both lung bases, left lung worse than right. Trace pleural e ffusions are difficult to exclude. Patchy groundglass opacities present elsewhere in both lungs. Chest wall/musculoskeletal: Multilevel degenerative change of the visualized spine. Prior median ster notomy. Visualized upper abdomen: Dictated separately. IMPRESSION: 1. Limited examination due to motion artifact. 2. Consolidative opacities are present dependently in both lung bases, left lung worse than right. Th priti are nonspecific and could represent aspiration, pneumonia, or atelectasis. 3. Patchy groundglass opacities present elsewhere within both lungs could represent sequela of pneumo magali, pulmonary edema also possible. 4. Enlargement of the main pulmonary artery, a finding which can be seen in the setting of pulmonary hypertension. 5. CT of the abdomen and pelvis is dictated separately. Reviewed by: Demarcus eBlle MD on 05/19/2022 12:17 PM PST Approved by: Demarcus Belle MD on 05/19/2022 12:17 PM PST Station ID: [id number]
--- NOTE | 2022-05-19 12:38 | CT Report ---
PROCEDURE: ABDOMEN/PELVIS WO INDICATIONS: renal failure, hypotension, abd pain TECHNIQUE: Noncontrast 5 mm thick sections acquired from the diaphragms to the symphysis. 5 mm coronal and sagi ttal reformats were then performed. For radiation dose reduction, the following was used: automated exposure control, adjustment of mA and/or kV according to patient size. COMPARISON: CT abdomen pelvis 05/16/2022, 02/07/2021. FINDINGS: Image quality: Adequate. FINDINGS: Visualized lung bases: Dictated separately. Liver and biliary tree: Unremarkable noncontrast appearance. Gallbladder: No radiopaque cholelithiasis. Spleen: Unremarkable noncontrast appearance. Pancreas: Unremarkable noncontrast appearance. Adrenal glands: Unremarkable noncontrast appearance. Kidneys and ureters: Right kidney is atrophic as before. No left hydronephrosis. Gastrointestinal tract: Proximal small bowel dilation with decompressed distal small bowel/terminal i leum suspicious for mechanical small bowel obstruction. Suspected caliber transition point at the lef t lower abdomen (for example series 3 images 78-73). Peritoneal cavity: Redemonstrated free fluid within the pelvis and lower abdomen, similar to mildly i ncreased since the recent CT. Bladder: Possible wall discontinuity at the upper anterior aspect of the urinary bladder (series 3 im age 89). Left ureter appears reimplanted. Pelvic organs: Prostate gland and seminal vesicles not visualized may be surgically absent. Vasculature: No abdominal aortic aneurysm. Lymph nodes: Prominent nonspecific pelvic lymph nodes redemonstrated not significantly changed in the short interval. Abdominal wall: Mild body wall edema. Postsurgical changes of the anterior abdominal wall. Supraumbil ical diastases of the rectus musculature/Hernandez hernia containing nondilated transverse colon. Musculoskeletal: Degenerative change of the spine. IMPRESSION: 1. Free fluid within the pelvis and lower abdomen is similar to mildly increased. The fluid is nonspe cific but could potentially represent urine given a possible perforation of the urinary bladder at it s anterior and superior aspect. CT cystogram of the bladder may be helpful to assess for bladder leak if clinically indicated. 2. Appearance of the small bowel suggestive of mechanical small bowel obstruction, presumably related to adhesions. 3. CT of the chest is dictated separately. Reviewed by: Demarcus Belle MD on 05/19/2022 12:37 PM PST Approved by: Demarcus Belle MD on 05/19/2022 12:37 PM [facility] Station ID: [id number]
[2022-05-19] MEDS ORDERED: GABAPENTIN 300 MG CAPSULE PO SCH (14:00)
[2022-05-19] MEDS ORDERED: GABAPENTIN 400 MG CAPSULE PO SCH (14:00)
--- NOTE | 2022-05-19 14:34 | PROVIDER PROGRESS NOTE ---
Progress Note May 19, 2022 1:45- 2:30 PM While his abdominal pain has improved, continues to be present. He says that his lungs he has bowel movements, his abdominal pain usually resolves. It is not resolving. He is slowly dropping his pressure over the last 2 days. Getting increasingly shaky. And his renal function is not improving. He relates that he has had bladder and prostate surgery for cancer. He has not had radiation therapy. Creatinine on admission was 3.3 even before he had a CT of the abdomen with contrast. He was initially on Zosyn and vancomycin. Creatinine has climbed to 4.4 today. He has had urine output. Occasionally has low urine output with urinary retention and has declined a Lama and wanted us only to straight cath. At home, he does not straight cath and says that he has no history of trauma. In trying to figure out why this gentleman is not doing well, thinking that I am missing infection, I did a CT of the chest abdomen and pelvis today. Chest CT shows consolidative opacities in the bottom of both lungs. Left worse than right. Nonspecific and could represent aspiration, pneumonia or atelectasis. He has patchy groundglass opacities present elsewhere within both lungs representing sequela of pneumonia, pulmonary edema is also possible. He has enlargement of the main pulmonary artery, a finding which could represent pulmonary hypertension. CT of the abdomen and pelvis is compared to the abdomen pelvis from May 16. He has a proximal small bowel dilation with decompressed distal small carline l/terminal ileum suspicious for mechanical small bowel obstruction. Suspected caliber transition point at the left lower abdomen. The peritoneal cavity read demonstrates free fluid within the pelvis and lower abdomen similar to before but possibly mildly increased since the last CT. He has bladder wall discontinuity at the upper anterior portion of the urinary bladder. The left ureter appears reimplanted. Putting this together the radiologist thinks that there is a bladder perforation. The fluid is nonspecific in the pelvis but he thinks it could represent urine given the possible perforation of the urinary bladder at its anterior and superior aspect. I have discussed the CT at length with the radiologist today. Our neck step is to do a CT cystogram. The patient initially refused to Lama and I went in to go speak to him to explain to him why I need the Lama placed and then a water- soluble dye will be placed in his bladder to then tell me if the diet is staying in his bladder or leaking into his pelvis. The patient gave me the card of his urologist, Dr. Flo Mcdaniels from . That number was [phone]. When I call the number that is the scheduling RN. So I called a different number of [phone]. That desk person states that they will either call a fellow, a PA, or someone that can speak to me more urgently. Otherwise I would have to leave a message for Dr. Mcdaniels and he could call me back at his convenience. Dr. Serena Hargrove very graciously called me back. This gentleman did not have bladder or prostate cancer. 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 Complications included a left ureteral injury and a bladder neck injury. The left ureter had to be reimplanted, the bladder neck injury was repaired. 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 He had to be repaired twice. Once with a gracilis flap and lumps with omental flap. He is a very, very complicated anatomy. We discussed the CT report where he may have a perforated bladder. She says this was going to be very unusual because from an anatomic perspective this is not what they would expect. She would expect a recurrent rectory ureteral fistula. Or even a urethral stricture. He is not quite sure if he got radiation therapy or not. She is in agreement with the order of a CT cystogram on my end. In the end, she feels that this patient has a very complicated anatomy from a urologic and general surgical perspective. We are a critical access hospital. If this gentleman needs surgical intervention we cannot do it here. She strongly recommends that I call transfer center to see if there are any bed availability for this man. And I reminded her that I am still dealing with a possible mechanical small bowel obstruction as well as a gangrenous left foot that also needs to be amputated. So his stay will be across multiple surgical specialties with probably medicine coordinating. Active Medications Acetaminophen (Acetaminophen 325 Mg Tablet) 650 mg PO Q4HR PRN PRN Reason: Pain 1 to 4, or Fever Last Admin: 05/17/22 00:20 Dose: 650 mg Hydrocodone Bitart/Acetaminophen (Hydrocod/Acetam 10 Mg/325 Mg Tablet) 1 tab PO QID PRN PRN Reason: PAIN Last Admin: 05/19/22 09:11 Dose: 1 tab Hydrocodone Bitart/Acetaminophen (Hydrocod/Acetam 10 Mg/325 Mg Tablet) 2 tab PO QID PRN PRN Reason: Pain Last Admin: 05/18/22 16:26 Dose: 2 tab Albuterol (Albuterol Neb 2.5 Mg/3 Ml) 2.5 mg INH RTQ4H PRN PRN Reason: Wheezing Allopurinol (Allopurinol 100 Mg Tablet) 100 mg PO QPM [facility] Last Admin: 05/18/22 21:24 Dose: 100 mg Atorvastatin Calcium (Atorvastatin 40 Mg Tablet) 80 mg PO QPM [facility] Last Admin: 05/18/22 21:24 Dose: 80 mg Bisacodyl (Bisacodyl 5 Mg Tablet) 10 mg PO DAILY [facility] Last Admin: 05/19/22 09:03 Dose: Not Given Calcium Carbonate/Glycine (Calcium Carbonate Chew 500 Mg Tablet) 500 mg PO TID PRN PRN Reason: INDIGESTION Last Admin: 05/17/22 00:21 Dose: 500 mg Carvedilol (Carvedilol 12.5 Mg Tablet) 25 mg PO BID [facility] Last Admin: 05/19/22 09:12 Dose: 25 mg Clopidogrel Bisulfate (Clopidogrel 75 Mg Tablet) 75 mg PO DAILY [facility] Last Admin: 05/19/22 09:12 Dose: 75 mg Duloxetine HCl (Duloxetine 30 Mg Capsule) 60 mg PO DAILY [facility] Last Admin: 05/19/22 08:57 Dose: 60 mg Gabapentin (Gabapentin 300 Mg Capsule) 300 mg PO TID [facility] Last Admin: 05/19/22 13:49 Dose: 300 mg Heparin Sodium (Porcine) (Heparin 5,000 Unit/Ml Vial) 5,000 unit SUBQ BID [facility] Last Admin: 05/19/22 09:18 Dose: 5,000 unit Sodium Chloride (Normal Saline 0.9%) 1,000 mls @ 100 mls/hr IV .Q10H [facility] Last Admin: 05/19/22 14:12 Dose: 100 mls/hr Cefepime HCl 2 gm/ Sodium (Chloride) 100 mls @ 200 mls/hr IV Q24H [facility] Last Infusion: 05/18/22 16:49 Dose: Infused Linezolid (Zyvox 600 Mg/300 Ml) 600 mg in 300 mls @ 300 mls/hr IV Q12H [facility] Last Admin: 05/19/22 09:39 Dose: 300 mls/hr Insulin Glargine-yfgn (Insulin Glargine-Yfgn 300 Unit/3 Ml Pen) 5 unit SUBQ QPM [facility] Last Admin: 05/18/22 21:25 Dose: 5 unit Insulin Human Lispro (Insulin Lispro 300 Unit/3 Ml Pen) 0 unit SUBQ 0800,1200,1600,2100 [facility]; Protocol Last Admin: 05/19/22 12:09 Dose: 1 unit Lidocaine (Lidocaine Patch 5%) 1 patch TOP DAILY PRN PRN Reason: PAIN Last Admin: 05/19/22 09:00 Dose: 1 patch Multivitamins/Minerals (Multivitamin W/Minerals Tablet) 1 tab PO DAILYWM [facility] Last Admin: 05/19/22 09:21 Dose: 1 tab Nicotine (Nicotine 7 Mg Patch) 1 patch TOP DAILY [facility] Last Admin: 05/19/22 09:14 Dose: Not Given Nitroglycerin (Nitroglycerin Sl 0.4 Mg Tablet) 0.4 mg SL Q5MIN PRN PRN Reason: Chest Pain Ondansetron HCl (Ondansetron 4 Mg/2 Ml Vial) 4 mg IVP Q6HR PRN PRN Reason: Nausea / Vomiting Last Admin: 05/18/22 06:08 Dose: 4 mg Oxycodone HCl (Oxycodone 5 Mg Tablet) 5 mg PO BID PRN PRN Reason: PAIN Last Admin: 05/16/22 13:27 Dose: 5 mg Oxycodone HCl (Oxycodone 5 Mg Tablet) 5 mg PO Q4HR PRN PRN Reason: PAIN Last Admin: 05/17/22 05:25 Dose: 5 mg Polyethylene Glycol (Polyethylene Glycol 3350 17 Gm Packet) 17 gm PO DAILY [facility] Last Admin: 05/19/22 09:03 Dose: Not Given Prochlorperazine Edisylate (Prochlorperazine 10 Mg/2 Ml Vial) 10 mg IVP Q6HR PRN PRN Reason: Nausea / Vomiting Senna (Senna 8.6 Mg Tablet) 17.2 mg PO BID [facility] Last Admin: 05/19/22 08:57 Dose: Not Given Sodium Chloride (Sodium Chloride Flush 0.9% 10 Ml Syringe) 10 ml IVP PRN PRN PRN Reason: NEEDED PER PROVIDER ORDERS Sodium Chloride (Sodium Chloride Flush 0.9% 10 Ml Syringe) 10 ml IVP 0100,0900,1700 [facility] Last Admin: 05/19/22 09:13 Dose: Not Given Tramadol HCl (Tramadol 50 Mg Tablet) 50 mg PO QPM PRN PRN Reason: PAIN Last Admin: 05/17/22 13:36 Dose: 50 mg Trazodone HCl (Trazodone 50 Mg Tablet) 150 mg PO QPM [facility] Last Admin: 05/18/22 21:24 Dose: 150 mg Zolpidem Tartrate (Zolpidem 5 Mg Tablet) 10 mg PO QPM PRN PRN Reason: Insomnia Last Admin: 05/17/22 22:00 Dose: 10 mg Exam: Temperature is 37. Heart rate 80. Blood pressure 101/54. Respirations 24. He is 3 L on oxygen mask. Saturating at 95%. He is increasingly shaky. Just holding up the phone is an effort for him and his arms and hands keep on collapsing at the weight of trying to get to the phone. Skin is diaphoretic, cold to touch. He is alert, oriented. Neck is supple Lungs have diminished breath sounds at the bases. There is no respiratory distress. Regular rate and rhythm with a systolic ejection murmur. Loudest at the left upper sternal border. PMI is normally placed. Abdomen is still distended, hurts when I palpate even minimally, but no rebound or guarding. He has bowel sounds. Extremities are without edema but his skin is started to get diaphoretic and cold to touch on hands, arms, shins and feet. The left foot is covered, gangrenous, foul-smelling. No surrounding cellulitis. Sodium is 132, BUN 73, creatinine 4.4 and continues to rise. Carbon dioxide is staying stable but low at 18. Fasting glucose 133. C-reactive protein is 15.7. White cell count is 5.1, hemoglobin 8.7, platelets 220 Assessment/Plan: 1. SARWAT We thought that the likely etiology of this on admission was dehydration secondary to his nausea vomiting and constipation. As well as a UTI. But his creatinine has continued to rise in spite of hydration and in spite of adequate antibiotic therapy. I was worried about the vancomycin he had on admission so I switched vancomycin to linezolid. Now I am worried about perforation. But he had no trauma. He states he does not straight cath at home. So then that things did we perforated. But his creatinine was high even before we did a straight cath on him [address] showing possible bladder perforation. Case discussed at length with radiology and urology. I have also discussed the case at length with this patient. While he is a opal, alert, cooperative gentleman, he has poor insight about what exactly his cancer was and what exactly surgeries were done to him. He has been telling us that he has had bladder cancer. Now on finding out that it was a pelvic sarcoma with resection. Plan: CT cystogram. If cystogram shows leak and perforation (not a rectourethral fistula) he is going to have to go to a higher level of care. Considering all of his surgeries were done at that would be the program I reach out to. I have already spoken to [place] [facility] earlier today and there are no beds at [facility]. 2. UTI. As already stated antibiotics switched. Preliminary urine culture shows Proteus. Sensitivities pending. 3. Possible, mechanical small bowel obstruction. This entire time, the patient has been insistent that he is just constipated. That is his usual constipation. He just needed to have bowel movements. But even with daily bowel movements, he continues to be distended, tender. Another reason I did a CT of abdomen and pelvis. This CT of abdomen pelvis shows more of a possible small bowel obstruction. He is not vomiting. Plan: Continue empiric antibiotics add flagyl. No NG tube at this time Will have to present this is a problem to [facility] if I can get him transferred. 4. Left foot chronic wound w/necrosis Prior MRI done last week showed possible osteomyelitis. Unclear regarding the acuity of the wound necrosis. C-reactive protein is 26 and today is 15.7. In August 2021 he was 3.6. And in May 2016 he was less than 1. Pt doesn't feel he can handle a ride to [facility] d/t his generalized ill sxs today. He was on cefepime and vancomycin when I came on service, but I have switched to cefepime and linezolid because of his creatinine. Foot MRI was done 05/18/22 shows large full-thickness ulceration open wound involving the lateral and plantar aspect of the midfoot at the level of the fourth TMT joint with subcutaneous emphysema and extensive cellulitis. No discrete drainable abscess collection seen. He has a prior resection of the fifth toe and fusion along the medial and lateral aspect of the midfoot with postsurgical changes and susceptibility artifacts. Suggestion of osteomyelitis involving the cuboid with marrow edema and subtle bony erosive changes. Myositis involving the plantar foot muscles without discrete intramuscular fluid collection. I did call [facility], this is where he has his surgeon. The wound clinic surgeon recommended I speak to transfer center. I spoke to the transfer center 05/17 and 05/18 and they state they are many, many borders in the emergency room and they have no beds for him. I did speak to [facility] about the foot on May 18. The transfer center explained that all of their facilities are taking primarily patients. They suggested I call other facilities. I did call [facility], [facility], and [facility]. [facility] has that they may have a bed. This was yesterday. I called him back today. And they said that the situation is even worse than it was yesterday so right now they can help me. 4. DM2 w/neuropathy On controlled carb diet, FSBG/SSI. I added Lantus 05/17May 18 glucose 169, 206, 181, 160 Today he is 130, 165 5. CAD s/p CABG Presently asymptomatic. Continue coreg, atorvastatin, plavix, NTG PRN. 6. Hx Pelvic sarcoma with resection, intraoperative complications and postoperative complications Followed by Dr. Mcdaniels at . Long discussion with Dr. Mcdaniels colleague today. I am immensely grateful that she took the time to review the chart and go over his anatomy and explain what could be going on with this patient. He had some urinary retention 05/18. When given a choice between a straight cath or a Lama catheter he stated that he really hates Lama catheters and would rather just have a straight cath every shift. So that is being done if bladder scan shows urinary retention. 7. HTN Continue usual outpatient meds. He has been developing some mild, low-grade hypotension. He only takes carvedilol 25 mg p.o. twice daily. He has holding parameters. 8. GERD Continue PPI 9. Prior DVT No acute sxs. 10. Tobacco dependence Nicotine patch PRN. Pt began smoking only 6 months ago per his report. 11. Asthma Continue usual home meds
[2022-05-19] MEDS ORDERED: carvediloL 12.5 MG TABLET PO SCH (15:28)
[2022-05-19] MEDS: CEFEPIME 2 GM in SODIUM CHLORIDE 0.9% MINIBAG 100 ML IV SCH (15:37)
[2022-05-19] MEDS ORDERED: metroNIDAZOLE 500 MG/100 ML 500 MG/100 ML BAG IV SCH (16:00)
--- NOTE | 2022-05-19 17:38 | CT Report ---
PROCEDURE: PELVIS WO INDICATIONS: bladder perforation TECHNIQUE: Noncontrast 3 mm axial sections acquired through the bony pelvis, with coronal and sagittal reformatt ing. For radiation dose reduction, the following was used: automated exposure control, adjustment of mA and/or kV according to patient size. COMPARISON: CT abdomen pelvis without contrast 05/19/2022, 05/16/2022, CT abdomen pelvis with contrast . FINDINGS: Image quality: Excellent. Bones: No suspicious lesion. No acute fracture. Soft tissues: There is oral contrast in the bowel from prior CT scan. Several clips in the abdomen a nd pelvis. Multiple dilated loops of small bowel are again seen. The appendix is not dilated. Lama catheter has been place. The bladder is decompressed. Similar moderate volume of free fluid in the pelvis and lower abdomen. There is a small focus of extraluminal gas in the lower abdomen, (3/46) , this increases with instillation of cystogram contrast. There is extraluminal leakage of cystogram contrast confirmed at the right paramedian superior bladder, (3/130). There is intraperitoneal and ex traperitoneal fluid. Fluid is seen tracking up the right paracolic gutter. Ectopic left ureteral inse rtion is seen. There is reflux of contrast into the left ureter and kidney. Mild prominence of the le ft renal collecting system. The right kidney is atrophic. No reflux of contrast in the right ureter i s seen. Prostate appears absent. No vesicoureteral fistula is demonstrated. Beam hardening artifact. Presacral edema. IMPRESSION: 1. Intraperitoneal and extraperitoneal bladder rupture with leakage of cystogram contrast. Tear at th e right paramedian superior bladder. 2. Small bowel obstruction. Results were communicated to Dr. Blanton at 05/19/2022 5:32 PM PST. Reviewed by: Prabhu Orellana MD on 05/19/2022 5:37 PM PST Approved by: Prabhu Orellana MD on 05/19/2022 5:37 PM PST Station ID: [id number]
--- NOTE | 2022-05-19 20:35 | DISCHARGE SUMMARY ---
Discharge Summary Admit Date: 05/16/22 Discharge Date: 05/19/22 Discharging Provider: Hodan Blanton MD Primary Care Provider: Samuel Bryant MD Code Status: Attempt Resuscitation Condition at Discharge: Poor Discharge Disposition: 02 Transfer Acute Care Hosp Discharge Facility Name: [facility] - DIAGNOSES Admission Diagnoses: 1. Acute kidney injury 2. Constipation 3. Left foot chronic wound with necrosis 4. Type 2 diabetes mellitus, with nephropathy 5. Coronary artery disease, status post CABG 6. History of prostate/bladder cancer, s/p resection 7. Hypertension 8. GERD 9. Prior DVT 10. Tobacco dependence 11. Asthma, without status asthmaticus Discharge Diagnoses with Status of Each Condition: 1. Bladder rupture with retroperitoneal and peritoneal leakage 2. Acute kidney injury with creatinine 4.4 at discharge 3. Mechanical small bowel obstruction on CT 4. Bilateral lower lobe consolidation of lung 5. Gangrene of left foot 6. Osteomyelitis of left foot 7. Type 2 diabetes mellitus, with complications, without long-term use of insulin 8. Asthma without exacerbation 9. History of DVT 10. 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 Tobacco dependence - HPI History of Present Illness: 56 yo male w/non-insulin dependent DM2, HTN, hyperlipidemia, CAD s/p CABG, CVA, OA, Gout, GERD, Asthma, prior DVT, and bladder/prostate cancer s/p extensive pelvic resection (and colectomy requiring temporary colostomy) presented to the ED w/6 days of constipation, N/V/abdominal pain. He notes that he is on chronic opiates and usually is able to counteract the constipation related to opiates. He notes he became constipated about 6 days ago. 3-4 days ago, he developed abdominal pain and began having nausea/vomiting. No SOB. No CP. HE notes he was feeling lightheaded/dizzy when getting up. He notes he stopped urinating about 2 days ago. He typically has difficulty voiding and has to push hard to empty his bladder. Since his abdominal pain began, he couldn't bear down to empty his bladder. He notes today he was dizzy and had difficulty standing so came to the ED. He notes he is holding down liquids, but not solids. He denies fever/chills. NO chest pain. He has had a chronic left foot wound that is followed by [facility] wound care. He sees them weekly. He had surgery about 3 mos ago and had partial amputation, including the forefoot. He does not know the full details but it sounds as though he had osteomyelitis. He reports he had an MRI done 1 week ago. He states he has not taken his dressing off but thinks it may be a bit too tight. RN removed it upon admission and found an area that appeared to be necrotic. He notes that the last time he saw his foot (a couple of weeks ago) it was not like that. 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 The first CT showed free fluid in the pelvis of a moderate amount. Several hyperdense nodules in the pelvis possibly representing recurrent masses or hematomas. The bladder wall was thick. Prostate surgically absent. Severe right renal atrophy. Nonspecific enlarged pelvic and inguinal lymph nodes. Large amount of stool in the colon. When he continued to have abdominal pain a second abdomen pelvis CT was done on the day of discharge. He has a proximal small bowel dilation with decompressed distal small bowel/terminal ileum suspicious for mechanical small bowel obstruction. Suspect the caliber transition point at the left lower abdomen. He continues to demonstrate free fluid within the pelvis and lower abdomen similar to mildly increase since previous CT. He has a possible wall discontinuity at the upper anterior aspect of the urinary bladder. Left ureter appears reimplanted. Prostate and seminal vesicles absent. Pelvis CT cystogram has oral contrast in the bowel from prior CT scan. Multiple dilated loops of small bowel seen again. Lama catheter in place. Bladder decompressed. Similar moderate volume of free fluid in the pelvis and lower abdomen. Small focus of extraluminal gas in the lower abdomen that increases with instillation of cystogram contrast. There is extraluminal leakage of the cystogram contrast confirmed at the right paramedian superior bladder with intra peritoneal and extraperitoneal fluid. The fluid is seen tracking up the right paracolic gutter. Ectopic left ureteral insertion is seen. Reflux of contrast into the left ureter and kidney. Chest CT has consolidative opacities present dependently in both lung bases. Left worse than right. Nonspecific and could represent aspiration, pneumonia, or atelectasis. Patchy groundglass opacities present elsewhere could represent sequela of pneumonia, pulmonary edema also possible. Blood culture from May 16 reported as gram-positive cocci May 18 on PCR, then Staph Aureus, on May 19. Urine culture, catheterized from May 16 with Proteus mirabilis Urine culture from May 17 without growth Central line placement May 19 MRI of left foot May 17 shows large full-thickness ulceration/open wound involving the lateral plantar aspect of the midfoot at the level of the fourth TMT joint with subcutaneous emphysema and extensive cellulitis. No discrete drainable abscess seen. Prior resection of the fifth toe and fusion along the medial and lateral aspects of the midfoot with postsurgical changes and susceptibility artifacts. Suggestion of osteomyelitis involving the cuboid with marrow edema and subtle bony erosive changes. Myositis involving the plantar foot muscles without discrete intramuscular fluid collection. - HOSPITAL COURSE Hospital Course: The patient was placed on empiric antibiotic therapy with vancomycin and Zosyn for the gangrenous left foot. MRI of the foot confirmed osteomyelitis, soft tissue necrosis of the medial and lateral aspect of the left midfoot. He is already had surgical resection of the fifth toe. Over the course of his stay the foot became gradually more foul-smelling. But there is no creeping gangrene or cellulitis. General surgery at our institution does not take care of this. And orthopedics will not be available till May 29. The foot is painful but not agonizing. Because of his rising creatinine, the vancomycin was discontinued and changed to linezolid. And Zosyn was changed to cefepime. Flagyl was not added until the day of discharge. The Flagyl was added because of his continued abdominal pain. Multiple attempts were made to transfer the patient for an amputation starting May 17, and continued on May 18 and May 19. On this issue alone, there were no facilities that had beds. DVT prophylaxis with was heparin subcu, his diabetes was managed with sliding scale insulin and Lantus, tobacco dependence addressed with NicoDerm. He has been eating only small bites of his meals. Glucose on the day of discharge is 130, 165, 159, and 180. Hemoglobin on admission was 12 and is drifted down to 8.7 by the day of discharge. White cell count remained at 5.2-5.9. Abdominal pain was initially attributed to his self stated diagnosis of constipation. He says that he uses opioids on a chronic basis, and because of that has resulted in chronic constipation and intermittent abdominal pain. He says that once he gets his bowels cleared with a good bowel movement his pain goes away. For the first day and a half that is what we focused on and he was having bowel movements. But in spite of bowel movements, he continued to have abdominal distention and moderate pain with palpation of the abdomen. I was also worried about acute kidney injury. His baseline creatinine is 0.8. On admission, even before the dye study of his admission CT of the abdomen, his creatinine was 3.3. In spite of antibiotics, hydration, the patient's creatinine continued to slowly rise and is 4.4 on the day of discharge. I was initially worried about nephrotoxicity from dye and vancomycin. Though those still may be in play, this patient may have bladder rupture as the cause of his acute kidney insufficiency. He did have urine output. At 1 point we thought he had urinary retention and we are going to place a Lama but he refused a Lama and only wanted straight cath. On the day of discharge I was able to convince him to get a Lama catheter because he needed a cystogram. I went ahead and repeated a CT of abdomen and pelvis on the day of discharge because I was not convinced that this was just constipation. He was becoming increasingly weak, shaky to the point he could not even hold his phone up, and on exam skin was started to get cold and clammy. The second CT was now read as a bladder perforation. It was not quite clear if this truly was bladder perforation. I spoke to Dr. Hargrove who is a colleague of Dr. Mcdaniels at [facility]. It was Dr. Mcdaniels who did the original repair surgeries surrounding a pelvic sarcoma resection with subsequent intraoperative bladder neck injury, and left ureteral injury. 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 The fistulas were repaired twice. Once with gracilis flaps, and the other time with omental flaps. We discussed that we needed definitive proof of a bladder perforation, so I had the patient go back to the CT scanner but this time with a cystogram. The cystogram confirms bladder perforation. CT scan today also shows a mechanical small bowel obstruction. It is not a complete obstruction and this patient is having flatus, and he is passing stool. No emesis but does have nausea. He has had a bowel movement on a daily basis since May 17. His white cell count has been normal. While the CT is being interpreted as his mechanical small bowel obstruction, he may have chronic compression and decompression as result of adhesions from previous surgeries. The patient interprets this as "constipation". Consideration should be made to a low fiber diet when he recovers. During his stay, he had poor p.o. intake was either small bites or nothing. Total protein was 7.8. Albumin was low at 3.1. Globulin 4.7. Once the bladder perforation was confirmed, I spoke to the transfer center again. Unfortunately the bed situation has not changed. The entire [facility] is under seige. However the patient will be transferred from our hospital to their ER via [facility]. The patient is clammy, diaphoretic, borderline hypotensive. He is not hemodynamically unstable yet. I had the ER doctor, Dr. Ag, place a central line for ease of venous access before discharge. He was accepted by Dr. Kevin Tucker in the [facility] ER. At discharge the patient is alert, oriented but very weak. Again, just holding the phone in his hand is almost impossible because he just cannot lift up his hands and forearms. He is very lucid, speech is intact. An acerbic personality at times. While he is able to go from supine to sitting with standby assist, and a grab of the hand, he needs a two-person assist to be able to stabilize him when he stands to be able to transfer to a bedside commode. Very unsteady on his feet.Temperature is 36.4. Heart rate 71. Blood pressure 102/54. Respirations 18. He is on 2 L oxygen mask and is saturating at 95%. He is 6 foot 3 inches tall, weighs 97 kg.Coarse upper airway sounds. No rhonchi or wheezing. No tachypnea or respiratory distress. A regular rate and rhythm with a systolic murmur loudest at the left upper sternal border. Nonradiating. And abdomen that is diffusely distended, mildly to moderately tender diffusely. High-pitched bowel sounds present. Lama is draining jeniffer urine. But he also appears to be leaking from his rectum and his diaper is wet with urine. Extremities have knobby deformities of osteoarthritis, he is bowlegged, and he has trace edema. No focal deficits, and he is alert and oriented with a lucid speech. He is very anxious about all of this, understandably so. Greater than 30 minutes was spent coordinating discharge - ALLERGIES Allergies/Adverse Reactions: Allergies Allergy/AdvReac Type Severity Reaction Status Date / Time cephalexin monohydrate * Allergy Unknown Nausea Verified 05/16/22 05:19 [From Keflex] codeine Allergy Unknown Verified 05/16/22 05:19 methadone Allergy Unknown Verified 05/16/22 05:19 - MEDICATIONS Home Medications: Ambulatory Orders Medication Instructions Recorded Confirmed Atorvastatin Calcium [Lipitor] 80 mg PO QPM 09/28/12 05/16/22 Clopidogrel [Plavix] 75 mg PO DAILY 04/08/16 05/16/22 Gabapentin 800 mg PO TID 04/08/16 05/16/22 Nitroglycerin [Nitrostat] 0.4 mg SL Q5MIN PRN #30 tablet 04/09/16 05/16/22 Lidocaine Patch 5% [Lidoderm Patch] 1 each TOP DAILY PRN 12/06/16 05/16/22 Multivitamin [Multiple Vitamins] 1 tab PO DAILY 12/06/16 05/16/22 Zolpidem [Ambien] 10 mg PO QPM PRN 12/06/16 05/16/22 carvediloL [Coreg] 25 mg PO BID #60 tablet 12/06/16 05/16/22 diphenhydrAMINE [Benadryl] 25 mg PO DAILY PRN 12/06/16 05/16/22 Albuterol Sulfate [Proair Hfa 1 - 2 puffs INH Q6H PRN 08/23/21 05/16/22 Inhaler] Duloxetine HCl [Cymbalta] 60 mg PO DAILY 08/23/21 05/16/22 Hydrocodone/Acetaminophen 2 tab PO TID PRN 08/23/21 05/18/22 [Hydrocodone-Acetamin 10-325 mg] Trazodone HCl 150 mg PO QPM 08/23/21 05/16/22 allopurinoL [Allopurinol] 300 mg PO QPM 08/23/21 05/16/22 metFORMIN [Glucophage] 1,000 mg PO BID 08/23/21 05/16/22 ondansetron HCL [Ondansetron HCl] 8 mg PO Q8H PRN 08/23/21 05/16/22 oxyCODONE [Roxicodone] 5 mg PO BID PRN 08/23/21 05/16/22 traMADol [Ultram] 50 mg PO QPM PRN 08/23/21 05/16/22 Cyclobenzaprine [Flexeril] 1 tab PO DAILY PRN 05/17/22 05/17/22 - LABS Result Diagrams: 05/19/22 05:12 05/19/22 05:12
--- NOTE | 2022-05-19 20:48 | ED Physician Documentation ---
ED Addendum - Addendum Addendum: 05/19/22 20:48 I was asked by Dr. Blanton to place a central line in this gentleman who may decompensate. Procedure note, central line: Verbal informed consent was obtained, risks including bleeding, infection, pneumothorax, arterial puncture, and need for surgery were discussed with the patient. The patient was prepped twice with ChloraPrep. I wore cap, mask, gown, sterile gloves. Full sterile sheet was utilized. Using real-time ultrasound guidance the right internal jugular vein was accessed and using Seldinger technique a triple-lumen 7 Greek central line was placed in standard fashion and sutured into place without immediate complications.
[2022-05-19 21:11] VITALS: BP 118/60
--- NOTE | 2022-05-19 22:07 | XRAY Report ---
PROCEDURE: Chest for Line Placement INDICATIONS: central line placement TECHNIQUE: One view of the chest was acquired. COMPARISON: Chest CT 05/19/2022, chest x-ray 07/06/2020. FINDINGS: Surgical changes and devices: There is a new right internal jugular catheter with the tip projecting over the right atrium. Postsurgical changes redemonstrated within the mediastinum. Lungs and pleura: There are confluent bilateral perihilar airspace opacities with a basilar predomin ance corresponding to areas of consolidation and groundglass opacities seen on the recent CT. Finding s are consistent with pneumonia. No evidence of pneumothorax. No pleural effusions.. Mediastinum: Mediastinal contours appear unchanged. Heart size is normal. Bones and chest wall: No suspicious bony lesions. Overlying soft tissues appear unremarkable. IMPRESSION: 1. No evidence of pneumothorax. 2. Bilateral perihilar airspace opacities corresponding to consolidation on CT likely secondary to pn eumonia. Reviewed by: Nahid Nieto MD on 05/19/2022 10:05 PM [facility] Approved by: Nahid Nieto MD on 05/19/2022 10:05 PM PST Station ID: [id number]
== END 2022-05-19 21:10 | disposition short-term general hospital (02) | DRG 698 ==
LOC: EDUNIT# → ED 05:07 → MS2 11:13 → OBSVTOIN 05-18 17:05
PROVIDERS: ADMIT Family Medicine; ATTEND Specialist
PROC: 02H633Z Insertion of Infusion Device into Right Atrium, Percutaneous Approach (ICD-10-PCS; principal; 2022-05-19)
DX: N32.89 Other specified disorders of bladder (principal); J18.1 Lobar pneumonia, unspecified organism; K56.600 Partial intestinal obstruction, unspecified as to cause; N17.9 Acute kidney failure, unspecified; E11.52 Type 2 diabetes mellitus with diabetic peripheral angiopathy with gangrene; I96 Gangrene, not elsewhere classified; M86.9 Osteomyelitis, unspecified; N39.0 Urinary tract infection, site not specified; L97.429 Non-pressure chronic ulcer of left heel and midfoot with unspecified severity; L03.116 Cellulitis of left lower limb; J45.909 Unspecified asthma, uncomplicated; F17.210 Nicotine dependence, cigarettes, uncomplicated; I10 Essential (primary) hypertension; E78.5 Hyperlipidemia, unspecified; I25.10 Atherosclerotic heart disease of native coronary artery without angina pectoris; K21.9 Gastro-esophageal reflux disease without esophagitis; B96.4 Proteus (mirabilis) (morganii) as the cause of diseases classified elsewhere; B95.61 Methicillin susceptible Staphylococcus aureus infection as the cause of diseases classified elsewhere; K59.03 Drug induced constipation; T40.605A Adverse effect of unspecified narcotics, initial encounter; M10.9 Gout, unspecified; Z20.822 Contact with and (suspected) exposure to COVID-19; E86.0 Dehydration; Z89.422 Acquired absence of other left toe(s); I25.2 Old myocardial infarction; Z86.718 Personal history of other venous thrombosis and embolism; Z79.01 Long term (current) use of anticoagulants; Z79.84 Long term (current) use of oral hypoglycemic drugs; Z86.73 Personal history of transient ischemic attack (TIA), and cerebral infarction without residual deficits; Z79.891 Long term (current) use of opiate analgesic; Z95.1 Presence of aortocoronary bypass graft; Z90.49 Acquired absence of other specified parts of digestive tract; Z95.5 Presence of coronary angioplasty implant and graft; Z90.79 Acquired absence of other genital organ(s); Z85.831 Personal history of malignant neoplasm of soft tissue
CPT/HCPCS: 36415; 51701; 71250; 72192; 73718; 74176; 80048; 80053; 81001; 82947; 83690; 85025; 85651; 86140; 87040; 87077; 87086; 87150; 87181; 87633; 94640; 96361; 96365; 96366; 96367; 96368; 96372; 96375; 96376; 99284; 99285; A9270; G0378; J1815; J2020; J3370; J7613; J7626; 81003

== ENCOUNTER 2022-07-06 16:29 | Outpatient (CLI) | payer MEDICAID | END 2022-07-06 23:59 | disposition critical access hospital (66) | LOC: EMS 16:29 | DX: R07.89 Other chest pain (principal); S91.101A Unspecified open wound of right great toe without damage to nail, initial encounter; M79.89 Other specified soft tissue disorders; R68.83 Chills (without fever); X58.XXXA Exposure to other specified factors, initial encounter | CPT/HCPCS: A0425; A0429; A0999 ==

== ENCOUNTER 2022-07-06 16:37 | Emergency (ER) | payer MEDICAID ==
[2022-07-06] MEDS ORDERED: HYDROmorphone 1 MG/ML CARPUJECT IVP STA ×4 (16:55→22:47)
--- NOTE | 2022-07-06 16:55 | ED Physician Documentation ---
History of Present Illness - Stated complaint Stated Complaint: CHEST PX - History obtained from History obtained from: Patient, EMS - Additonal information Additional information: This is a 56-year-old gentleman who is very medically complicated with several MIs stents and CABG in the past and more recently had a left BKA for peripheral vascular disease with cellulitis and an intraperitoneal bladder rupture repair to the [place] and has both a Lama and a left-sided nephrostomy in place. For the last few days he has had intermittent chest pain "like a bubble" in his high sternum that is worse with movement and associated with shortness of breath and is worse with deep breathing. Is also associated with a fever over the weekend he says and feeling "sick as a dog." He noticed today that a pustular lesion on the right foot opened up. 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 Cardiovascular: CABG, Coronary stent - Present Medications Home Medications: Ambulatory Orders Medication Instructions Recorded Confirmed Atorvastatin Calcium [Lipitor] 80 mg PO QPM 09/28/12 05/16/22 Clopidogrel [Plavix] 75 mg PO DAILY 04/08/16 05/16/22 Gabapentin 800 mg PO TID 04/08/16 05/16/22 Nitroglycerin [Nitrostat] 0.4 mg SL Q5MIN PRN #30 tablet 04/09/16 05/16/22 Lidocaine Patch 5% [Lidoderm Patch] 1 each TOP DAILY PRN 12/06/16 05/16/22 Multivitamin [Multiple Vitamins] 1 tab PO DAILY 12/06/16 05/16/22 Zolpidem [Ambien] 10 mg PO QPM PRN 12/06/16 05/16/22 carvediloL [Coreg] 25 mg PO BID #60 tablet 12/06/16 05/16/22 diphenhydrAMINE [Benadryl] 25 mg PO DAILY PRN 12/06/16 05/16/22 Albuterol Sulfate [Proair Hfa 1 - 2 puffs INH Q6H PRN 08/23/21 05/16/22 Inhaler] Duloxetine HCl [Cymbalta] 60 mg PO DAILY 08/23/21 05/16/22 Hydrocodone/Acetaminophen 2 tab PO TID PRN 08/23/21 05/18/22 [Hydrocodone-Acetamin 10-325 mg] Trazodone HCl 150 mg PO QPM 08/23/21 05/16/22 allopurinoL [Allopurinol] 300 mg PO QPM 08/23/21 05/16/22 metFORMIN [Glucophage] 1,000 mg PO BID 08/23/21 05/16/22 ondansetron HCL [Ondansetron HCl] 8 mg PO Q8H PRN 08/23/21 05/16/22 oxyCODONE [Roxicodone] 5 mg PO BID PRN 08/23/21 05/16/22 traMADol [Ultram] 50 mg PO QPM PRN 08/23/21 05/16/22 Cyclobenzaprine [Flexeril] 1 tab PO DAILY PRN 05/17/22 05/17/22 - Allergies Allergies/Adverse Reactions: Allergies Allergy/AdvReac Type Severity Reaction Status Date / Time codeine Allergy Unknown Verified 05/16/22 05:19 methadone Allergy Unknown Verified 05/16/22 05:19 cephalexin monohydrate * AdvReac Unknown Nausea Verified 07/06/22 17:03 [From Keflex] - Social History Does the pt smoke?: Yes Smoking Status: Current every day smoker Does the pt drink ETOH?: Yes Does the pt have substance abuse?: No - Immunizations Immunizations are current?: Yes - POLST Patient has POLST: No POLST Status: Full Code PD ED PE NORMAL - Vitals Vital signs reviewed: Yes - General General: Alert and oriented X 3, Other (He appears uncomfortable and smells heavily of tobacco.) - HEENT HEENT: PERRL, EOMI - Neck Neck: Supple, no meningeal sign, No bony TTP - Cardiac Cardiac: RRR, No murmur, Other (With well-healed sternotomy scars) - Respiratory Respiratory: No respiratory distress, Clear bilaterally - Abdomen Abdomen: Non tender, Other (There is a left-sided nephrostomy in place with purulent urine in the bag and a Lama in place also with purulent urine.) - Back Back: No CVA TTP, No spinal TTP - Derm Derm: Normal color, Warm and dry - Extremities Extremities: Other (He has a splint on his left BKA. He has poor pedal pulses on the right with monophasic flow in the pedal arteries on ultrasound with a tracking pustular lesion over the fifth metatarsal head and evidence of prior fixation surgery there.) - Neuro Neuro: Alert and oriented X 3, Normal speech Results - Vitals Vitals: Vital Signs - 24 hr 07/06/22 07/06/22 07/06/22 16:40 17:20 18:29 Temperature 37.1 C Heart Rate 75 85 70 Respiratory 16 16 18 Rate Blood Pressure 117/74 117/74 112/68 O2 Saturation 98 100 100 07/06/22 07/06/22 07/06/22 18:38 19:05 19:30 Temperature Heart Rate 66 66 71 Respiratory 18 18 12 Rate Blood Pressure 113/60 120/69 116/76 O2 Saturation 100 100 100 07/06/22 07/06/22 07/06/22 20:00 20:30 21:00 Temperature Heart Rate 69 70 69 Respiratory 24 23 9 L Rate Blood Pressure 108/64 110/61 110/59 L O2 Saturation 100 100 100 07/06/22 07/06/22 07/06/22 21:30 22:00 22:30 Temperature Heart Rate 79 74 76 Respiratory 10 L 17 28 H Rate Blood Pressure 112/63 104/63 105/60 O2 Saturation 100 100 100 07/06/22 23:00 Temperature Heart Rate 81 Respiratory 13 Rate Blood Pressure 109/68 O2 Saturation 100 Oxygen O2 Source Room air - EKG (time done) 1653 Rate: Rate (enter#) (73) Rhythm: NSR (With PAC) [place]: Normal Intervals: Other (Short SHARON) QRS: Normal Ischemia: Normal ST segments - Labs Labs: Microbiology 07/06/22 17:00 Wound Culture - Preliminary Foot - Right Laboratory Tests 07/06/22 07/06/22 07/06/22 16:57 16:59 17:23 WBC RBC Hgb Hct MCV MCH MCHC RDW Plt Count MPV Neut # (Auto) Lymph # (Auto) [place] # (Auto) Eos # (Auto) Baso # (Auto) Absolute Nucleated RBC Nucleated RBC % Sodium Potassium Chloride Carbon Dioxide Anion Gap BUN Creatinine Estimated GFR (MDRD) Glucose Lactic Acid Calcium Total Bilirubin AST ALT Alkaline Phosphatase Troponin I High Sens Total Protein Albumin Globulin Albumin/Globulin Ratio Urine Color YELLOW YELLOW Urine Clarity HAZY CLOUDY Urine pH 8.5 H >=9.0 H Ur Specific Wilson 1.010 <=1.005 Urine Protein 100 H >=300 H Urine Glucose (UA) 100 H NEGATIVE Urine Ketones NEGATIVE NEGATIVE Urine Occult Blood NEGATIVE NEGATIVE Urine Nitrite NEGATIVE NEGATIVE Urine Bilirubin NEGATIVE NEGATIVE Urine Urobilinogen 1 (NORMAL) 0.2 (NORMAL) Ur Leukocyte Esterase LARGE H MODERATE H Urine RBC 0-5 None Seen Urine WBC >25 H 4-5 Ur Squamous Epith Cells NONE SEEN NONE SEEN Urine Crystals 0-2 Ammonium Urate 6-10 Ammonium Urate Amorphous Sediment Few Few Urine Bacteria Moderate H Many H Urine Yeast PRESENT PRESENT Ur Microscopic Review INDICATED Urine Culture Comments INDICATED INDICATED Nasal Adenovirus (PCR) NOT DETECTED Nasal B. parapertussis DNA (PCR) NOT DETECTED Nasal Coronavir 229E PCR NOT DETECTED Nasal Coronavir HKU1 PCR NOT DETECTED Nasal Coronavir NL63 PCR NOT DETECTED Nasal Coronavir OC43 PCR NOT DETECTED Nasal Enterovir/Rhinovir PCR NOT DETECTED Nasal Influenza B PCR NOT DETECTED Nasal Influenza A PCR NOT DETECTED Nasal Parainfluen 1 PCR NOT DETECTED Nasal Parainfluen 2 PCR NOT DETECTED Nasal Parainfluen 3 PCR NOT DETECTED Nasal Parainfluen 4 PCR NOT DETECTED Nasal RSV (PCR) NOT DETECTED Nasal B.pertussis DNA PCR NOT DETECTED Nasal C.pneumoniae (PCR) NOT DETECTED Juan Human Metapneumo PCR NOT DETECTED Nasal M.pneumoniae (PCR) NOT DETECTED Nasal SARS-CoV-2 (PCR) NOT DETECTED 07/06/22 07/06/22 07/06/22 17:50 17:50 17:50 WBC 11.7 H RBC 3.89 L Hgb 8.7 L Hct 29.9 L MCV 76.9 L MCH 22.4 L MCHC 29.1 L RDW 17.2 H Plt Count 575 H MPV 9.0 Neut # (Auto) 8.4 H Lymph # (Auto) 1.7 Buchanan # (Auto) 1.2 H Eos # (Auto) 0.4 Baso # (Auto) 0.0 Absolute Nucleated RBC 0.00 Nucleated RBC % 0.0 Sodium 132 L Potassium 3.8 Chloride 97 L Carbon Dioxide 22 Anion Gap 13.0 BUN 13 Creatinine 0.9 Estimated GFR (MDRD) 87 L Glucose 178 H Lactic Acid 2.0 Calcium 9.2 Total Bilirubin 0.7 AST 115 H ALT 203 H Alkaline Phosphatase 375 H Troponin I High Sens Total Protein 7.5 Albumin 2.6 L Globulin 4.9 H Albumin/Globulin Ratio 0.5 L Urine Color Urine Clarity Urine pH Ur Specific Wilson Urine Protein Urine Glucose (UA) Urine Ketones Urine Occult Blood Urine Nitrite Urine Bilirubin Urine Urobilinogen Ur Leukocyte Esterase Urine RBC Urine WBC Ur Squamous Epith Cells Urine Crystals Amorphous Sediment Urine Bacteria Urine Yeast Ur Microscopic Review Urine Culture Comments Nasal Adenovirus (PCR) Nasal B. parapertussis DNA (PCR) Nasal Coronavir 229E PCR Nasal Coronavir HKU1 PCR Nasal Coronavir NL63 PCR Nasal Coronavir OC43 PCR Nasal Enterovir/Rhinovir PCR Nasal Influenza B PCR Nasal Influenza A PCR Nasal Parainfluen 1 PCR Nasal Parainfluen 2 PCR Nasal Parainfluen 3 PCR Nasal Parainfluen 4 PCR Nasal RSV (PCR) Nasal B.pertussis DNA PCR Nasal C.pneumoniae (PCR) Juan Human Metapneumo PCR Nasal M.pneumoniae (PCR) Nasal SARS-CoV-2 (PCR) 07/06/22 17:50 WBC RBC Hgb Hct MCV MCH MCHC RDW Plt Count MPV Neut # (Auto) Lymph # (Auto) [place] # (Auto) Eos # (Auto) Baso # (Auto) Absolute Nucleated RBC Nucleated RBC % Sodium Potassium Chloride Carbon Dioxide Anion Gap BUN Creatinine Estimated GFR (MDRD) Glucose Lactic Acid Calcium Total Bilirubin AST ALT Alkaline Phosphatase Troponin I High Sens 6.3 Total Protein Albumin Globulin Albumin/Globulin Ratio Urine Color Urine Clarity Urine pH Ur Specific Wilson Urine Protein Urine Glucose (UA) Urine Ketones Urine Occult Blood Urine Nitrite Urine Bilirubin Urine Urobilinogen Ur Leukocyte Esterase Urine RBC Urine WBC Ur Squamous Epith Cells Urine Crystals Amorphous Sediment Urine Bacteria Urine Yeast Ur Microscopic Review Urine Culture Comments Nasal Adenovirus (PCR) Nasal B. parapertussis DNA (PCR) Nasal Coronavir 229E PCR Nasal Coronavir HKU1 PCR Nasal Coronavir NL63 PCR Nasal Coronavir OC43 PCR Nasal Enterovir/Rhinovir PCR Nasal Influenza B PCR Nasal Influenza A PCR Nasal Parainfluen 1 PCR Nasal Parainfluen 2 PCR Nasal Parainfluen 3 PCR Nasal Parainfluen 4 PCR Nasal RSV (PCR) Nasal B.pertussis DNA PCR Nasal C.pneumoniae (PCR) Juan Human Metapneumo PCR Nasal M.pneumoniae (PCR) Nasal SARS-CoV-2 (PCR) - Rads (name of study) 6X-ray of the right foot demonstrates patient in the first metatarsal and posteriorly with cortical irregularity in the midfoot and mid and distal met Radiology: Final report received, EMP read indepedently CT of the chest for PE protocol demonstrates clear lungs and no PE. Stable mediastinal soft tissue nodules likely lymph nodes. Radiology: Final report received, EMP read indepedently Chest x-ray for line placement shows right IJ CVC at the cavoatrial junction Radiology: Final report received, EMP read indepedently CT A/P Radiology: Final report received, EMP read indepedently, Other (Bladder wall thickening. Small pelvic free fluid in the pelvis w/ small associated focus of extraluminal gas. Small residual perforation cannot be fully excluded. Small loculated fluid collection adjacent to the free fluid may represent a small developing abscess. Nephrostomy catheter demonstrated w) Procedures - Abscess I&D (location) R foot- posterolateral Incision: Incised with scalpel, Purulent drainage, Irrigated Other: Pt tolerated well, Dressing applied, Antibiotic prescribed R foot- 1st MT head Incision: Purulent drainage, Loculations broken, Irrigated, Other (did not need incsion, already open) Other: Pt tolerated well, Dressing applied, Antibiotic prescribed - Central Line - Major Central Line Preparation: Consent Obtained, Time out completed, Ultrasound used, Sterile prep and drape Central line location: Right IJ Central line type: Triple lumen Central line aftercare: Chlorhexidine disc placed, Secured, Placement confirmed, No pneumothorax, No complications, Bundle checklist complete, Pt tolerated well PD Medical Decision Making - ED course ED course: 56-year-old gentleman with recent bladder rupture and left BKA now presents with chest pain by ambulance and noticed some bubbles on his right foot the pop today. He has a purulent right foot infection with abscesses posterolaterally and over the right first metatarsal. That 1 was probed during exam and a culture was sent. It did probe quite deeply. X-ray is concerning for osteomyelitis/concern for hardware infection given the proximity to the hardware. Given the severe chest pain we will also of course concerned about PE given his recent hospitalization and ACS given his known coronary disease. His EKG was without ischemic findings. Troponin negative. CT pulmonary angiogram negative for acute findings. CBC notable for white count of 11 and a hemoglobin of 8.7 with microcytic indices. Chemistry panel most notable for some mild transaminitis. Urinalysis from the nephrostomy and Lama both with bacteriuria and leukocyte esterase. Both are being cultured. He was administered broad- spectrum antibiotics with cefepime, Flagyl, and vancomycin.He was difficult for IV access and a right IJ triple-lumen was placed. He was graciously excepted to [facility] ED ED by the surgeon there, Dr. Ant Ma at approximately 9:30 PM. [place] were completed. Departure - Departure Disposition: 02 Transfer Acute Care Hosp Clinical Impression: Nephrostomy status Osteomyelitis of right foot Qualifiers: Osteomyelitis type: other acute Qualified Code(s): M86.171 - Other acute osteomyelitis, right ankle and foot Chest pain Qualifiers: Chest pain type: unspecified Qualified Code(s): R07.9 - Chest pain, unspecified Urinary tract infection Qualifiers: Urinary tract infection type: catheter-associated UTI Indwelling urinary catheter type: nephrostomy catheter Encounter type: initial encounter Qualified Code(s): T83.512A - Infection and inflammatory reaction due to nephrostomy catheter, initial encounter Condition: Serious Discharge Date/Time: 07/06/22 23:26
[2022-07-06] MEDS ORDERED: VANCOMYCIN INJ 1.5 GM in SODIUM CHLORIDE 0.9% 500 ML IV STA (16:57)
[2022-07-06] MEDS ORDERED: AZTREONAM 2 GM in SODIUM CHLORIDE 0.9% MINIBAG 100 ML IV STA (16:57)
[2022-07-06] MEDS ORDERED: metroNIDAZOLE 500 MG/100 ML 500 MG/100 ML BAG IV ONE (16:57)
[2022-07-06] MEDS ORDERED: CEFEPIME 2 GM in SODIUM CHLORIDE 0.9% MINIBAG 100 ML IV STA (17:02)
[2022-07-06 17:10] LABS: GLUCOSE, URINE (UA) NEGATIVE (NEGATIVE); KETONES,URINE (UA) NEGATIVE (NEGATIVE); LEUKOCYTE ESTERASE, URINE MODERATE (NEGATIVE); NITRITE,URINE NEGATIVE (NEGATIVE); OCCULT BLOOD,URINE NEGATIVE (NEGATIVE); PH,URINE >=9.0 PH (5.0-7.5); PROTEIN,URINE >=300 mg/dL (NEGATIVE); UROBILINOGEN,URINE 0.2 (NORMAL) E.U./dL (NORMAL)
[2022-07-06 17:10] LABS: BILIRUBIN,URINE NEGATIVE (NEGATIVE); GLUCOSE, URINE (UA) 100 mg/dL (NEGATIVE); KETONES,URINE (UA) NEGATIVE (NEGATIVE); LEUKOCYTE ESTERASE, URINE LARGE (NEGATIVE); NITRITE,URINE NEGATIVE (NEGATIVE); OCCULT BLOOD,URINE NEGATIVE (NEGATIVE); PH,URINE 8.5 PH (5.0-7.5); PROTEIN,URINE 100 mg/dL (NEGATIVE); UROBILINOGEN,URINE 1 (NORMAL) E.U./dL (NORMAL)
[2022-07-06 17:14] LABS: CLARITY,URINE HAZY (CLEAR)
[2022-07-06 17:14] LABS: CLARITY,URINE CLOUDY (CLEAR)
[2022-07-06 17:17] LABS: BILIRUBIN,URINE NEGATIVE (NEGATIVE); ICTOTEST,URINE NEGATIVE
[2022-07-06 17:34] LABS: AMORPHOUS SEDIMENT,UR Few /LPF; BACTERIA,URINE Moderate /HPF (None Seen); RBC,URINE 0-5 /HPF (0-5); SQUAMOUS EPITHELIAL CELL,UR NONE SEEN (<= Few); WBC,URINE >25 /HPF (0-3)
[2022-07-06 17:35] LABS: YEAST,URINE PRESENT
[2022-07-06 17:36] LABS: AMORPHOUS SEDIMENT,UR Few /LPF; BACTERIA,URINE Many /HPF (None Seen); RBC,URINE None Seen /HPF (0-5); SQUAMOUS EPITHELIAL CELL,UR NONE SEEN (<= Few)
[2022-07-06 17:37] LABS: YEAST,URINE PRESENT
[2022-07-06] MEDS ORDERED: ONDANSETRON 4 MG/2 ML VIAL IVP STA (17:51)
[2022-07-06 18:00] LABS: BASOPHILS % (AUTO) 0.3 %; EOSINOPHILS # (AUTO) 0.4 10^3/uL (0.0-0.7); EOSINOPHILS % (AUTO) 3.2 %; HCT - HEMATOCRIT 29.9 % (42.0-52.0); HGB - HEMOGLOBIN 8.7 g/dL (14.0-18.0); LYMPHOCYTES # (AUTO) 1.7 10^3/uL (1.5-3.5); LYMPHOCYTES % (AUTO) 14.1 %; MEAN CORPUSCULAR HEMOGLOBIN 22.4 pg (27.0-31.0); MEAN CORPUSCULAR HGB CONC 29.1 g/dL (32.0-36.0); MEAN CORPUSCULAR VOLUME 76.9 fL (80.0-94.0); MONOCYTES # (AUTO) 1.2 10^3/uL (0.0-1.0); MONOCYTES % (AUTO) 10.2 %; NEUTROPHILS # (AUTO) 8.4 10^3/uL (1.5-6.6); NEUTROPHILS % (AUTO) 71.8 %; PLT - PLATELET COUNT 575 10^3/uL (130-450); RED BLOOD COUNT 3.89 10^6/uL (4.70-6.10); RED CELL DISTRIBUTION WIDTH 17.2 % (12.0-15.0); WHITE BLOOD COUNT 11.7 x10^3/uL (4.8-10.8)
--- NOTE | 2022-07-06 18:07 | XRAY Report ---
PROCEDURE: Chest 1 View X-Ray INDICATIONS: Sepsis TECHNIQUE: One view of the chest was acquired. COMPARISON: None. FINDINGS: Surgical changes and devices: Sternotomy wires. Lungs and pleura: No pleural effusions or pneumothorax. Lungs are clear. Mediastinum: Mediastinal contours appear normal. Heart size is normal. Bones and chest wall: No suspicious bony lesions. Overlying soft tissues appear unremarkable. IMPRESSION: No acute radiographic abnormality. Reviewed by: Connor Naylor MD on 07/06/2022 6:06 PM [facility] Approved by: Connor Naylor MD on 07/06/2022 6:06 PM [facility] Station ID: [id number]
[2022-07-06 18:11] LABS: ALBUMIN 2.6 g/dL (3.2-5.5); ALBUMIN/GLOBULIN RATIO 0.5 (1.0-2.2); BILIRUBIN,TOTAL 0.7 mg/dL (0.2-1.0); CALCIUM 9.2 mg/dL (8.5-10.3); CREATININE 0.9 mg/dL (0.6-1.2); POTASSIUM 3.8 mmol/L (3.5-5.0); TOTAL PROTEIN 7.5 g/dL (6.7-8.2)
--- NOTE | 2022-07-06 18:11 | XRAY Report ---
PROCEDURE: Foot 3 View RT INDICATIONS: foot infection TECHNIQUE: 4 views of the foot were acquired. COMPARISON: None FINDINGS: Bones: No prior imaging is available for comparison. Fixation jacobo and screw is seen traversing the fi rst metatarsal through the midfoot. There is some areas of cortical irregularity and small bone fragm ents, for example in the mid metatarsal and throughout the midfoot and navicular. Cortical indistinct ness is seen adjacent to the wound medially. Soft tissues: Soft tissue swelling is seen adjacent to the wound. IMPRESSION: Fixation jacobo and screws seen at the first metatarsal through the midfoot and hindfoot. Cortical irreg ularity is seen in the midfoot and along the mid and distal metatarsal, with some cortical indistinct ness adjacent to the medial wound, which has soft tissues:. No priors are available to assess stability of the above findings. Cross-sectional imaging could furt her evaluate if necessary. Reviewed by: Connor Naylor MD on 07/06/2022 6:10 PM PST Approved by: Connor Naylor MD on 07/06/2022 6:10 PM PST Station ID: [id number]
[2022-07-06] MEDS ORDERED: iohexoL-300 100 ML VIAL ONE (18:23)
--- NOTE | 2022-07-06 19:19 | XRAY Report ---
PROCEDURE: Chest for Line Placement INDICATIONS: rij cvc TECHNIQUE: One view of the chest was acquired. COMPARISON: 07/06/2022 FINDINGS: Surgical changes and devices: A right central line terminates in the lower SVC. Sternotomy wires are present. Lungs and pleura: No dense consolidation or pleural effusion. Suspected scar overlying the right low er lobe. Mediastinum: Heart size is within normal limits. Bones and chest wall: No suspicious bony lesions. Overlying soft tissues appear unremarkable. IMPRESSION: Right central line terminates at the cavoatrial junction. Reviewed by: Connor Naylor MD on 07/06/2022 7:18 PM PST Approved by: Connor Naylor MD on 07/06/2022 7:18 PM PST Station ID: [id number]
[2022-07-06 19:40] LABS: B. PARAPERTUSSIS- RESP PCR PAN NOT DETECTED; B. PERTUSSIS- RESP PCR PANEL NOT DETECTED; C. PNEUMONIAE- RESP PCR PANEL NOT DETECTED; CORONAVIRUS 229E-RESP PCR NOT DETECTED; CORONAVIRUS HKU1-RESP PCR NOT DETECTED; CORONAVIRUS NL63-RESP PCR NOT DETECTED; CORONAVIRUS OC43-RESP PCR NOT DETECTED; HUMAN METAPNEUMOVIRUS NOT DETECTED; INFLUENZA A- RESP PCR PANEL NOT DETECTED; INFLUENZA B - RESP PCR PANEL NOT DETECTED; M. PNEUMONIAE- RESP PCR PANEL NOT DETECTED; PARAINFLUENZA VIRUS 1 NOT DETECTED; PARAINFLUENZA VIRUS 2 NOT DETECTED; PARAINFLUENZA VIRUS 3 NOT DETECTED; PARAINFLUENZA VIRUS 4 NOT DETECTED; RHINOVIRUS/ENTEROVIRUS NOT DETECTED; RSV- RESP PCR PANEL NOT DETECTED; SARS-CoV-2 -RESP PCR PANEL NOT DETECTED
--- NOTE | 2022-07-06 20:27 | CT Report ---
PROCEDURE: ANGIO CHEST W/WO INDICATIONS: Chest pain, shortness of breath, recent hospitaliz CONTRAST: 80mL Omni 300 TECHNIQUE: After the administration of intravenous contrast, 2 mm axial images were acquired from the pulmonary apices to the posterior costophrenic angles during the arterial phase. In addition, 1 mm lung kernel and 5 mm soft tissue kernel reconstructions were performed. 3-dimensional coronal oblique maximum int ensity projection (MIP) reformats, 8 mm axial MIP, and 5 mm coronal and sagittal MPR reformats were t hen performed through the thorax. For radiation dose reduction, the following was used: automated exp osure control, adjustment of mA and/or kV according to patient size. COMPARISON: Chest CT 05/19/2022. FINDINGS: Image quality: Excellent. Pulmonary arteries: Pulmonary arteries are normal in size, and demonstrate no intraluminal filling d efects to suggest central pulmonary embolism. Lower Neck: No lymphadenopathy by size criteria. Thyroid: Visualized thyroid demonstrates no discrete nodules. Axillae: No lymphadenopathy by size criteria. Chest Wall: There is a right internal jugular catheter with the tip extending to the cavoatrial junc tion. Bones: Visualized osseous structures demonstrate no suspicious lesions. Lungs and Airways: No acute consolidation. There are calcified nodules in the right lower lobe jose j uring up to 0.9 cm which appear stable compared to the prior studies and are consistent with sequelae of old granulomas disease. There is a stable 0.4 cm nodule within the left lower lobe on series 7 im age 183. There is mild dependent atelectasis bilaterally. Scarring and atelectasis are also demonstra prachi within the right middle lobe. The trachea and central airways are patent. Pleura: No pneumothorax or pleural effusions. Heart: Heart size is normal. No pericardial effusion. Thoracic Vessels: The thoracic aorta is normal in size. Mediastinum and Liyah: A few soft tissue nodules within the anterior mediastinum measuring up to 2.3 x 2.1 cm on series 6 image 30 appears stable in size compared to the prior studies. Findings are sugge stive of anterior mediastinal lymph nodes. No hilar lymphadenopathy by size criteria. There are calci fied right hilar lymph nodes consistent with sequelae of old granulomatous disease. Esophagus: No wall thickening. No hiatal hernia. Abdomen: Visualized upper abdomen demonstrates a partially visualized atrophic right kidney. IMPRESSION: 1. No evidence of pulmonary embolism. 2. No acute airspace consolidation. 3. Stable soft tissue nodules in the anterior mediastinum likely representing lymph nodes. Reviewed by: Nahid Nieto MD on 07/06/2022 8:26 PM PST Approved by: Nahid Nieto MD on 07/06/2022 8:26 PM PST Station ID: [id number]
[2022-07-06] MEDS ORDERED: iohexoL-300 100 ML VIAL IVP ONE (20:44)
--- NOTE | 2022-07-06 20:57 | CT Report ---
PROCEDURE: ABDOMEN/PELVIS W INDICATIONS: fever, recent bladder rupture CONTRAST: 80mL Omni 300 TECHNIQUE: After the administration of intravenous contrast, 5 mm thick sections acquired from the diaphragms to the symphysis. 5 mm thick coronal and sagittal reformats were acquired. For radiation dose reducti on, the following was used: automated exposure control, adjustment of mA and/or kV according to randy ent size. COMPARISON: CT abdomen pelvis 05/19/2022, 05/16/2022, 02/07/2021. FINDINGS: Image quality: There is metallic streak artifact secondary to patient's surgical clips in the pelvis. Lung bases:There is atelectasis and scarring in the lung bases. Calcified nodules in the right lower lobe are also redemonstrated consistent with sequelae of old granulomatous disease. Heart: Heart is normal in size. ABDOMEN: Liver: No mass lesion. Gallbladder:The gallbladder is distended without calcified gallstones or wall thickening. Biliary ducts: No biliary ductal dilatation. Pancreas: Unremarkable. Spleen:The spleen is mildly enlarged, measuring up to 15.3 cm. Adrenal Glands: No adrenal nodules. Kidneys and Ureters: No hydronephrosis. There is a nephrostomy catheter within the left kidney. A sm all atrophic right kidney is redemonstrated. Stomach and Bowel: Stomach, small bowel loops, and colon are normal in caliber and wall thickness. Peritoneum:A minimal amount of intraperitoneal free fluid is demonstrated within the pelvis adjacent to the bladder and in the right paracolic gutter. An associated small focus of gas is demonstrated w ithin this region of free fluid on series 2 image 73 suggestive of a small focus of extraluminal gas. There is an adjacent small loculated fluid collection measuring up to 2.7 x 2.0 cm on series 2 image 69 and 2.3 cm in cranial caudal dimension on series 6 image 48. Ventral Wall: No hernia. Abdominal Nodes: No retroperitoneal or mesenteric adenopathy by size criteria. Vessels: Aorta and inferior vena cava are normal in size. PELVIS: Pelvic Organs: Unremarkable. Bladder: There is a Lama catheter within a nondistended urinary bladder. The bladder wall appears t hickened. Pelvic Nodes: No enlarged lymph nodes. Miscellaneous: No inguinal hernias. Bones: Visualized osseous structures demonstrate no suspicious lesions. IMPRESSION: 1. Nondistended bladder with concentric wall thickening. The findings may reflect postsurgical edema versus a cystitis. 2. Small amount of residual free fluid in the pelvis adjacent to the bladder extending to the inferio r right paracolic gutter with a small associated focus of extraluminal gas. The findings are nonspeci fic and may represent residual fluid from recent bladder rupture. However, a small residual perforati on cannot be fully excluded. Consider further evaluation with a CT cystogram. 3. Small loculated fluid collection adjacent to the free fluid may represent a small developing absce ss. 4. Nephrostomy catheter demonstrated within the left kidney. No hydronephrosis. Reviewed by: Nahid Nieto MD on 07/06/2022 8:56 PM PST Approved by: Nahid Nieto MD on 07/06/2022 8:56 PM PST Station ID: [id number]
[2022-07-06 23:21] VITALS: BP 109/68
--- NOTE | 2022-07-07 12:06 | ED Physician Documentation ---
ED Addendum - Addendum Addendum: 07/07/22 12:06 On chart review today noted that one of the 2 urine cultures had been canceled. The cultures were from different sources, 1 from the nephrostomy and one from the Lama. I spoke with Bartolo Arriaga in the lab to advise that the second culture should not have been canceled and still needs to be run.
== END 2022-07-06 23:26 | disposition short-term general hospital (02) ==
LOC: EDUNIT# → ED 16:37
DX: L02.611 Cutaneous abscess of right foot (principal); M86.171 Other acute osteomyelitis, right ankle and foot; R07.9 Chest pain, unspecified; T83.512A Infection and inflammatory reaction due to nephrostomy catheter, initial encounter; F17.200 Nicotine dependence, unspecified, uncomplicated; Z93.6 Other artificial openings of urinary tract status; Z20.822 Contact with and (suspected) exposure to COVID-19
CPT/HCPCS: 10061; 36415; 36556; 71045; 71275; 73630; 74177; 80053; 81001; 83605; 84484; 85025; 87040; 87070; 87077; 87086; 87181; 87205; 87633; 93005; 96365; 96366; 96368; 96375; 96376; 99285; J1170; J3370; Q9967; 81003

== ENCOUNTER 2023-02-11 14:45 | Outpatient (CLI) | payer MEDICAID | END 2023-02-11 14:46 | disposition short-term general hospital (02) | LOC: EMS 14:45 | DX: I21.3 ST elevation (STEMI) myocardial infarction of unspecified site (principal) | CPT/HCPCS: A0425; A0427; A0999 ==

== ENCOUNTER 2023-02-28 20:25 | Outpatient (CLI) | payer MEDICAID | END 2023-02-28 23:59 | disposition short-term general hospital (02) | LOC: EMS 20:25 | DX: R07.9 Chest pain, unspecified (principal); M79.602 Pain in left arm; R06.02 Shortness of breath | CPT/HCPCS: A0425; A0427; A0999 ==

== ENCOUNTER 2023-04-15 14:36 | Outpatient (CLI) | payer MEDICAID | END 2023-04-15 14:37 | disposition critical access hospital (66) | LOC: EMS 14:36 | DX: R07.89 Other chest pain (principal); M79.602 Pain in left arm | CPT/HCPCS: A0425; A0427; A0999 ==

== ENCOUNTER 2023-04-15 14:48 | Emergency (ER) | payer MEDICAID ==
[2023-04-15] MEDS ORDERED: SODIUM CHLORIDE 0.9% 1,000 ML IV STA ×2 (15:06→16:03)
[2023-04-15 15:19] LABS: BASOPHILS % (AUTO) 0.4 %; EOSINOPHILS # (AUTO) 0.3 10^3/uL (0.0-0.7); EOSINOPHILS % (AUTO) 3.3 %; HCT - HEMATOCRIT 42.4 % (42.0-52.0); HGB - HEMOGLOBIN 13.2 g/dL (14.0-18.0); LYMPHOCYTES # (AUTO) 1.5 10^3/uL (1.5-3.5); LYMPHOCYTES % (AUTO) 18.7 %; MEAN CORPUSCULAR HEMOGLOBIN 27.3 pg (27.0-31.0); MEAN CORPUSCULAR HGB CONC 31.1 g/dL (32.0-36.0); MEAN CORPUSCULAR VOLUME 87.8 fL (80.0-94.0); MEAN PLATELET VOLUME 9.1 fL (7.4-11.4); MONOCYTES # (AUTO) 0.7 10^3/uL (0.0-1.0); MONOCYTES % (AUTO) 8.9 %; NEUTROPHILS # (AUTO) 5.4 10^3/uL (1.5-6.6); NEUTROPHILS % (AUTO) 68.3 %; PLT - PLATELET COUNT 204 10^3/uL (130-450); RED BLOOD COUNT 4.83 10^6/uL (4.70-6.10)
[2023-04-15] MEDS ORDERED: ONDANSETRON 4 MG/2 ML VIAL IVP STA (15:22)
[2023-04-15 15:45] LABS: ALBUMIN 3.9 g/dL (3.2-5.5); ALBUMIN/GLOBULIN RATIO 2.6 (1.0-2.2); BILIRUBIN,TOTAL 0.3 mg/dL (0.2-1.0); CALCIUM 8.9 mg/dL (8.5-10.3); CREATININE 1.1 mg/dL (0.6-1.3); POTASSIUM 4.3 mmol/L (3.5-4.5); TOTAL PROTEIN 5.4 g/dL (6.4-8.9)
[2023-04-15] MEDS ORDERED: KETOROLAC 15 MG/ML VIAL IVP STA (16:03)
[2023-04-15] MEDS ORDERED: HYDROmorphone 1 MG/ML CARPUJECT IVP STA (16:03)
--- NOTE | 2023-04-15 17:33 | ED Physician Documentation ---
PD HPI CHEST PAIN - Stated complaint Stated Complaint: CP - Chief complaint Chief Complaint: Cardiac - History obtained from History obtained from: Patient - Additional information Additional information: The patient comes to the emergency department chief complaint of left shoulder pain radiating down his arm that flared up this afternoon. He states that for the most part, it felt like the "pinched nerve" in his left shoulder which has chronic problems. However, the patient also has significant coronary artery disease and was just admitted for angiogram and angioplasty at [facility]. He had three-vessel stented and once told he had minor blockages and a fourth vessel at "about 20%". The patient is a smoker and states that he is on "a lot of medicines" for his heart. He has been doing fairly well since the angioplasty a month ago, and states that mostly, this pain in his shoulder felt like the pinched nerve but he was just concerned because he also had a pain going down the inside of his arm from his armpit which he does not usually have. The patient denies nausea or shortness of breath. He states he took his nitroglycerin and aspirin at home this did not help the pain. He states he then got a very bad headache after taking the nitro. No other complaints at this time. 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 Cardiovascular: CABG, Coronary stent - Present Medications Home Medications: Ambulatory Orders Medication Instructions Recorded Confirmed Atorvastatin Calcium [Lipitor] 80 mg PO QPM 09/28/12 05/16/22 Clopidogrel [Plavix] 75 mg PO DAILY 04/08/16 05/16/22 Gabapentin 800 mg PO TID 04/08/16 05/16/22 Nitroglycerin [Nitrostat] 0.4 mg SL Q5MIN PRN #30 tablet 04/09/16 05/16/22 Lidocaine Patch 5% [Lidoderm Patch] 1 each TOP DAILY PRN 12/06/16 05/16/22 Multivitamin [Multiple Vitamins] 1 tab PO DAILY 12/06/16 05/16/22 Zolpidem [Ambien] 10 mg PO QPM PRN 12/06/16 05/16/22 carvediloL [Coreg] 25 mg PO BID #60 tablet 12/06/16 05/16/22 diphenhydrAMINE [Benadryl] 25 mg PO DAILY PRN 12/06/16 05/16/22 Albuterol Sulfate [Proair Hfa 1 - 2 puffs INH Q6H PRN 08/23/21 05/16/22 Inhaler] Duloxetine HCl [Cymbalta] 60 mg PO DAILY 08/23/21 05/16/22 Hydrocodone/Acetaminophen 2 tab PO TID PRN 08/23/21 05/18/22 [Hydrocodone-Acetamin 10-325 mg] Trazodone HCl 150 mg PO QPM 08/23/21 05/16/22 allopurinoL [Allopurinol] 300 mg PO QPM 08/23/21 05/16/22 metFORMIN [Glucophage] 1,000 mg PO BID 08/23/21 05/16/22 ondansetron HCL [Ondansetron HCl] 8 mg PO Q8H PRN 08/23/21 05/16/22 oxyCODONE [Roxicodone] 5 mg PO BID PRN 08/23/21 05/16/22 traMADol [Ultram] 50 mg PO QPM PRN 08/23/21 05/16/22 Cyclobenzaprine [Flexeril] 1 tab PO DAILY PRN 05/17/22 05/17/22 - Allergies Allergies/Adverse Reactions: Allergies Allergy/AdvReac Type Severity Reaction Status Date / Time codeine Allergy Unknown Verified 04/15/23 14:59 methadone Allergy Unknown Verified 04/15/23 14:59 cephalexin monohydrate * AdvReac Unknown Nausea Verified 04/15/23 14:59 [From Keflex] - Social History Does the pt smoke?: Yes Smoking Status: Current every day smoker Does the pt drink ETOH?: Yes Does the pt have substance abuse?: No - Immunizations Immunizations are current?: Yes - POLST Patient has POLST: No POLST Status: Full Code PD ED PE NORMAL - Vitals Vital signs reviewed: Yes - General General: Alert and oriented X 3, No acute distress, Well developed/nourished, Other (The patient is sitting in the stretcher with a towel over his eyes, but otherwise is fairly well-appearing.) - HEENT HEENT: Atraumatic, PERRL, Moist mucous membranes - Neck Neck: Supple, no meningeal sign - Cardiac Cardiac: RRR, No murmur, Strong equal pulses - Respiratory Respiratory: No respiratory distress, Clear bilaterally - Abdomen Abdomen: Soft, Non tender, Non distended - Derm Derm: Normal color, Warm and dry, No rash - Extremities Extremities: No deformity, No edema, No calf tenderness / cord - Neuro Neuro: Alert and oriented X 3, 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, Normal speech - Psych Psych: Normal mood, Normal affect Results - Vitals Vitals: Vital Signs - 24 hr 04/15/23 04/15/23 04/15/23 14:55 14:59 15:29 Temperature 36 C L 36.5 C Heart Rate 55 L 55 L 56 L Respiratory 18 18 16 Rate Blood Pressure 111/69 111/69 113/75 O2 Saturation 96 96 97 04/15/23 04/15/23 04/15/23 15:30 16:00 16:30 Temperature 36.8 C Heart Rate 58 L 60 56 L Respiratory 16 16 12 Rate Blood Pressure 114/76 110/60 98/60 O2 Saturation 98 100 100 04/15/23 17:00 Temperature Heart Rate 54 L Respiratory 16 Rate Blood Pressure 124/88 H O2 Saturation 99 Oxygen O2 Source Room air - EKG (time done) 1450 EKG releavant findings:: EKG personally interpreted by author of this note. Relevant findings are: Rate: Rate (enter#) (57) Rhythm: NSR [place]: Normal Intervals: Normal IN QRS: Normal Ischemia: Normal ST segments, Non specific changes Compare to prior EKG: Old EKG unavailable Computer interpretation: Agree with computer - Labs Labs: Laboratory Tests 04/15/23 04/15/23 04/15/23 15:13 15:13 15:13 WBC 8.0 RBC 4.83 Hgb 13.2 L Hct 42.4 MCV 87.8 MCH 27.3 MCHC 31.1 L RDW 15.0 Plt Count 204 MPV 9.1 Neut # (Auto) 5.4 Lymph # (Auto) 1.5 [place] # (Auto) 0.7 Eos # (Auto) 0.3 Baso # (Auto) 0.0 Absolute Nucleated RBC 0.00 Nucleated RBC % 0.0 Sodium 138 Potassium 4.3 Chloride 106 Carbon Dioxide 25 Anion Gap 7.0 BUN 11 Creatinine 1.1 Estimated GFR (MDRD) 69 L Glucose 87 Calcium 8.9 Total Bilirubin 0.3 AST 12 ALT 12 Alkaline Phosphatase 112 Troponin I High Sens 8.5 Total Protein 5.4 L Albumin 3.9 Globulin 1.5 L Albumin/Globulin Ratio 2.6 H Lipase 18 04/15/23 16:54 WBC RBC Hgb Hct MCV MCH MCHC RDW Plt Count MPV Neut # (Auto) Lymph # (Auto) [place] # (Auto) Eos # (Auto) Baso # (Auto) Absolute Nucleated RBC Nucleated RBC % Sodium Potassium Chloride Carbon Dioxide Anion Gap BUN Creatinine Estimated GFR (MDRD) Glucose Calcium Total Bilirubin AST ALT Alkaline Phosphatase Troponin I High Sens 8.3 Total Protein Albumin Globulin Albumin/Globulin Ratio Lipase PD Medical Decision Making - ED course Complexity details: reviewed old records, reviewed results, re-evaluated patient, considered differential, d/w patient ED course: The patient was treated symptomatically for his headache, and reported actually feeling quite a bit better after this. His EKG did not show any evidence of an ST elevation VT or any other concerning findings. He had 2 sets of troponins which were both normal and stable. 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 The patient just had stenting a month ago and the fourth vessel was minimally clogged, and I feel the likelihood of cardiac chest pain at this very time is fairly low. However, the patient does have a significant risk factors and should be followed very closely for his symptoms. We have discussed the usual indications for return. Departure - Departure Disposition: 01 Home, Self Care Clinical Impression: Nitroglycerin-induced headache Chest pain Qualifiers: Chest pain type: unspecified Qualified Code(s): R07.9 - Chest pain, unspecified Condition: Stable Instructions: ED Chest Pain Atypical Unkn Cause, ED Headache Migraine Comments: Your EKG and labs look good. Both of your cardiac enzymes sets were normal. We cannot say for sure that you do not have another blockage forming in your coronary arteries but at this time, there is no evidence of a heart attack. Please follow-up with your orthopedist for your shoulder and your printed circuit board preassembler about your heart. If you develop severe chest pain or shortness of breath, please return to the emergency department. Forms: PCP List
[2023-04-15 17:34] VITALS: O2SAT 99
[2023-04-15 17:43] VITALS: BP 127/85
== END 2023-04-15 17:41 | disposition home or self-care (01) ==
LOC: EDUNIT# → ED 14:48
DX: R51.9 Headache, unspecified (principal); R07.9 Chest pain, unspecified; T46.3X5A Adverse effect of coronary vasodilators, initial encounter; I10 Essential (primary) hypertension; E11.9 Type 2 diabetes mellitus without complications; Z79.84 Long term (current) use of oral hypoglycemic drugs; Z86.718 Personal history of other venous thrombosis and embolism; Z79.01 Long term (current) use of anticoagulants; F17.200 Nicotine dependence, unspecified, uncomplicated
CPT/HCPCS: 36415; 80053; 83690; 84484; 85025; 93005; 96374; 96375; 99284; 99285; J1170

== ENCOUNTER 2023-06-26 14:45 | Outpatient (CLI) | payer MEDICAID ==
--- NOTE | 2023-06-26 17:53 | XRAY Report ---
PROCEDURE: Shoulder 3 View LT INDICATIONS: LEFT SHOULDER PAIN TECHNIQUE: 3 views of the shoulder were acquired. COMPARISON: None. FINDINGS: Bones: No fractures or dislocations. 2 cm inferior depression of the acromion in relation to distal clavicle is seen with widened acromioclavicular joint space. No suspicious bony lesions. Visualized ribs appear intact. Soft tissues: No suspicious soft tissue calcifications. The visualized lungs are within normal limi ts. IMPRESSION: No acute left shoulder fracture or dislocation. Suggestion of high-grade left AC separation. Reviewed by: Amos Sheehan MD on 06/26/2023 5:52 PM PST Approved by: Amos Sheehan MD on 06/26/2023 5:52 PM PST Station ID: [id number]
== END 2023-06-26 23:59 | disposition home or self-care (01) ==
LOC: DI.WOS 14:45
PROVIDERS: ATTEND Physician Assistant Surgical
DX: M25.512 Pain in left shoulder (principal)

== ENCOUNTER 2023-07-23 13:13 | Outpatient (CLI) | payer MEDICAID ==
--- NOTE | 2023-07-23 15:43 | MRI Report ---
PROCEDURE: Shoulder LT WO INDICATIONS: ROTATOR CUFF TEAR TECHNIQUE: Noncontrast oblique coronal T2 fast spin echo with fat saturation, oblique sagittal T1 spin echo and T2 fast spin echo with fat saturation, axial T1 spin echo and T2 fast spin echo with fat saturation t hrough the shoulder. COMPARISON: 06/26/2023 FINDINGS: Image quality: Diagnostic Rotator cuff Bulk: Mild fatty infiltration of the supraspinatus, teres minor, and infraspinatus Teres minor: Intact Supraspinatus: Moderate tendinopathy. There are partial-thickness articular and interstitial tears, p articularly near the footplate. Infraspinatus: Mild to moderate tendinopathy. Partial-thickness articular sided tears. Subscapularis: Mild to moderate tendinopathy. Small interstitial tear seen distally Bones and bursae GH joint: There are mild degenerative changes. AC joint: There is separation of the acromioclavicular interval. There is mild edema in the interveni ng soft tissues. Humeral head: Unremarkable. No acute fracture Scapula and acromion: No acute fracture Bursa: No pathologic fluid Capsule Labrum: There is a semicircumferential labral tear involving the superior labrum, superior posterior labrum, and superior anterior labrum. There is mild diffuse attenuation of the labrum likely degenera tive. Long head biceps tendon: Intra-articular tendinosis. Superior labral tear extends to the biceps ancho r IGHL: Intact Rotator interval: Fat signal is preserved Soft tissues: No axillary adenopathy. Lungs are not well seen. IMPRESSION: There is separation of the acromioclavicular deformity, with mild intervening soft tissue edema, like ly related to a subacute to chronic acromioclavicular injury (differential includes postsurgical rese ction). No full-thickness rotator cuff defect. Mild to moderate areas of tendinopathy and partial-thickness t ears as described above. Mild fatty infiltration. Mild glenohumeral degenerative changes. Semicircumferential labral tear centered in the superior labrum, extending to the biceps anchor. Mild diffuse attenuation, likely related to degeneration. Reviewed by: Connor Naylor MD on 07/23/2023 3:42 PM PDT Approved by: Connor Naylor MD on 07/23/2023 3:42 PM PDT Station ID: [id number]
== END 2023-07-23 13:14 | disposition home or self-care (01) ==
LOC: DI 13:13
PROVIDERS: ATTEND Physician Assistant Surgical
DX: M75.112 Incomplete rotator cuff tear or rupture of left shoulder, not specified as traumatic (principal); S43.102A Unspecified dislocation of left acromioclavicular joint, initial encounter; S43.432A Superior glenoid labrum lesion of left shoulder, initial encounter

== ENCOUNTER 2023-08-05 08:44 | Emergency (ER) | payer MEDICARE, MEDICAID ==
[2023-08-05 08:55] VITALS: O2SAT 100
--- NOTE | 2023-08-05 09:06 | ED Physician Documentation ---
History of Present Illness - Stated complaint Stated Complaint: RT ANKLE PX - Chief complaint Chief Complaint: Ext Problem - History obtained from History obtained from: Patient - Additonal information Additional information: The patient comes to the emergency department chief complaint of right ankle pain since yesterday. He also states he has had some swelling which is actually little better today. He denies any distinct injury but states he is a recent amputee on the other side and has been adjusting to having a left lower extremity prosthesis. He has also been in the midst of a housing move and is has been on his feet more than usual. He states the swelling is a little better this morning after laying down all night. He is just concerned because he has an existing unhealed fracture of his right foot For which he is supposed to have surgery, and is concerned that he may have developed a stress fracture of his ankle as well. No other complaints at this time. No calf pain or swelling. He does have chronic peripheral neuropathy. He states he took 2 Vicodin prior to coming here and that they have a relates to dental what a good yet. However, he states he is not here for pain medicine but mainly wants to get his ankle checked out. No other complaints at this time. 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 Cardiovascular: CABG, Coronary stent - Present Medications Home Medications: Ambulatory Orders Medication Instructions Recorded Confirmed Atorvastatin Calcium [Lipitor] 80 mg PO QPM 09/28/12 08/05/23 Clopidogrel [Plavix] 75 mg PO DAILY 04/08/16 08/05/23 Gabapentin 800 mg PO TID 04/08/16 08/05/23 Nitroglycerin [Nitrostat] 0.4 mg SL Q5MIN PRN #30 tablet 04/09/16 08/05/23 Lidocaine Patch 5% [Lidoderm Patch] 1 each TOP DAILY PRN 12/06/16 08/05/23 Multivitamin [Multiple Vitamins] 1 tab PO DAILY 12/06/16 08/05/23 Zolpidem [Ambien] 10 mg PO QPM PRN 12/06/16 08/05/23 diphenhydrAMINE [Benadryl] 25 mg PO DAILY PRN 12/06/16 08/05/23 Albuterol Sulfate [Proair Hfa 1 - 2 puffs INH Q6H PRN 08/23/21 08/05/23 Inhaler] Duloxetine HCl [Cymbalta] 60 mg PO DAILY 08/23/21 08/05/23 Hydrocodone/Acetaminophen 2 tab PO TID PRN 08/23/21 08/05/23 [Hydrocodone-Acetamin 10-325 mg] Trazodone HCl 150 mg PO QPM 08/23/21 08/05/23 allopurinoL [Allopurinol] 300 mg PO QPM 08/23/21 08/05/23 metFORMIN [Glucophage] 1,000 mg PO BID 08/23/21 08/05/23 ondansetron HCL [Ondansetron HCl] 8 mg PO Q8H PRN 08/23/21 08/05/23 oxyCODONE [Roxicodone] 5 mg PO DAILY PRN 08/23/21 08/05/23 traMADol [Ultram] 50 mg PO QPM PRN 08/23/21 08/05/23 Cyclobenzaprine [Flexeril] 1 tab PO DAILY PRN 05/17/22 08/05/23 Fluticasone Propionate 1 - 2 spray IN BID 08/05/23 08/05/23 - Allergies Allergies/Adverse Reactions: Allergies Allergy/AdvReac Type Severity Reaction Status Date / Time codeine Allergy Unknown Verified 08/05/23 08:53 methadone Allergy Unknown Verified 08/05/23 08:53 cephalexin monohydrate * AdvReac Unknown Nausea Verified 08/05/23 08:53 [From Keflex] - Social History Does the pt smoke?: Yes Smoking Status: Current every day smoker Does the pt drink ETOH?: Yes Does the pt have substance abuse?: No - Immunizations Immunizations are current?: Yes - POLST Patient has POLST: No POLST Status: Full Code PD ED PE NORMAL - Vitals Vital signs reviewed: Yes - General General: Alert and oriented X 3, No acute distress, Well developed/nourished - HEENT HEENT: Atraumatic, EOMI, Moist mucous membranes - Neck Neck: Supple, no meningeal sign - Cardiac Cardiac: Other (Dorsalis pedis and posterior tibial pulses are intact in R lower extremity.) - Respiratory Respiratory: No respiratory distress - Derm Derm: Normal color, Warm and dry, No rash - Extremities Extremities: No deformity, Other (1+ pitting edema from mid lower leg and distally. Mild pain with range of motion passively of the ankle.) - Neuro Neuro: Alert and oriented X 3, Other (Decreased sensation over right foot and ankle, and ascending to mid lower leg.) - Psych Psych: Normal mood, Normal affect Results - Vitals Vitals: Vital Signs - 24 hr 08/05/23 08/05/23 08:49 10:06 Temperature 36.4 C L 36.3 C L Heart Rate 73 72 Respiratory 20 16 Rate Blood Pressure 112/63 121/64 O2 Saturation 100 100 Oxygen O2 Source Room air - Rads (name of study) R ankle XR Relevant Findings:: Final report received, See rad report (Fracture fragments at tibiotalar joint. Lucency along bony fixation of the talus and metatarsal suggestive hardware loosening.) PD Medical Decision Making - ED course Complexity details: reviewed results, re-evaluated patient, considered differential, d/w patient ED course: I discussed with the patient that we can get an x-ray though I suspect it will not show acute findings. He has been given a dose of Decadron here. The x-ray series showed fracture fragments. Although there was question whether these were acute, the patient had reported no new injury preceding his symptoms for the past day and he also was already aware that he had an unhealed fracture in his foot. He is established with orthopedics and planning to follow to discuss surgery and at this point, no new intervention is indicated. Once he is able to relax more after his move, he should try to unburden his foot as much as possible and prop it up whenever he is able to help drain the swelling. We have discussed anti-inflammatories and the patient has been given the usual indications for follow-up and return. Departure - Departure Disposition: 01 Home, Self Care Clinical Impression: Swelling of lower extremity Condition: Stable Instructions: ED Leg Swelling Unilateral Comments: Your ankle x-ray does not show anything acute but you do have the reportedly nonhealed fracture in your foot with the screw in place. X-ray the patient most likely, with your chronic fracture, being on your feet a lot and especially, having to burden your right foot more with the recent amputation, this has put extra strain on your injured side and has just caused the swelling and pain. The best treatment for this is to try to reduce the use of your right foot and ankle as much as possible for the next week or 2 to try to allow things to calm down a bit. If you are not able to do this immediately, then when she remove is done, try to reduce the use of your right foot/leg until the swelling and inflammation is calm down. Prop it up whenever possible. You should follow-up with your clin application specialist about your foot as planned. You may continue to take your pain medications at home and if you are able to take ibuprofen as well, this can be helpful for some of the inflammation too. Ice packs for 20 to 30 minutes at a time, several times a day, can also help with some of the swelling and discomfort. There is no evidence of a blood clot at this time. However, if you begin to notice pain and swelling in the calf muscle itself, then you should get reevaluated. Forms: PCP List Discharge Date/Time: 08/05/23 10:06
[2023-08-05] MEDS: DEXAMETHASONE 10 MG/ML VIAL IM STA (09:17)
--- NOTE | 2023-08-05 10:01 | XRAY Report ---
PROCEDURE: Ankle 3+V RT INDICATIONS: R ankle pain TECHNIQUE: 3 views of the ankle were acquired. COMPARISON: None. FINDINGS: Bones: Pes planus. Screw fixation of the talus 10 probable first ray not well delineated on current study. There is questionable perihilar lucency within the talus. Numerous calcified osseous fragments along the dorsal aspect of the talonavicular joint Soft tissues: Moderate tibiotalar joint effusion. Achilles tendon appears normal. IMPRESSION: Probably acute fracture fragments at the tibiotalar joint with anatomy not well delineated by radiogr aph. Lucency along the bony fixation of the talus and metatarsals suggestive of hardware loosening. Infect ion can have a similar appearance recommend clinical correlation. Reviewed by: Julius Yeboah MD on 08/05/2023 9:00 AM BLU Approved by: Julius Yeboah MD on 08/05/2023 9:00 AM BLU Station ID: [id number]
[2023-08-05 10:19] VITALS: BP 121/64
== END 2023-08-05 10:06 | disposition home or self-care (01) ==
LOC: ED 08:44
DX: M25.571 Pain in right ankle and joints of right foot (principal); R22.40 Localized swelling, mass and lump, unspecified lower limb; Z89.442 Acquired absence of left ankle; E11.9 Type 2 diabetes mellitus without complications; Z79.84 Long term (current) use of oral hypoglycemic drugs; F17.200 Nicotine dependence, unspecified, uncomplicated
CPT/HCPCS: 96372; 99283

== ENCOUNTER 2023-09-11 17:25 | Outpatient (CLI) | payer MEDICARE, MEDICAID | END 2023-09-11 22:36 | disposition critical access hospital (66) | LOC: EMS 17:25 | DX: R53.81 Other malaise (principal); R61 Generalized hyperhidrosis; R11.0 Nausea; R00.2 Palpitations; R45.89 Other symptoms and signs involving emotional state | CPT/HCPCS: A0425; A0429 ==

== ENCOUNTER 2023-09-11 17:43 | Emergency (ER) | payer MEDICARE, MEDICAID ==
--- NOTE | 2023-09-11 17:54 | ED Physician Documentation ---
History of Present Illness - Stated complaint Stated Complaint: NAUSEA/SOA - Chief complaint Chief Complaint: General - History obtained from History obtained from: Patient - Additonal information Additional information: He has a history of coronary disease, hypercholesterolemia, DVT, [place], hypertension, type 2 diabetes, BKA of the left leg. He is brought in by ambulance for starting today feeling short of breath and nausea and he is clearly having a panic attack. He states he did take less than usual of his pain medication today but then goes on to say that he does not feel like he was withdrawing from his pain meds. He states that he feels like he is tingling in his left stump and right leg. 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: Other Cardiovascular: CABG, Coronary stent - Present Medications Home Medications: Ambulatory Orders Medication Instructions Recorded Confirmed Atorvastatin Calcium [Lipitor] 80 mg PO QPM 09/28/12 08/05/23 Clopidogrel [Plavix] 75 mg PO DAILY 04/08/16 08/05/23 Gabapentin 800 mg PO TID 04/08/16 08/05/23 Nitroglycerin [Nitrostat] 0.4 mg SL Q5MIN PRN #30 tablet 04/09/16 08/05/23 Lidocaine Patch 5% [Lidoderm Patch] 1 each TOP DAILY PRN 12/06/16 08/05/23 Multivitamin [Multiple Vitamins] 1 tab PO DAILY 12/06/16 08/05/23 Zolpidem [Ambien] 10 mg PO QPM PRN 12/06/16 08/05/23 diphenhydrAMINE [Benadryl] 25 mg PO DAILY PRN 12/06/16 08/05/23 Albuterol Sulfate [Proair Hfa 1 - 2 puffs INH Q6H PRN 08/23/21 08/05/23 Inhaler] Duloxetine HCl [Cymbalta] 60 mg PO DAILY 08/23/21 08/05/23 Hydrocodone/Acetaminophen 2 tab PO TID PRN 08/23/21 08/05/23 [Hydrocodone-Acetamin 10-325 mg] Trazodone HCl 150 mg PO QPM 08/23/21 08/05/23 allopurinoL [Allopurinol] 300 mg PO QPM 08/23/21 08/05/23 metFORMIN [Glucophage] 1,000 mg PO BID 08/23/21 08/05/23 ondansetron HCL [Ondansetron HCl] 8 mg PO Q8H PRN 08/23/21 08/05/23 oxyCODONE [Roxicodone] 5 mg PO DAILY PRN 08/23/21 08/05/23 traMADol [Ultram] 50 mg PO QPM PRN 08/23/21 08/05/23 Cyclobenzaprine [Flexeril] 1 tab PO DAILY PRN 05/17/22 08/05/23 Fluticasone Propionate 1 - 2 spray IN BID 08/05/23 08/05/23 LORazepam [Ativan] 1 mg PO TID PRN #12 tablet 09/11/23 - Allergies Allergies/Adverse Reactions: Allergies Allergy/AdvReac Type Severity Reaction Status Date / Time codeine Allergy Unknown Verified 09/11/23 17:52 methadone Allergy Unknown Verified 09/11/23 17:52 cephalexin monohydrate * AdvReac Unknown Nausea Verified 09/11/23 17:52 [From Keflex] - Social History Does the pt smoke?: Yes Smoking Status: Current every day smoker Does the pt drink ETOH?: Yes Does the pt have substance abuse?: No - Immunizations Immunizations are current?: Yes - POLST Patient has POLST: No POLST Status: Full Code PD ED PE NORMAL - Vitals Vital signs reviewed: Yes - General General: Alert and oriented X 3, Other (He is anxious and hyperventilating) - HEENT HEENT: PERRL (But with dilated pupils) - Neck Neck: Supple, no meningeal sign, No bony TTP - Cardiac Cardiac: RRR, No murmur - Respiratory Respiratory: No respiratory distress, Clear bilaterally - Abdomen Abdomen: Non tender - Back Back: No CVA TTP - Derm Derm: Normal color, Warm and dry - Extremities Extremities: No edema, Other (BKA on the left) - Neuro Neuro: Alert and oriented X 3, Normal speech Results - Vitals Vitals: Vital Signs - 24 hr 09/11/23 17:48 Temperature 35.9 C L Heart Rate 85 Respiratory 18 Rate Blood Pressure 152/104 H O2 Saturation 99 Oxygen O2 Source Room air - EKG (time done) 1807 EKG releavant findings:: EKG personally interpreted by author of this note. Relevant findings are: Rate: Rate (enter#) (59) Rhythm: NSR [place]: Normal Intervals: Normal [place] QRS: Normal Ischemia: Q waves. No: ST elevation c/w ischemia, ST depression Computer interpretation: Agree with computer - Labs Labs: Laboratory Tests 09/11/23 09/11/23 09/11/23 17:55 17:55 17:55 WBC 7.3 RBC 4.32 L Hgb 11.8 L Hct 38.3 L MCV 88.7 MCH 27.3 MCHC 30.8 L RDW 14.5 Plt Count 293 MPV 9.1 Neut # (Auto) 5.4 Lymph # (Auto) 1.1 L [place] # (Auto) 0.7 Eos # (Auto) 0.1 Baso # (Auto) 0.0 Absolute Nucleated RBC 0.00 Nucleated RBC % 0.0 VBG pH VBG pCO2 VBG pO2 VBG HCO3 VBG Total CO2 VBG O2 Saturation VBG Base Excess Sodium 136 Potassium 3.9 Chloride 102 Carbon Dioxide 23 Anion Gap 11.0 BUN 16 Creatinine 1.0 Estimated GFR (MDRD) 77 L Glucose 158 H Calcium 9.8 Magnesium 1.8 Total Bilirubin 0.5 AST 15 ALT 11 Alkaline Phosphatase 151 H Troponin I High Sens 33.6 H* Total Protein 6.8 Albumin 4.3 Globulin 2.5 Albumin/Globulin Ratio 1.7 09/11/23 09/11/23 17:55 19:56 WBC RBC Hgb Hct MCV MCH MCHC RDW Plt Count MPV Neut # (Auto) Lymph # (Auto) [place] # (Auto) Eos # (Auto) Baso # (Auto) Absolute Nucleated RBC Nucleated RBC % VBG pH 7.462 H VBG pCO2 28.4 L VBG pO2 25.6 VBG HCO3 19.8 L VBG Total CO2 20.7 L VBG O2 Saturation 55.2 L VBG Base Excess -2.7 L Sodium Potassium Chloride Carbon Dioxide Anion Gap BUN Creatinine Estimated GFR (MDRD) Glucose Calcium Magnesium Total Bilirubin AST ALT Alkaline Phosphatase Troponin I High Sens 37.7 H* Total Protein Albumin Globulin Albumin/Globulin Ratio PD Medical Decision Making - ED course ED course: 58-year-old gentleman with history of coronary disease presents with what appears to be a panic attack and shortness of breath. He did not really have any chest pain with it. His EKG was nonischemic. He was administered Ativan with complete relief of his symptoms. Workup in the emergency department demonstrates a CBC with mild chronic anemia, venous blood gas showing hyperventilation consistent with primary diagnosis of panic attack, and unremarkable CMP. He does have mild elevation of his troponin. He has no chest pain now, so would be reasonable to recheck it after 2 hours (approximately 8 PM). On recheck it was basically flat. He started have a little more anxiety again and was remedicated with Ativan. We had a long talk about what was going on. He does not really have any chest pain and so despite the mild elevation in troponin, given that it is relatively flat I am really not concerned for ACS. He did undertake his pain medications today. He is on chronic narcotics and only took about 1/6 of his usual dose of so and what happened today may be due to narcotic withdrawal. I also note that his a few months ago. When queried if he was depressed he said yes and he says he really is supposed to be on antidepressants but does not take them in the long-term. I note to him that in the long-term antidepressants are the preferred therapy for anxiety, but he does request a short course of benzodiazepines for the next few days which is not unreasonable. Departure - Departure Disposition: 01 Home, Self Care Clinical Impression: Anxiety Condition: Good Instructions: ED Panic Attack Prescriptions: LORazepam [Ativan] 1 mg PO TID PRN #12 tablet PRN Reason: Anxiety Comments: If you develop significant chest pain please return for reevaluation especially given your history. That said while he had mild elevation of your troponin tonight heart marker, it was flat over a few hours suggesting that it is not an acute issue. Recommend you do not take big swings in your pain medication, and you should restart your antidepressants. I sent your prescription electronically to [facility] in [place]. Call your doctor to arrange a follow- up appointment, make the next available appointment. In the interim, return anytime if worse or if new symptoms develop. Forms: PCP List
[2023-09-11 18:00] LABS: VBG HCO3 19.8 mmol/L (23-28); VBG PCO2 28.4 mmHg (41-51); VBG PH 7.462 (7.31-7.41); VBG PO2 25.6 mmHg (25-47); VBG TOTAL CO2 20.7 mmol/L (24-29)
[2023-09-11 18:01] LABS: VBG BASE EXCESS -2.7 mmol/L (-2 - +2); VBG OXYGEN SATURATION 55.2 % (60-80)
[2023-09-11] MEDS: LORazepam 2 MG/ML VIAL IVP STA ×2 (18:02→20:22)
[2023-09-11 18:03] LABS: BASOPHILS % (AUTO) 0.3 %; EOSINOPHILS # (AUTO) 0.1 10^3/uL (0.0-0.7); EOSINOPHILS % (AUTO) 1.1 %; HCT - HEMATOCRIT 38.3 % (42.0-52.0); HGB - HEMOGLOBIN 11.8 g/dL (14.0-18.0); LYMPHOCYTES # (AUTO) 1.1 10^3/uL (1.5-3.5); LYMPHOCYTES % (AUTO) 14.6 %; MEAN CORPUSCULAR HEMOGLOBIN 27.3 pg (27.0-31.0); MEAN CORPUSCULAR HGB CONC 30.8 g/dL (32.0-36.0); MEAN CORPUSCULAR VOLUME 88.7 fL (80.0-94.0); MEAN PLATELET VOLUME 9.1 fL (7.4-11.4); MONOCYTES # (AUTO) 0.7 10^3/uL (0.0-1.0); MONOCYTES % (AUTO) 9.1 %; NEUTROPHILS # (AUTO) 5.4 10^3/uL (1.5-6.6); NEUTROPHILS % (AUTO) 74.5 %; PLT - PLATELET COUNT 293 10^3/uL (130-450); RED BLOOD COUNT 4.32 10^6/uL (4.70-6.10); RED CELL DISTRIBUTION WIDTH 14.5 % (12.0-15.0); WHITE BLOOD COUNT 7.3 x10^3/uL (4.8-10.8)
[2023-09-11 18:11] LABS: MAGNESIUM 1.8 mg/dL (1.7-2.3)
[2023-09-11 18:17] LABS: ALBUMIN 4.3 g/dL (3.2-5.5); ALBUMIN/GLOBULIN RATIO 1.7 (1.0-2.2); BILIRUBIN,TOTAL 0.5 mg/dL (0.2-1.0); CALCIUM 9.8 mg/dL (8.5-10.3); POTASSIUM 3.9 mmol/L (3.5-4.5); TOTAL PROTEIN 6.8 g/dL (6.4-8.9)
--- NOTE | 2023-09-11 19:15 | XRAY Report ---
PROCEDURE: Chest 1V INDICATIONS: dyspnea TECHNIQUE: One view of the chest was acquired. COMPARISON: 07/06/2022 FINDINGS: Surgical changes and devices: Sternotomy changes are noted. Lungs and pleura: No pleural effusions or pneumothorax. Mild interstitial prominence can be seen, pr imarily inferiorly. Lungs are otherwise clear. Mediastinum: Mediastinal contours appear normal. Heart size is normal. Bones and chest wall: No suspicious bony lesions. Overlying soft tissues appear unremarkable. IMPRESSION: Mild generalized interstitial prominence can be seen. Please consider artifact versus mild pulmonary edema. Reviewed by: Cooper Castle MD on 09/11/2023 6:14 PM AKDT Approved by: Cooper Castle MD on 09/11/2023 6:14 PM AKDT Station ID: [id number]
[2023-09-11 21:10] VITALS: BP 145/78; O2SAT 96
== END 2023-09-11 21:03 | disposition home or self-care (01) ==
LOC: EDUNIT# → ED 17:43
DX: F41.9 Anxiety disorder, unspecified (principal); I25.10 Atherosclerotic heart disease of native coronary artery without angina pectoris; F17.210 Nicotine dependence, cigarettes, uncomplicated; Z79.02 Long term (current) use of antithrombotics/antiplatelets; E11.9 Type 2 diabetes mellitus without complications; I10 Essential (primary) hypertension; E78.00 Pure hypercholesterolemia, unspecified; I25.2 Old myocardial infarction; F32.A Depression, unspecified; J45.909 Unspecified asthma, uncomplicated; Z95.1 Presence of aortocoronary bypass graft; Z79.84 Long term (current) use of oral hypoglycemic drugs
CPT/HCPCS: 36415; 71045; 80053; 82803; 83735; 84484; 85025; 93005; 96374; 96376; 99284; J2060

== ENCOUNTER 2023-10-11 12:30 | Emergency (ER) | payer MEDICAID, MEDICARE ==
[2023-10-11] MEDS: LORazepam 1 MG TABLET PO STA (12:51)
[2023-10-11 12:57] LABS: BASOPHILS % (AUTO) 0.3 %; EOSINOPHILS # (AUTO) 0.3 10^3/uL (0.0-0.7); EOSINOPHILS % (AUTO) 3.9 %; HCT - HEMATOCRIT 40.6 % (42.0-52.0); HGB - HEMOGLOBIN 12.4 g/dL (14.0-18.0); LYMPHOCYTES # (AUTO) 1.2 10^3/uL (1.5-3.5); MEAN CORPUSCULAR HEMOGLOBIN 25.7 pg (27.0-31.0); MEAN CORPUSCULAR HGB CONC 30.5 g/dL (32.0-36.0); MEAN CORPUSCULAR VOLUME 84.2 fL (80.0-94.0); MEAN PLATELET VOLUME 9.4 fL (7.4-11.4); MONOCYTES # (AUTO) 0.7 10^3/uL (0.0-1.0); MONOCYTES % (AUTO) 9.2 %; NEUTROPHILS # (AUTO) 5.1 10^3/uL (1.5-6.6); NEUTROPHILS % (AUTO) 70.5 %; PLT - PLATELET COUNT 257 10^3/uL (130-450); RED BLOOD COUNT 4.82 10^6/uL (4.70-6.10); RED CELL DISTRIBUTION WIDTH 14.5 % (12.0-15.0); WHITE BLOOD COUNT 7.2 x10^3/uL (4.8-10.8)
[2023-10-11 13:17] LABS: TROPONIN I HIGH SENSITIVITY 4.5 ng/L (2.3-19.7)
[2023-10-11 13:20] LABS: ALBUMIN 4.3 g/dL (3.2-5.5); BILIRUBIN,TOTAL 0.3 mg/dL (0.2-1.0); CALCIUM 9.4 mg/dL (8.5-10.3); CREATININE 1.1 mg/dL (0.6-1.3); POTASSIUM 4.6 mmol/L (3.5-4.5); TOTAL PROTEIN 6.4 g/dL (6.4-8.9)
--- NOTE | 2023-10-11 13:20 | ED Physician Documentation ---
PD HPI CHEST PAIN - Stated complaint Stated Complaint: CHEST PX,SOA - Chief complaint Chief Complaint: Cardiac - History obtained from History obtained from: Patient - Additional information Additional information: The patient comes to the emergency department chief complaint of difficulty taking a deep breath and feeling like he is having an anxiety attack. He states he had just gone to Dr. Noland's office for a routine checkup but when they heard that he felt like he could not get a deep breath and that he had some chest tightness, they sent him to the ER. The patient states that he does have a history that is very significant for coronary artery disease. He states he has had 7 stents placed and a double bypass. The bypass Was 4 to 5 years ago and his last stent placement was back in March 2023. He states things have been going well as far as he can tell, though he has not followed up with cardiology since because his got sick and and now he is in the middle of a move to [facility]. The patient states he has been under a lot of stress and that he has been having anxiety attacks for the last 2 months. He states this feels completely different than his heart symptoms. 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: Other Cardiovascular: CABG, Coronary stent - Present Medications Home Medications: Ambulatory Orders Medication Instructions Recorded Confirmed Atorvastatin Calcium [Lipitor] 80 mg PO QPM 09/28/12 08/05/23 Clopidogrel [Plavix] 75 mg PO DAILY 04/08/16 08/05/23 Gabapentin 800 mg PO TID 04/08/16 08/05/23 Nitroglycerin [Nitrostat] 0.4 mg SL Q5MIN PRN #30 tablet 04/09/16 08/05/23 Lidocaine Patch 5% [Lidoderm Patch] 1 each TOP DAILY PRN 12/06/16 08/05/23 Multivitamin [Multiple Vitamins] 1 tab PO DAILY 12/06/16 08/05/23 Zolpidem [Ambien] 10 mg PO QPM PRN 12/06/16 08/05/23 diphenhydrAMINE [Benadryl] 25 mg PO DAILY PRN 12/06/16 08/05/23 Albuterol Sulfate [Proair Hfa 1 - 2 puffs INH Q6H PRN 08/23/21 08/05/23 Inhaler] Duloxetine HCl [Cymbalta] 60 mg PO DAILY 08/23/21 08/05/23 Hydrocodone/Acetaminophen 2 tab PO TID PRN 08/23/21 08/05/23 [Hydrocodone-Acetamin 10-325 mg] Trazodone HCl 150 mg PO QPM 08/23/21 08/05/23 allopurinoL [Allopurinol] 300 mg PO QPM 08/23/21 08/05/23 metFORMIN [Glucophage] 1,000 mg PO BID 08/23/21 08/05/23 ondansetron HCL [Ondansetron HCl] 8 mg PO Q8H PRN 08/23/21 08/05/23 oxyCODONE [Roxicodone] 5 mg PO DAILY PRN 08/23/21 08/05/23 traMADol [Ultram] 50 mg PO QPM PRN 08/23/21 08/05/23 Cyclobenzaprine [Flexeril] 1 tab PO DAILY PRN 05/17/22 08/05/23 Fluticasone Propionate 1 - 2 spray IN BID 08/05/23 08/05/23 LORazepam [Ativan] 1 mg PO TID PRN #12 tablet 09/11/23 Lorazepam [Ativan] 2 mg PO Q6H PRN #20 tablet 10/11/23 - Allergies Allergies/Adverse Reactions: Allergies Allergy/AdvReac Type Severity Reaction Status Date / Time codeine Allergy Unknown Verified 10/11/23 12:43 methadone Allergy Unknown Verified 10/11/23 12:43 cephalexin monohydrate * AdvReac Unknown Nausea Verified 10/11/23 12:43 [From Keflex] - Social History Does the pt smoke?: Yes Smoking Status: Current every day smoker Does the pt drink ETOH?: Yes Does the pt have substance abuse?: No - Immunizations Immunizations are current?: Yes - POLST Patient has POLST: No POLST Status: Full Code PD ED PE NORMAL - Vitals Vital signs reviewed: Yes - General General: Alert and oriented X 3, No acute distress, Well developed/nourished - HEENT HEENT: Atraumatic, EOMI, Moist mucous membranes - Neck Neck: Supple, no meningeal sign - Cardiac Cardiac: RRR, No murmur - Respiratory Respiratory: No respiratory distress, Clear bilaterally - Abdomen Abdomen: Soft, Non tender, Non distended - Derm Derm: Normal color, Warm and dry, No rash - Extremities Extremities: No deformity, No edema - Neuro Neuro: Other (Alert, grossly oriented, no gross deficits.) - Psych Psych: Normal mood, Normal affect Results - Vitals Vitals: Vital Signs - 24 hr 10/11/23 10/11/23 12:39 15:04 Temperature 36.4 C L Heart Rate 63 72 Respiratory 18 15 Rate Blood Pressure 150/92 H 147/98 H O2 Saturation 100 98 Oxygen O2 Source Room air - EKG (time done) 1251 EKG releavant findings:: EKG personally interpreted by author of this note. Relevant findings are: Rate: Rate (enter#) (59) Rhythm: NSR [place]: Normal Intervals: Normal [place] QRS: Normal Ischemia: Normal ST segments Compare to prior EKG: Old EKG unavailable Computer interpretation: Agree with computer - Labs Labs: Laboratory Tests 10/11/23 10/11/23 10/11/23 12:50 12:50 14:45 WBC 7.2 RBC 4.82 Hgb 12.4 L Hct 40.6 L MCV 84.2 MCH 25.7 L MCHC 30.5 L RDW 14.5 Plt Count 257 MPV 9.4 Neut # (Auto) 5.1 Lymph # (Auto) 1.2 L [place] # (Auto) 0.7 Eos # (Auto) 0.3 Baso # (Auto) 0.0 Absolute Nucleated RBC 0.00 Nucleated RBC % 0.0 Sodium 136 Potassium 4.6 H Chloride 103 Carbon Dioxide 25 Anion Gap 8.0 BUN 13 Creatinine 1.1 Estimated GFR (MDRD) 69 L Glucose 164 H Calcium 9.4 Total Bilirubin 0.3 AST 13 ALT 11 Alkaline Phosphatase 184 H Troponin I High Sens 4.5 4.5 Total Protein 6.4 Albumin 4.3 Globulin 2.1 Albumin/Globulin Ratio 2.0 Lipase 14 PD Medical Decision Making - ED course Complexity details: reviewed results, re-evaluated patient, considered differential, d/w patient ED course: The patient felt the symptoms were consistent with his previous anxiety attacks but given his high risk history of coronary artery disease plus diabetes, hypertension, and smoking, I feel he should be evaluated for possible acute coronary syndrome, as well. He was worked up with EKG and labs and treated with Ativan and later, some Zofran. Departure - Departure Disposition: Home, Self Care Clinical Impression: Anxiety attack Condition: Stable Instructions: ED Panic Attack Prescriptions: Lorazepam [Ativan] 2 mg PO Q6H PRN #20 tablet PRN Reason: Anxiety Comments: Your EKG and labs look good. We did 2 sets of cardiac enzymes, the chemicals released from your heart when the muscle is damaged, and those look good. A prescription for your antianxiety medication has been electronically transmitted to the [facility] in [place], and you may take this as needed. If you develop severe chest pain or shortness of breath that is persistent, please return to the emergency department. Forms: PCP List
[2023-10-11] MEDS: ONDANSETRON 4 MG/2 ML VIAL IVP STA (13:27)
[2023-10-11] MEDS: LORazepam 2 MG/ML VIAL IVP STA (14:23)
[2023-10-11 15:05] VITALS: BP 147/98; O2SAT 98
== END 2023-10-11 16:00 | disposition home or self-care (01) ==
LOC: ED 12:30
DX: F41.9 Anxiety disorder, unspecified (principal); I10 Essential (primary) hypertension; I25.810 Atherosclerosis of coronary artery bypass graft(s) without angina pectoris; E11.9 Type 2 diabetes mellitus without complications; Z95.1 Presence of aortocoronary bypass graft; I25.2 Old myocardial infarction; F17.200 Nicotine dependence, unspecified, uncomplicated; Z79.02 Long term (current) use of antithrombotics/antiplatelets; Z79.899 Other long term (current) drug therapy; Z79.84 Long term (current) use of oral hypoglycemic drugs
CPT/HCPCS: 36415; 80053; 83690; 84484; 85025; 93005; 96374; 96375; 99284